=== PATIENT | female | born 1995 | race Hispanic/Latino ===

== ENCOUNTER 2017-10-06 07:35 | Inpatient (IN) | payer BC ==
[2017-10-06 07:37] VITALS: BMI 28.3
[2017-10-06] MEDS ORDERED: Oxycodone/Acetaminophen 5/325 mg Tab PO STA (07:54)
--- NOTE | 2017-10-06 08:24 | ED PDOC ---
Lower Extremity Pain/Injury Time Seen by Provider: 10/06/17 07:53 Chief Complaint (Nursing): Lower Extremity Problem/Injury History Per: Patient History/Exam Limitations: no limitations Onset/Duration Of Symptoms: Days (1), Gradual Current Symptoms Are (Timing): Still Present Severity: Moderate Legs Front+Back: 1 - pain rads down to ankle Additional History Per: Patient Additional Complaint(s): Pt. complains of "right ankle pain radiating to nieto that started yesterday after pivoting on a wrong way during [employer] training". no n/t/w. brought in by continuous improvement coach, recent plain flight to [place]. - Ankle/Foot Description Of Injury: Twisted Currently Unable To: Bend Or Move - Risk Factors DVT Risk Factors: Pos: None Past Medical History Reviewed: Historical Data, Nursing Documentation, Vital Signs Vital Signs: Last Vital Signs Temp 99.2 F 10/06/17 07:37 Pulse 82 10/06/17 07:37 Resp 18 10/06/17 07:37 BP 146/85 10/06/17 07:37 Pulse Ox 99 10/06/17 07:37 - Family History Family History: States: Unknown Family Hx - Living Arrangements Living Arrangements: With Family - Social History Current smoker - smoking cessation education provided: No - Allergies Allergies/Adverse Reactions: Allergies Allergy/AdvReac Type Severity Reaction Status Date / Time No Known Allergies Allergy Verified 10/06/17 07:44 Review of Systems ROS Statement: Except As Marked, All Systems Reviewed And Found Negative Constitutional: Negative for: Fever, Chills Cardiovascular: Negative for: Chest Pain, Palpitations Respiratory: Negative for: Cough, Shortness of Breath Gastrointestinal: Negative for: Nausea, Vomiting, Abdominal Pain Musculoskeletal: Positive for: Leg Pain (right) Neurological: Negative for: Weakness, Numbness Physical Exam - Reviewed Nursing Documentation Reviewed: Yes Vital Signs Reviewed: Yes - Physical Exam Appears: Positive for: Uncomfortable (tearfull in pain) Head Exam: Positive for: ATRAUMATIC, NORMAL INSPECTION, NORMOCEPHALIC Eye Exam: Positive for: Normal appearance Neck: Positive for: Normal, Painless ROM, Supple Cardiovascular/Chest: Positive for: Regular Rate, Rhythm, Chest Non Tender. Negative for: Edema, Gallop, Murmur, Bradycardia, Tachycardia Respiratory: Positive for: Normal Breath Sounds. Negative for: Decreased Breath Sounds, Accessory Muscle Use, Crackles, Rales, Rhonchi, Stridor, Wheezing , Respiratory Distress Pulses-Dorsalis Pedis (L): 2+ Pulses-Dorsalis Pedis (R): 2+ Pulses-Post. Tibialis (L): 2+ Pulses-Post. Tibialis (R): 2+ Extremity: Positive for: Normal ROM, Calf Tenderness (mild right), Other (no signs of compartment syncrome, foot nvi, pain with rom, tenderness at right lateral nieto). Negative for: Tenderness, Pedal Edema, Capillary Refill, Deformity, Swelling Neurologic/Psych: Positive for: Alert, emergency medical dispatcher II-XII, Oriented. Negative for: Motor/Sensory Deficits - Laboratory Results Result Diagrams: 10/06/17 10:27 10/06/17 10:27 - ECG O2 Sat by Pulse Oximetry: 99 Pulse Ox Interpretation: Normal - Progress ED Course And Treament: us neg for dvt, pt still has pain mild paresthesias to right leg mild tenderness to left lateral compartment. contacted dr tirado for possible compartment syncrom though rare. tib fib xray 2 views no fx or dislocation right ankle xray 3 views no fx or dislocation mild sts. Re-evaluation Time: 09:30 Condition: Improving,but remains with symptoms Medical Decision Making Medical Decision Making: ed with eugene and asked podiatry to eval, per podiatry no signs of compartment syndrome. pt is comfortable now foot nvi. will admit to fp for rhabdo. Disposition - Clinical Impression Clinical Impression: Rhabdomyolysis - Patient ED Disposition Is Patient to be Admitted: No Counseled Patient/Family Regarding: Studies Performed, Diagnosis, Need For Followup - Disposition Disposition Time: 12:00 Condition: STABLE Forms: Smartpay (Pashto) - Pt Status Changed To: Hospital Disposition Of: Inpatient - Admit Certification Admit to Inpatient:: After my assessment, the patient will require hospitalization for at least two midnights. This is because of the severity of symptoms shown, intensity of services needed, and/or the medical risk in this patient being treated as an outpatient. - POA Present On Arrival: None
--- NOTE | 2017-10-06 09:06 | US ---
PROCEDURE: Right lower extremity venous duplex Doppler. HISTORY: doppler COMPARISON: None available. TECHNIQUE: Common femoral, superficial femoral, popliteal and posterior tibial veins were evaluated. Flow was assessed with color Doppler, compressibility, assessment of phasic flow and augmentation response. FINDINGS: COMMON FEMORAL VEIN: Unremarkable. SUPERFICIAL FEMORAL VEIN: Unremarkable. POPLITEAL VEIN: Unremarkable. POSTERIOR TIBIAL VEIN: Unremarkable. OTHER FINDINGS: None. IMPRESSION: No evidence of deep venous thrombosis in the right lower extremity.
[2017-10-06 10:37] LABS: BASO % 0.3 % (0.0-2.0); EOS % 0.4 % (0.0-4.0); HEMOGLOBIN 12.4 g/dL (12.0-16.0); LYMPH % 16.8 % (20.0-40.0); MEAN CELL VOLUME 89.3 fl (81.0-99.0); MEAN CORPUSCULAR HEMOGLOBIN 30.6 pg (27.0-31.0); MEAN CORPUSCULAR HGB CONC 34.3 g/dL (33.0-37.0); MEAN PLATELET VOLUME 8.7 fl (7.2-11.7); MONO # 0.7 K/uL (0.0-0.8); MONO % 6.1 % (0.0-10.0); NEUT # 9.2 K/uL (1.8-7.0); NEUT % 76.4 % (50.0-75.0); NRBC % 0.1 % (0.0-0.0); RBC 4.04 Mil/uL (3.80-5.20); RED CELL DISTRIBUTION WIDTH 13.4 % (11.5-14.5); WHITE BLOOD COUNT 12.1 K/uL (4.8-10.8)
--- NOTE | 2017-10-06 10:38 | RAD ---
PROCEDURE: Right Ankle Radiographs. HISTORY: Posttraumatic pain COMPARISON: None FINDINGS: BONES: Normal. No fracture. JOINTS: Normal. No osteoarthritis. Ankle mortise maintained. Talar dome intact SOFT TISSUES: Normal. OTHER FINDINGS: None. IMPRESSION: No acute findings related to/accounting for the clinical presentation. Concordant results with the preliminary interpretation rendered by the emergency department physician procedure.
[2017-10-06 11:05] LABS: BLOOD UREA NITROGEN 13 mg/dl (7-17); CALCIUM 9.8 mg/dL (8.4-10.2); GFR AFRICAN-AMERICAN > 60; GFR NON-AFRICAN AMERICAN > 60
[2017-10-06] MEDS ORDERED: Sodium Chloride 0.9% 1,000 ML IV ONE ×2 (11:15→14:36)
--- NOTE | 2017-10-06 12:27 | RAD ---
PROCEDURE: Radiographs of the right tibia and fibula. HISTORY: Trauma COMPARISON: None available. TECHNIQUE: Frontal and lateral views obtained. FINDINGS: BONES: No acute fracture or destructive lesion. JOINT SPACES: Unremarkable. OTHER FINDINGS: None. IMPRESSION: No acute fracture or dislocation.
--- NOTE | 2017-10-06 13:44 | CP.PCM.CON ---
History of Present Illness - History of Present Illness History of Present Illness: Podiatry Consult Note-Dr. Simpson 22 y.o female with no PMH is seen and evaluated in the ED for right lower extremity injury. Patient reports that yesterday she injured her right leg during lacrosse practice. She reports that she pivoted and rolled her ankle in. She states she kept playing and pivoted her ankle again once more. Today, she reports 8/10 pain to the lower right leg. Patient reports that her pain has decreased since medication given in the ED as well as resting the LE. She reports the pain being a combination of pain: sharp with some numbness and tingling at the lower right leg. Patient denies significant pain to the ankle. Her main pain is at the anterior lateral LE. Pain denies pain with calf squeeze. She denies n/v/sob/cp/chills/or d. PMH: none PSH: wisdom tooth removal, ear surgery SH: denies drinking, smoking or illicit drug use MEDS: control ALL: NKDA FH: noncontributory Past Patient History - Past Social History Smoking Status: Never Smoked - PSYCHIATRIC Hx Substance Use: No - SURGICAL HISTORY Hx Surgeries: Yes - ANESTHESIA Hx Anesthesia: Yes Hx Anesthesia Reactions: No Hx Malignant Hyperthermia: No Meds Allergies/Adverse Reactions: Allergies Allergy/AdvReac Type Severity Reaction Status Date / Time No Known Allergies Allergy Verified 10/06/17 07:44 Physical Exam - Constitutional Appears: Well, Non-toxic, No Acute Distress - Extremities Exam Extremities exam: Negative for: calf tenderness Additional comments: Vasc: DP and PT 2/4 bilaterally, CFT < 3 seconds, no edema noted to the LE, temperature gradient WNL, warm to cool Ortho: moderate pain with palpation to the lateral aspect of the lower 1/3 leg, no pain out of palpation to LE during examination to the R LE. Moderate pain with palpation to the peroneals and anterior tibial, mild pain with ATFL and lateral malleolus. Patient unable to dorsiflexion. Patient about to perform eversion MM testing 4/5 with guarding noted to the R. Patient able to wiggle toes. Neuro: gross and protective sensation intact Derm: no open lesions noted, skin color normal, no pallor noted, no ecchymosis noted - Neurological Exam Neurological exam: Alert, Oriented x3 - Psychiatric Exam Psychiatric exam: Normal Affect, Normal Mood Results - Vital Signs Recent Vital Signs: Last Vital Signs Temp 99.2 F 10/06/17 07:37 Pulse 82 10/06/17 07:37 Resp 18 10/06/17 07:37 BP 146/85 10/06/17 07:37 Pulse Ox 99 10/06/17 12:56 - Labs Result Diagrams: 10/06/17 10:27 10/06/17 10:27 Labs: Laboratory Results - last 24 hr 10/06/17 10/06/17 10:27 10:27 WBC 12.1 H RBC 4.04 Hgb 12.4 Hct 36.0 MCV 89.3 MCH 30.6 MCHC 34.3 RDW 13.4 Plt Count 247 MPV 8.7 Neut % (Auto) 76.4 H Lymph % (Auto) 16.8 L [place] % (Auto) 6.1 Eos % (Auto) 0.4 Baso % (Auto) 0.3 Neut # 9.2 H Lymph # 2.0 [place] # 0.7 Eos # 0.0 Baso # 0.0 Sodium 142 Potassium 3.8 Chloride 105 Carbon Dioxide 26 Anion Gap 15 BUN 13 Creatinine 0.9 Est GFR ( Amer) > 60 Est GFR (Non-Af Amer) > 60 Random Glucose 89 Calcium 9.8 Total Creatine Kinase 1203 H Assessment & Plan - Assessment and Plan (Free Text) Assessment: 22 y.o female with no PMH is seen and evaluated in the ED for right lower extremity injury. Plan: Patient examined and evaluated Discussed plan in detail with attending Dr. Simpson Vitals, labs, chart reviewed No suspicion for compartment syndrome at this time Patient right ankle injury consistent with ankle sprain Patient may WBAT in surgical shoe and f/u with Dr. Simpson within 1 week in office upon discharge Patient will need to call for an appointment Thank you for the consult
--- NOTE | 2017-10-06 14:25 | CP.PCM.HP ---
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 Friend present at bedside. Patient reports that she injured her right ankle after "pivoting the wrong way" during lacrosse practice yesterday evening; she continued with practice until she "stepped the wrong way" again and started to experience pain on the outside of the right ankle. Patient was treated by the team dolphin trainer via ice and electrical stimulation. This morning, patient states her right leg began to feel numb, thus was taken to [facility] ED. Currently, patient reports 8/10 pain on the outside of her right nieto and ankle , along with numbness and occasional sensations of pins and needles. No other complaints. Denies nausea, vomiting, fever, chills, dizziness, headache, chest pain, palpitations, abd pain, dysuria. PMHx: unremarkable PSH: none FH: none SH: occasional ETOH, denies tobacco/illicit drug use, student at [employer] Meds: none All: NKDA ED Course VS: 98.0F, IN 82, BP 124/78, RR 16, O2 Sat 100% RA Labs: 12.1>12.4/36.0<247, 142/3.8, 105/26, 13/0.9, glucose 89, CK 1203 RLE venous duplex: Negative for DVT R tib-fib XR: unremarkable R ankle XR: unremarkable Percocet 1 tab PO Toradol 30mg IM NS 1L bolus Present on Admission - Present on Admission Any Indicators Present on Admission: No Review of Systems - Review of Systems All systems: reviewed and no additional remarkable complaints except (as per HPI ) Past Patient History - Past Social History Smoking Status: Never Smoked - PSYCHIATRIC Hx Substance Use: No - SURGICAL HISTORY Hx Surgeries: Yes - ANESTHESIA Hx Anesthesia: Yes Hx Anesthesia Reactions: No Hx Malignant Hyperthermia: No Meds Allergies/Adverse Reactions: Allergies Allergy/AdvReac Type Severity Reaction Status Date / Time No Known Allergies Allergy Verified 10/06/17 07:44 Physical Exam - Constitutional Appears: Well, Non-toxic, No Acute Distress - Head Exam Head Exam: ATRAUMATIC, NORMAL INSPECTION, NORMOCEPHALIC - Eye Exam Eye Exam: EOMI, Normal appearance Pupil Exam: NORMAL ACCOMODATION, PERRL - ENT Exam ENT Exam: Mucous Membranes Moist, Normal Exam - Neck Exam Neck exam: Positive for: Full Rom, Normal Inspection. Negative for: Tenderness - Respiratory Exam Respiratory Exam: Clear to Auscultation Bilateral, NORMAL BREATHING PATTERN. absent: Rales, Rhonchi, Wheezes - Cardiovascular Exam Cardiovascular Exam: REGULAR RHYTHM, RRR, +S1, +S2. absent: Gallop, JVD, Rubs - GI/Abdominal Exam GI & Abdominal Exam: Normal Bowel Sounds, Soft. absent: Tenderness - Extremities Exam Extremities exam: Positive for: joint swelling, normal capillary refill (CFT to right foot digits 1-5 <3 seconds), pedal edema, tenderness, pedal pulses present (Right DP and PT pulses palpable 2/4). Negative for: calf tenderness, full ROM Additional comments: Right DP and PT pulses palpable Pain on palpation right anterior tibia, lateral malleolus, ATFL Muscle strength deferred due to guarding Unable to dorsiflex right ankle joint Paresthesias to right leg lateral compartment and dorsum of right foot - Neurological Exam Neurological exam: Alert, Oriented x3 Additional comments: Light touch sensation diminished to anterior aspect of right leg and dorsum of right foot - Psychiatric Exam Psychiatric exam: Normal Affect, Normal Mood - Skin Skin Exam: Dry, Intact, Normal Color, Warm Results - Vital Signs Recent Vital Signs: Last Vital Signs Temp 99.2 F 10/06/17 07:37 Pulse 82 10/06/17 07:37 Resp 18 10/06/17 07:37 BP 146/85 10/06/17 07:37 Pulse Ox 99 10/06/17 12:56 - Labs Result Diagrams: 10/06/17 10:27 10/06/17 10:27 Labs: Laboratory Results - last 24 hr 10/06/17 10/06/17 10:27 10:27 WBC 12.1 H RBC 4.04 Hgb 12.4 Hct 36.0 MCV 89.3 MCH 30.6 MCHC 34.3 RDW 13.4 Plt Count 247 MPV 8.7 Neut % (Auto) 76.4 H Lymph % (Auto) 16.8 L [place] % (Auto) 6.1 Eos % (Auto) 0.4 Baso % (Auto) 0.3 Neut # 9.2 H Lymph # 2.0 [place] # 0.7 Eos # 0.0 Baso # 0.0 Sodium 142 Potassium 3.8 Chloride 105 Carbon Dioxide 26 Anion Gap 15 BUN 13 Creatinine 0.9 Est GFR ( Amer) > 60 Est GFR (Non-Af Amer) > 60 Random Glucose 89 Calcium 9.8 Total Creatine Kinase 1203 H Assessment & Plan (1) Right leg pain Status: Acute (2) DVT prophylaxis Status: Acute - Assessment and Plan (Free Text) Assessment: 22 year old female unremarkable PMHx presented to ED with right lower extremity pain (1) Right leg pain r/o rhabdomyolysis -Not suspicious of compartment syndrome at this time -RLE venous duplex (10/06/17): Negative for DVT -R tib-fib XR (10/06/17): unremarkable -R ankle XR (10/06/17): unremarkable -CK 1203 @ 10:27 AM - f/u CK @ 16:00 -f/u UA -f/u next day CBC, BMP -NS 1L bolus given in ED, will administer 2nd bolus -IVF NS 200 mls/hr -Pain control: Tylenol 650mg PO, Percocet 1-2 tabs PO -Admit to Med/Surg for observation (2) DVT prophylaxis Lovenox 40mg SC HS
[2017-10-06] MEDS ORDERED: Oxycodone/Acetaminophen 5/325 mg Tab PO PRN (15:19)
[2017-10-06] MEDS: Oxycodone/Acetaminophen 5/325 mg Tab PO PRN ×2 (15:43→20:43)
[2017-10-06] MEDS: Sodium Chloride 0.9% 1,000 ML IV SCH ×2 (17:40→22:55)
[2017-10-06 19:55] LABS: SQUAMOUS EPITHIAL 1 /hpf (0-5); URINE BACTERIA RARE (<OCC); URINE BILIRUBIN NEGATIVE (NEGATIVE); URINE BLOOD NEGATIVE (NEGATIVE); URINE CLARITY CLEAR (Clear); URINE COLOR STRAW (YELLOW); URINE GLUCOSE (UA) NEG (Normal); URINE LEUKOCYTE ESTERASE SMALL Leu/uL (Negative); URINE NITRATE NEGATIVE (NEGATIVE); URINE PROTEIN NEGATIVE (NEGATIVE); URINE UROBILINOGEN 0.2-1.0 mg/dL (0.2-1.0)
[2017-10-06] MEDS ORDERED: Enoxaparin 40 mg Syringe SC SCH (22:00)
[2017-10-07] MEDS: Sodium Chloride 0.9% 1,000 ML IV SCH ×2 (03:39→09:26)
[2017-10-07] MEDS: Oxycodone/Acetaminophen 5/325 mg Tab PO PRN (04:22)
[2017-10-07 07:43] LABS: HEMOGLOBIN 11.6 g/dL (12.0-16.0); MEAN CELL VOLUME 90.3 fl (81.0-99.0); MEAN CORPUSCULAR HEMOGLOBIN 31.2 pg (27.0-31.0); MEAN CORPUSCULAR HGB CONC 34.6 g/dL (33.0-37.0); RBC 3.72 Mil/uL (3.80-5.20); RED CELL DISTRIBUTION WIDTH 13.4 % (11.5-14.5); WHITE BLOOD COUNT 10.5 K/uL (4.8-10.8)
[2017-10-07 08:17] LABS: BLOOD UREA NITROGEN 10 mg/dl (7-17); CALCIUM 8.9 mg/dL (8.4-10.2); GFR AFRICAN-AMERICAN > 60; GFR NON-AFRICAN AMERICAN > 60
[2017-10-07] MEDS ORDERED: Epinephrine /Lidocaine HCL 1:100,000/2% 30 ml INJ ONE (08:45)
[2017-10-07] MEDS ORDERED: Enoxaparin 40 mg Syringe SC SCH (09:00)
[2017-10-07] MEDS ORDERED: Lidocaine 1% Inj (20ml) ONE (09:10)
[2017-10-07] MEDS ORDERED: Lidocaine 1% Inj (20ml) IJ ONE ×2 (09:30→11:30)
[2017-10-07] MEDS ORDERED: Sodium Chloride 0.9% 1,000 ML IV SCH (10:15)
--- NOTE | 2017-10-07 10:50 | CP.PCM.PN ---
Subjective - Date & Time of Evaluation Date of Evaluation: 10/07/17 Time of Evaluation: 07:49 - Subjective Subjective: Family Medicine 22 year old female patient unremarkable PMHx seen and evaluated this AM. Patient endorses continued pain and numbness to her the front and outside of her right lower leg. Pain decreased from yesterday, well-controlled Patient admits to short episode of cramping in her right calf overnight however none currently. Denies nausea, vomiting, fever, chills, headache, dizziness, chest pain, palpitations, abd pain. Objective - Vital Signs/Intake and Output Vital Signs (last 24 hours): Temp Pulse Resp BP Pulse Ox 98.4 F 59 L 20 132/74 100 10/07/17 08:15 10/07/17 08:15 10/07/17 08:15 10/07/17 08:15 10/07/17 08:15 Intake and Output: 10/07/17 10/07/17 06:59 18:59 Intake Total 2760 Balance 2760 - Medications Medications: Current Medications Acetaminophen (Tylenol 325mg Tab) 650 mg PO Q6 PRN PRN Reason: Pain, Mild (1-3) Enoxaparin Sodium (Lovenox) 40 mg SC HS WISAM PRN Reason: Protocol Last Admin: 10/06/17 21:58 Dose: 40 mg Sodium Chloride (Sodium Chloride 0.9%) 1,000 mls @ 200 mls/hr IV .Q5H [facility] Stop: 10/07/17 14:38 Last Admin: 10/07/17 09:26 Dose: 200 mls/hr Sodium Chloride (Sodium Chloride 0.9%) 1,000 mls @ 999 mls/hr IV .Q1H1M [facility] Stop: 10/07/17 12:15 Oxycodone/Acetaminophen (Percocet 5/325 Mg Tab) 1 tab PO Q4 PRN PRN Reason: Pain, moderate (4-7) Stop: 10/09/17 14:27 Last Admin: 10/07/17 04:22 Dose: 1 tab Oxycodone/Acetaminophen (Percocet 5/325 Mg Tab) 2 tab PO Q4 PRN PRN Reason: Pain, severe (8-10) Stop: 10/09/17 15:20 - Labs Labs: 10/07/17 07:20 01/31/18 07:20 - Constitutional Appears: Well, Non-toxic, No Acute Distress - Head Exam Head Exam: ATRAUMATIC, NORMAL INSPECTION, NORMOCEPHALIC - Eye Exam Eye Exam: EOMI, Normal appearance Pupil Exam: NORMAL ACCOMODATION, PERRL - ENT Exam ENT Exam: Mucous Membranes Moist, Normal Exam - Neck Exam Neck Exam: Full ROM, Normal Inspection. absent: Tenderness - Respiratory Exam Respiratory Exam: Clear to Ausculation Bilateral, NORMAL BREATHING PATTERN. absent: Rales, Rhonchi, Wheezes - Cardiovascular Exam Cardiovascular Exam: REGULAR RHYTHM, +S1, +S2 - GI/Abdominal Exam GI & Abdominal Exam: Soft, Normal Bowel Sounds. absent: Tenderness - Extremities Exam Extremities Exam: Pedal Edema, Tenderness. absent: Calf Tenderness, Full ROM Additional comments: Right DP and PT pulses palpable 2/4. CFT <3 seconds to all digits 1-5. Temperature gradient warm to warm from proximal to distal. Paresthesia to right leg lateral compartment and dorsum of right foot. No open lesions noted. No erythema noted. Skin appears well-hydrated. Pain on palpation right anterior tibia, lateral aspect of right lower leg, right ATFL. Unable to dorsiflex right ankle joint. Decrease in eversion/inversion/ plantarflexion. Active digital ROM right foot. - Neurological Exam Neurological Exam: Alert, Awake, Oriented x3 - Psychiatric Exam Psychiatric exam: Anxious - Skin Skin Exam: Dry, Intact, Normal Color, Warm. absent: Erythema, Pallor Assessment and Plan (1) Right leg pain Status: Acute (2) DVT prophylaxis Status: Acute - Assessment and Plan (Free Text) Assessment: 22 year old female unremarkable PMHx admitted for right lower extremity pain with suspected compartment syndrome (1) Compartment Syndrome, right lateral compartment -RLE venous duplex (10/06/17): Negative for DVT -R tib-fib XR (10/06/17): unremarkable -R ankle XR (10/06/17): unremarkable -CK (10/06/17): 1203 @ 10:27 AM, 1304 @ 15:50 - CK (10/07/17) 2985 @ 07:20 -UA (10/06/17) mildly increased WBC -NS 1L bolus given today x2 -IVF NS 200 mls/hr -Pain control: Tylenol 650mg PO, Percocet 1-2 tabs PO -Continued paresthesias to RLE, likely right foot drop -[place] earnestine catheter utilized to confirm suspicion of compartment syndrome ( see procedure note) -Lateral compartment readings: 121mmHg, 131mmHg -Anterior compartment readings: 39mmHg, 40mmHg -STAT MRI ordered, f/u report -Podiatry on-call attending notified -Discussed with Dr. Hightower -Podiatry attending, Dr. Raymundo notified -Patient scheduled for OR today with Dr. Raymundo for fasciotomy right leg; NPO placed -Patient medically optimized for proposed surgical procedure (2) DVT prophylaxis Lovenox 40mg SC HS - last given 10/06 @ 21:58; held today for emergent surgical procedure, podiatry aware
--- NOTE | 2017-10-07 11:24 | CP.PCM.PN ---
Objective - Vital Signs/Intake and Output Vital Signs (last 24 hours): Temp Pulse Resp BP Pulse Ox 98.4 F 59 L 20 132/74 100 10/07/17 08:15 10/07/17 08:15 10/07/17 08:15 10/07/17 08:15 10/07/17 08:15 Intake and Output: 10/07/17 10/07/17 06:59 18:59 Intake Total 2760 Balance 2760 - Medications Medications: Current Medications Acetaminophen (Tylenol 325mg Tab) 650 mg PO Q6 PRN PRN Reason: Pain, Mild (1-3) Enoxaparin Sodium (Lovenox) 40 mg SC HS WISAM PRN Reason: Protocol Last Admin: 10/06/17 21:58 Dose: 40 mg Sodium Chloride (Sodium Chloride 0.9%) 1,000 mls @ 200 mls/hr IV .Q5H [facility] Stop: 10/07/17 14:38 Last Admin: 10/07/17 09:26 Dose: 200 mls/hr Sodium Chloride (Sodium Chloride 0.9%) 1,000 mls @ 999 mls/hr IV .Q1H1M [facility] Stop: 10/07/17 12:15 Oxycodone/Acetaminophen (Percocet 5/325 Mg Tab) 1 tab PO Q4 PRN PRN Reason: Pain, moderate (4-7) Stop: 10/09/17 14:27 Last Admin: 10/07/17 04:22 Dose: 1 tab Oxycodone/Acetaminophen (Percocet 5/325 Mg Tab) 2 tab PO Q4 PRN PRN Reason: Pain, severe (8-10) Stop: 10/09/17 15:20 - Labs Labs: 10/07/17 07:20 10/07/17 07:20 Assessment and Plan (1) Right leg pain Status: Acute (2) DVT prophylaxis Status: Acute
[2017-10-07] MEDS ORDERED: Bupivacaine 0.5% Inj(30mL) ONE (11:40)
--- NOTE | 2017-10-07 13:12 | MRI ---
MRI right lower extremity tibia and fibula History: Leg pain. Evaluate for compartment syndrome. Comparison: None available. Technique: Multi-echo multiplanar sequences were performed through the right lower extremity without the use of intravenous contrast. Findings: Prominent diffuse increased signal on the STIR weighted sequences with some associated patchy increased T1 signal seen throughout the peroneus longus and brevis muscles within the lateral compartment of the lower extremity with associated increased STIR signal fluid surrounding the deep and superficial fascia. These findings would be concerning for a possible acute compartment syndrome of the lateral compartment. Clinical correlation. In addition there are suspected reactive changes with edema noted in the mid leg with the adjacent flexor hallucis longus and to a lesser extent soleus musculature around the peroneus longus muscle. In addition, there are suspected reactive changes with edema noted more superiorly within the adjacent extensor digitorum longus and tibialis anterior muscles. Visualized osseous structures are grossly preserved. Prominent reticulation and edema seen within the lateral soft tissues. Impression: 1. Prominent diffuse increased signal on the STIR weighted sequences with some associated patchy increased T1 signal seen throughout the peroneus longus and brevis muscles within the lateral compartment of the lower extremity with associated increased STIR signal fluid surrounding the deep and superficial fascia. These findings would be concerning for a possible acute compartment syndrome of the lateral compartment. Clinical correlation. 2. In addition there are suspected reactive changes with edema noted in the mid leg with the adjacent flexor hallucis longus and to a lesser extent soleus musculature around the peroneus longus muscle. In addition, there are suspected reactive changes with edema noted more superiorly within the adjacent extensor digitorum longus and tibialis anterior muscles. 3. Prominent reticulation and edema seen within the lateral soft tissues.
[2017-10-07] MEDS ORDERED: Propofol 10 mg/ml Inj (20 ML) ONE (13:20)
[2017-10-07] MEDS ORDERED: Midazolam 2 MG/2 ML VIAL ONE (13:20)
[2017-10-07] MEDS ORDERED: Rocuronium 10 mg/ml (5 ml) ONE (13:20)
[2017-10-07] MEDS ORDERED: Succinylcholine 200 mg/10 ml Inj IV ONE (13:21)
[2017-10-07] MEDS ORDERED: Sodium Chloride 0.9% 1,000 ML IV ONE (13:25)
[2017-10-07] MEDS ORDERED: ceFAZolin 1 GM in Sodium Chloride 0.9% 100 ML IVPB ONE ×2 (13:45→19:33)
[2017-10-07] MEDS ORDERED: Lactated Ringer's 1,000 ML IV ONE ×2 (13:48→14:18)
[2017-10-07] MEDS ORDERED: Thrombin Topical 5,000 Int Units Spray Kit TOP ONE (14:11)
[2017-10-07] MEDS ORDERED: Thrombin Topical 5,000 Int Units Spray Kit ONE (14:11)
[2017-10-07] MEDS ORDERED: Silver Sulfadiazine 1% CREAM (50 gm) ONE (14:15)
[2017-10-07] MEDS ORDERED: Silver Sulfadiazine 1% Cream (20 gm) TOP ONE (14:16)
[2017-10-07] MEDS ORDERED: Cellulose Hemostat 2X3 Sheet TP ONE (14:17)
[2017-10-07] MEDS ORDERED: Lactated Ringer's 1,000 ML IV SCH ×6 (14:30→19:33)
[2017-10-07] MEDS ORDERED: HYDROmorphone 0.5 mg/0.5 ml ISec IVP PRN (14:30)
--- NOTE | 2017-10-07 14:37 | PCM.SURG1 ---
Surgeon's Initial Post Op Note - Surgeon's Notes Surgeon: Dr. Raymundo Drug Abuse Program Coordinator: Dakota Izquierdo PGY3, Jeffery Du PGY3, Carey Ramsey PGY1 Type of Anesthesia: General Endo Anesthesia Administered By: Dr. Cruz Pre-Operative Diagnosis: Right leg compartment syndrome Operative Findings: See operative report. Materials: 3-0 vicryl, thrombin, surgicel Post-Operative Diagnosis: Right leg compartment syndrome Operation Performed: Right leg fasciotomy Specimen/Specimens Removed: Right leg non-viable tissue peroneus longus Estimated Blood Loss: EBL {In ML}: 50 Blood Products Given: N/A Drains Used: No Drains Post-Op Condition: Good Date of Surgery/Procedure: 10/07/17 Time of Surgery/Procedure: 14:38
--- NOTE | 2017-10-07 14:55 | CP.PCM.PCO ---
Physician Communication Note - Physician Communication Note Physician Communication Note: Aracelis Hernandez Addendum Addendum: 10/07/17 14:07 Late Entry from bedside exam at approximately 0800. S: Pt seen and examined at bedside. Complaint of mild pain that was "much better " but unable to dorsiflex foot on examination. O: AVSS GEN- AA&O x3, NAD PULM- CTAB CVS- S1S2, no murmurs noted ABD- soft/NTND MSK- RLE: Pt able to invert, limited eversion, no dorsiflexion, plantar flexion intact, cap refill intact, palpable PT/DP pulses, numbness across superficial peroneal distribution, passive dorsiflexion pt unable to maintain A/P: 22F w/ traumatic RLE injury during [place] with development overnight of complete foot drop and superficial peroneal distribution numbness, suspect compartment syndrome. - Podiatry notified - Pt informed of concerns and asked not to finish breakfast tray. - d/w attending Dr Hightower - Consent for [place] compartment pressures signed at 0910
--- NOTE | 2017-10-07 16:51 | CP.PCM.PCO ---
Assessment/Plan - Assessment and Plan (Free Text) Assessment: Called by educational institution president at 8:35 am today. I agree with checking pressures and ordering an MRI Hx confirmed from patient. " I couldn't sleep all night due to pain " pt had limped to the development trainer's office and the development trainer had called 911 Spoke with patient's parents and development trainer with patient's permission Pressures checked. I was in the room during the signing of the consent and when podiatry checked pressures. Pt made aware of results and possible upcoming surgery I spoke with Dr. De La Cruz at 10:17am after he had spoken to the podiatry resident. He asked for a second opinion from orthopedic surgery Dr. Raymundo was notified and he agreed to evaluate the patient Urine obtained to check for urine which was later negative per nurse Pt sent for MRI and then to the OR.
[2017-10-07 16:59] LABS: HEMOGLOBIN 10.9 g/dL (12.0-16.0); MEAN CELL VOLUME 91.2 fl (81.0-99.0); MEAN CORPUSCULAR HEMOGLOBIN 30.3 pg (27.0-31.0); MEAN CORPUSCULAR HGB CONC 33.2 g/dL (33.0-37.0); RBC 3.6 Mil/uL (3.80-5.20); RED CELL DISTRIBUTION WIDTH 13.3 % (11.5-14.5); WHITE BLOOD COUNT 11.8 K/uL (4.8-10.8)
[2017-10-07 17:23] LABS: BLOOD UREA NITROGEN 9 mg/dl (7-17); CALCIUM 8.9 mg/dL (8.4-10.2); GFR AFRICAN-AMERICAN > 60; GFR NON-AFRICAN AMERICAN > 60
[2017-10-07] MEDS ORDERED: Sodium Bicarbonate 8.4% 50 MEQ in Dextrose 5%/0.45% NS 1,000 ML IV SCH (18:15)
--- NOTE | 2017-10-07 18:25 | CP.PCM.PN ---
Subjective - Date & Time of Evaluation Date of Evaluation: 10/07/17 Time of Evaluation: 08:00 - Subjective Subjective: Podiatry Progress Note -Evaluation at 8am on 10/07/17- Dr. Le 22 y.o female seen at bedside for right lower extremity injury. Patient is laying up in bed comfortably and AA0x3. Patient reports she has the same pain to the right lower leg as yesterday and numbness to the top of her foot. Patient reports that she is still unable to move her ankle up. She denies n/v/ sob/cp/chills/d or f. Reports no problem with voiding. Objective - Vital Signs/Intake and Output Vital Signs (last 24 hours): Temp Pulse Resp BP Pulse Ox 98.9 F 79 18 130/72 100 10/07/17 15:45 10/07/17 15:45 10/07/17 15:45 10/07/17 15:45 10/07/17 15:45 Intake and Output: 10/07/17 10/07/17 06:59 18:59 Intake Total 2760 2300 Balance 2760 2300 - Medications Medications: Current Medications Acetaminophen (Tylenol 325mg Tab) 650 mg PO Q6 PRN PRN Reason: Pain, Mild (1-3) Sodium Bicarbonate 50 meq/ (Dextrose/Sodium Chloride) 1,050 mls @ 250 mls/hr IV .Q4H12M [facility] Stop: 10/10/17 18:16 Lactated Ringer's (Lactated Ringer's) 1,000 mls @ 999 mls/hr IV .Q1H1M [facility] Stop: 10/07/17 20:30 Lactated Ringer's (Lactated Ringer's) 1,000 mls @ 250 mls/hr IV .Q4H [facility] Oxycodone/Acetaminophen (Percocet 5/325 Mg Tab) 1 tab PO Q4 PRN PRN Reason: Pain, moderate (4-7) Stop: 10/09/17 14:27 Last Admin: 10/07/17 04:22 Dose: 1 tab Oxycodone/Acetaminophen (Percocet 5/325 Mg Tab) 2 tab PO Q4 PRN PRN Reason: Pain, severe (8-10) Stop: 10/09/17 15:20 - Labs Labs: 10/07/17 16:41 10/07/17 16:41 - Constitutional Appears: Well, Non-toxic - Extremities Exam Extremities Exam: absent: Calf Tenderness Additional comments: Vasc: DP and PT 2/4 bilaterally, capillary refill time < 3 seconds to the digits , temperature gradient WNL, edema noted to the dorsum of the foot, warm to cool from proximal knees to distal toes Ortho: moderate pain with palpation to the lateral aspect of the lower 1/3 leg, moderate pain with palpation to the peroneals and anterior tibialis, peroneals > anterior tibialis, mild pain with ATFL and lateral malleolus. Patient unable to dorsiflexion ankle. Able to perform ankle plantarflexion ROM. Patient able to wiggle toes. Neuro: gross and protective sensation intact Derm: no open lesions noted, skin color normal, no pallor noted, no ecchymosis noted - Neurological Exam Neurological Exam: Alert, Awake, Oriented x3 - Psychiatric Exam Psychiatric exam: Normal Affect, Normal Mood Assessment and Plan - Assessment and Plan (Free Text) Assessment: 22 y.o female seen at bedside for right lower extremity injury; r/o compartment syndrome. Plan: 10/07/17 (approximately 08:10 AM) Patient examined and evaluated Spoke to family medicine and is suspicious of compartment syndrome Discussed the plan with attending Dr. Le -To perform Wick Catheter to r/o compartment syndrome -To order MRI 10/07/17 (approximately 9:10 AM) -Wick Catheter performed at bedside. -R leg Lateral compartment: Distal readinmmHg Proximal readinmmHg -R leg Anterior compartment readings: 39mmHg, 40mmHg -Blood pressure taken: 139/85 -Positive compartment syndrome for lateral compartment of right leg 10/07/17 (approximately 10:00 AM) -Spoke to Dr. Le. Second opinion requested for further evaluation; consulted attending Dr. Raymundo -Dr. Le agreeable to transfer of care to Dr. Raymundo
[2017-10-07] MEDS ORDERED: Oxycodone/Acetaminophen 5/325 mg Tab PO PRN ×3 (18:29→19:33)
--- NOTE | 2017-10-07 18:33 | CP.CCUPN ---
CCU Subjective - Physician Review Subjective (Free Text): Events reviewed: Discussed with Family Medicine Attending: Patient being transferred to ICU for aggressive IVF hydration; monitoring I/Os and frequent Neurovascular checks of RLE. Bicarbonate added to IVFs and crystalloid fluid components changed from LR to Dextrose/Saline for now; all to promote and maintain urine flow. If needed, and if CK increases further, would not hesitate to increase fluids to 500ml/hr, given she has no cardiopulm issues. BUN/Cr levels presently normal but CK levels have been increasing. Serial CPKs already ordered. Aware post-op Ancef dosing has already been ordered. Other antibiotic coverage as per surgeons and medical team. Consider Orthopedic eval as well.
[2017-10-07] MEDS: Sodium Bicarbonate 8.4% 50 MEQ in Dextrose 5%/0.45% NS 1,000 ML IV SCH (20:00)
[2017-10-07] MEDS ORDERED: ceFAZolin 1 GM in Sodium Chloride 0.9% 100 ML IVPB SCH (21:00)
[2017-10-07] MEDS: ceFAZolin 1 GM in Sodium Chloride 0.9% 100 ML IVPB SCH (21:10)
--- NOTE | 2017-10-08 00:14 | CP.PCM.PN ---
Subjective - Date & Time of Evaluation Date of Evaluation: 10/07/17 Time of Evaluation: 11:30 - Subjective Subjective: Podiatry Progress Note- Dr. Raymundo 22 y.o female seen at bedside sitting comfortably in bed, in NAD, and AA0x3. Patient reports she has the same pain to the right lower leg as yesterday and numbness to the top of her foot. Patient reports that she is unable to move her ankle up. She denies nausea, fever, vomiting, shortness of breath, diarrhea , chills, or chest pains. Objective - Vital Signs/Intake and Output Vital Signs (last 24 hours): Temp Pulse Resp BP Pulse Ox 99.2 F 90 17 133/79 100 10/07/17 19:15 10/07/17 19:15 10/07/17 19:15 10/07/17 19:15 10/07/17 19:15 Intake and Output: 10/07/17 10/08/17 18:59 06:59 Intake Total 2300 100 Balance 2300 100 - Medications Medications: Current Medications Acetaminophen (Tylenol 325mg Tab) 650 mg PO Q6 PRN PRN Reason: Pain, Mild (1-3) Hydromorphone HCl (Dilaudid) 1 mg IVP Q4 PRN PRN Reason: Pain, severe (8-10) Last Admin: 10/07/17 21:08 Dose: 1 mg Sodium Bicarbonate 50 meq/ (Dextrose/Sodium Chloride) 1,050 mls @ 250 mls/hr IV .Q4H12M [facility] Stop: 10/10/17 18:16 Lactated Ringer's (Lactated Ringer's) 1,000 mls @ 250 mls/hr IV .Q4H [facility] Cefazolin Sodium 1 gm/ Sodium (Chloride) 100 mls @ 100 mls/hr IVPB Q12 [facility] PRN Reason: Protocol Last Admin: 10/07/17 21:10 Dose: 100 mls/hr Oxycodone/Acetaminophen (Percocet 5/325 Mg Tab) 2 tab PO Q4 PRN PRN Reason: Pain, severe (8-10) Stop: 10/09/17 15:20 Oxycodone/Acetaminophen (Percocet 5/325 Mg Tab) 2 tab PO Q4 PRN PRN Reason: Pain, moderate (4-7) Stop: 10/09/17 14:27 - Labs Labs: 10/07/17 16:41 10/07/17 16:41 - Constitutional Appears: Well, Non-toxic, No Acute Distress - Extremities Exam Additional comments: Vasc: DP and PT 2/4 bilaterally, capillary refill time < 3 seconds to the digits , temperature gradient WNL, edema noted to the dorsum of the foot, warm to cool from proximal knees to distal toes Ortho: moderate pain with palpation to the lateral aspect of the lower 1/3 leg, moderate pain with palpation to the peroneals and anterior tibialis, peroneals > anterior tibialis, mild pain with ATFL and lateral malleolus. Patient unable to dorsiflexion ankle. Able to perform ankle plantarflexion ROM. Patient able to wiggle toes. Neuro: gross and protective sensation intact Derm: no open lesions noted, skin color normal, no pallor noted, no ecchymosis noted - Neurological Exam Neurological Exam: Alert, Awake, Oriented x3 - Psychiatric Exam Psychiatric exam: Normal Affect, Normal Mood Assessment and Plan - Assessment and Plan (Free Text) Assessment: 22 y.o female with no PMH seen at bedside for right lower extremity injury; r/o right lower extremity compartment syndrome. Plan: -Patient examined by Dr. Raymundo at bedside -Performed Wick Catheter for compartment syndrome -Positive for lateral compartment syndrome -Consented for emergent surgical intervention-right leg fasciotomy -OR notified for an add on for compartment syndrome fasciotomy right leg. -Patient was sent to OR for right leg fasciotomy secondary to right leg compartment syndrome
[2017-10-08] MEDS: Sodium Bicarbonate 8.4% 50 MEQ in Dextrose 5%/0.45% NS 1,000 ML IV SCH ×6 (01:49→23:17)
[2017-10-08 05:13] LABS: HEMOGLOBIN 10.6 g/dL (12.0-16.0); MEAN CELL VOLUME 90.6 fl (81.0-99.0); MEAN CORPUSCULAR HEMOGLOBIN 30.2 pg (27.0-31.0); MEAN CORPUSCULAR HGB CONC 33.3 g/dL (33.0-37.0); RBC 3.49 Mil/uL (3.80-5.20); RED CELL DISTRIBUTION WIDTH 13.2 % (11.5-14.5); WHITE BLOOD COUNT 9.3 K/uL (4.8-10.8)
[2017-10-08 05:25] LABS: BLOOD UREA NITROGEN 6 mg/dl (7-17); CALCIUM 8.3 mg/dL (8.4-10.2); GFR AFRICAN-AMERICAN > 60; GFR NON-AFRICAN AMERICAN > 60
--- NOTE | 2017-10-08 09:38 | CP.PCM.PN ---
Subjective - Date & Time of Evaluation Date of Evaluation: 10/08/17 Time of Evaluation: 06:45 - Subjective Subjective: Tamar Oakley is a pleasant 22 yo F with compartment syndrome of R lower extremity, s/p compartment fasciotomy was seen and examined at beside this AM. She was resting comfortably and reports improvement in pain management as well as with R foot movement and sensation. She denies significant overnight events. Objective - Vital Signs/Intake and Output Vital Signs (last 24 hours): Temp Pulse Resp BP Pulse Ox 98.5 F 66 15 123/63 98 10/08/17 08:00 10/08/17 08:00 10/08/17 08:00 10/08/17 08:00 10/08/17 08:00 Intake and Output: 10/08/17 10/08/17 06:59 18:59 Intake Total 3150 740 Output Total 3000 Balance 150 740 - Medications Medications: Current Medications Acetaminophen (Tylenol 325mg Tab) 650 mg PO Q6 PRN PRN Reason: Pain, Mild (1-3) Hydromorphone HCl (Dilaudid) 1 mg IVP Q4 PRN PRN Reason: Pain, severe (8-10) Last Admin: 10/08/17 05:38 Dose: 1 mg Sodium Bicarbonate 50 meq/ (Dextrose/Sodium Chloride) 1,050 mls @ 250 mls/hr IV .Q4H12M [facility] Stop: 10/10/17 18:16 Last Admin: 10/08/17 05:39 Dose: 250 mls/hr Lactated Ringer's (Lactated Ringer's) 1,000 mls @ 250 mls/hr IV .Q4H [facility] Cefazolin Sodium 1 gm/ Sodium (Chloride) 100 mls @ 100 mls/hr IVPB Q12 [facility] PRN Reason: Protocol Last Admin: 10/07/17 21:10 Dose: 100 mls/hr Oxycodone/Acetaminophen (Percocet 5/325 Mg Tab) 2 tab PO Q4 PRN PRN Reason: Pain, severe (8-10) Stop: 10/09/17 15:20 Oxycodone/Acetaminophen (Percocet 5/325 Mg Tab) 2 tab PO Q4 PRN PRN Reason: Pain, moderate (4-7) Stop: 10/09/17 14:27 - Labs Labs: 10/08/17 04:30 02/01/18 04:30 - Eye Exam Eye Exam: EOMI, Normal appearance - Neck Exam Neck Exam: Full ROM - Respiratory Exam Respiratory Exam: Clear to Ausculation Bilateral, NORMAL BREATHING PATTERN - Cardiovascular Exam Cardiovascular Exam: REGULAR RHYTHM, +S1, +S2 - GI/Abdominal Exam GI & Abdominal Exam: Soft, Normal Bowel Sounds - Extremities Exam Extremities Exam: Normal Capillary Refill, Tenderness. absent: Full ROM Additional comments: R lower extremity currently wrapped in bandage 2/2 compartment fasciotomy. Improved foot inversion and flexion of metatarsals, slight improvement in: eversion, dorsiflexion. Strength approximately 3/5. Capillary refill < 2 seconds. Dorsalis pedis pulses palpable 2+. Sensation intact throughout: plantar , dorsum, lateral, medial, each metatarsal. - Neurological Exam Neurological Exam: Alert, Awake, CN II-XII Intact, Oriented x3. absent: Normal Gait Additional comments: Non amulatory 2/2 compartment fasciotomy. - Psychiatric Exam Psychiatric exam: Normal Affect, Normal Mood - Skin Skin Exam: Dry, Normal Color, Warm Assessment and Plan - Assessment and Plan (Free Text) Plan: 22 yo F hx of compartment syndrome of R lower extremity, s/p compartment fasciotomy 1) Compartment syndrome, R lateral compartment: - Compartment fasciotomy on 10/07/2017; Dr. Raymundo Podiatry; pending further evaluation. - MRI on 10/07/2017: Please refer to extensive report - XR: unremarkable - CK 10/08/2017: @04:00 5012; 10/07/2017: @19:59 5660; @07:59 2985 - UA: 10/08/2017: no wbc - IVF: Sodium Bicarbonate - Pain management: Dilaudid 1 mg IVP q4; Acetaminophen 325 mg q6 - ICU management with Dr. Haas: neurovascular checks q2 - Neurology consulted - ID consulted - PMR consultation recommended 2) DVT prophylaxis - Currently held
[2017-10-08] MEDS: ceFAZolin 1 GM in Sodium Chloride 0.9% 100 ML IVPB SCH ×2 (09:57→20:14)
[2017-10-08 10:05] LABS: SQUAMOUS EPITHIAL < 1 /hpf (0-5); URINE BILIRUBIN NEGATIVE (NEGATIVE); URINE BLOOD NEGATIVE (NEGATIVE); URINE CLARITY CLEAR (Clear); URINE COLOR YELLOW (YELLOW); URINE GLUCOSE (UA) NEG (Normal); URINE LEUKOCYTE ESTERASE NEG Leu/uL (Negative); URINE NITRATE NEGATIVE (NEGATIVE); URINE PROTEIN NEGATIVE (NEGATIVE)
--- NOTE | 2017-10-08 10:44 | CP.CCUPN ---
<Shama Jimenez - Last Filed: 10/08/17 16:06> CCU Subjective - Physician Review Events Since Last Encounter (Free Text): 10/08/17 10:44 No events reported Subjective (Free Text): 10/08/17 10:41 Patient seen and examined with Dinner Cook. Patient awake, alert, and oriented X 3. Patient reports that pain is well controlled and now is 4/10. She states that she has had numbness sensation in her right foot since yesterday after surgery,but feels the same, is not getting worse. Denies chest poain, SOB, N/V, abdominal pain or other complains at this evaluation. Critical Care Time Spent (in minutes): 30 CCU Objective - Vital Signs / Intake & Output Vital Signs (Last 4 hours): Vital Signs Temp Pulse Resp BP Pulse Ox 10/08/17 08:00 98.5 F 66 15 123/63 98 Intake and Output (Last 8hrs): Intake & Output 10/07/17 10/08/17 10/08/17 22:59 06:59 14:59 Intake Total 750 2500 740 Output Total 800 2200 Balance -50 300 740 Weight 170 lb Intake: IV 650 2500 500 Intake, Piggyback 100 Oral 240 Output: Urine 800 2200 Urethral (Duran) 200 2200 Urine, Voided 600 - Physical Exam Extroacular Muscles: Positive for: EOMI Conjunctiva: Positive for: Normal Respiratory/Chest: Positive for: Clear to Auscultation, Good Air Exchange. Negative for: Respiratory Distress, Accessory Muscle Use, Wheezes, Decreased Breath Sounds, Rales, Rhonchi Cardiovascular: Positive for: Regular Rate and Rhythm, Normal S1, S2, Peripheal Pulses Present, Other (slightly decreased right DP pulse) Abdomen: Positive for: Normal Bowel Sounds. Negative for: Tenderness, Distention, Guarding Lower Extremity: Positive for: Other (right leg wrapped by elastic bandage). Negative for: CALF TENDERNESS (in left leg) Skin: Positive for: Warm, Normal Color Psychiatric: Positive for: Alert, Oriented x 3 - Medications Active Medications: Active Medications Generic Name Dose Route Start Last Admin Trade Name Freq PRN Reason Stop Dose Admin Acetaminophen 650 mg 10/07/17 19:33 Tylenol 325mg Tab PO Q6 PRN Pain, Mild (1-3) Hydromorphone HCl 1 mg 10/07/17 19:33 10/08/17 05:38 Dilaudid IVP 1 mg Q4 PRN Administration Pain, severe (8-10) Sodium Bicarbonate 50 meq/ 1,050 mls @ 250 mls/hr 10/07/17 19:33 10/08/17 05: 39 Dextrose/Sodium Chloride IV 10/10/17 18:16 250 mls/hr .Q4H12M [facility] Administration Cefazolin Sodium 1 gm/ Sodium 100 mls @ 100 mls/hr 10/07/17 21:00 10/08/17 09 :57 Chloride IVPB 100 mls/hr Q12 [facility] Administration Protocol Oxycodone/Acetaminophen 2 tab 10/07/17 19:33 Percocet 5/325 Mg Tab PO 10/09/17 15:20 Q4 PRN Pain, severe (8-10) Oxycodone/Acetaminophen 2 tab 10/07/17 19:33 Percocet 5/325 Mg Tab PO 10/09/17 14:27 Q4 PRN Pain, moderate (4-7) - Patient Studies Lab Studies: Lab Studies 10/08/17 10/08/17 10/08/17 Range/Units 09:49 04:30 04:30 WBC 9.3 (4.8-10.8) K/uL RBC 3.49 L (3.80-5.20) Mil/uL Hgb 10.6 L (12.0-16.0) g/dL Hct 31.7 L (34.0-47.0) % MCV 90.6 (81.0-99.0) fl MCH 30.2 (27.0-31.0) pg MCHC 33.3 (33.0-37.0) g/dL RDW 13.2 (11.5-14.5) % Plt Count 203 (130-400) K/uL Sodium 139 (132-148) mmol/l Potassium 3.5 L (3.6-5.0) MMOL/L Chloride 100 (98-107) mmol/L Carbon Dioxide 31 H (22-30) mmol/L Anion Gap 12 (10-20) BUN 6 L (7-17) mg/dl Creatinine 1.0 (0.7-1.2) mg/dl Est GFR ( Amer) > 60 Est GFR (Non-Af Amer) > 60 Random Glucose 148 H (65-105) mg/dL Calcium 8.3 L (8.4-10.2) mg/dL Total Creatine Kinase 5012 H (30-135) U/L Urine Color Yellow (YELLOW) Urine Clarity Clear (Clear) Urine pH 9.0 (5.0-8.0) Ur Specific Priddy 1.010 (1.003-1.030) Urine Protein Negative (NEGATIVE) mg/dL Urine Glucose (UA) Neg (Normal) mg/dL Urine Ketones Negative (NEGATIVE) mg/dL Urine Blood Negative (NEGATIVE) Urine Nitrate Negative (NEGATIVE) Urine Bilirubin Negative (NEGATIVE) Urine Urobilinogen 2.0 H (0.2-1.0) mg/dL Ur Leukocyte Esterase Neg (Negative) Ken/uL Urine RBC (Auto) < 1 (0-3) /hpf Urine Microscopic WBC 1 (0-5) /hpf Ur Squamous Epith Cells < 1 (0-5) /hpf Blood Type Blood Type Confirm Antibody Screen BBK History Checked 10/07/17 10/07/17 10/07/17 Range/Units 16:41 16:41 13:25 WBC 11.8 H (4.8-10.8) K/uL RBC 3.60 L (3.80-5.20) Mil/uL Hgb 10.9 L (12.0-16.0) g/dL Hct 32.8 L (34.0-47.0) % MCV 91.2 (81.0-99.0) fl MCH 30.3 (27.0-31.0) pg MCHC 33.2 (33.0-37.0) g/dL RDW 13.3 (11.5-14.5) % Plt Count 195 (130-400) K/uL Sodium 140 (132-148) mmol/l Potassium 3.9 (3.6-5.0) MMOL/L Chloride 104 (98-107) mmol/L Carbon Dioxide 26 (22-30) mmol/L Anion Gap 14 (10-20) BUN 9 (7-17) mg/dl Creatinine 0.9 (0.7-1.2) mg/dl Est GFR ( Amer) > 60 Est GFR (Non-Af Amer) > 60 Random Glucose 88 (65-105) mg/dL Calcium 8.9 (8.4-10.2) mg/dL Total Creatine Kinase 5660 H (30-135) U/L Urine Color (YELLOW) Urine Clarity (Clear) Urine pH (5.0-8.0) Ur Specific Priddy (1.003-1.030) Urine Protein (NEGATIVE) mg/dL Urine Glucose (UA) (Normal) mg/dL Urine Ketones (NEGATIVE) mg/dL Urine Blood (NEGATIVE) Urine Nitrate (NEGATIVE) Urine Bilirubin (NEGATIVE) Urine Urobilinogen (0.2-1.0) mg/dL Ur Leukocyte Esterase (Negative) Ken/uL Urine RBC (Auto) (0-3) /hpf Urine Microscopic WBC (0-5) /hpf Ur Squamous Epith Cells (0-5) /hpf Blood Type Blood Type Confirm O POSITIVE Antibody Screen BBK History Checked 10/07/17 Range/Units 12:45 WBC (4.8-10.8) K/uL RBC (3.80-5.20) Mil/uL Hgb (12.0-16.0) g/dL Hct (34.0-47.0) % MCV (81.0-99.0) fl MCH (27.0-31.0) pg MCHC (33.0-37.0) g/dL RDW (11.5-14.5) % Plt Count (130-400) K/uL Sodium (132-148) mmol/l Potassium (3.6-5.0) MMOL/L Chloride (98-107) mmol/L Carbon Dioxide (22-30) mmol/L Anion Gap (10-20) BUN (7-17) mg/dl Creatinine (0.7-1.2) mg/dl Est GFR ( Amer) Est GFR (Non-Af Amer) Random Glucose (65-105) mg/dL Calcium (8.4-10.2) mg/dL Total Creatine Kinase (30-135) U/L Urine Color (YELLOW) Urine Clarity (Clear) Urine pH (5.0-8.0) Ur Specific Priddy (1.003-1.030) Urine Protein (NEGATIVE) mg/dL Urine Glucose (UA) (Normal) mg/dL Urine Ketones (NEGATIVE) mg/dL Urine Blood (NEGATIVE) Urine Nitrate (NEGATIVE) Urine Bilirubin (NEGATIVE) Urine Urobilinogen (0.2-1.0) mg/dL Ur Leukocyte Esterase (Negative) Ken/uL Urine RBC (Auto) (0-3) /hpf Urine Microscopic WBC (0-5) /hpf Ur Squamous Epith Cells (0-5) /hpf Blood Type O POSITIVE Blood Type Confirm Antibody Screen Negative BBK History Checked No verified bt Laboratory Results - last 24 hr 10/07/17 10/07/17 10/07/17 12:45 13:25 16:41 WBC 11.8 H RBC 3.60 L Hgb 10.9 L Hct 32.8 L MCV 91.2 MCH 30.3 MCHC 33.2 RDW 13.3 Plt Count 195 Sodium Potassium Chloride Carbon Dioxide Anion Gap BUN Creatinine Est GFR ( Amer) Est GFR (Non-Af Amer) Random Glucose Calcium Total Creatine Kinase Urine Color Urine Clarity Urine pH Ur Specific Priddy Urine Protein Urine Glucose (UA) Urine Ketones Urine Blood Urine Nitrate Urine Bilirubin Urine Urobilinogen Ur Leukocyte Esterase Urine RBC (Auto) Urine Microscopic WBC Ur Squamous Epith Cells Blood Type O POSITIVE Blood Type Confirm O POSITIVE Antibody Screen Negative BBK History Checked No verified bt 10/07/17 10/08/17 10/08/17 16:41 04:30 04:30 WBC 9.3 RBC 3.49 L Hgb 10.6 L Hct 31.7 L MCV 90.6 MCH 30.2 MCHC 33.3 RDW 13.2 Plt Count 203 Sodium 140 139 Potassium 3.9 3.5 L Chloride 104 100 Carbon Dioxide 26 31 H Anion Gap 14 12 BUN 9 6 L Creatinine 0.9 1.0 Est GFR ( Amer) > 60 > 60 Est GFR (Non-Af Amer) > 60 > 60 Random Glucose 88 148 H Calcium 8.9 8.3 L Total Creatine Kinase 5660 H 5012 H Urine Color Urine Clarity Urine pH Ur Specific Priddy Urine Protein Urine Glucose (UA) Urine Ketones Urine Blood Urine Nitrate Urine Bilirubin Urine Urobilinogen Ur Leukocyte Esterase Urine RBC (Auto) Urine Microscopic WBC Ur Squamous Epith Cells Blood Type Blood Type Confirm Antibody Screen BBK History Checked 10/08/17 09:49 WBC RBC Hgb Hct MCV MCH MCHC RDW Plt Count Sodium Potassium Chloride Carbon Dioxide Anion Gap BUN Creatinine Est GFR ( Amer) Est GFR (Non-Af Amer) Random Glucose Calcium Total Creatine Kinase Urine Color Yellow Urine Clarity Clear Urine pH 9.0 Ur Specific Priddy 1.010 Urine Protein Negative Urine Glucose (UA) Neg Urine Ketones Negative Urine Blood Negative Urine Nitrate Negative Urine Bilirubin Negative Urine Urobilinogen 2.0 H Ur Leukocyte Esterase Neg Urine RBC (Auto) < 1 Urine Microscopic WBC 1 Ur Squamous Epith Cells < 1 Blood Type Blood Type Confirm Antibody Screen BBK History Checked Fingerstick Blood Sugar Results: 85 Review of Systems - Review of Systems All systems: reviewed and no additional remarkable complaints except (subjective ) Critical Care Progress Note - Nutrition Nutrition: Nutrition Category Date Time Status Liquid Diet [DIET] Diets 10/07/17 Dinner Active Assessment/Plan - Assessment and Plan (Free Text) Assessment: 22 y/o F with no significant PMHx, with Right lateral compartment syndrome, s/p fasciotomy and Rhabdomyolysis. Plan: Right lateral compartment syndrome, S/p fasciotomy on POD #1 -pain controlled with Dilaudid and Percocet based on pain scale -Podiatry consulted, appreciated recommendations -Neuro and ID consulted by primary team. Appreciated recommendations -c/w Ancef 1 gm Q12 as per primary team -c/w Neuro monitor Q4 -c/w wound care by podiatry Rhabdomyolysis 2/2 Right lateral compartment syndrome -slow improvement -CPK trending down, today 5012 from 5660 -c/w aggressive IV fluids. D5 1/2 NS with 50 meq sod bicar -Urine alkalinization, urine PH today 9 -preserved renal function, BUN/Cr: 6/1.0 -Noted that Cr is trending up -f/u renal function -f/u CPK -f/u electrolytes DVT prophylaxis -Lovenox 40 mg SC - Date & Time Date: 10/08/17 Time: 07:15 <Mendoza Haas - Last Filed: 10/08/17 22:25> CCU Subjective - Physician Review Subjective (Free Text): Attestation: Patient seen and examined at the bedside with Resident Dr. Juju Jimenez; and I agree with her outline of plans and management documented above as discussed on AM rounds reflecting my review of all applicable clinical data, and participation in the care of the patient throughout the day in ICU; October.
[2017-10-08] MEDS ORDERED: Silver Sulfadiazine 1% CREAM (50 gm) TOP STA (12:27)
--- NOTE | 2017-10-08 12:47 | CP.PCM.CON ---
History of Present Illness - History of Present Illness History of Present Illness: Ms. Oakley is a 22-year-old woman with no significant past medical history, who was playing lacrosse 3 days ago, and had twisted her right leg, felt a sharp pain that was sudden 9/10 and in the lateral aspect of the leg. She then attempted to "walk it off", and it felt slightly better, so she continued to play, but then felt the pain again. She went to the customer trainer, who evaluated the leg and iced it. She was able to walk on it at that time and did not have significant weakness. The next morning, the pain was still severe and she developed some numbness in the foot and it became discolored. She went back to the customer trainer, who told her to immediately go to the ED. In the ED, she was evaluated with ultrasound and X-ray and kept overnight since her CK levels were elevated. The leg continued to swell, so pressures were checked and they were extremely elevated. An MRI confirmed compartment syndrome. Review of Systems - Review of Systems All systems: reviewed and no additional remarkable complaints except Past Patient History - Past Medical History & Family History Past Medical History?: No - Past Social History Smoking Status: Never Smoked - CARDIAC Hx Cardiac Disorders: No - PULMONARY Hx Respiratory Disorders: No - NEUROLOGICAL Hx Neurological Disorder: No - HEENT Hx HEENT Problems: No - RENAL Hx Chronic Kidney Disease: No - ENDOCRINE/METABOLIC Hx Endocrine Disorders: No - HEMATOLOGICAL/ONCOLOGICAL Hx Blood Disorders: No Hx AIDS: No Hx Human Immunodeficiency Virus (HIV): No - INTEGUMENTARY Hx Dermatological Problems: No - MUSCULOSKELETAL/RHEUMATOLOGICAL Hx Falls: No - GENITOURINARY/GYNECOLOGICAL Hx Genitourinary Disorders: No - PSYCHIATRIC Hx Substance Use: No - SURGICAL HISTORY Hx Surgeries: Yes - ANESTHESIA Hx Anesthesia: Yes Hx Anesthesia Reactions: No Hx Malignant Hyperthermia: No Meds Allergies/Adverse Reactions: Allergies Allergy/AdvReac Type Severity Reaction Status Date / Time No Known Allergies Allergy Verified 10/06/17 07:44 - Medications Medications: Current Medications Acetaminophen (Tylenol 325mg Tab) 650 mg PO Q6 PRN PRN Reason: Pain, Mild (1-3) Enoxaparin Sodium (Lovenox) 40 mg SC DAILY WISAM PRN Reason: Protocol Hydromorphone HCl (Dilaudid) 1 mg IVP Q4 PRN PRN Reason: Pain, severe (8-10) Last Admin: 10/08/17 11:18 Dose: 1 mg Sodium Bicarbonate 50 meq/ (Dextrose/Sodium Chloride) 1,050 mls @ 250 mls/hr IV .Q4H12M WISAM Stop: 10/10/17 18:16 Last Admin: 10/08/17 11:47 Dose: 250 mls/hr Cefazolin Sodium 1 gm/ Sodium (Chloride) 100 mls @ 100 mls/hr IVPB Q12 WISAM PRN Reason: Protocol Last Admin: 10/08/17 09:57 Dose: 100 mls/hr Oxycodone/Acetaminophen (Percocet 5/325 Mg Tab) 2 tab PO Q4 PRN PRN Reason: Pain, severe (8-10) Stop: 10/09/17 15:20 Oxycodone/Acetaminophen (Percocet 5/325 Mg Tab) 2 tab PO Q4 PRN PRN Reason: Pain, moderate (4-7) Stop: 10/09/17 14:27 Silver Sulfadiazine (Silvadene 1% 50 Gm) 1 applic TOP DAILY STA Stop: 10/08/17 12:28 Physical Exam - Constitutional Appears: Well - Head Exam Head Exam: ATRAUMATIC, NORMAL INSPECTION, NORMOCEPHALIC - Eye Exam Eye Exam: EOMI, Normal appearance, PERRL - ENT Exam ENT Exam: Mucous Membranes Moist, Normal Exam - Neck Exam Neck exam: Positive for: Normal Inspection - Cardiovascular Exam Cardiovascular Exam: REGULAR RHYTHM, +S1, +S2 - GI/Abdominal Exam GI & Abdominal Exam: Normal Bowel Sounds, Soft. absent: Tenderness - Rectal Exam Rectal Exam: Deferred - Neurological Exam Neurological exam: Abnormal Gait, Alert, CN II-XII Intact, Oriented x3 Additional comments: Sensation is diminished in the medial aspect of the foot (saphenous nerve distribution), she has weakness on dorsiflexion and eversion of the right foot ( deep peroneal nerve) Results - Vital Signs Recent Vital Signs: Last Vital Signs Temp 98.5 F 10/08/17 08:00 Pulse 71 10/08/17 10:00 Resp 16 10/08/17 10:00 BP 126/69 10/08/17 10:00 Pulse Ox 98 10/08/17 10:00 - Labs Result Diagrams: 10/08/17 04:30 10/08/17 04:30 Labs: Laboratory Results - last 24 hr 10/07/17 10/07/17 10/07/17 12:45 13:25 16:41 WBC 11.8 H RBC 3.60 L Hgb 10.9 L Hct 32.8 L MCV 91.2 MCH 30.3 MCHC 33.2 RDW 13.3 Plt Count 195 Sodium Potassium Chloride Carbon Dioxide Anion Gap BUN Creatinine Est GFR ( Amer) Est GFR (Non-Af Amer) Random Glucose Calcium Total Creatine Kinase Urine Color Urine Clarity Urine pH Ur Specific [place] Urine Protein Urine Glucose (UA) Urine Ketones Urine Blood Urine Nitrate Urine Bilirubin Urine Urobilinogen Ur Leukocyte Esterase Urine RBC (Auto) Urine Microscopic WBC Ur Squamous Epith Cells Blood Type O POSITIVE Blood Type Confirm O POSITIVE Antibody Screen Negative BBK History Checked No verified bt 10/07/17 10/08/17 10/08/17 16:41 04:30 04:30 WBC 9.3 RBC 3.49 L Hgb 10.6 L Hct 31.7 L MCV 90.6 MCH 30.2 MCHC 33.3 RDW 13.2 Plt Count 203 Sodium 140 139 Potassium 3.9 3.5 L Chloride 104 100 Carbon Dioxide 26 31 H Anion Gap 14 12 BUN 9 6 L Creatinine 0.9 1.0 Est GFR ( Amer) > 60 > 60 Est GFR (Non-Af Amer) > 60 > 60 Random Glucose 88 148 H Calcium 8.9 8.3 L Total Creatine Kinase 5660 H 5012 H Urine Color Urine Clarity Urine pH Ur Specific [place] Urine Protein Urine Glucose (UA) Urine Ketones Urine Blood Urine Nitrate Urine Bilirubin Urine Urobilinogen Ur Leukocyte Esterase Urine RBC (Auto) Urine Microscopic WBC Ur Squamous Epith Cells Blood Type Blood Type Confirm Antibody Screen BBK History Checked 10/08/17 09:49 WBC RBC Hgb Hct MCV MCH MCHC RDW Plt Count Sodium Potassium Chloride Carbon Dioxide Anion Gap BUN Creatinine Est GFR ( Amer) Est GFR (Non-Af Amer) Random Glucose Calcium Total Creatine Kinase Urine Color Yellow Urine Clarity Clear Urine pH 9.0 Ur Specific [place] 1.010 Urine Protein Negative Urine Glucose (UA) Neg Urine Ketones Negative Urine Blood Negative Urine Nitrate Negative Urine Bilirubin Negative Urine Urobilinogen 2.0 H Ur Leukocyte Esterase Neg Urine RBC (Auto) < 1 Urine Microscopic WBC 1 Ur Squamous Epith Cells < 1 Blood Type Blood Type Confirm Antibody Screen BBK History Checked - Imaging and Cardiology MRI of RLE Status: Image reviewed by me, Report reviewed by me Assessment & Plan (1) Compartment syndrome of right lower extremity Assessment and Plan: The patient has difficulty with eversion of the foot and dorsiflexion of the foot on exam. There is numbness to the medial aspect as well. This is most likely due to involvement of the anterior and lateral compartment muscles, but there may be deep peroneal and saphenous nerve damage as well. If the motor and sensory function does not return within the next month, EMG/NCS may be performed for further evaluation. No treatment from a neurological standpoint is recommended at this time. Status: Acute Priority: High
--- NOTE | 2017-10-08 14:59 | CP.PCM.PN ---
Subjective - Date & Time of Evaluation Date of Evaluation: 10/08/17 Time of Evaluation: 14:56 - Subjective Subjective: 22 year old female with no PMHx seen at bedside with attending, Dr. Raymundo one day s/p right leg lateral compartment fasciotomy with near total removal of the peroneus longus muscle. Patient's parents are present with her at bedside. Patient states that her pain today is controlled and rates it at a 4/10. She is AAO x 3 and NAD at time of visit, resting comfortably in bed. Denies any acute overnight events. States that she has remained NWB since surgery. Patient denies any further pedal complaints at this time. Denies any recent N/V/F/C/CP/ SOB/D/posterior calf pain. Objective - Vital Signs/Intake and Output Vital Signs (last 24 hours): Temp Pulse Resp BP Pulse Ox 98.5 F 97 H 16 137/66 97 10/08/17 08:00 10/08/17 12:00 10/08/17 12:00 10/08/17 12:00 10/08/17 12:00 Intake and Output: 10/08/17 10/08/17 06:59 18:59 Intake Total 3150 2200 Output Total 3000 Balance 150 2200 - Medications Medications: Current Medications Acetaminophen (Tylenol 325mg Tab) 650 mg PO Q6 PRN PRN Reason: Pain, Mild (1-3) Enoxaparin Sodium (Lovenox) 40 mg SC DAILY WISAM PRN Reason: Protocol Hydromorphone HCl (Dilaudid) 1 mg IVP Q4 PRN PRN Reason: Pain, severe (8-10) Last Admin: 10/08/17 11:18 Dose: 1 mg Sodium Bicarbonate 50 meq/ (Dextrose/Sodium Chloride) 1,050 mls @ 250 mls/hr IV .Q4H12M WISAM Stop: 10/10/17 18:16 Last Admin: 10/08/17 11:47 Dose: 250 mls/hr Cefazolin Sodium 1 gm/ Sodium (Chloride) 100 mls @ 100 mls/hr IVPB Q12 WISAM PRN Reason: Protocol Last Admin: 10/08/17 09:57 Dose: 100 mls/hr Oxycodone/Acetaminophen (Percocet 5/325 Mg Tab) 2 tab PO Q4 PRN PRN Reason: Pain, severe (8-10) Stop: 10/09/17 15:20 Oxycodone/Acetaminophen (Percocet 5/325 Mg Tab) 2 tab PO Q4 PRN PRN Reason: Pain, moderate (4-7) Stop: 10/09/17 14:27 - Labs Labs: 10/08/17 04:30 10/08/17 04:30 - Constitutional Appears: Well, Non-toxic, No Acute Distress - Extremities Exam Additional comments: RLE focused exam: Dressing to RLE are noted to be clean, dry and intact with no strikethrough noted Vasc: DP/PT pulses 2/4 b/l. Skin temperature warm to warm from proximal to distal. CFT < 3 seconds to all digits. Diffuse edematous changes noted to right leg Neuro: Epicritic and protective sensation intact but diminished Derm: Open surgical incision noted from just proximal to lateral malleolus extending proximally to level just distal to fibular head. Exposed peroneus brevis muscle belly is noted to be dark red/black in appearance with clear necrotic changes noted. Tibialis anterior muscle also exposed. Muscle is noted to be viable, beefy red and healthy in appearance. The surgical site shows no overt signs of clinical infection at this time including no purulent drainage, no malodor, no erythema surrounding surgical site. MSK: Minimal POP noted to surgical site. Patient is able to weakly plantarflex and dorsiflex toes 1-5 of her right foot. Patient is unable to plantarflex or dorsiflex her ankle joint. It is unclear at this time whether this is due to neuropraxic changes or more permanent neurologic damage secondary to the compartment syndrome. Manual muscle strength testing deferred at this time due to postoperative state - Neurological Exam Neurological Exam: Alert, Awake, Oriented x3 - Psychiatric Exam Psychiatric exam: Normal Affect, Normal Mood Assessment and Plan - Assessment and Plan (Free Text) Assessment: 22 year old female with no pertinent past medical history seen at bedside one day s/p lateral leg compartment fasciotomy secondary to compartment syndrome with removal of peroneus longus muscle. Plan: Patient seen and evaluated at bedside with attending Dr. Raymundo Afebrile, absent leukocytosis Continue IV abx per ID (Cefazolin 1 g q12h) Continue pain management (Dilaudid, Percocet) Total Creatine Kinase 5012 from [address] Raymundo. Peroneus brevis muscle belly is noted to be necrotic and nonviable in nature. Tibialis anterior muscle is noted to be viable , beefy, red and healthy looking. Due to necrotic nature of peroneus brevis muscle belly patient will be brought back to OR tomorrow at 12 pm for removal and debridement of all nonviable tissue Lovenox to be held overnight Patient to be NPO past midnight Wound was dressed today with Silvadene, Telfa, gauze, ABD, Kirlix and light RAÚL wrapping. Patient and her family were informed in detail that the future functionality of her foot and leg is still unknown at this time. Possible plastic surgery consult may be required in the future ID consult appreciated Neuro consult appreciated Patient for OR tomorrow at noon for debridement of all nonviable tissue with Dr. Raymundo Podiatry will continue to follow while patient in house
--- NOTE | 2017-10-08 17:18 | CP.PCM.PCO ---
Assessment and Plan - Assessment and Plan (Free Text) Assessment: I saw and evaluated the patient. I discussed the case with the resident and agree with the findings and plan as documented in the resident's note. Met with patient twice I was in the room during Neuro H/P Parents at bedside Family described patient as stoic once broke her clavicle as a child and had very little pain. Pt remembers twisting her ankle then going to see her diabetes trainer / team physician and having ICE and Tens applied. P then limped 0.25 mile home. Pt couldnt sleep all night due to the pain. In the am noted numbness and swelling and returned to the trainers office. Patients toes were blue and diabetes trainer elevated her legs and called 911 and pt was transported to ED Today pt still has pain but controlled with dilaudid Duran placed by nursing due to excessive urination. Small area of erythema noted on heel. Nurse made aware. Heel elevated. Podiatry will order boots I was also in the room when Dr. Raymundo spoke to patient and did dressing changes/ Patient tolerated without difficulty. To OR tomorrow for further resection
--- NOTE | 2017-10-08 20:11 | CP.PCM.CON ---
History of Present Illness - History of Present Illness History of Present Illness: 22-year-old woman with no significant past medical history, who was playing lacrosse 3 days ago, and had twisted her right leg, developed compartment syndrome with necrosis of muscle in lateral aspect of leg Has Rhabdo of a moderate degree Went to OR for relief of swelling and going back in am for further debridement of nonviable tissue Started on empiric IV antibiotics Denies fever chills No previous medical problems or injuries Vaccines reportedly up to date Review of Systems - Review of Systems All systems: reviewed and no additional remarkable complaints except - Constitutional Constitutional: As Per HPI - EENT Eyes: absent: As Per HPI, Blind Spots, Blurred Vision, Change in Vision, Decreased Night Vision, Diplopia, Discharge, Dry Eye, Exophthalmos, Floaters, Irritation, Itchy Eyes, Loss of Peripheral Vision, Pain, Photophobia, Requires Corrective Lenses, Sees Flashes, Spots in Vision, Tunnel Vision, Other Visual Disturbances, Loss of Vision, Other Ears: absent: As Per HPI, Decreased Hearing, Ear Discharge, Ear Pain, Tinnitus, Abnormal Hearing, Disequilibrium, Dizziness, Other Nose/Mouth/Throat: absent: As Per HPI, Epistaxis, Nasal Congestion, Nasal Discharge, Nasal Obstruction, Nasal Trauma, Nose Pain, Post Nasal Drip, Sinus Pain, Sinus Pressure, Bleeding Gums, Change in Voice, Dental Pain, Dry Mouth, Dysphagia, Halitosis, Hoarsness, Lip Swelling, Mouth Lesions, Mouth Pain, Odynophagia, Sore Throat, Throat Swelling, Tongue Swelling, Facial Pain, Neck Pain, Neck Mass, Other - Breasts Breasts: absent: As Per HPI, Change in Shape, Mass, Pain, Nipple Discharge, Nipple Inversion, Skin Changes, Swelling, Other - Cardiovascular Cardiovascular: absent: As Per HPI, Acrocyanosis, Chest Pain, Chest Pain at Rest , Chest Pain with Activity, Claudication, Diaphoresis, Dyspnea, Dyspnea on Exertion, Edema, Irregular Heart Rhythm, Pain Radiating to Arm/Neck/Jaw, Leg Edema, Leg Ulcers, Lightheadedness, Orthopnea, Palpitations, Paroxysmal Nocturnal Dyspnea, Pedal Edema, Radiating Pain, Rapid Heart Rate, Slow Heart Rate, Syncope, Other - Respiratory Respiratory: absent: As Per HPI, Cough, Dyspnea, Hemoptysis, Dyspnea on Exertion , Wheezing, Snoring, Stridor, Pain on Inspiration, Chest Congestion, Excessive Mucous Production, Change in Mucous Color, Pain with Coughing, Other - Gastrointestinal Gastrointestinal: absent: As Per HPI, Abdominal Pain, Belching, Bloating, Change in Bowel Habits, Change in Stool Character, Coffee Ground Emesis, Constipation, Cramping, Diarrhea, Dyspepsia, Dysphagia, Early Satiety, Excessive Flatus, Fecal Incontinence, Heartburn, Hematemesis, Hematochezia, Loose Stools, Melena, Nausea, Odynophagia, Temesmus, Vomiting, Other - Genitourinary Genitourinary: absent: As Per HPI, Change in Urinary Stream, Difficulty Urinating, Dysuria, Flank Pain, Hematuria, Pyuria, Nocturia, Urinary Incontinence, Urinary Frequency, Urinary Hesitance, Urinary Urgency, Voiding Freq/Small Amts, Freq UTI, Hx Renal/Bladder Calculi, Hx /Renal Surgery, Bladder Distension, Other - Reproductive: Female Reproductive:Female: absent: As Per HPI, Amenorrhea, Amenorrhea/ Control, Currently Menstual, Cycle <21 Days, Cycle >35 Days, Cycle Variable, Menses 1-7 Days, Menses >/= 8 Days, Menses Variable, Cycle > 4 Weeks Between, No Menses for 6 Months, Heavy Menses, Light Menses, Normal Menses, Spotting Between Cycles , S/P Hysterectomy, Menopausal, Post Menopausal, Premenarche, Abnormal Vaginal Bleeding, Dysmenorrhea, Dyspareunia, Genital Lesions, Genital Pruritis, Pelvic Pain, Prolapse Symptoms, Sexual Dysfunction, Vaginal Discharge, Vaginal Dryness , Vaginal Odor, Vaginal Pruritis, Other - Menstruation Menstruation: absent: As Per HPI, Amenorrhea, Amenorrhea/ Control, Currently Menstual, Cycle <21 Days, Cycle >35 Days, Cycle Variable, Menses 1-7 Days, Menses >/= 8 Days, Menses Variable, Cycle > 4 Weeks Between, No Menses for 6 Months, Heavy Menses, Light Menses, Normal Menses, Spotting Between Cycles , S/P Hysterectomy, Menopausal, Post Menopausal, Premenarche, Abnormal Vaginal Bleeding, Dysmenorrhea, Other - Musculoskeletal Musculoskeletal: As Per HPI - Integumentary Integumentary: As Per HPI - Neurological Neurological: As Per HPI - Psychiatric Psychiatric: absent: As Per HPI, Abnormal Sleep Pattern, Anhedonia, Anxiety, Auditory Hallucinations, Behavioral Changes, Change in Appetite, Change in Libido, Confusion, Depression, Difficulty Concentrating, Hallucinations, Homicidal Ideation, Hopelessness, Irritability, Memory Loss, Mood Swings, Panic Attacks, Paranoia, Suicidal Ideation, Visual Hallucinations, Tactile Hallucinations, Other - Endocrine Endocrine: absent: As Per HPI, Change in Body Appearance, Change in Libido, Cold Intolorance, Deepening of Voice, Excessive Sweating, Fatigue, Flushing, Heat Intolorance, Increase in Ring/Shoe/Hat Size, Palpitations, Polydipsia, Polyphagia, Polyuria, Other - Hematologic/Lymphatic Hematologic: absent: As Per HPI, Easy Bleeding, Easy Bruising, Lymphadenopathy, Other Past Patient History - Past Medical History & Family History Past Medical History?: No - Past Social History Smoking Status: Never Smoked - CARDIAC Hx Cardiac Disorders: No - PULMONARY Hx Respiratory Disorders: No - NEUROLOGICAL Hx Neurological Disorder: No - HEENT Hx HEENT Problems: No - RENAL Hx Chronic Kidney Disease: No - ENDOCRINE/METABOLIC Hx Endocrine Disorders: No - HEMATOLOGICAL/ONCOLOGICAL Hx Blood Disorders: No Hx AIDS: No Hx Human Immunodeficiency Virus (HIV): No - INTEGUMENTARY Hx Dermatological Problems: No - MUSCULOSKELETAL/RHEUMATOLOGICAL Hx Falls: No - GENITOURINARY/GYNECOLOGICAL Hx Genitourinary Disorders: No - PSYCHIATRIC Hx Substance Use: No - SURGICAL HISTORY Hx Surgeries: Yes - ANESTHESIA Hx Anesthesia: Yes Hx Anesthesia Reactions: No Hx Malignant Hyperthermia: No Meds Allergies/Adverse Reactions: Allergies Allergy/AdvReac Type Severity Reaction Status Date / Time No Known Allergies Allergy Verified 10/06/17 07:44 - Medications Medications: Current Medications Acetaminophen (Tylenol 325mg Tab) 650 mg PO Q6 PRN PRN Reason: Pain, Mild (1-3) Enoxaparin Sodium (Lovenox) 40 mg SC DAILY WISAM PRN Reason: Protocol Hydromorphone HCl (Dilaudid) 1 mg IVP Q4 PRN PRN Reason: Pain, severe (8-10) Last Admin: 10/08/17 17:25 Dose: 1 mg Sodium Bicarbonate 50 meq/ (Dextrose/Sodium Chloride) 1,050 mls @ 250 mls/hr IV .Q4H12M WISAM Stop: 10/10/17 18:16 Last Admin: 10/08/17 17:08 Dose: 250 mls/hr Cefazolin Sodium 1 gm/ Sodium (Chloride) 100 mls @ 100 mls/hr IVPB Q12 WISAM PRN Reason: Protocol Last Admin: 10/08/17 09:57 Dose: 100 mls/hr Oxycodone/Acetaminophen (Percocet 5/325 Mg Tab) 2 tab PO Q4 PRN PRN Reason: Pain, severe (8-10) Stop: 10/09/17 15:20 Oxycodone/Acetaminophen (Percocet 5/325 Mg Tab) 2 tab PO Q4 PRN PRN Reason: Pain, moderate (4-7) Stop: 10/09/17 14:27 Physical Exam - Constitutional Appears: Non-toxic, No Acute Distress - Head Exam Head Exam: NORMOCEPHALIC - Eye Exam Eye Exam: PERRL. absent: Scleral icterus - ENT Exam ENT Exam: Mucous Membranes Dry, Normal External Ear Exam - Neck Exam Neck exam: Negative for: Lymphadenopathy - Respiratory Exam Respiratory Exam: Decreased Breath Sounds, Clear to Auscultation Bilateral - Cardiovascular Exam Cardiovascular Exam: REGULAR RHYTHM, +S1, +S2 - GI/Abdominal Exam GI & Abdominal Exam: Diminished Bowel Sounds, Soft. absent: Tenderness - Rectal Exam Rectal Exam: Deferred - Exam Exam: NORMAL INSPECTION - Extremities Exam Extremities exam: Positive for: calf tenderness, normal capillary refill, pedal edema, tenderness, pedal pulses present. Negative for: normal inspection - Back Exam Back exam: absent: CVA tenderness (L), CVA tenderness (R) - Neurological Exam Neurological exam: Alert, CN II-XII Intact, Oriented x3, Reflexes Normal - Psychiatric Exam Psychiatric exam: Normal Mood - Skin Skin Exam: Dry Results - Vital Signs Recent Vital Signs: Last Vital Signs Temp 98.1 F 10/08/17 16:00 Pulse 106 H 10/08/17 18:00 Resp 16 10/08/17 18:00 BP 123/71 10/08/17 18:00 Pulse Ox 97 10/08/17 18:00 - Labs Result Diagrams: 10/08/17 04:30 10/08/17 04:30 Labs: Laboratory Results - last 24 hr 10/08/17 10/08/17 10/08/17 04:30 04:30 09:49 WBC 9.3 RBC 3.49 L Hgb 10.6 L Hct 31.7 L MCV 90.6 MCH 30.2 MCHC 33.3 RDW 13.2 Plt Count 203 Sodium 139 Potassium 3.5 L Chloride 100 Carbon Dioxide 31 H Anion Gap 12 BUN 6 L Creatinine 1.0 Est GFR ( Amer) > 60 Est GFR (Non-Af Amer) > 60 Random Glucose 148 H Calcium 8.3 L Total Creatine Kinase 5012 H Urine Color Yellow Urine Clarity Clear Urine pH 9.0 Ur Specific [place] 1.010 Urine Protein Negative Urine Glucose (UA) Neg Urine Ketones Negative Urine Blood Negative Urine Nitrate Negative Urine Bilirubin Negative Urine Urobilinogen 2.0 H Ur Leukocyte Esterase Neg Urine RBC (Auto) < 1 Urine Microscopic WBC 1 Ur Squamous Epith Cells < 1 Assessment & Plan (1) Compartment syndrome of right lower extremity Status: Acute Priority: High (2) Rhabdomyolysis Status: Acute - Assessment and Plan (Free Text) Assessment: cont empiric IV rx and wound care
--- NOTE | 2017-10-08 23:45 | OP ---
PROCEDURE DATE: 10/07/2017 PREOPERATIVE DIAGNOSIS: Right leg compartment syndrome. POSTOPERATIVE DIAGNOSIS: Right leg compartment syndrome. PROCEDURE PERFORMED: Right leg emergent fasciotomy of anterior and lateral compartments and excisional debridement of non-viable soft tissue/muscle. SURGEON: Joseph Raymundo DPM BENEFIT AUTHORIZER: Dakota Izquierdo DPM, PGY3, Jeffery Du DPM, PGY3, and Carey Ramsey DPM, PGY1. ANESTHESIOLOGIST: Migel Cruz MD TYPE OF ANESTHESIA: General. INDICATIONS: This patient is a 22-year-old female with the aforementioned diagnosis. The patient suffered a right leg injury 2 days prior to surgical intervention and she presented to the [facility] Emergency Room yesterday morning. After measuring bedside compartment pressures, it was noted that the lateral and anterior compartments of her right leg were elevated. It was then determined with the patient that emergent right leg fasciotomies were warranted and indicated. In addition, an MRI of the right lower extremity confirmed the diagnosis. All alternatives, benefits, complications, and risks of surgical procedure were explained to the patient at length including, but not limited to permanent right lower extremity deformity, muscle and nerve dysfunction, and possible limb loss. The patient verbalized understanding and wished to proceed. All questions were addressed and answered. No guarantees were given nor implied. The consent was signed and the n.p.o. status was confirmed prior to bringing the patient to the operating room. OPERATIVE PROCEDURE: The patient was brought into the operating room and placed on the operating room table in supine position. A pneumatic thigh tourniquet was placed around the patient's right thigh, but not inflated. After general anesthesia was achieved, the right lower extremity was prepped and draped in the normal sterile manner and the procedure began. DESCRIPTION OF PROCEDURE: Right leg emergent fasciotomy of anterior and lateral compartments and excisional debridement of non-viable soft tissue/muscle. Attention was directed to the anterolateral aspect to the patient's right leg where a linear incision was made with a 15 blade measuring approximately 30cm in length and made approximately 10 cm medial to the fibula. The incision was deepened through the superficial and subcutaneous tissues utilizing sharp and blunt dissection. Care was taken to retract all vital superficial nerves throughout the duration of the procedure. All superficial bleeding vessels were cauterized utilizing electrocautery. The dissection was then carried down to the level of the deep fascia overlying the anterior and lateral compartments. It was noted that at this time that there was immense amount of pressure and tension within the lateral compartment of the leg. At this time, a blunt dissecting scissor was utilized to perform a fasciotomy of the deep fascia underlying the lateral compartment of the leg. As soon as the fasciotomy was performed, it was noted that there was extravasation of the underlying muscle belly as well as hematoma. The incision was carried distally and the hematoma was evacuated. Upon further inspection of the muscle belly, it was noted that the peroneus longus muscle belly was dusky in coloration and did not contract upon electrical stimulation. The underlying peroneal muscle belly was also dusky in color, but appeared more viable than the peroneus longus muscle belly in color, however, it also did not contract upon electrical stimulation. Upon further evacuation of all visible hematoma, it was noted that the peroneus longus muscle belly was very friable and contained no viable portion. The surgical area was then flushed with copious amounts of sterile normal saline. At this time, all nonviable portions of the peroneus longus muscle belly were excisionally debrided with a blunt dissecting scissor and pickup, and passed from the surgical field to the back table to be sent to pathology. During excision, care was taken to avoid all major neurovascular structures. The distal tendinous portion of the peroneus longus muscle was then tacked to the underlying peroneus brevis utilizing 2-0 Vicryl suture so that an attempt to save some function of the peroneus longus muscle could be performed at a later stage. The surgical area was then again flushed with copious amounts of sterile normal saline. Attention was then directed to the anterior compartment of the leg where again a blunt dissecting scissor was utilized to perform a fasciotomy of the deep fascia overlying the anterior compartment. It was noted upon performing the fasciotomy of the anterior compartment that the muscles did not protrude through the fascia as the lateral compartment did and the tension on the anterior compartment was significantly less compared to the lateral compartment. Also, after visualizing the underlying muscle bellies, it was noted that the anterior compartment muscle bellies were healthy in appearance with a firm consistency and did contract upon electrical stimulation. The muscle bellies were then flushed with copious amounts of sterile normal saline. The incisions were then left open for a staged closure and repeat assessment of muscle viability. Topical thrombin was applied to surgical area to promote hemostasis of the superficial bleeding vessels. The surgical area was then packed with Surgicel and dressed with Silvadene, Tefla, saline-soaked gauze, DSD, ABD pads, Kerlix, and Jonhny bandages. POSTOPERATIVE CONDITION: The patient tolerated the procedure and anesthesia well. The patient was transported from the OR to the Recovery Room with vascular status intact to the right foot. The patient will remain hospitalized and closely monitored with the intention of returning to the OR for further debridement and possible primary closure. Dakota Izquierdo DPM Joseph Raymundo DPM PAULA
[2017-10-09] MEDS: Sodium Bicarbonate 8.4% 50 MEQ in Dextrose 5%/0.45% NS 1,000 ML IV SCH ×2 (03:47→05:30)
[2017-10-09 06:04] LABS: HEMOGLOBIN 10.3 g/dL (12.0-16.0); MEAN CELL VOLUME 89.8 fl (81.0-99.0); MEAN CORPUSCULAR HEMOGLOBIN 31.1 pg (27.0-31.0); MEAN CORPUSCULAR HGB CONC 34.7 g/dL (33.0-37.0); RBC 3.3 Mil/uL (3.80-5.20); RED CELL DISTRIBUTION WIDTH 12.9 % (11.5-14.5); WHITE BLOOD COUNT 9.7 K/uL (4.8-10.8)
[2017-10-09 06:06] LABS: INR 1.3 (0.9-1.2); PARTIAL THROMBOPLASTIN TIME 27.6 Seconds (25.6-37.1)
[2017-10-09 06:16] LABS: BLOOD UREA NITROGEN 4 mg/dl (7-17); CALCIUM 8.2 mg/dL (8.4-10.2); GFR AFRICAN-AMERICAN > 60; GFR NON-AFRICAN AMERICAN > 60
[2017-10-09] MEDS ORDERED: Potassium Chloride 20 mEq/15 ml LIQ UD PO ONE (06:27)
[2017-10-09] MEDS ORDERED: Potassium CL 10 MEQ/50 ML 50 ML IVPB SCH (07:00)
--- NOTE | 2017-10-09 07:47 | CP.CCUPN ---
<Shama Jimenez - Last Filed: 10/09/17 15:43> CCU Subjective - Physician Review Subjective (Free Text): Patient seen and examined with Street Sweeper. Patient was awake, alert, and oriented X 3 at the time of evaluation. Patient reports that pain is well controlled with current pain medications, and now is less than 4/10. She states that she has had numbness sensation in her right foot ,but feels the same, is not getting worse. Still can not dorsiflexion and plantar flexion her right foot. Has been NPO after midnight for OR today at 12 pm by Podiatry team for debridement of all non viable tissue. Denies chest pain, SOB, N/V, abdominal pain or other complains at this evaluation. No events overnight. CCU Objective - Vital Signs / Intake & Output Vital Signs (Last 4 hours): Vital Signs Temp Pulse Resp BP Pulse Ox 10/09/17 06:00 79 14 119/73 97 10/09/17 04:00 99.1 F 97 H 15 114/44 L 96 Intake and Output (Last 8hrs): Intake & Output 10/08/17 10/09/17 10/09/17 22:59 06:59 14:59 Intake Total 2090 2000 Output Total 2700 600 Balance -610 1400 Intake: IV 1750 2000 Intake, Piggyback 100 Oral 240 Output: Urine 2700 600 Urethral (Duran) 600 Urine, Voided 2100 600 - Physical Exam Extroacular Muscles: Positive for: EOMI Conjunctiva: Positive for: Normal Respiratory/Chest: Positive for: Clear to Auscultation, Good Air Exchange. Negative for: Respiratory Distress, Accessory Muscle Use, Wheezes, Decreased Breath Sounds, Rales, Rhonchi Cardiovascular: Positive for: Regular Rate and Rhythm, Normal S1, S2, Peripheal Pulses Present, Other (slightly decreased right DP pulse) Abdomen: Positive for: Normal Bowel Sounds. Negative for: Tenderness, Distention, Guarding Lower Extremity: Positive for: Other (right leg wrapped by elastic bandage). Negative for: CALF TENDERNESS (in left leg) Skin: Positive for: Warm, Normal Color Psychiatric: Positive for: Alert, Oriented x 3 - Medications Active Medications: Active Medications Generic Name Dose Route Start Last Admin Trade Name Freq PRN Reason Stop Dose Admin Acetaminophen 650 mg 10/07/17 19:33 Tylenol 325mg Tab PO Q6 PRN Pain, Mild (1-3) Hydromorphone HCl 1 mg 10/07/17 19:33 10/09/17 02:46 Dilaudid IVP 1 mg Q4 PRN Administration Pain, severe (8-10) Sodium Bicarbonate 50 meq/ 1,050 mls @ 250 mls/hr 10/07/17 19:33 10/09/17 05: 30 Dextrose/Sodium Chloride IV 10/10/17 18:16 Not Given .Q4H12M WISAM Cefazolin Sodium 1 gm/ Sodium 100 mls @ 100 mls/hr 10/07/17 21:00 10/08/17 20 :14 Chloride IVPB 100 mls/hr Q12 WISAM Administration Protocol Potassium Chloride 50 mls @ 50 mls/hr 10/09/17 07:00 10/09/17 07:09 Potassium Cl 10meq/50ml Sterile Water IVPB 10/09/17 09:59 50 mls/hr Q1 WISAM Administration Oxycodone/Acetaminophen 2 tab 10/07/17 19:33 Percocet 5/325 Mg Tab PO 10/09/17 15:20 Q4 PRN Pain, severe (8-10) Oxycodone/Acetaminophen 2 tab 10/07/17 19:33 Percocet 5/325 Mg Tab PO 10/09/17 14:27 Q4 PRN Pain, moderate (4-7) - Patient Studies Lab Studies: Lab Studies 10/09/17 10/09/17 10/09/17 Range/Units 04:44 04:44 04:44 WBC 9.7 (4.8-10.8) K/uL RBC 3.30 L (3.80-5.20) Mil/uL Hgb 10.3 L (12.0-16.0) g/dL Hct 29.7 L (34.0-47.0) % MCV 89.8 (81.0-99.0) fl MCH 31.1 H (27.0-31.0) pg MCHC 34.7 (33.0-37.0) g/dL RDW 12.9 (11.5-14.5) % Plt Count 201 (130-400) K/uL PT 14.0 H (9.8-13.1) Seconds INR 1.3 H (0.9-1.2) APTT 27.6 (25.6-37.1) Seconds Sodium 137 (132-148) mmol/l Potassium 3.3 L (3.6-5.0) MMOL/L Chloride 101 (98-107) mmol/L Carbon Dioxide 30 (22-30) mmol/L Anion Gap 9 L (10-20) BUN 4 L (7-17) mg/dl Creatinine 0.8 (0.7-1.2) mg/dl Est GFR ( Amer) > 60 Est GFR (Non-Af Amer) > 60 Random Glucose 133 H (65-105) mg/dL Calcium 8.2 L (8.4-10.2) mg/dL Phosphorus Cancelled Magnesium Cancelled Total Creatine Kinase 1407 H (30-135) U/L Urine Color (YELLOW) Urine Clarity (Clear) Urine pH (5.0-8.0) Ur Specific [place] (1.003-1.030) Urine Protein (NEGATIVE) mg/dL Urine Glucose (UA) (Normal) mg/dL Urine Ketones (NEGATIVE) mg/dL Urine Blood (NEGATIVE) Urine Nitrate (NEGATIVE) Urine Bilirubin (NEGATIVE) Urine Urobilinogen (0.2-1.0) mg/dL Ur Leukocyte Esterase (Negative) Ken/uL Urine RBC (Auto) (0-3) /hpf Urine Microscopic WBC (0-5) /hpf Ur Squamous Epith Cells (0-5) /hpf 10/08/17 Range/Units 09:49 WBC (4.8-10.8) K/uL RBC (3.80-5.20) Mil/uL Hgb (12.0-16.0) g/dL Hct (34.0-47.0) % MCV (81.0-99.0) fl MCH (27.0-31.0) pg MCHC (33.0-37.0) g/dL RDW (11.5-14.5) % Plt Count (130-400) K/uL PT (9.8-13.1) Seconds INR (0.9-1.2) APTT (25.6-37.1) Seconds Sodium (132-148) mmol/l Potassium (3.6-5.0) MMOL/L Chloride (98-107) mmol/L Carbon Dioxide (22-30) mmol/L Anion Gap (10-20) BUN (7-17) mg/dl Creatinine (0.7-1.2) mg/dl Est GFR ( Amer) Est GFR (Non-Af Amer) Random Glucose (65-105) mg/dL Calcium (8.4-10.2) mg/dL Phosphorus Magnesium Total Creatine Kinase (30-135) U/L Urine Color Yellow (YELLOW) Urine Clarity Clear (Clear) Urine pH 9.0 (5.0-8.0) Ur Specific [place] 1.010 (1.003-1.030) Urine Protein Negative (NEGATIVE) mg/dL Urine Glucose (UA) Neg (Normal) mg/dL Urine Ketones Negative (NEGATIVE) mg/dL Urine Blood Negative (NEGATIVE) Urine Nitrate Negative (NEGATIVE) Urine Bilirubin Negative (NEGATIVE) Urine Urobilinogen 2.0 H (0.2-1.0) mg/dL Ur Leukocyte Esterase Neg (Negative) Ken/uL Urine RBC (Auto) < 1 (0-3) /hpf Urine Microscopic WBC 1 (0-5) /hpf Ur Squamous Epith Cells < 1 (0-5) /hpf Laboratory Results - last 24 hr 10/08/17 10/09/17 10/09/17 09:49 04:44 04:44 WBC 9.7 RBC 3.30 L Hgb 10.3 L Hct 29.7 L MCV 89.8 MCH 31.1 H MCHC 34.7 RDW 12.9 Plt Count 201 PT INR APTT Sodium 137 Potassium 3.3 L Chloride 101 Carbon Dioxide 30 Anion Gap 9 L BUN 4 L Creatinine 0.8 Est GFR ( Amer) > 60 Est GFR (Non-Af Amer) > 60 Random Glucose 133 H Calcium 8.2 L Phosphorus Cancelled Magnesium Cancelled Total Creatine Kinase 1407 H Urine Color Yellow Urine Clarity Clear Urine pH 9.0 Ur Specific [place] 1.010 Urine Protein Negative Urine Glucose (UA) Neg Urine Ketones Negative Urine Blood Negative Urine Nitrate Negative Urine Bilirubin Negative Urine Urobilinogen 2.0 H Ur Leukocyte Esterase Neg Urine RBC (Auto) < 1 Urine Microscopic WBC 1 Ur Squamous Epith Cells < 1 10/09/17 04:44 WBC RBC Hgb Hct MCV MCH MCHC RDW Plt Count PT 14.0 H INR 1.3 H APTT 27.6 Sodium Potassium Chloride Carbon Dioxide Anion Gap BUN Creatinine Est GFR ( Amer) Est GFR (Non-Af Amer) Random Glucose Calcium Phosphorus Magnesium Total Creatine Kinase Urine Color Urine Clarity Urine pH Ur Specific [place] Urine Protein Urine Glucose (UA) Urine Ketones Urine Blood Urine Nitrate Urine Bilirubin Urine Urobilinogen Ur Leukocyte Esterase Urine RBC (Auto) Urine Microscopic WBC Ur Squamous Epith Cells Fingerstick Blood Sugar Results: 85 Review of Systems - Review of Systems All systems: reviewed and no additional remarkable complaints except Critical Care Progress Note - Nutrition Nutrition: Nutrition Category Date Time Status NPO Diet [DIET] Diets 10/09/17 Breakfast Active Assessment/Plan - Assessment and Plan (Free Text) Assessment: 22 y/o F with no significant PMHx, with Right lateral compartment syndrome, s/p fasciotomy and Rhabdomyolysis. Plan: Right lateral compartment syndrome, S/p fasciotomy on POD #2 -NPO after midnight for OR today at 12 pm by podiatry team for debridement of nonviable tissue -pain controlled with Dilaudid and Percocet based on pain scale -Podiatry consulted, appreciated recommendations -Neuro and ID consulted by primary team. Appreciated recommendations -c/w Ancef 1 gm Q12 as per ID -c/w Neuro monitor Q4 -c/w wound care by podiatry Rhabdomyolysis 2/2 Right lateral compartment syndrome -significantly improved -CPK trending down, today 1407 ( yesterday 5660) -c/wIV fluids. -Urine alkalinization, urine PH today 8 -preserved renal function WNL, BUN/Cr: 4/0.8 today -f/u renal function -f/u CPK -f/u electrolytes Hypokalemia -mild, K+ 3.3 today -replace potassium -f/u potassium in BMP Cardiac murmur -will consider echo DVT prophylaxis -Held Lovenox 40 mg SC because OR today at 12 pm - Date & Time Date: 10/09/17 Time: 07:10 <Mendoza Haas - Last Filed: 10/09/17 16:46> CCU Subjective - Physician Review Subjective (Free Text): Attestation: Patient seen and examined at the bedside with Resident Dr. Juju Jimenez; and I agree with her outline of plans and management documented above as discussed on AM rounds reflecting my review of all applicable clinical data, and participation in the care of the patient throughout the day in ICU; October.
[2017-10-09 07:48] LABS: MAGNESIUM 1.7 MG/DL (1.6-2.3)
[2017-10-09 07:52] LABS: SQUAMOUS EPITHIAL 5 /hpf (0-5); URINE BACTERIA RARE (<OCC); URINE BILIRUBIN NEGATIVE (NEGATIVE); URINE BLOOD NEGATIVE (NEGATIVE); URINE CLARITY SLIGHTY-CLOUDY (Clear); URINE COLOR STRAW (YELLOW); URINE GLUCOSE (UA) NEG (Normal); URINE LEUKOCYTE ESTERASE LARGE Leu/uL (Negative); URINE NITRATE NEGATIVE (NEGATIVE); URINE PROTEIN NEGATIVE (NEGATIVE); URINE UROBILINOGEN 0.2-1.0 mg/dL (0.2-1.0)
--- NOTE | 2017-10-09 08:28 | CP.PCM.PN ---
Subjective - Date & Time of Evaluation Date of Evaluation: 10/09/17 Time of Evaluation: 08:00 - Subjective Subjective: Tamar Oakley is a pleasant 22 yo F with compartment syndrome of R lower extremity POD 2, s/p compartment fasciotomy was seen and examined at beside this AM. She was resting comfortably, awaiting follow up surgery to resect and debridement of necrotic tissue. Reports adequate pain management. Objective - Vital Signs/Intake and Output Vital Signs (last 24 hours): Temp Pulse Resp BP Pulse Ox 98.0 F 84 16 119/60 97 10/09/17 07:46 10/09/17 07:46 10/09/17 07:46 10/09/17 07:46 10/09/17 07:46 Intake and Output: 10/09/17 10/09/17 06:59 18:59 Intake Total 2850 500 Output Total 900 500 Balance 1950 0 - Medications Medications: Current Medications Acetaminophen (Tylenol 325mg Tab) 650 mg PO Q6 PRN PRN Reason: Pain, Mild (1-3) Hydromorphone HCl (Dilaudid) 1 mg IVP Q4 PRN PRN Reason: Pain, severe (8-10) Last Admin: 10/09/17 08:01 Dose: 1 mg Cefazolin Sodium 1 gm/ Sodium (Chloride) 100 mls @ 100 mls/hr IVPB Q12 WISAM PRN Reason: Protocol Last Admin: 10/08/17 20:14 Dose: 100 mls/hr Potassium Chloride/Dextrose/Sod Cl (Potassium Chl 40 Meq In D5-1/2ns) 1,000 mls @ 200 mls/hr IV .Q5H WISAM Stop: 10/10/17 08:17 Oxycodone/Acetaminophen (Percocet 5/325 Mg Tab) 2 tab PO Q4 PRN PRN Reason: Pain, severe (8-10) Stop: 10/09/17 15:20 Oxycodone/Acetaminophen (Percocet 5/325 Mg Tab) 2 tab PO Q4 PRN PRN Reason: Pain, moderate (4-7) Stop: 10/09/17 14:27 - Labs Labs: 10/09/17 04:44 10/09/17 04:44 PT 14.0 Seconds (9.8-13.1) H 10/09/17 04:44 INR 1.3 (0.9-1.2) H 10/09/17 04:44 APTT 27.6 Seconds (25.6-37.1) 10/09/17 04:44 - Constitutional Appears: Well, No Acute Distress - Head Exam Head Exam: NORMAL INSPECTION - Eye Exam Eye Exam: EOMI, Normal appearance - Neck Exam Neck Exam: Full ROM - Respiratory Exam Respiratory Exam: Clear to Ausculation Bilateral, NORMAL BREATHING PATTERN - Cardiovascular Exam Cardiovascular Exam: REGULAR RHYTHM, +S1, +S2 - GI/Abdominal Exam GI & Abdominal Exam: Soft, Normal Bowel Sounds - Extremities Exam Additional comments: R lower extremity currently wrapped in bandage 2/2 compartment fasciotomy. Improved foot inversion and flexion of metatarsals, slight improvement in: eversion, dorsiflexion. Strength approximately 3/5. Capillary refill < 2 seconds. Dorsalis pedis pulses palpable 2+. Sensation intact throughout: plantar , dorsum, lateral, medial, each metatarsal. - Neurological Exam Neurological Exam: Alert, Awake, CN II-XII Intact, Oriented x3 - Psychiatric Exam Psychiatric exam: Normal Affect, Normal Mood Assessment and Plan - Assessment and Plan (Free Text) Plan: 22 yo F hx of compartment syndrome of R lower extremity, s/p lateral compartment fasciotomy 1) Compartment syndrome, R lateral compartment: POD2 - R lateral Compartment fasciotomy on 10/07/2017; Dr. Raymundo Podiatry; plan for surgery at 12:00 for removal and debridement of necrotic peroneus brevis muscle belly. - MRI on 10/07/2017: Please refer to extensive report - XR: unremarkable - CK 10/09/2017: 1407; 10/08/2017: @04:00 5012; 10/07/2017: @19:59 5660; @07:59 2985; - UA: 10/08/2017: no wbc - IVF: Potassium Chl 40 mEq in D5-1/2 - Pain management: Dilaudid 1 mg IVP q4; Acetaminophen 325 mg q6 - ICU management with Dr. Haas: neurovascular checks q2 - Neurology consulted: Dr. Quintero: if motor/sensory doesnt return in 1 month may require EMG/NCS - Neurosurgery consulted by Dr. Raymundo - ID consulted: Continue with Cefazolin 1g q 12 - PMR/PT consultation recommended 2) Hypokalemia - 10/09/2017: 3.3 - IVF changed to Potassium Chl 40 mEq in D5-09/08 - Pending consult with Anesthesia prior to surgery. - f/u K level 3) Cardiac Murmur -Consider echo 4) DVT prophylaxis - Currently held; surgery planned for 12:00 - NPO
[2017-10-09] MEDS: Potassium Chl 40 mEq in D5-1/2 1,000 ML IV SCH ×3 (08:51→21:30)
[2017-10-09] MEDS: ceFAZolin 1 GM in Sodium Chloride 0.9% 100 ML IVPB SCH (08:52)
[2017-10-09] MEDS ORDERED: Enoxaparin 40 mg Syringe SC SCH (09:00)
--- NOTE | 2017-10-09 10:10 | CP.PCM.PN ---
Subjective - Date & Time of Evaluation Date of Evaluation: 10/09/17 Time of Evaluation: 10:06 - Subjective Subjective: 22 year old female with no PMHx seen at bedside two days s/p right leg lateral compartment fasciotomy with near total removal of the peroneus longus muscle. Patient states that her pain today is controlled and rates it at a 4/10. She is AAO x 3 and NAD at time of visit, resting comfortably in bed. Denies any acute overnight events. States that she has remained NWB since surgery. Patient denies any further pedal complaints at this time. Patient is aware that she will be taken back to OR today at noon for further debridement of peroneus brevis muscle. Patient states that she has been NPO since last night. Denies any recent N/V/F/C/CP/SOB/D/posterior calf pain. Objective - Vital Signs/Intake and Output Vital Signs (last 24 hours): Temp Pulse Resp BP Pulse Ox 98.0 F 65 16 107/49 L 98 10/09/17 07:46 10/09/17 09:59 10/09/17 09:59 10/09/17 09:59 10/09/17 09:59 Intake and Output: 10/09/17 10/09/17 06:59 18:59 Intake Total 2850 1000 Output Total 900 500 Balance 1950 500 - Medications Medications: Current Medications Acetaminophen (Tylenol 325mg Tab) 650 mg PO Q6 PRN PRN Reason: Pain, Mild (1-3) Hydromorphone HCl (Dilaudid) 1 mg IVP Q4 PRN PRN Reason: Pain, severe (8-10) Last Admin: 10/09/17 08:01 Dose: 1 mg Cefazolin Sodium 1 gm/ Sodium (Chloride) 100 mls @ 100 mls/hr IVPB Q12 IWSAM PRN Reason: Protocol Last Admin: 10/09/17 08:52 Dose: 100 mls/hr Potassium Chloride/Dextrose/Sod Cl (Potassium Chl 40 Meq In D5-1/2ns) 1,000 mls @ 200 mls/hr IV .Q5H WISAM Stop: 10/10/17 08:17 Last Admin: 10/09/17 08:51 Dose: 200 mls/hr Oxycodone/Acetaminophen (Percocet 5/325 Mg Tab) 2 tab PO Q4 PRN PRN Reason: Pain, severe (8-10) Stop: 10/09/17 15:20 Oxycodone/Acetaminophen (Percocet 5/325 Mg Tab) 2 tab PO Q4 PRN PRN Reason: Pain, moderate (4-7) Stop: 10/09/17 14:27 - Labs Labs: 10/09/17 04:44 10/09/17 04:44 PT 14.0 Seconds (9.8-13.1) H 10/09/17 04:44 INR 1.3 (0.9-1.2) H 10/09/17 04:44 APTT 27.6 Seconds (25.6-37.1) 10/09/17 04:44 - Constitutional Appears: Well, Non-toxic, No Acute Distress - Extremities Exam Additional comments: Dressings intact to RLE Strikethrough bleeding noted proximally Dressing not taken down at this time Vasc: CFT to all digits less than three seconds. Toes and foot warm to touch Neuro: Dorsal foot epicritic and protective sensation absent except for toes. Epicritic and protective sensation to lateral, medial and plantar foot intact Derm: Dressings left intact MSK: Patient able to wiggle all toes without pain but unable to dorsiflex or plantarflex foot at ankle joint - Neurological Exam Neurological Exam: Alert, Awake, Oriented x3 - Psychiatric Exam Psychiatric exam: Normal Affect, Normal Mood Assessment and Plan - Assessment and Plan (Free Text) Assessment: 22 year old female with no pertinent past medical history seen at bedside two days s/p lateral right leg compartment fasciotomy secondary to compartment syndrome with removal of peroneus longus muscle. Patient to OR today for further debridement of peroneus brevis muscle Plan: Patient seen and evaluated at bedside Plan discussed with attending Dr. Raymundo Afebrile, absent leukocytosis Continue IV abx per ID Continue pain management Patient for OR today with Dr. Raymundo for debridement of necrotic peroneus brevis muscle Patient has been NPO since last night No anticoagulation given at this time Podiatry will continue to follow postoperatively
--- NOTE | 2017-10-09 11:16 | CP.PCM.CON ---
History of Present Illness - History of Present Illness History of Present Illness: This patient who is 22 years of age female I was consulted to see for rhabdomyolysis. Patient apparently was playing lacrosse when she twisted the right leg and shortly after that she developed pain and subsequently ended up with compartment syndrome require to go for surgery i. it was noted that CPK has gone up in the range of 5000+ And the patient has no significant past medical history No nausea no vomiting no diarrhea PMHx: unremarkable PSH: none FH: none SH: occasional ETOH, denies tobacco/illicit drug use, student at [employer]: none All: NKDA Review of Systems - Constitutional Constitutional: absent: As Per HPI, Anorexia, Chills, Daytime Sleepiness, Excessive Sweating, Fatigue, Fever, Frequent Falls, Headache, Increased Appetite , Lethargy, Malaise, Night Sweats, Snoring, Sleep Apnea, Weight Gain, Weight Loss, Weakness, Other - EENT Eyes: absent: Blurred Vision, Irritation, Itchy Eyes Nose/Mouth/Throat: absent: Epistaxis - Breasts Breasts: As Per HPI - Cardiovascular Cardiovascular: absent: As Per HPI, Acrocyanosis, Chest Pain, Chest Pain at Rest , Chest Pain with Activity, Claudication, Diaphoresis, Dyspnea, Dyspnea on Exertion, Edema, Irregular Heart Rhythm, Pain Radiating to Arm/Neck/Jaw, Leg Edema, Leg Ulcers, Lightheadedness, Orthopnea, Palpitations, Paroxysmal Nocturnal Dyspnea, Pedal Edema, Radiating Pain, Rapid Heart Rate, Slow Heart Rate, Syncope, Other - Respiratory Respiratory: absent: As Per HPI, Cough, Dyspnea, Hemoptysis, Dyspnea on Exertion , Wheezing, Snoring, Stridor, Pain on Inspiration, Chest Congestion, Excessive Mucous Production, Change in Mucous Color, Pain with Coughing, Other - Gastrointestinal Gastrointestinal: absent: As Per HPI, Abdominal Pain, Belching, Bloating, Change in Bowel Habits, Change in Stool Character, Coffee Ground Emesis, Constipation, Cramping, Diarrhea, Dyspepsia, Dysphagia, Early Satiety, Excessive Flatus, Fecal Incontinence, Heartburn, Hematemesis, Hematochezia, Loose Stools, Melena, Nausea, Odynophagia, Temesmus, Vomiting, Other - Genitourinary Genitourinary: absent: Dysuria, Pyuria, Nocturia, Urinary Incontinence, Urinary Frequency - Reproductive: Female Reproductive:Female: As Per HPI - Menstruation Menstruation: As Per HPI - Musculoskeletal Musculoskeletal: As Per HPI - Integumentary Integumentary: absent: Acne, Alopecia - Neurological Neurological: As Per HPI - Psychiatric Psychiatric: absent: Anhedonia, Anxiety, Irritability - Hematologic/Lymphatic Hematologic: absent: Easy Bleeding Past Patient History - Past Medical History & Family History Past Medical History?: No - Past Social History Smoking Status: Never Smoked - CARDIAC Hx Cardiac Disorders: No - PULMONARY Hx Respiratory Disorders: No - NEUROLOGICAL Hx Neurological Disorder: No - HEENT Hx HEENT Problems: No - RENAL Hx Chronic Kidney Disease: No - ENDOCRINE/METABOLIC Hx Endocrine Disorders: No - HEMATOLOGICAL/ONCOLOGICAL Hx Blood Disorders: No Hx AIDS: No Hx Human Immunodeficiency Virus (HIV): No - INTEGUMENTARY Hx Dermatological Problems: No - MUSCULOSKELETAL/RHEUMATOLOGICAL Hx Falls: No - GENITOURINARY/GYNECOLOGICAL Hx Genitourinary Disorders: No - PSYCHIATRIC Hx Substance Use: No - SURGICAL HISTORY Hx Surgeries: Yes - ANESTHESIA Hx Anesthesia: Yes Hx Anesthesia Reactions: No Hx Malignant Hyperthermia: No Meds Allergies/Adverse Reactions: Allergies Allergy/AdvReac Type Severity Reaction Status Date / Time No Known Allergies Allergy Verified 10/06/17 07:44 - Medications Medications: Current Medications Acetaminophen (Tylenol 325mg Tab) 650 mg PO Q6 PRN PRN Reason: Pain, Mild (1-3) Hydromorphone HCl (Dilaudid) 1 mg IVP Q4 PRN PRN Reason: Pain, severe (8-10) Last Admin: 10/09/17 08:01 Dose: 1 mg Cefazolin Sodium 1 gm/ Sodium (Chloride) 100 mls @ 100 mls/hr IVPB Q12 [facility] PRN Reason: Protocol Last Admin: 10/09/17 08:52 Dose: 100 mls/hr Potassium Chloride/Dextrose/Sod Cl (Potassium Chl 40 Meq In D5-1/2ns) 1,000 mls @ 200 mls/hr IV .Q5H [facility] Stop: 10/10/17 08:17 Last Admin: 10/09/17 08:51 Dose: 200 mls/hr Oxycodone/Acetaminophen (Percocet 5/325 Mg Tab) 2 tab PO Q4 PRN PRN Reason: Pain, severe (8-10) Stop: 10/09/17 15:20 Oxycodone/Acetaminophen (Percocet 5/325 Mg Tab) 2 tab PO Q4 PRN PRN Reason: Pain, moderate (4-7) Stop: 10/09/17 14:27 Physical Exam - Constitutional Appears: No Acute Distress - ENT Exam ENT Exam: Mucous Membranes Moist - Neck Exam Neck exam: Negative for: Lymphadenopathy - Respiratory Exam Respiratory Exam: NORMAL BREATHING PATTERN. absent: Chest Wall Tenderness, Rales, Rhonchi, Wheezes - Cardiovascular Exam Cardiovascular Exam: REGULAR RHYTHM. absent: Gallop, JVD, Rubs - GI/Abdominal Exam GI & Abdominal Exam: Normal Bowel Sounds. absent: Distended, Guarding - Back Exam Back exam: absent: CVA tenderness (L), CVA tenderness (R) - Neurological Exam Neurological exam: Alert - Psychiatric Exam Psychiatric exam: Normal Affect Results - Vital Signs Recent Vital Signs: Last Vital Signs Temp 98.0 F 10/09/17 07:46 Pulse 65 10/09/17 09:59 Resp 16 10/09/17 09:59 BP 107/49 L 10/09/17 09:59 Pulse Ox 98 10/09/17 09:59 - Labs Result Diagrams: 10/09/17 04:44 10/09/17 04:44 Labs: Laboratory Results - last 24 hr 10/09/17 10/09/17 10/09/17 04:44 04:44 04:44 WBC 9.7 RBC 3.30 L Hgb 10.3 L Hct 29.7 L MCV 89.8 MCH 31.1 H MCHC 34.7 RDW 12.9 Plt Count 201 PT 14.0 H INR 1.3 H APTT 27.6 Sodium 137 Potassium 3.3 L Chloride 101 Carbon Dioxide 30 Anion Gap 9 L BUN 4 L Creatinine 0.8 Est GFR ( Amer) > 60 Est GFR (Non-Af Amer) > 60 Random Glucose 133 H Calcium 8.2 L Phosphorus Cancelled Magnesium Cancelled Total Creatine Kinase 1407 H Urine Color Urine Clarity Urine pH Ur Specific [place] Urine Protein Urine Glucose (UA) Urine Ketones Urine Blood Urine Nitrate Urine Bilirubin Urine Urobilinogen Ur Leukocyte Esterase Urine RBC (Auto) Urine Microscopic WBC Ur Squamous Epith Cells Urine Bacteria 10/09/17 10/09/17 07:20 07:20 WBC RBC Hgb Hct MCV MCH MCHC RDW Plt Count PT INR APTT Sodium Potassium Chloride Carbon Dioxide Anion Gap BUN Creatinine Est GFR ( Amer) Est GFR (Non-Af Amer) Random Glucose Calcium Phosphorus 3.6 Magnesium 1.7 Total Creatine Kinase Urine Color Straw Urine Clarity Slighty-cloudy Urine pH 8.0 Ur Specific [place] 1.006 Urine Protein Negative Urine Glucose (UA) Neg Urine Ketones Negative Urine Blood Negative Urine Nitrate Negative Urine Bilirubin Negative Urine Urobilinogen 0.2-1.0 Ur Leukocyte Esterase Large Urine RBC (Auto) 10 H Urine Microscopic WBC 20 H Ur Squamous Epith Cells 5 Urine Bacteria Rare Assessment & Plan (1) Compartment syndrome of right lower extremity Status: Acute Priority: High (2) Rhabdomyolysis Assessment and Plan: Patient admitted with right lower leg compartment syndrome require to go through surgery Rhabdomyolysis as a result of the above. Continue IV fluid patient improving CPK came down from 5000+ to about 1400+ Spot urine for myoglobin Patient noted to be slightly hypokalemic patient given potassium chloride. Patient has normal kidney function. Status: Acute (3) Right leg pain Status: Acute
[2017-10-09] MEDS ORDERED: Sodium Chloride 0.9% 1,000 ML IV SCH (12:00)
[2017-10-09] MEDS ORDERED: Propofol 10 mg/ml Inj (20 ML) ONE (12:21)
[2017-10-09] MEDS ORDERED: Midazolam 2 MG/2 ML VIAL ONE (12:22)
[2017-10-09] MEDS ORDERED: Lactated Ringer's 1,000 ML IV ONE ×2 (12:26→13:30)
[2017-10-09] MEDS ORDERED: Silver Sulfadiazine 1% CREAM (50 gm) ONE (12:36)
[2017-10-09] MEDS ORDERED: Lidocaine 2% MPF (5 ml) Inj ONE (12:38)
[2017-10-09] MEDS ORDERED: Silver Sulfadiazine 1% Cream (20 gm) TOP ONE (13:59)
--- NOTE | 2017-10-09 14:04 | CP.PCM.PN ---
Subjective - Date & Time of Evaluation Date of Evaluation: 10/09/17 Time of Evaluation: 07:00 - Subjective Subjective: going to OR renal on board await OR cultures Objective - Vital Signs/Intake and Output Vital Signs (last 24 hours): Temp Pulse Resp BP Pulse Ox 98.0 F 65 16 107/49 L 98 10/09/17 07:46 10/09/17 09:59 10/09/17 09:59 10/09/17 09:59 10/09/17 09:59 Intake and Output: 10/09/17 10/09/17 06:59 18:59 Intake Total 2850 2900 Output Total 900 1000 Balance 1950 1900 - Medications Medications: Current Medications Acetaminophen (Tylenol 325mg Tab) 650 mg PO Q6 PRN PRN Reason: Pain, Mild (1-3) Hydromorphone HCl (Dilaudid) 1 mg IVP Q4 PRN PRN Reason: Pain, severe (8-10) Last Admin: 10/09/17 08:01 Dose: 1 mg Cefazolin Sodium 1 gm/ Sodium (Chloride) 100 mls @ 100 mls/hr IVPB Q12 [facility]AM PRN Reason: Protocol Last Admin: 10/09/17 08:52 Dose: 100 mls/hr Potassium Chloride/Dextrose/Sod Cl (Potassium Chl 40 Meq In D5-1/2ns) 1,000 mls @ 200 mls/hr IV .Q5H [facility] Stop: 10/10/17 08:17 Last Admin: 10/09/17 08:51 Dose: 200 mls/hr Sodium Chloride (Sodium Chloride 0.9%) 1,000 mls @ 0 mls/hr IV .Q0M [facility] PRN Reason: Per Protocol Stop: 10/10/17 11:59 Oxycodone/Acetaminophen (Percocet 5/325 Mg Tab) 2 tab PO Q4 PRN PRN Reason: Pain, severe (8-10) Stop: 10/09/17 15:20 Oxycodone/Acetaminophen (Percocet 5/325 Mg Tab) 2 tab PO Q4 PRN PRN Reason: Pain, moderate (4-7) Stop: 10/09/17 14:27 - Labs Labs: 10/09/17 04:44 10/09/17 04:44 PT 14.0 Seconds (9.8-13.1) H 10/09/17 04:44 INR 1.3 (0.9-1.2) H 10/09/17 04:44 APTT 27.6 Seconds (25.6-37.1) 10/09/17 04:44 - Constitutional Appears: Non-toxic, Chronically Ill - Head Exam Head Exam: NORMOCEPHALIC - Eye Exam Eye Exam: PERRL - ENT Exam ENT Exam: Mucous Membranes Dry - Neck Exam Neck Exam: absent: Lymphadenopathy - Respiratory Exam Respiratory Exam: Decreased Breath Sounds - Cardiovascular Exam Cardiovascular Exam: REGULAR RHYTHM - GI/Abdominal Exam GI & Abdominal Exam: Distended, Soft Assessment and Plan (1) Compartment syndrome of right lower extremity Status: Acute (2) Rhabdomyolysis Status: Acute - Assessment and Plan (Free Text) Assessment: cont rx IV rx renewed
--- NOTE | 2017-10-09 14:31 | PCM.SURG1 ---
Surgeon's Initial Post Op Note - Surgeon's Notes Surgeon: Dr. Raymundo Stress Engineer: Dr. Izquierdo, PGY-3; Dr. Perez, PGY-2; Dr. Ramsey, PGY-1 Type of Anesthesia: General Endo Pre-Operative Diagnosis: Right leg necrotic soft tissue/muscle secondary to compartment syndrome Operative Findings: see dictation. M: 0 prolene suture Post-Operative Diagnosis: Right leg necrotic soft tissue/muscle secondary to compartment syndrome Operation Performed: Right leg excisional debridement of necrotic soft tissue/ muscle and irrigation Specimen/Specimens Removed: Right leg necrotic peroneus brevis muscle Estimated Blood Loss: EBL {In ML}: 15 Blood Products Given: N/A Drains Used: No Drains Post-Op Condition: Good Date of Surgery/Procedure: 10/09/17 Time of Surgery/Procedure: 13:00
[2017-10-09] MEDS: Piperacillin/Tazobact 3.375 GM in Sodium Chloride 0.9% 100 ML IVPB SCH (16:00)
--- NOTE | 2017-10-09 19:19 | CP.PCM.PCO ---
Addendum Addendum: 10/09/17 19:14 Patient seen and examined bedside after coming for OR. Patient reports feeling well now. Denies pain now but reports that pain has been every 3 hours during the day and controlled with medications. Patient just finished her dinner. denies fever, chest pain, sob. Patient able to move the tips of the right foot. Right leg with soft cast below the knee. sensation intact. reports occs numbness. A: Right leg compartment syndrome. s/p lateral compartment fasciotomy s/p OR second time for resect and debridement of necrotic tissue P: c/w Hydration, pain medication -f/u CBC,BMP,CK in the morning
[2017-10-10] MEDS: Piperacillin/Tazobact 3.375 GM in Sodium Chloride 0.9% 100 ML IVPB SCH ×3 (00:06→16:49)
[2017-10-10] MEDS: Potassium Chl 40 mEq in D5-1/2 1,000 ML IV SCH (02:54)
[2017-10-10 06:05] LABS: BASO % 0.4 % (0.0-2.0); EOS # 0.2 K/uL (0.0-0.7); EOS % 2.3 % (0.0-4.0); HEMOGLOBIN 9.1 g/dL (12.0-16.0); LYMPH # 1.3 K/uL (1.0-4.3); LYMPH % 13.4 % (20.0-40.0); MEAN CELL VOLUME 91.5 fl (81.0-99.0); MEAN CORPUSCULAR HEMOGLOBIN 30.7 pg (27.0-31.0); MEAN CORPUSCULAR HGB CONC 33.6 g/dL (33.0-37.0); MEAN PLATELET VOLUME 9.5 fl (7.2-11.7); MONO # 0.9 K/uL (0.0-0.8); MONO % 9.8 % (0.0-10.0); NEUT % 74.1 % (50.0-75.0); RBC 2.97 Mil/uL (3.80-5.20); RED CELL DISTRIBUTION WIDTH 13.2 % (11.5-14.5); WHITE BLOOD COUNT 9.4 K/uL (4.8-10.8)
[2017-10-10 06:22] LABS: BLOOD UREA NITROGEN 5 mg/dl (7-17); CALCIUM 8.2 mg/dL (8.4-10.2); GFR AFRICAN-AMERICAN > 60; GFR NON-AFRICAN AMERICAN > 60
[2017-10-10] MEDS: Sodium Chloride 0.9% 1,000 ML IV SCH ×2 (09:04→16:48)
[2017-10-10] MEDS: Silver Sulfadiazine 1% CREAM (50 gm) TOP SCH (10:20)
--- NOTE | 2017-10-10 10:54 | CP.PCM.PN ---
Subjective - Date & Time of Evaluation Date of Evaluation: 10/10/17 Time of Evaluation: 10:10 - Subjective Subjective: Podiatry Progress Note for Dr. Raymundo 22 y.o female with no PMHx seen at bedside 1 day s/p debridement of necrotic tissue including peroneal brevis and 3 days s/p right leg lateral compartment fasciotomy 2/2 compartment syndrome with near total removal of the peroneus longus muscle. Patient is seen resting comfortably in bed, in NAD, and AA0x3. Mother and father seen at bedside during visitation with attending Dr. Raymundo. Patient reports pain to the right lower extremity and is well controlled with pain medication. Patient denies any further pedal complaints at this time. Denies any recent N/V/F/C/CP/SOB/D/posterior calf pain. Objective - Vital Signs/Intake and Output Vital Signs (last 24 hours): Temp Pulse Resp BP Pulse Ox 99.4 F 101 H 17 119/55 L 99 10/10/17 08:00 10/10/17 08:00 10/10/17 08:00 10/10/17 08:00 10/10/17 08:00 Intake and Output: 10/10/17 10/10/17 06:59 18:59 Intake Total 2040 400 Output Total 200 700 Balance 1840 -300 - Medications Medications: Current Medications Acetaminophen (Tylenol 325mg Tab) 650 mg PO Q6 PRN PRN Reason: Pain, Mild (1-3) Hydromorphone HCl (Dilaudid) 1 mg IVP Q3H PRN PRN Reason: Pain, severe (8-10) Last Admin: 10/10/17 08:58 Dose: 1 mg Sodium Chloride (Sodium Chloride 0.9%) 1,000 mls @ 0 mls/hr IV .Q0M [facility] PRN Reason: Per Protocol Stop: 10/10/17 11:59 Piperacillin Sod/Tazobactam (Sod 3.375 gm/ Sodium Chloride) 100 mls @ 100 mls/ hr IVPB Q8 [facility] PRN Reason: Protocol Last Admin: 10/10/17 09:03 Dose: 100 mls/hr Sodium Chloride (Sodium Chloride 0.9%) 1,000 mls @ 125 mls/hr IV .Q8H [facility] Stop: 10/11/17 08:46 Last Admin: 10/10/17 09:04 Dose: 125 mls/hr Meperidine HCl (Demerol) 12.5 mg IVP Q5M PRN PRN Reason: Shivering/Rigor Last Admin: 10/09/17 14:30 Dose: 12.5 mg Silver Sulfadiazine (Silvadene 1% 50 Gm) 1 applic TOP DAILY [facility]AM - Labs Labs: 10/10/17 05:14 10/10/17 05:14 PT 14.0 Seconds (9.8-13.1) H 10/09/17 04:44 INR 1.3 (0.9-1.2) H 10/09/17 04:44 APTT 27.6 Seconds (25.6-37.1) 10/09/17 04:44 - Constitutional Appears: Well, Non-toxic, No Acute Distress - Extremities Exam Extremities Exam: Normal Capillary Refill. absent: Calf Tenderness Additional comments: Posterior splint is c/d/i Dressing is c/d/i without strikethrough noted Vasc: DP/PT pulses 2/4 b/l. Skin temperature warm to warm from proximal to distal. CFT < 3 seconds to all digits. Diffuse edematous changes noted to right leg Neuro: Epicritic and protective sensation intact but diminished Derm: surgical site with opening and retention sutures noted to the surgical incision extending along the lateral aspect of the entire leg, proximal to lateral malleolus extending proximally to level just distal to fibular head. Sutures is intact. Tibialis anterior muscle is noted to be viable, beefy red and healthy in appearance. The surgical site shows no overt signs of clinical infection at this time including no purulent drainage, no malodor, no erythema surrounding surgical site. MSK: Minimal POP noted to surgical site. Patient is able to weakly plantarflex and dorsiflex toes 1-5 of her right foot. Patient is unable to plantarflex or dorsiflex her ankle joint. It is unclear at this time whether this is due to neuropraxic changes or more permanent neurologic damage secondary to the compartment syndrome. Manual muscle strength testing deferred at this time due to postoperative state. Patient is able to wiggle toes. - Neurological Exam Neurological Exam: Alert, Awake, Oriented x3 - Psychiatric Exam Psychiatric exam: Normal Affect, Normal Mood Assessment and Plan - Assessment and Plan (Free Text) Assessment: 22 y.o female 1 day s/p debridement of necrotic tissue including peroneal brevis and 3 days s/p right leg lateral compartment fasciotomy 2/2 compartment syndrome with near total removal of the peroneus longus muscle. Plan: Patient examined and evaluated with attending, Dr. Raymundo Discussed the plan in detail with atteding Charts, labs, vitals reviewed (afebrile, absent leukocytosis) Dressing removed and surgical site cleansed with saline and dressed with silvadene, adaptic, saline wet to dry gauze, dsd, abd, kerlix and posterior splint. Continue IV abx per ID Dr. Coelho Continue pain management per primary team Neurology consulted: Dr. Quintero: if motor/sensory doesnt return in 1 month may require EMG/NCS Physiatry Consulted: awaiting recommendations Podiatry will continue to follow
--- NOTE | 2017-10-10 13:28 | CP.PCM.PN ---
Subjective - Date & Time of Evaluation Date of Evaluation: 10/10/17 Time of Evaluation: 09:45 - Subjective Subjective: Pt seen and examined at bedside. Pt states increased pain overnight that needed additional pain management, but is now improved. She denies fevers/chills, n/v/d , chest pain, SOB, dyspnea, cough, abdominal pain, hematuria, dysuria, or urinary incontinence. Objective - Vital Signs/Intake and Output Vital Signs (last 24 hours): Temp Pulse Resp BP Pulse Ox 98.9 F 109 H 13 124/57 L 97 10/10/17 12:00 10/10/17 12:00 10/10/17 12:00 10/10/17 12:00 10/10/17 12:00 Intake and Output: 10/10/17 10/10/17 06:59 18:59 Intake Total 2040 890 Output Total 200 1300 Balance 1840 -410 - Medications Medications: Current Medications Acetaminophen (Tylenol 325mg Tab) 650 mg PO Q6 PRN PRN Reason: Pain, Mild (1-3) Hydromorphone HCl (Dilaudid) 1 mg IVP Q3H PRN PRN Reason: Pain, severe (8-10) Last Admin: 10/10/17 12:57 Dose: 1 mg Piperacillin Sod/Tazobactam (Sod 3.375 gm/ Sodium Chloride) 100 mls @ 100 mls/ hr IVPB Q8 [facility] PRN Reason: Protocol Last Admin: 10/10/17 09:03 Dose: 100 mls/hr Sodium Chloride (Sodium Chloride 0.9%) 1,000 mls @ 125 mls/hr IV .Q8H [facility] Stop: 10/11/17 08:46 Last Admin: 10/10/17 09:04 Dose: 125 mls/hr Meperidine HCl (Demerol) 12.5 mg IVP Q5M PRN PRN Reason: Shivering/Rigor Last Admin: 10/09/17 14:30 Dose: 12.5 mg Silver Sulfadiazine (Silvadene 1% 50 Gm) 1 applic TOP DAILY [facility]AM - Labs Labs: 10/10/17 05:14 10/10/17 05:14 PT 14.0 Seconds (9.8-13.1) H 10/09/17 04:44 INR 1.3 (0.9-1.2) H 10/09/17 04:44 APTT 27.6 Seconds (25.6-37.1) 10/09/17 04:44 - Additional Findings Additional findings: - Constitutional Appears: Well, No Acute Distress - Eye Exam Eye Exam: EOMI, Normal appearance - Respiratory Exam Respiratory Exam: Clear to Ausculation Bilateral, NORMAL BREATHING PATTERN - Cardiovascular Exam Cardiovascular Exam: REGULAR RHYTHM, +S1, +S2 - GI/Abdominal Exam GI & Abdominal Exam: Soft, Normal Bowel Sounds - Extremities Exam Additional comments: Witnessed redress by podiatry. Stable foot inversion and flexion of metatarsals , Capillary refill < 2 seconds. Dorsalis pedis pulses palpable 2+. Sensation stable. - Neurological Exam Neurological Exam: Alert, Awake, CN II-XII Intact, Oriented x3 - Psychiatric Exam Psychiatric exam: Normal Affect, Normal Mood Assessment and Plan - Assessment and Plan (Free Text) Plan: 22 yo F w/o previous medical history is admitted for compartment syndrome of R lower extremity, s/p lateral compartment fasciotomy. 1) Compartment syndrome, R lateral compartment - R lateral Compartment fasciotomy on 10/07/2017; removal and debridement of necrotic peroneus brevis muscle belly - 10/09/2017; removal and debridement of necrotic peroneus longus muscle belly - MRI on 10/07/2017: Please refer to extensive report - XR: unremarkable - CK Oct 07: 5660; Improving currently at 674 - IVF: NS IVF 125mL/hr - Pain management: Dilaudid 1 mg IVP q3H; Acetaminophen 325 mg q6; Demerol 12.5mg IVP Q5M PRN - ICU management with Dr. Haas: neurovascular checks q2 - Neurology consulted: Dr. Quintero: if motor/sensory doesnt return in 1 month may require EMG/NCS - Consider Neurosurgery consult - ID consulted: [email or web address] 3.375g IVPB Q8H - PMR/PT Dr Vinson 2) Hypokalemia - Resolved 3) Cardiac Murmur -Consider echo 4) DVT prophylaxis - Currently held; surgery planned for 12:00 - NPO
--- NOTE | 2017-10-10 14:19 | CP.CCUPN ---
CCU Subjective - Physician Review Events Since Last Encounter (Free Text): 10/10/17 14:17 pain under control. CCU Objective - Vital Signs / Intake & Output Vital Signs (Last 4 hours): Vital Signs Temp Pulse Resp BP Pulse Ox 10/10/17 12:00 98.9 F 109 H 13 124/57 L 97 Intake and Output (Last 8hrs): Intake & Output 10/09/17 10/10/17 10/10/17 22:59 06:59 14:59 Intake Total 980 1800 890 Output Total 50 200 1300 Balance 930 1600 -410 Intake: IV 640 1700 650 Intake, Piggyback 100 100 Oral 240 0 240 Output: Urine 50 200 1300 Urethral (Duran) 200 Urine, Voided 1300 Other: # Voids Urethral (Duran) 1 Urine, Voided 400 300 - Physical Exam Extroacular Muscles: Positive for: EOMI Conjunctiva: Positive for: Normal Respiratory/Chest: Positive for: Clear to Auscultation, Good Air Exchange. Negative for: Respiratory Distress, Accessory Muscle Use, Wheezes, Decreased Breath Sounds, Rales, Rhonchi Cardiovascular: Positive for: Regular Rate and Rhythm, Normal S1, S2, Peripheal Pulses Present, Other (slightly decreased right DP pulse) Abdomen: Positive for: Normal Bowel Sounds. Negative for: Tenderness, Distention, Guarding Lower Extremity: Positive for: Other (right leg wrapped by elastic bandage). Negative for: CALF TENDERNESS (in right leg) Skin: Positive for: Warm, Normal Color Psychiatric: Positive for: Alert, Oriented x 3 - Medications Active Medications: Active Medications Generic Name Dose Route Start Last Admin Trade Name Valentinq PRN Reason Stop Dose Admin Acetaminophen 650 mg 10/07/17 19:33 Tylenol 325mg Tab PO Q6 PRN Pain, Mild (1-3) Enoxaparin Sodium 40 mg 10/10/17 13:45 Lovenox SC DAILY WISAM Protocol Hydromorphone HCl 1 mg 10/09/17 23:02 10/10/17 12:57 Dilaudid IVP 1 mg Q3H PRN Administration Pain, severe (8-10) Piperacillin Sod/Tazobactam 100 mls @ 100 mls/hr 10/09/17 17:00 10/10/17 09: 03 Sod 3.375 gm/ Sodium Chloride IVPB 100 mls/hr Q8 WISAM Administration Protocol Sodium Chloride 1,000 mls @ 125 mls/hr 10/10/17 09:00 10/10/17 09:04 Sodium Chloride 0.9% IV 10/11/17 08:46 125 mls/hr .Q8H WISAM Administration Meperidine HCl 12.5 mg 10/09/17 14:28 10/09/17 14:30 Demerol IVP 12.5 mg Q5M PRN Administration Shivering/Rigor Silver Sulfadiazine 1 applic 10/10/17 10:15 Silvadene 1% 50 Gm TOP DAILY WISAM - Patient Studies Lab Studies: Microbiology Studies 10/07/17 20:45 MRSA Culture (Admit) - Final Naris MRSA NOT DETECTED Lab Studies 10/10/17 10/10/17 Range/Units 05:14 05:14 WBC 9.4 (4.8-10.8) K/uL RBC 2.97 L (3.80-5.20) Mil/uL Hgb 9.1 L (12.0-16.0) g/dL Hct 27.1 L (34.0-47.0) % MCV 91.5 (81.0-99.0) fl MCH 30.7 (27.0-31.0) pg MCHC 33.6 (33.0-37.0) g/dL RDW 13.2 (11.5-14.5) % Plt Count 193 (130-400) K/uL MPV 9.5 (7.2-11.7) fl Neut % (Auto) 74.1 (50.0-75.0) % Lymph % (Auto) 13.4 L (20.0-40.0) % [place] % (Auto) 9.8 (0.0-10.0) % Eos % (Auto) 2.3 (0.0-4.0) % Baso % (Auto) 0.4 (0.0-2.0) % Neut # (Auto) 7.0 (1.8-7.0) K/uL Lymph # (Auto) 1.3 (1.0-4.3) K/uL [place] # (Auto) 0.9 H (0.0-0.8) K/uL Eos # (Auto) 0.2 (0.0-0.7) K/uL Baso # (Auto) 0.0 (0.0-0.2) K/uL Sodium 135 (132-148) mmol/l Potassium 4.6 (3.6-5.0) MMOL/L Chloride 101 (98-107) mmol/L Carbon Dioxide 29 (22-30) mmol/L Anion Gap 10 (10-20) BUN 5 L (7-17) mg/dl Creatinine 1.1 (0.7-1.2) mg/dl Est GFR ( Amer) > 60 Est GFR (Non-Af Amer) > 60 Random Glucose 129 H (65-105) mg/dL Calcium 8.2 L (8.4-10.2) mg/dL Total Creatine Kinase 674 H (30-135) U/L Laboratory Results - last 24 hr 10/10/17 10/10/17 05:14 05:14 WBC 9.4 RBC 2.97 L Hgb 9.1 L Hct 27.1 L MCV 91.5 MCH 30.7 MCHC 33.6 RDW 13.2 Plt Count 193 MPV 9.5 Neut % (Auto) 74.1 Lymph % (Auto) 13.4 L [place] % (Auto) 9.8 Eos % (Auto) 2.3 Baso % (Auto) 0.4 Neut # (Auto) 7.0 Lymph # (Auto) 1.3 [place] # (Auto) 0.9 H Eos # (Auto) 0.2 Baso # (Auto) 0.0 Sodium 135 Potassium 4.6 Chloride 101 Carbon Dioxide 29 Anion Gap 10 BUN 5 L Creatinine 1.1 Est GFR ( Amer) > 60 Est GFR (Non-Af Amer) > 60 Random Glucose 129 H Calcium 8.2 L Total Creatine Kinase 674 H Fingerstick Blood Sugar Results: 85 Review of Systems - Review of Systems All systems: reviewed and no additional remarkable complaints except - Musculoskeletal Musculoskeletal: Myalgias Critical Care Progress Note - Nutrition Nutrition: Nutrition Category Date Time Status Regular Diet [DIET] Diets 10/09/17 Dinner Active Assessment/Plan (1) Compartment syndrome of right lower extremity Assessment and plan: 22 y/o F with no significant PMHx, with Right lateral compartment syndrome, s/p fasciotomy and Rhabdomyolysis. Neuro: alert and oriented x 3. Pulm: no acute issues, breathing spontaneously on room air. CV: hemodynamically stable. Hem: no acute issues Renal: rhabdomyolysis resolving, decreased fluids NS@125 Endo: no acute issues GI: regular diet ID: compartment syndrome from deep tissue infection, braod spectrum coverage with Zosyn. DVT proph - lovenox GI proph - not currently indicated Code status - full code Critical Care Time spent Multi-disciplinary rounds were performed with house staff, nursing, speech therapy, respiratory therapy, pharmacy and nutrition with integrated input from the primary team/attending and other consulting services. The documented time is cumulative and includes review of patient data/exams/labs/chart review and examination of the patient on rounds and throughout the day; time is exclusive of any procedures or teaching time. Current Visit: Yes Status: Acute Priority: High
[2017-10-10] MEDS: Enoxaparin 40 mg Syringe SC SCH (16:29)
[2017-10-11] MEDS: Piperacillin/Tazobact 3.375 GM in Sodium Chloride 0.9% 100 ML IVPB SCH ×3 (00:17→17:20)
[2017-10-11] MEDS: Sodium Chloride 0.9% 1,000 ML IV SCH (04:23)
[2017-10-11] MEDS ORDERED: Magnesium Hydroxide Susp 30 ml UD PO STA (05:18)
[2017-10-11 06:34] LABS: HEMOGLOBIN 9.7 g/dL (12.0-16.0); MEAN CELL VOLUME 90.6 fl (81.0-99.0); MEAN CORPUSCULAR HEMOGLOBIN 30.9 pg (27.0-31.0); MEAN CORPUSCULAR HGB CONC 34.1 g/dL (33.0-37.0); RBC 3.13 Mil/uL (3.80-5.20); RED CELL DISTRIBUTION WIDTH 12.9 % (11.5-14.5)
[2017-10-11 06:42] LABS: BLOOD UREA NITROGEN 7 mg/dl (7-17); CALCIUM 8.5 mg/dL (8.4-10.2); GFR AFRICAN-AMERICAN > 60; GFR NON-AFRICAN AMERICAN > 60
[2017-10-11 07:09] LABS: FERRITIN 49.5 ng/Ml (6.24-137.0)
--- NOTE | 2017-10-11 08:20 | CP.PCM.PN ---
Subjective - Date & Time of Evaluation Date of Evaluation: 10/11/17 Time of Evaluation: 08:00 - Subjective Subjective: Tamar was seen and examined at bedside this morning. POD 1 after two surgeries for resection and debridement of necrotic peroneous longus muscle as well as wound closure. She was resting well and denied overnight events. She is increasingly stressed 2/2 to realization of events and not being able to be as independent as previously. Objective - Vital Signs/Intake and Output Vital Signs (last 24 hours): Temp Pulse Resp BP Pulse Ox 99.5 F 83 10 L 118/61 97 10/11/17 04:00 10/11/17 06:00 10/11/17 06:00 10/11/17 06:00 10/11/17 06:00 Intake and Output: 10/11/17 10/11/17 06:59 18:59 Intake Total 1475 Output Total 1700 Balance -225 - Medications Medications: Current Medications Acetaminophen (Tylenol 325mg Tab) 650 mg PO Q6 PRN PRN Reason: Pain, Mild (1-3) Enoxaparin Sodium (Lovenox) 40 mg SC DAILY WISAM PRN Reason: Protocol Last Admin: 10/10/17 16:29 Dose: 40 mg Hydromorphone HCl (Dilaudid) 1 mg IVP Q3H PRN PRN Reason: Pain, severe (8-10) Last Admin: 10/11/17 04:55 Dose: 1 mg Piperacillin Sod/Tazobactam (Sod 3.375 gm/ Sodium Chloride) 100 mls @ 100 mls/ hr IVPB Q8 WISAM PRN Reason: Protocol Last Admin: 10/11/17 00:17 Dose: 100 mls/hr Sodium Chloride (Sodium Chloride 0.9%) 1,000 mls @ 125 mls/hr IV .Q8H WISAM Stop: 10/11/17 08:46 Last Admin: 10/11/17 04:23 Dose: 125 mls/hr Meperidine HCl (Demerol) 12.5 mg IVP Q5M PRN PRN Reason: Shivering/Rigor Last Admin: 10/09/17 14:30 Dose: 12.5 mg Sennosides (Senokot Tab) 17.2 mg PO HS PRN PRN Reason: Constipation Silver Sulfadiazine (Silvadene 1% 50 Gm) 1 applic TOP DAILY WISAM Last Admin: 10/10/17 10:20 Dose: 1 applic - Labs Labs: 10/11/17 05:21 10/11/17 05:21 PT 14.0 Seconds (9.8-13.1) H 10/09/17 04:44 INR 1.3 (0.9-1.2) H 10/09/17 04:44 APTT 27.6 Seconds (25.6-37.1) 10/09/17 04:44 - Constitutional Appears: Well, No Acute Distress - Head Exam Head Exam: ATRAUMATIC, NORMAL INSPECTION - Eye Exam Eye Exam: EOMI, Normal appearance - Respiratory Exam Respiratory Exam: Clear to Ausculation Bilateral, NORMAL BREATHING PATTERN - Cardiovascular Exam Cardiovascular Exam: REGULAR RHYTHM, +S1, +S2 - GI/Abdominal Exam GI & Abdominal Exam: Soft, Normal Bowel Sounds. absent: Tenderness - Extremities Exam Additional comments: R lower extremity s/p resection and debridement of necrotic Peroneous longus muscle along with wound closure. Extremity was wrapped in bandage. Pt able to sense touch. Able to move metatarsals. Limited inversion - Neurological Exam Neurological Exam: Abnormal Gait (currently bed rest 2/2 surgery to lower extremity), Alert, Awake, CN II-XII Intact, Oriented x3 - Psychiatric Exam Psychiatric exam: Normal Affect, Normal Mood Additional comments: Moment of crying 2/2 to realization of events, limitations including self care Assessment and Plan - Assessment and Plan (Free Text) Plan: 22 yo F w/o previous medical history is admitted for compartment syndrome of R lower extremity, s/p lateral compartment fasciotomy. 1) Compartment syndrome, R lateral compartment - R lateral Compartment fasciotomy on 10/07/2017 - 10/09/2017; removal and debridement of necrotic peroneus longus muscle belly - MRI on 10/07/2017: Please refer to extensive report - XR: unremarkable - CK Oct 07: [id number]; Improving at 674 10/10/2017 - IVF: d/c - Pain management: Dilaudid 1 mg IVP q3H; Acetaminophen 325 mg q6; Demerol 12.5mg IVP Q5M PRN - ICU management with Dr. Haas: neurovascular checks q4 - Neurology consulted: Dr. Quintero: if motor/sensory doesnt return in 1 month may require EMG/NCS - Consider Neurosurgery consult pending - ID consulted: Zosyn 3.375g IVPB Q8H d/c today - PMR/PT Dr Vinson pending consult for futher eval 2) Anemia -Hbg 9.7 up from 9.1 10/10/2017 -Retic: 3.0; ferritin: 49.5 -LMP: started yesterday; requiring 1 pad per day lasting 5 days -PO FeSO4 after bowel movement. -f/u H/H 3) Constipation - last bowel movement 7 days. -Milk of magnesia, and sennokot -Pt currently experiencing gas movement 4) Cardiac Murmur -Consider echo 5) Hypokalemia -resolved 6) DVT prophylaxis -Lovenox 40 mg
[2017-10-11] MEDS: Enoxaparin 40 mg Syringe SC SCH (09:17)
[2017-10-11 09:20] LABS: SQUAMOUS EPITHIAL 1 /hpf (0-5); URINE BACTERIA OCC (<OCC); URINE BILIRUBIN NEGATIVE (NEGATIVE); URINE BLOOD LARGE (NEGATIVE); URINE CLARITY SLIGHTY-CLOUDY (Clear); URINE COLOR YELLOW (YELLOW); URINE GLUCOSE (UA) NEG (Normal); URINE LEUKOCYTE ESTERASE NEG Leu/uL (Negative); URINE NITRATE NEGATIVE (NEGATIVE); URINE PROTEIN NEGATIVE (NEGATIVE)
[2017-10-11] MEDS: Silver Sulfadiazine 1% CREAM (50 gm) TOP SCH (13:00)
--- NOTE | 2017-10-11 13:27 | CP.CCUPN ---
CCU Subjective - Physician Review Events Since Last Encounter (Free Text): 10/11/17 13:25 having more pain today, but no changes in appearance of lower extremity. Also hasn't had any bowel movements since admission. 10/11/17 13:27 CCU Objective - Vital Signs / Intake & Output Vital Signs (Last 4 hours): Vital Signs Temp Pulse Resp BP Pulse Ox 10/11/17 12:00 98.9 F 114 H 25 H 131/71 98 Intake and Output (Last 8hrs): Intake & Output 10/10/17 10/11/17 10/11/17 22:59 06:59 14:59 Intake Total 750 975 895 Output Total 1300 1150 950 Balance -550 -175 -55 Intake: IV 750 875 495 Intake, Piggyback 100 Oral 400 Output: Urine 1300 1150 950 Urine, Voided 1300 1150 950 Other: # Voids Urine, Voided 1 2 - Physical Exam Extroacular Muscles: Positive for: EOMI Conjunctiva: Positive for: Normal Respiratory/Chest: Positive for: Clear to Auscultation, Good Air Exchange. Negative for: Respiratory Distress, Accessory Muscle Use, Wheezes, Decreased Breath Sounds, Rales, Rhonchi Cardiovascular: Positive for: Regular Rate and Rhythm, Normal S1, S2, Peripheal Pulses Present, Other (slightly decreased right DP pulse) Abdomen: Positive for: Normal Bowel Sounds. Negative for: Tenderness, Distention, Guarding Lower Extremity: Positive for: Other (right leg wrapped by elastic bandage). Negative for: CALF TENDERNESS (in right leg) Skin: Positive for: Warm, Normal Color Psychiatric: Positive for: Alert, Oriented x 3 - Medications Active Medications: Active Medications Generic Name Dose Route Start Last Admin Trade Name Freq PRN Reason Stop Dose Admin Acetaminophen 650 mg 10/07/17 19:33 Tylenol 325mg Tab PO Q6 PRN Pain, Mild (1-3) Enoxaparin Sodium 40 mg 10/10/17 13:45 10/11/17 09:17 Lovenox SC 40 mg DAILY WISAM Administration Protocol Hydromorphone HCl 1 mg 10/09/17 23:02 10/11/17 12:15 Dilaudid IVP 1 mg Q3H PRN Administration Pain, severe (8-10) Piperacillin Sod/Tazobactam 100 mls @ 100 mls/hr 10/09/17 17:00 10/11/17 09: 18 Sod 3.375 gm/ Sodium Chloride IVPB 100 mls/hr Q8 WISAM Administration Protocol Ketorolac Tromethamine 30 mg 10/11/17 12:29 Toradol IVP Q6 PRN Pain, moderate (4-7) Meperidine HCl 12.5 mg 10/09/17 14:28 10/09/17 14:30 Demerol IVP 12.5 mg Q5M PRN Administration Shivering/Rigor Senna/Docusate Sodium 2 tab 10/11/17 17:00 Senokot S 50 Mg-8.6 Mg PO BID WISAM Silver Sulfadiazine 1 applic 10/10/17 10:15 10/10/17 10:20 Silvadene 1% 50 Gm TOP 1 applic DAILY WISAM Administration - Patient Studies Lab Studies: Lab Studies 10/11/17 10/11/17 10/11/17 Range/Units 09:20 05:21 05:21 WBC 10.0 (4.8-10.8) K/uL RBC 3.13 L (3.80-5.20) Mil/uL Hgb 9.7 L (12.0-16.0) g/dL Hct 28.4 L (34.0-47.0) % MCV 90.6 (81.0-99.0) fl MCH 30.9 (27.0-31.0) pg MCHC 34.1 (33.0-37.0) g/dL RDW 12.9 (11.5-14.5) % Plt Count 207 (130-400) K/uL Retic Count 3.0 H (0.5-1.5) % Sodium 135 (132-148) mmol/l Potassium 4.1 (3.6-5.0) MMOL/L Chloride 102 (98-107) mmol/L Carbon Dioxide 27 (22-30) mmol/L Anion Gap 10 (10-20) BUN 7 (7-17) mg/dl Creatinine 1.0 (0.7-1.2) mg/dl Est GFR ( Amer) > 60 Est GFR (Non-Af Amer) > 60 Random Glucose 100 (65-105) mg/dL Calcium 8.5 (8.4-10.2) mg/dL Ferritin 49.5 (6.24-137.0) ng/Ml Urine Color Yellow (YELLOW) Urine Clarity Slighty-cloudy (Clear) Urine pH 6.0 (5.0-8.0) Ur Specific [place] 1.012 (1.003-1.030) Urine Protein Negative (NEGATIVE) mg/dL Urine Glucose (UA) Neg (Normal) mg/dL Urine Ketones Negative (NEGATIVE) mg/dL Urine Blood Large (NEGATIVE) Urine Nitrate Negative (NEGATIVE) Urine Bilirubin Negative (NEGATIVE) Urine Urobilinogen 2.0 H (0.2-1.0) mg/dL Ur Leukocyte Esterase Neg (Negative) [place]/uL Urine RBC (Auto) 388 H (0-3) /hpf Urine Microscopic WBC 15 H (0-5) /hpf Ur Squamous Epith Cells 1 (0-5) /hpf Urine Bacteria Occ H (<OCC) Laboratory Results - last 24 hr 10/11/17 10/11/17 10/11/17 05:21 05:21 09:20 WBC 10.0 RBC 3.13 L Hgb 9.7 L Hct 28.4 L MCV 90.6 MCH 30.9 MCHC 34.1 RDW 12.9 Plt Count 207 Retic Count 3.0 H Sodium 135 Potassium 4.1 Chloride 102 Carbon Dioxide 27 Anion Gap 10 BUN 7 Creatinine 1.0 Est GFR ( Amer) > 60 Est GFR (Non-Af Amer) > 60 Random Glucose 100 Calcium 8.5 Ferritin 49.5 Urine Color Yellow Urine Clarity Slighty-cloudy Urine pH 6.0 Ur Specific [place] 1.012 Urine Protein Negative Urine Glucose (UA) Neg Urine Ketones Negative Urine Blood Large Urine Nitrate Negative Urine Bilirubin Negative Urine Urobilinogen 2.0 H Ur Leukocyte Esterase Neg Urine RBC (Auto) 388 H Urine Microscopic WBC 15 H Ur Squamous Epith Cells 1 Urine Bacteria Occ H Fingerstick Blood Sugar Results: 85 Review of Systems - Review of Systems All systems: reviewed and no additional remarkable complaints except - Gastrointestinal Gastrointestinal: Constipation - Musculoskeletal Musculoskeletal: Other (right lower extremity pain) Critical Care Progress Note - Nutrition Nutrition: Nutrition Category Date Time Status Regular Diet [DIET] Diets 10/09/17 Dinner Active Assessment/Plan (1) Compartment syndrome of right lower extremity Assessment and plan: 22 y/o F with no significant PMHx, with Right lateral compartment syndrome, s/p fasciotomy and Rhabdomyolysis. Neuro: alert and oriented x 3. Dilaudid prn for pain. Adding Toradol prn for pain. Pulm: no acute issues, breathing spontaneously on room air. CV: hemodynamically stable. Hem: no acute issues Renal: rhabdomyolysis resolved, stopping fluids, encourage po intake. Endo: no acute issues GI: regular diet, added senna-colace bid for opioid induced constipation. ID: compartment syndrome from deep tissue infection, braod spectrum coverage with Zosyn. ID - Dr. Coelho DVT proph - lovenox GI proph - not currently indicated Code status - full code Critical Care Time spent 35 minutes Multi-disciplinary rounds were performed with house staff, nursing, speech therapy, respiratory therapy, pharmacy and nutrition with integrated input from the primary team/attending and other consulting services. The documented time is cumulative and includes review of patient data/exams/labs/chart review and examination of the patient on rounds and throughout the day; time is exclusive of any procedures or teaching time. Current Visit: Yes Status: Acute Priority: High
--- NOTE | 2017-10-11 13:36 | CP.PCM.PN ---
Subjective - Date & Time of Evaluation Date of Evaluation: 10/11/17 Time of Evaluation: 12:30 - Subjective Subjective: Podiatry Progress Note for Dr. Raymundo 22 y.o female with no PMHx seen at bedside 2 days s/p debridement of necrotic tissue including peroneal brevis and 4 days s/p right leg lateral compartment fasciotomy 2/2 compartment syndrome with near total removal of the peroneus longus muscle. Patient is seen resting comfortably in bed, in NAD, and AA0x3. Father seen at bedside during visitation with attending Dr. Raymundo. Patient reports that she has been getting out of bed into the chair back and forth to get moving. She reports pain to the right LE but is managed by pain medication. Patient denies any further pedal complaints at this time. Denies any recent N/V/ F/C/CP/SOB/D/posterior calf pain. Objective - Vital Signs/Intake and Output Vital Signs (last 24 hours): Temp Pulse Resp BP Pulse Ox 98.9 F 114 H 25 H 131/71 98 10/11/17 12:00 10/11/17 12:00 10/11/17 12:00 10/11/17 12:00 10/11/17 12:00 Intake and Output: 10/11/17 10/11/17 06:59 18:59 Intake Total 1475 895 Output Total 1700 950 Balance -225 -55 - Medications Medications: Current Medications Acetaminophen (Tylenol 325mg Tab) 650 mg PO Q6 PRN PRN Reason: Pain, Mild (1-3) Enoxaparin Sodium (Lovenox) 40 mg SC DAILY WISAM PRN Reason: Protocol Last Admin: 10/11/17 09:17 Dose: 40 mg Hydromorphone HCl (Dilaudid) 1 mg IVP Q3H PRN PRN Reason: Pain, severe (8-10) Last Admin: 10/11/17 12:15 Dose: 1 mg Piperacillin Sod/Tazobactam (Sod 3.375 gm/ Sodium Chloride) 100 mls @ 100 mls/ hr IVPB Q8 WISAM PRN Reason: Protocol Last Admin: 10/11/17 09:18 Dose: 100 mls/hr Ketorolac Tromethamine (Toradol) 30 mg IVP Q6 PRN PRN Reason: Pain, moderate (4-7) Meperidine HCl (Demerol) 12.5 mg IVP Q5M PRN PRN Reason: Shivering/Rigor Last Admin: 10/09/17 14:30 Dose: 12.5 mg Senna/Docusate Sodium (Senokot S 50 Mg-8.6 Mg) 2 tab PO BID [facility] Silver Sulfadiazine (Silvadene 1% 50 Gm) 1 applic TOP DAILY WISAM Last Admin: 10/10/17 10:20 Dose: 1 applic - Labs Labs: 10/11/17 05:21 10/11/17 05:21 PT 14.0 Seconds (9.8-13.1) H 10/09/17 04:44 INR 1.3 (0.9-1.2) H 10/09/17 04:44 APTT 27.6 Seconds (25.6-37.1) 10/09/17 04:44 - Constitutional Appears: Well, Non-toxic, No Acute Distress - Extremities Exam Extremities Exam: absent: Calf Tenderness Additional comments: Posterior splint is c/d/i Dressing is c/d/i without strikethrough noted Vasc: DP/PT pulses 2/4 b/l. Skin temperature warm to warm from proximal to distal. CFT < 3 seconds to all digits. Diffuse edematous changes noted to right leg Neuro: Epicritic and protective sensation intact but diminished Derm: surgical site remains opened with retention sutures noted and intact to the surgical site; surgical incision extending along the lateral aspect of the entire leg, proximal to lateral malleolus extending proximally to level just distal to fibular head. Tibialis anterior muscle is noted to be viable, beefy red and healthy in appearance. The surgical site shows no overt signs of clinical infection at this time including no purulent drainage, no malodor, no erythema surrounding surgical site. MSK: Minimal POP noted to surgical site. Patient is able to weakly plantarflex and dorsiflex toes 1-5 of her right foot. Patient is unable dorsiflex her ankle joint. Patient can weakly plantarflex ankle joint. It is unclear at this time whether this is due to neuropraxic changes or more permanent neurologic damage secondary to the compartment syndrome. Manual muscle strength testing deferred at this time due to postoperative state. Patient is able to wiggle toes. - Neurological Exam Neurological Exam: Alert, Awake, Oriented x3 - Psychiatric Exam Psychiatric exam: Normal Affect, Normal Mood Assessment and Plan - Assessment and Plan (Free Text) Assessment: 22 y.o female 2 days s/p debridement of necrotic tissue including peroneal brevis and 4 days s/p right leg lateral compartment fasciotomy 2/2 compartment syndrome with near total removal of the peroneus longus muscle. Plan: Patient examined and evaluated with attending, Dr. Raymundo Discussed the plan in detail with atteding Charts, labs, vitals reviewed (afebrile, absent leukocytosis) Dressing removed and surgical site cleansed with saline and dressed with silvadene, adaptic, saline wet to dry gauze, dsd, abd, kerlix Performed 15 minutes of passive dorsiflexion and plantarflexion at ankle with knees straight and bent with patient. Posterior splint applied Continue IV abx per ID Dr. Coelho Continue pain management per primary team Neurology consulted: Dr. Quintero: if motor/sensory doesnt return in 1 month may require EMG/NCS Physiatry Consulted: awaiting recommendations Podiatry will continue to follow
--- NOTE | 2017-10-11 13:50 | CP.PCM.PN ---
Subjective - Date & Time of Evaluation Date of Evaluation: 10/11/17 Time of Evaluation: 07:00 - Subjective Subjective: doing well afeb alert nad Objective - Vital Signs/Intake and Output Vital Signs (last 24 hours): Temp Pulse Resp BP Pulse Ox 98.9 F 114 H 25 H 131/71 98 10/11/17 12:00 10/11/17 12:00 10/11/17 12:00 10/11/17 12:00 10/11/17 12:00 Intake and Output: 10/11/17 10/11/17 06:59 18:59 Intake Total 1475 895 Output Total 1700 950 Balance -225 -55 - Medications Medications: Current Medications Acetaminophen (Tylenol 325mg Tab) 650 mg PO Q6 PRN PRN Reason: Pain, Mild (1-3) Enoxaparin Sodium (Lovenox) 40 mg SC DAILY WISAM PRN Reason: Protocol Last Admin: 10/11/17 09:17 Dose: 40 mg Hydromorphone HCl (Dilaudid) 1 mg IVP Q3H PRN PRN Reason: Pain, severe (8-10) Last Admin: 10/11/17 12:15 Dose: 1 mg Piperacillin Sod/Tazobactam (Sod 3.375 gm/ Sodium Chloride) 100 mls @ 100 mls/ hr IVPB Q8 WISAM PRN Reason: Protocol Last Admin: 10/11/17 09:18 Dose: 100 mls/hr Ketorolac Tromethamine (Toradol) 30 mg IVP Q6 PRN PRN Reason: Pain, moderate (4-7) Meperidine HCl (Demerol) 12.5 mg IVP Q5M PRN PRN Reason: Shivering/Rigor Last Admin: 10/09/17 14:30 Dose: 12.5 mg Senna/Docusate Sodium (Senokot S 50 Mg-8.6 Mg) 2 tab PO BID [facility] Silver Sulfadiazine (Silvadene 1% 50 Gm) 1 applic TOP DAILY [facility] Last Admin: 10/10/17 10:20 Dose: 1 applic - Labs Labs: 10/11/17 05:21 10/11/17 05:21 PT 14.0 Seconds (9.8-13.1) H 10/09/17 04:44 INR 1.3 (0.9-1.2) H 10/09/17 04:44 APTT 27.6 Seconds (25.6-37.1) 10/09/17 04:44 - Constitutional Appears: Non-toxic, Chronically Ill - Head Exam Head Exam: NORMOCEPHALIC - Eye Exam Eye Exam: PERRL - ENT Exam ENT Exam: Mucous Membranes Dry - Neck Exam Neck Exam: absent: Lymphadenopathy - Respiratory Exam Respiratory Exam: Decreased Breath Sounds - Cardiovascular Exam Cardiovascular Exam: REGULAR RHYTHM - GI/Abdominal Exam GI & Abdominal Exam: Distended - Rectal Exam Rectal Exam: Deferred - Exam Exam: NORMAL INSPECTION - Back Exam Back Exam: absent: CVA tenderness (L), CVA tenderness (R) - Neurological Exam Neurological Exam: Alert, Awake, Oriented x3 - Psychiatric Exam Psychiatric exam: Normal Mood - Skin Skin Exam: Dry Assessment and Plan (1) Compartment syndrome of right lower extremity Status: Acute (2) Rhabdomyolysis Status: Acute
--- NOTE | 2017-10-11 16:47 | CP.PCM.PN ---
Subjective - Date & Time of Evaluation Date of Evaluation: 10/11/17 Time of Evaluation: 16:47 - Subjective Subjective: renal follow up note no new events overnght exam:VSS nad ao tiems 3 heent normal s1s2 present no resp distress abd sfot right leg in dresssing normal affect A&P: rhabdomyolysis/compartment syndrome s/p surgery ck is coming down renal functioni s normal continue fluids Objective - Vital Signs/Intake and Output Vital Signs (last 24 hours): Temp Pulse Resp BP Pulse Ox 98.3 F 80 16 118/65 100 10/11/17 16:00 10/11/17 16:00 10/11/17 16:00 10/11/17 16:00 10/11/17 16:00 Intake and Output: 10/11/17 10/11/17 06:59 18:59 Intake Total 1475 1265 Output Total 1700 1500 Balance -225 -235 - Medications Medications: Current Medications Acetaminophen (Tylenol 325mg Tab) 650 mg PO Q6 PRN PRN Reason: Pain, Mild (1-3) Enoxaparin Sodium (Lovenox) 40 mg SC DAILY WISAM PRN Reason: Protocol Last Admin: 10/11/17 09:17 Dose: 40 mg Hydromorphone HCl (Dilaudid) 1 mg IVP Q3H PRN PRN Reason: Pain, severe (8-10) Last Admin: 10/11/17 15:38 Dose: 1 mg Piperacillin Sod/Tazobactam (Sod 3.375 gm/ Sodium Chloride) 100 mls @ 100 mls/ hr IVPB Q8 [facility]ISAM PRN Reason: Protocol Last Admin: 10/11/17 09:18 Dose: 100 mls/hr Ketorolac Tromethamine (Toradol) 30 mg IVP Q6 PRN PRN Reason: Pain, moderate (4-7) Last Admin: 10/11/17 12:50 Dose: 30 mg Meperidine HCl (Demerol) 12.5 mg IVP Q5M PRN PRN Reason: Shivering/Rigor Last Admin: 10/09/17 14:30 Dose: 12.5 mg Senna/Docusate Sodium (Senokot S 50 Mg-8.6 Mg) 2 tab PO BID [facility] Silver Sulfadiazine (Silvadene 1% 50 Gm) 1 applic TOP DAILY [facility] Last Admin: 10/11/17 13:00 Dose: 1 applic - Labs Labs: 10/11/17 05:21 10/11/17 05:21 PT 14.0 Seconds (9.8-13.1) H 10/09/17 04:44 INR 1.3 (0.9-1.2) H 10/09/17 04:44 APTT 27.6 Seconds (25.6-37.1) 10/09/17 04:44
[2017-10-11] MEDS: Docusate-Senna 50 mg-8.6 mg Tab PO SCH (17:19)
[2017-10-12] MEDS: Piperacillin/Tazobact 3.375 GM in Sodium Chloride 0.9% 100 ML IVPB SCH ×3 (01:52→16:53)
[2017-10-12 05:17] LABS: BLOOD UREA NITROGEN 11 mg/dl (7-17); CALCIUM 8.8 mg/dL (8.4-10.2); GFR AFRICAN-AMERICAN > 60; GFR NON-AFRICAN AMERICAN > 60
[2017-10-12 06:53] LABS: BASO % 0.2 % (0.0-2.0); EOS # 0.3 K/uL (0.0-0.7); EOS % 2.8 % (0.0-4.0); HEMOGLOBIN 9.8 g/dL (12.0-16.0); LYMPH # 1.1 K/uL (1.0-4.3); LYMPH % 10.9 % (20.0-40.0); MEAN CELL VOLUME 89.9 fl (81.0-99.0); MEAN CORPUSCULAR HEMOGLOBIN 30.6 pg (27.0-31.0); MEAN CORPUSCULAR HGB CONC 34.1 g/dL (33.0-37.0); MEAN PLATELET VOLUME 9.7 fl (7.2-11.7); MONO # 0.9 K/uL (0.0-0.8); MONO % 8.9 % (0.0-10.0); NEUT # 7.7 K/uL (1.8-7.0); NEUT % 77.2 % (50.0-75.0); RBC 3.21 Mil/uL (3.80-5.20); RED CELL DISTRIBUTION WIDTH 13.1 % (11.5-14.5)
--- NOTE | 2017-10-12 07:20 | CP.CCUPN ---
CCU Subjective - Physician Review Events Since Last Encounter (Free Text): 10/12/17 12:20 The patient was Seen/interviewed and examined by me at the bedside during ICU round, Medical records reviewed and Management issues were discussed and formulated with the house staff. Events reviewed S/P R lower extremity fasciotomy 2/2 R lateral compartment syndrome, partial removal of peroneus longus muscle and dibridement of nectrotic tissue on 10/09. Clinically and hemodynamically improved No Vasopressors Awake, comfortable, NAD Leg Pain well controlled Denies any chest pain, SOB or Palpitations Afebrile, oN iv ZOSYN NSR on the monitor Last 24H I&O 1655/2380 This morning labs revealed CPK level trending down, H/H Stable at 9.8/28.9, stable renal function BUN/Cr 11/1.1 CCU Objective - Vital Signs / Intake & Output Vital Signs (Last 4 hours): Vital Signs Temp Pulse Resp BP Pulse Ox 10/12/17 06:00 70 13 114/50 L 95 10/12/17 04:00 98 F 88 16 149/62 97 Intake and Output (Last 8hrs): Intake & Output 10/11/17 10/12/17 10/12/17 22:59 06:59 14:59 Intake Total 520 100 Output Total 630 550 Balance -110 -450 Intake: IV 120 0 Intake, Piggyback 100 Oral 400 Output: Urine 630 550 Urine, Voided 630 550 Other: # Voids Urine, Voided 1 - Physical Exam Extroacular Muscles: Positive for: EOMI Conjunctiva: Positive for: Normal Respiratory/Chest: Positive for: Clear to Auscultation, Good Air Exchange. Negative for: Respiratory Distress, Accessory Muscle Use, Wheezes, Decreased Breath Sounds, Rales, Rhonchi Cardiovascular: Positive for: Regular Rate and Rhythm, Normal S1, S2, Peripheal Pulses Present, Other (slightly decreased right DP pulse) Abdomen: Positive for: Normal Bowel Sounds. Negative for: Tenderness, Distention, Guarding Lower Extremity: Positive for: Other (right leg wrapped by elastic bandage). Negative for: CALF TENDERNESS (in right leg) Skin: Positive for: Warm, Normal Color Psychiatric: Positive for: Alert, Oriented x 3 - Medications Active Medications: Active Medications Generic Name Dose Route Start Last Admin Trade Name Freq PRN Reason Stop Dose Admin Acetaminophen 650 mg 10/07/17 19:33 Tylenol 325mg Tab PO Q6 PRN Pain, Mild (1-3) Enoxaparin Sodium 40 mg 10/10/17 13:45 10/11/17 09:17 Lovenox SC 40 mg DAILY WISAM Administration Protocol Hydromorphone HCl 1 mg 10/09/17 23:02 10/12/17 05:39 Dilaudid IVP 1 mg Q3H PRN Administration Pain, severe (8-10) Piperacillin Sod/Tazobactam 100 mls @ 100 mls/hr 10/09/17 17:00 10/12/17 01: 52 Sod 3.375 gm/ Sodium Chloride IVPB 100 mls/hr Q8 WISAM Administration Protocol Ketorolac Tromethamine 30 mg 10/11/17 12:29 10/11/17 12:50 Toradol IVP 30 mg Q6 PRN Administration Pain, moderate (4-7) Ondansetron HCl 4 mg 10/11/17 22:39 10/11/17 22:48 Zofran Inj IVP 4 mg Q4 PRN Administration Nausea/Vomiting Senna/Docusate Sodium 2 tab 10/11/17 17:00 10/11/17 17:19 Senokot S 50 Mg-8.6 Mg PO 2 tab BID WISAM Administration Silver Sulfadiazine 1 applic 10/10/17 10:15 10/11/17 13:00 Silvadene 1% 50 Gm TOP 1 applic DAILY WISAM Administration - Patient Studies Lab Studies: Lab Studies 10/12/17 10/12/17 10/11/17 Range/Units 05:00 04:20 09:20 WBC 10.0 (4.8-10.8) K/uL RBC 3.21 L (3.80-5.20) Mil/uL Hgb 9.8 L (12.0-16.0) g/dL Hct 28.9 L (34.0-47.0) % MCV 89.9 (81.0-99.0) fl MCH 30.6 (27.0-31.0) pg MCHC 34.1 (33.0-37.0) g/dL RDW 13.1 (11.5-14.5) % Plt Count 242 (130-400) K/uL MPV 9.7 (7.2-11.7) fl Neut % (Auto) 77.2 H (50.0-75.0) % Lymph % (Auto) 10.9 L (20.0-40.0) % [place] % (Auto) 8.9 (0.0-10.0) % Eos % (Auto) 2.8 (0.0-4.0) % Baso % (Auto) 0.2 (0.0-2.0) % Neut # (Auto) 7.7 H (1.8-7.0) K/uL Lymph # (Auto) 1.1 (1.0-4.3) K/uL [place] # (Auto) 0.9 H (0.0-0.8) K/uL Eos # (Auto) 0.3 (0.0-0.7) K/uL Baso # (Auto) 0.0 (0.0-0.2) K/uL Sodium 135 (132-148) mmol/l Potassium 4.1 (3.6-5.0) MMOL/L Chloride 101 (98-107) mmol/L Carbon Dioxide 30 (22-30) mmol/L Anion Gap 8 L (10-20) BUN 11 (7-17) mg/dl Creatinine 1.1 (0.7-1.2) mg/dl Est GFR ( Amer) > 60 Est GFR (Non-Af Amer) > 60 Random Glucose 105 (65-105) mg/dL Calcium 8.8 (8.4-10.2) mg/dL Total Creatine Kinase 215 H (30-135) U/L Urine Color Yellow (YELLOW) Urine Clarity Slighty-cloudy (Clear) Urine pH 6.0 (5.0-8.0) Ur Specific [place] 1.012 (1.003-1.030) Urine Protein Negative (NEGATIVE) mg/dL Urine Glucose (UA) Neg (Normal) mg/dL Urine Ketones Negative (NEGATIVE) mg/dL Urine Blood Large (NEGATIVE) Urine Nitrate Negative (NEGATIVE) Urine Bilirubin Negative (NEGATIVE) Urine Urobilinogen 2.0 H (0.2-1.0) mg/dL Ur Leukocyte Esterase Neg (Negative) [place]/uL Urine RBC (Auto) 388 H (0-3) /hpf Urine Microscopic WBC 15 H (0-5) /hpf Ur Squamous Epith Cells 1 (0-5) /hpf Urine Bacteria Occ H (<OCC) Laboratory Results - last 24 hr 10/11/17 10/12/17 10/12/17 09:20 04:20 05:00 WBC 10.0 RBC 3.21 L Hgb 9.8 L Hct 28.9 L MCV 89.9 MCH 30.6 MCHC 34.1 RDW 13.1 Plt Count 242 MPV 9.7 Neut % (Auto) 77.2 H Lymph % (Auto) 10.9 L [place] % (Auto) 8.9 Eos % (Auto) 2.8 Baso % (Auto) 0.2 Neut # (Auto) 7.7 H Lymph # (Auto) 1.1 [place] # (Auto) 0.9 H Eos # (Auto) 0.3 Baso # (Auto) 0.0 Sodium 135 Potassium 4.1 Chloride 101 Carbon Dioxide 30 Anion Gap 8 L BUN 11 Creatinine 1.1 Est GFR ( Amer) > 60 Est GFR (Non-Af Amer) > 60 Random Glucose 105 Calcium 8.8 Total Creatine Kinase 215 H Urine Color Yellow Urine Clarity Slighty-cloudy Urine pH 6.0 Ur Specific [place] 1.012 Urine Protein Negative Urine Glucose (UA) Neg Urine Ketones Negative Urine Blood Large Urine Nitrate Negative Urine Bilirubin Negative Urine Urobilinogen 2.0 H Ur Leukocyte Esterase Neg Urine RBC (Auto) 388 H Urine Microscopic WBC 15 H Ur Squamous Epith Cells 1 Urine Bacteria Occ H Fingerstick Blood Sugar Results: 85 Critical Care Progress Note - Extremities/Vascular Does the Patient have a Central Venous Catheter?: No Does the Patient need a Central Venous Catheter?: No Does the Patient have a Duran Catheter?: No Does the Patient need a Duran Catheter?: No - Nutrition Nutrition: Nutrition Category Date Time Status Regular Diet [DIET] Diets 10/09/17 Dinner Active Assessment/Plan (1) Compartment syndrome of right lower extremity Current Visit: Yes Status: Acute Priority: High (2) Rhabdomyolysis Current Visit: Yes Status: Acute - Assessment and Plan (Free Text) Assessment: 22 Years old Female with no significant PMHx, admitted to ICU for Rhabdomyolysis and S/P R lower extremity fasciotomy 2/2 R lateral compartment syndrome, partial removal of peroneus longus muscle and dibridement of nectrotic tissue on 10/09. Neuro: alert and oriented x 3, Pain controlled with PRN IV Dilaudid, Acetaminophen and Toradol, may need EMG/NCS if motor/sensory doesnt return back. Pulm: no acute issues, breathing spontaneously on room air. CV: hemodynamically stable. Hem: no acute issues Renal: rhabdomyolysis resolved, CPK 215, IV fluids discontinued, encourage PO intake. Endo: no acute issues GI: regular diet, continue senna-colace bid Plus PRN Milk of magnesia for opioid induced constipation. ID: compartment syndrome from deep tissue infection, braod spectrum coverage with Zosyn. Wound care # Stress Ulcer prophylaxis: Not currently indicated. # DVT prophylaxis with lovenox # Code Status: Full code
--- NOTE | 2017-10-12 08:27 | CP.PCM.PN ---
Subjective - Date & Time of Evaluation Date of Evaluation: 10/12/17 Time of Evaluation: 07:40 - Subjective Subjective: Tamar was seen and examined at bedside this AM, resting comfortably. S/P R lower extremity fasciotomy 2/2 compartment syndrome partial removal of peroneus longus muscle and dibridement of nectrotic tissue. She denied significant overnight events. She stated being able to get out of bed, sit in her chair and walk to the ICU exit door with assistance from the walker. She states being able to keep her R foot dorsiflexed in order to take steps. Awaiting bowel movement after milk of magnesia and sennokot. Objective - Vital Signs/Intake and Output Vital Signs (last 24 hours): Temp Pulse Resp BP Pulse Ox 98.4 F 71 15 115/52 L 97 10/12/17 08:00 10/12/17 08:00 10/12/17 08:00 10/12/17 08:00 10/12/17 08:00 Intake and Output: 10/12/17 10/12/17 06:59 18:59 Intake Total 100 Output Total 880 Balance -780 - Medications Medications: Current Medications Acetaminophen (Tylenol 325mg Tab) 650 mg PO Q6 PRN PRN Reason: Pain, Mild (1-3) Enoxaparin Sodium (Lovenox) 40 mg SC DAILY WISAM PRN Reason: Protocol Last Admin: 10/11/17 09:17 Dose: 40 mg Hydromorphone HCl (Dilaudid) 1 mg IVP Q3H PRN PRN Reason: Pain, severe (8-10) Last Admin: 10/12/17 05:39 Dose: 1 mg Piperacillin Sod/Tazobactam (Sod 3.375 gm/ Sodium Chloride) 100 mls @ 100 mls/ hr IVPB Q8 WISAM PRN Reason: Protocol Last Admin: 10/12/17 01:52 Dose: 100 mls/hr Ketorolac Tromethamine (Toradol) 30 mg IVP Q6 PRN PRN Reason: Pain, moderate (4-7) Last Admin: 10/11/17 12:50 Dose: 30 mg Ondansetron HCl (Zofran Inj) 4 mg IVP Q4 PRN PRN Reason: Nausea/Vomiting Last Admin: 10/11/17 22:48 Dose: 4 mg Senna/Docusate Sodium (Senokot S 50 Mg-8.6 Mg) 2 tab PO BID [facility] Last Admin: 10/11/17 17:19 Dose: 2 tab Silver Sulfadiazine (Silvadene 1% 50 Gm) 1 applic TOP DAILY [facility] Last Admin: 10/11/17 13:00 Dose: 1 applic - Labs Labs: 10/12/17 05:00 10/12/17 04:20 PT 14.0 Seconds (9.8-13.1) H 10/09/17 04:44 INR 1.3 (0.9-1.2) H 10/09/17 04:44 APTT 27.6 Seconds (25.6-37.1) 10/09/17 04:44 - Constitutional Appears: Well, No Acute Distress - Head Exam Head Exam: ATRAUMATIC, NORMAL INSPECTION - Eye Exam Eye Exam: EOMI, Normal appearance - ENT Exam ENT Exam: Mucous Membranes Moist, Normal Exam - Neck Exam Neck Exam: Full ROM - Respiratory Exam Respiratory Exam: Clear to Ausculation Bilateral, NORMAL BREATHING PATTERN - Cardiovascular Exam Cardiovascular Exam: REGULAR RHYTHM, +S1, +S2 - GI/Abdominal Exam GI & Abdominal Exam: Soft, Normal Bowel Sounds - Extremities Exam Additional comments: R lower extremity in alexis bandaging. Pt able to ambulate and reports being able to dorsiflex foot. Pt able to have movement of metatarsals, sensation, invert and better eversion. - Neurological Exam Neurological Exam: Alert, Awake, CN II-XII Intact, Oriented x3 - Psychiatric Exam Psychiatric exam: Normal Affect, Normal Mood Assessment and Plan - Assessment and Plan (Free Text) Plan: 22 yo F w/o previous medical history is admitted for compartment syndrome of R lower extremity, s/p lateral compartment fasciotomy. 1) Compartment syndrome, R lateral compartment - R lateral Compartment fasciotomy on 10/07/2017 - 10/09/2017; removal and debridement of necrotic peroneus longus muscle belly - MRI on 10/07/2017: Please refer to extensive report - XR: unremarkable - CK Oct 07: 5660; Improving at 674 10/10/2017; 215 @ 10/12/2017 - IVF: d/c - Pain management: Dilaudid 1 mg IVP q3H; Acetaminophen 325 mg q6; Demerol 12.5mg IVP Q5M PRN - ICU management with Dr. Haas: neurovascular checks q4 - Neurology consulted: Dr. Quintero: if motor/sensory doesnt return in 1 month may require EMG/NCS - Consider Neurosurgery consult pending - ID consulted: Zosyn 3.375g IVPB Q8H d/c today - PMR/PT Dr Vinson pending consult for futher eval today 10/12/2017 2) Anemia -Hbg 9.8 on 10/12/2017; 9.7 on 10/11/2017; 9.1 10/10/2017 -Retic: 3.0; ferritin: 49.5 -LMP: started 10/10/2017; requiring 1 pad per day lasting 5 days -PO FeSO4 after bowel movement. 3) Constipation - last bowel movement 7 days. -Milk of magnesia given once, and currently on sennokot -Pt currently experiencing gas movement and per patient close to having a bowel movement. 4) PMR - Pt ambulating with walker -PMR pending further eval and assistance with ambulating/rehab lower extremity function 4) Cardiac Murmur -Consider echo 5) Hypokalemia -resolved 6) DVT prophylaxis -Lovenox 40 mg
[2017-10-12] MEDS: Docusate-Senna 50 mg-8.6 mg Tab PO SCH ×2 (09:26→18:01)
[2017-10-12] MEDS: Enoxaparin 40 mg Syringe SC SCH (09:26)
--- NOTE | 2017-10-12 09:58 | CP.PCM.PN ---
Subjective - Date & Time of Evaluation Date of Evaluation: 10/12/17 Time of Evaluation: 09:56 - Subjective Subjective: Patient is doing well No nausea or vomiting Appetite is okay Objective - Vital Signs/Intake and Output Vital Signs (last 24 hours): Temp Pulse Resp BP Pulse Ox 98.4 F 71 15 115/52 L 97 10/12/17 08:00 10/12/17 08:00 10/12/17 08:00 10/12/17 08:00 10/12/17 08:00 Intake and Output: 10/12/17 10/12/17 06:59 18:59 Intake Total 100 0 Output Total 880 0 Balance -780 0 - Medications Medications: Current Medications Acetaminophen (Tylenol 325mg Tab) 650 mg PO Q6 PRN PRN Reason: Pain, Mild (1-3) Enoxaparin Sodium (Lovenox) 40 mg SC DAILY WISAM PRN Reason: Protocol Last Admin: 10/12/17 09:26 Dose: 40 mg Hydromorphone HCl (Dilaudid) 1 mg IVP Q3H PRN PRN Reason: Pain, severe (8-10) Last Admin: 10/12/17 05:39 Dose: 1 mg Piperacillin Sod/Tazobactam (Sod 3.375 gm/ Sodium Chloride) 100 mls @ 100 mls/ hr IVPB Q8 WISAM PRN Reason: Protocol Last Admin: 10/12/17 09:26 Dose: 100 mls/hr Ketorolac Tromethamine (Toradol) 30 mg IVP Q6 PRN PRN Reason: Pain, moderate (4-7) Last Admin: 10/11/17 12:50 Dose: 30 mg Ondansetron HCl (Zofran Inj) 4 mg IVP Q4 PRN PRN Reason: Nausea/Vomiting Last Admin: 10/11/17 22:48 Dose: 4 mg Senna/Docusate Sodium (Senokot S 50 Mg-8.6 Mg) 2 tab PO BID [facility] Last Admin: 10/12/17 09:26 Dose: 2 tab Silver Sulfadiazine (Silvadene 1% 50 Gm) 1 applic TOP DAILY [facility] Last Admin: 10/11/17 13:00 Dose: 1 applic - Labs Labs: 10/12/17 05:00 10/12/17 04:20 PT 14.0 Seconds (9.8-13.1) H 02/02/18 04:44 INR 1.3 (0.9-1.2) H 10/09/17 04:44 APTT 27.6 Seconds (25.6-37.1) 10/09/17 04:44 - Constitutional Appears: No Acute Distress - ENT Exam ENT Exam: Mucous Membranes Moist - Respiratory Exam Respiratory Exam: NORMAL BREATHING PATTERN. absent: Chest Wall Tenderness, Rales - Cardiovascular Exam Cardiovascular Exam: REGULAR RHYTHM. absent: Gallop, JVD, Rubs - GI/Abdominal Exam GI & Abdominal Exam: Soft. absent: Guarding - Extremities Exam Extremities Exam: absent: Calf Tenderness - Back Exam Back Exam: absent: CVA tenderness (L), CVA tenderness (R) - Neurological Exam Neurological Exam: Alert Assessment and Plan (1) Compartment syndrome of right lower extremity Status: Acute (2) Rhabdomyolysis Status: Acute (3) Right leg pain Status: Acute
--- NOTE | 2017-10-12 10:22 | CP.PCM.PN ---
Subjective - Date & Time of Evaluation Date of Evaluation: 10/12/17 Time of Evaluation: 08:00 - Subjective Subjective: doing well afebrile cultures pending Objective - Vital Signs/Intake and Output Vital Signs (last 24 hours): Temp Pulse Resp BP Pulse Ox 98.4 F 71 15 115/52 L 97 10/12/17 08:00 10/12/17 08:00 10/12/17 08:00 10/12/17 08:00 10/12/17 08:00 Intake and Output: 10/12/17 10/12/17 06:59 18:59 Intake Total 100 0 Output Total 880 0 Balance -780 0 - Medications Medications: Current Medications Acetaminophen (Tylenol 325mg Tab) 650 mg PO Q6 PRN PRN Reason: Pain, Mild (1-3) Enoxaparin Sodium (Lovenox) 40 mg SC DAILY WISAM PRN Reason: Protocol Last Admin: 10/12/17 09:26 Dose: 40 mg Hydromorphone HCl (Dilaudid) 1 mg IVP Q3H PRN PRN Reason: Pain, severe (8-10) Last Admin: 10/12/17 05:39 Dose: 1 mg Piperacillin Sod/Tazobactam (Sod 3.375 gm/ Sodium Chloride) 100 mls @ 100 mls/ hr IVPB Q8 WISAM PRN Reason: Protocol Last Admin: 10/12/17 09:26 Dose: 100 mls/hr Ketorolac Tromethamine (Toradol) 30 mg IVP Q6 PRN PRN Reason: Pain, moderate (4-7) Last Admin: 10/11/17 12:50 Dose: 30 mg Ondansetron HCl (Zofran Inj) 4 mg IVP Q4 PRN PRN Reason: Nausea/Vomiting Last Admin: 10/11/17 22:48 Dose: 4 mg Senna/Docusate Sodium (Senokot S 50 Mg-8.6 Mg) 2 tab PO BID [facility] Last Admin: 10/12/17 09:26 Dose: 2 tab Silver Sulfadiazine (Silvadene 1% 50 Gm) 1 applic TOP DAILY [facility] Last Admin: 10/11/17 13:00 Dose: 1 applic - Labs Labs: 10/12/17 05:00 10/12/17 04:20 PT 14.0 Seconds (9.8-13.1) H 10/09/17 04:44 INR 1.3 (0.9-1.2) H 10/09/17 04:44 APTT 27.6 Seconds (25.6-37.1) 10/09/17 04:44 - Constitutional Appears: Non-toxic, Chronically Ill - Head Exam Head Exam: NORMOCEPHALIC - Eye Exam Eye Exam: Normal appearance, PERRL - ENT Exam ENT Exam: Mucous Membranes Dry - Neck Exam Neck Exam: absent: Lymphadenopathy - Respiratory Exam Respiratory Exam: Decreased Breath Sounds - Cardiovascular Exam Cardiovascular Exam: REGULAR RHYTHM - GI/Abdominal Exam GI & Abdominal Exam: Distended, Soft - Rectal Exam Rectal Exam: Deferred - Exam Exam: NORMAL INSPECTION Assessment and Plan (1) Compartment syndrome of right lower extremity Status: Acute (2) Rhabdomyolysis Status: Acute
--- NOTE | 2017-10-12 13:44 | OP ---
PROCEDURE DATE: 10/09/2017 PREOPERATIVE DIAGNOSIS: Right leg open surgical wound secondary to compartment syndrome. POSTOPERATIVE DIAGNOSIS: Right leg open surgical wound secondary to compartment syndrome. PROCEDURES PERFORMED: Deep excisional debridement of right leg operative wound secondary to compartment syndrome, fasciotomy. SURGEON: Joseph Raymundo DPM SALES AND MARKETING MANAGER: Dakota Izquierdo DPM, PGY-3; Estelle Perez DPM, PGY-2; Carey Ramsey DPM, PGY-1. TYPE OF ANESTHESIA: General sedation. INDICATIONS: This patient is a 22-year-old female with the aforementioned diagnosis. The patient is being treated as an inpatient at [facility] and is being treated for a right leg open surgical wound secondary to an emergent fasciotomy due to right leg compartment syndrome performed 2 days prior. The patient again seeks surgical intervention at this time. All alternatives, benefits, complications, and risks of surgical procedure were explained to the patient at length. The patient verbalized understanding and wished to proceed. All questions were addressed and answered. No guarantees were given or implied. The consent was signed and the n.p.o. status was confirmed prior to bringing the patient to the operating room. OPERATIVE PROCEDURE: The patient was brought into the operating room and placed on the operating room table in a supine position. No tourniquet was used in this case. After general sedation, the right lower extremity was prepped and draped in the normal sterile manner and the procedure began. DESCRIPTION OF PROCEDURE: Deep excisional debridement of right leg surgical wound secondary to an emergent fasciotomy due to compartment syndrome. Attention was directed to the anterior lateral right leg where the open surgical wound was noted. The attention was directed to the lateral compartment of the right leg where the peroneus brevis muscle belly was inspected for viability. It was noted at this time that the peroneus brevis muscle belly was dusky in color, friable in consistency, and did not contract upon electrical stimulation. At this time, the peroneus muscle belly and necrotic nonviable tissue was excisionally debrided from the surgical area with a blunt dissecting scissor and pickups and passed from the surgical field to the back table to be sent to Pathology. The surgical area was then flushed with copious amounts of sterile normal saline as well as utilizing a pulse lavage with normal saline sterile. Again, the anterior compartment muscles were checked for viability and it was noted that they were red and healthy in color with a firm consistency and contracted upon electrical stimulation. Attention was then directed back to the lateral compartment where the superficial peroneal nerve was identified and retracted and protected throughout the duration of the procedure. The peroneal tendons were then isolated and tacked down to fascia of the lateral compartment so that they may be addressed if an additional reconstruction procedure was needed in the future at the surgical area. At this time, it was noted that all necrotic nonviable tissue was removed from the lateral compartment of the right leg. The surgical area was then flushed with copious amounts of sterile normal saline. The fascia and subcutaneous tissues were then re-approximated utilizing 0-Prolene suture; however, due to the tension on the wound, the surgical wound was left open. The surgical wound was then dressed with Silvadene, Tefla, saline-soaked TFD, gauze, Kerlix, a posterior splint, and an Johnny bandage. POSTOPERATIVE CONDITION: The patient tolerated the procedure and anesthesia well with no apparent complications or complaints. The patient will return to the hospital floor and remain receiving care as an inpatient. The patient will follow up with Dr. Raymundo in his office on an outpatient basis upon discharge. Dakota Izquierdo DPM Helena Patel M.D. (Joseph Raymundo DPM)
[2017-10-12] MEDS: Silver Sulfadiazine 1% CREAM (50 gm) TOP SCH (14:00)
--- NOTE | 2017-10-12 15:59 | CP.PCM.PN ---
Subjective - Date & Time of Evaluation Date of Evaluation: 10/12/17 Time of Evaluation: 15:54 - Subjective Subjective: Podiatry Progress Note for Dr. Raymundo 22 y.o female with no PMHx seen at bedside 3 days s/p debridement of necrotic tissue including peroneal brevis and 5 days s/p right leg lateral compartment fasciotomy 2/2 compartment syndrome with near total removal of the peroneus longus muscle. Patient is seen resting comfortably in bed, in NAD, and AA0x3. Father and mother seen at bedside during visitation with attending Dr. Raymundo and Dr. Samaniego. Patient reports that she has been getting out of bed into the chair back and forth to get moving. She reports pain to the right LE but is managed by pain medication, improving. Reports that she feels as though sensation to the dorsal foot is improving. Patient denies any further pedal complaints at this time. Denies any recent N/V/F/C/CP/SOB/D/posterior calf pain. Objective - Vital Signs/Intake and Output Vital Signs (last 24 hours): Temp Pulse Resp BP Pulse Ox 98.6 F 78 18 123/71 98 10/12/17 12:00 10/12/17 12:00 10/12/17 12:00 10/12/17 12:00 10/12/17 12:00 Intake and Output: 10/12/17 10/12/17 06:59 18:59 Intake Total 100 415 Output Total 880 600 Balance -780 -185 - Medications Medications: Current Medications Acetaminophen (Tylenol 325mg Tab) 650 mg PO Q6 PRN PRN Reason: Pain, Mild (1-3) Enoxaparin Sodium (Lovenox) 40 mg SC DAILY [facility] PRN Reason: Protocol Last Admin: 10/12/17 09:26 Dose: 40 mg Hydromorphone HCl (Dilaudid) 1 mg IVP Q3H PRN PRN Reason: Pain, severe (8-10) Last Admin: 10/12/17 12:12 Dose: 1 mg Piperacillin Sod/Tazobactam (Sod 3.375 gm/ Sodium Chloride) 100 mls @ 100 mls/ hr IVPB Q8 [facility] PRN Reason: Protocol Last Admin: 10/12/17 09:26 Dose: 100 mls/hr Ketorolac Tromethamine (Toradol) 30 mg IVP Q6 PRN PRN Reason: Pain, moderate (4-7) Last Admin: 10/11/17 12:50 Dose: 30 mg Magnesium Hydroxide (Milk Of Magnesia) 30 ml PO DAILY ONE Stop: 10/13/17 14:01 Ondansetron HCl (Zofran Inj) 4 mg IVP Q4 PRN PRN Reason: Nausea/Vomiting Last Admin: 10/11/17 22:48 Dose: 4 mg Senna/Docusate Sodium (Senokot S 50 Mg-8.6 Mg) 2 tab PO BID [facility] Last Admin: 10/12/17 09:26 Dose: 2 tab Silver Sulfadiazine (Silvadene 1% 50 Gm) 1 applic TOP DAILY [facility] Last Admin: 10/11/17 13:00 Dose: 1 applic - Labs Labs: 10/12/17 05:00 10/12/17 04:20 PT 14.0 Seconds (9.8-13.1) H 10/09/17 04:44 INR 1.3 (0.9-1.2) H 10/09/17 04:44 APTT 27.6 Seconds (25.6-37.1) 10/09/17 04:44 - Constitutional Appears: Well, Non-toxic, No Acute Distress - Extremities Exam Additional comments: Posterior splint is c/d/i Dressing is c/d/i without strikethrough noted Vasc: DP/PT pulses 2/4 b/l. Skin temperature warm to warm from proximal to distal. CFT < 3 seconds to all digits. Diffuse edematous changes noted to right leg, improving Neuro: Epicritic and protective sensation intact but diminished to dorsal foot from level of ankle joint to base of toes Derm: surgical site remains opened with retention sutures noted and intact to the surgical site; surgical incision extending along the lateral aspect of the entire leg, proximal to lateral malleolus extending proximally to level just distal to fibular head. Tibialis anterior muscle is noted to be viable, beefy red and healthy in appearance. The surgical site shows no overt signs of clinical infection at this time including no purulent drainage, no malodor, no erythema surrounding surgical site. Granulation tissue continues to fill in the surgical site at this time MSK: Minimal POP noted to surgical site. Patient is able to weakly plantarflex and dorsiflex toes 1-5 of her right foot. Patient is unable dorsiflex her ankle joint. Patient can weakly plantarflex ankle joint. It is unclear at this time whether this is due to neuropraxic changes or more permanent neurologic damage secondary to the compartment syndrome. Manual muscle strength testing deferred at this time due to postoperative state. Patient is able to wiggle toes. - Neurological Exam Neurological Exam: Alert, Awake, Oriented x3 - Psychiatric Exam Psychiatric exam: Normal Affect, Normal Mood Assessment and Plan - Assessment and Plan (Free Text) Assessment: 22 y.o female 3 days s/p debridement of necrotic tissue including peroneal brevis and 5 days s/p right leg lateral compartment fasciotomy 2/2 compartment syndrome with near total removal of the peroneus longus muscle. Plan: Patient seen and evaluated with attending Dr. Raymundo [employer] Consultant Dr. Samaniego also present at bedside Patient afebrile, absent leukocytosis ESR 97 Continue IV abx per ID Total creatinine kinase [address] Raymundo and Dr. Samaniego: Patient will be placed in posterior splint with greater degree of ankle dorsiflexion during tomorrows dressing change. On wound vac will be applied to patient's wound and patient will be given toe strap in order to begin therapeutic dorsiflexion of ankle on her own time No plan for surgical intervention at this time Patient's leg dressed with silvadene, adaptic, gauze, ABD, kirlix, webril, posterior splint Podiatry will continue to follow while patient in house
--- NOTE | 2017-10-12 19:11 | CP.PCM.CON ---
History of Present Illness - History of Present Illness History of Present Illness: Dr Vinson PMR consultation on Michelle Oakley, born 1995 who has been admitted to [facility] with right LE injury with resultant compartment syndrome. Necrotic peroneal tendon was removed. Peroneal nerve appeared intact. I had discussed the case at length with Dr Raymundo 10/09/17 with the plan of seeing Michelle together today in the ICU. She was seen together by us today. Right LE weakness and numbness. Lateral fasciotomy wound is present. It is clean, with mild slough base, but also significant granulation tissue present as well. Good margins present with no erythema. There is intact plantar flexion but no dorsiflexion of ankle or toes. There are still sutures in place. I discussed with Dr Raymundo and Michelle and her parents at length regarding both the wound care, neurological testing and expected recovery and rehabilitation. 1) wound: we will given two more days of local topical care and then hopefully remove sutures and begin wound vac application. I will come by 10/14/17 to help with this aspect Goal would be to avoid need for grafting 2) emg/ncs: the needle evaluation can be performed in the next 2-3 weeks 3) Rehab: good candidate for TCU. Should have trapeze in bed and also to get a strap to help with active stretching during the day and posterior splint at night to avoid plantar flexion contracture/achilles shortening Thank you Review of Systems - Constitutional Constitutional: absent: Chills, Daytime Sleepiness (now that gettting off pain medications) - EENT Eyes: absent: Blurred Vision Nose/Mouth/Throat: absent: Nasal Congestion - Cardiovascular Cardiovascular: absent: Chest Pain - Respiratory Respiratory: absent: Dyspnea - Gastrointestinal Gastrointestinal: absent: Abdominal Pain - Musculoskeletal Musculoskeletal: Muscle Weakness - Integumentary Integumentary: Wounds (as per HPI) - Neurological Neurological: Numbness, Paresthesias, Tingling, Weakness. 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[employer]) - CARDIAC Hx Cardiac Disorders: No - PULMONARY Hx Respiratory Disorders: No - NEUROLOGICAL Hx Neurological Disorder: No - HEENT Hx HEENT Problems: No - RENAL Hx Chronic Kidney Disease: No - ENDOCRINE/METABOLIC Hx Endocrine Disorders: No - HEMATOLOGICAL/ONCOLOGICAL Hx Blood Disorders: No Hx AIDS: No Hx Human Immunodeficiency Virus (HIV): No - INTEGUMENTARY Hx Dermatological Problems: No - MUSCULOSKELETAL/RHEUMATOLOGICAL Hx Falls: No - GENITOURINARY/GYNECOLOGICAL Hx Genitourinary Disorders: No - PSYCHIATRIC Hx Substance Use: No - SURGICAL HISTORY Hx Surgeries: Yes - ANESTHESIA Hx Anesthesia: Yes Hx Anesthesia Reactions: No Hx Malignant Hyperthermia: No Meds Allergies/Adverse Reactions: Allergies Allergy/AdvReac Type Severity Reaction Status Date / Time No Known Allergies Allergy Verified 10/06/17 07:44 - Medications Medications: Current Medications Acetaminophen (Tylenol 325mg Tab) 650 mg PO Q6 PRN PRN Reason: Pain, Mild (1-3) Enoxaparin Sodium (Lovenox) 40 mg SC DAILY [facility] PRN Reason: Protocol Last Admin: 10/12/17 09:26 Dose: 40 mg Hydromorphone HCl (Dilaudid) 1 mg IVP Q3H PRN PRN Reason: Pain, severe (8-10) Last Admin: 10/12/17 18:05 Dose: 1 mg Piperacillin Sod/Tazobactam (Sod 3.375 gm/ Sodium Chloride) 100 mls @ 100 mls/ hr IVPB Q8 [facility] PRN Reason: Protocol Last Admin: 10/12/17 16:53 Dose: 100 mls/hr Ketorolac Tromethamine (Toradol) 30 mg IVP Q6 PRN PRN Reason: Pain, moderate (4-7) Last Admin: 10/11/17 12:50 Dose: 30 mg Magnesium Hydroxide (Milk Of Magnesia) 30 ml PO DAILY ONE Stop: 10/13/17 14:01 Ondansetron HCl (Zofran Inj) 4 mg IVP Q4 PRN PRN Reason: Nausea/Vomiting Last Admin: 10/11/17 22:48 Dose: 4 mg Senna/Docusate Sodium (Senokot S 50 Mg-8.6 Mg) 2 tab PO BID [facility] Last Admin: 10/12/17 18:01 Dose: 2 tab Silver Sulfadiazine (Silvadene 1% 50 Gm) 1 applic TOP DAILY [facility] Last Admin: 10/12/17 14:00 Dose: 1 applic Physical Exam - Constitutional Appears: Non-toxic, No Acute Distress - Head Exam Head Exam: ATRAUMATIC, NORMAL INSPECTION, NORMOCEPHALIC - Eye Exam Eye Exam: EOMI - ENT Exam ENT Exam: Mucous Membranes Moist - Respiratory Exam Respiratory Exam: NORMAL BREATHING PATTERN Results - Vital Signs Recent Vital Signs: Last Vital Signs Temp 98.3 F 10/12/17 16:00 Pulse 95 H 10/12/17 18:00 Resp 17 10/12/17 18:00 BP 124/59 L 10/12/17 18:00 Pulse Ox 100 10/12/17 18:00 - Labs Result Diagrams: 10/12/17 05:00 10/12/17 04:20 Labs: Laboratory Results - last 24 hr 10/12/17 10/12/17 04:20 05:00 WBC 10.0 RBC 3.21 L Hgb 9.8 L Hct 28.9 L MCV 89.9 MCH 30.6 MCHC 34.1 RDW 13.1 Plt Count 242 MPV 9.7 Neut % (Auto) 77.2 H Lymph % (Auto) 10.9 L [place] % (Auto) 8.9 Eos % (Auto) 2.8 Baso % (Auto) 0.2 Neut # (Auto) 7.7 H Lymph # (Auto) 1.1 [place] # (Auto) 0.9 H Eos # (Auto) 0.3 Baso # (Auto) 0.0 ESR 97 H Sodium 135 Potassium 4.1 Chloride 101 Carbon Dioxide 30 Anion Gap 8 L BUN 11 Creatinine 1.1 Est GFR ( Amer) > 60 Est GFR (Non-Af Amer) > 60 Random Glucose 105 Calcium 8.8 Total Creatine Kinase 215 H
[2017-10-13] MEDS: Piperacillin/Tazobact 3.375 GM in Sodium Chloride 0.9% 100 ML IVPB SCH ×3 (01:32→16:37)
--- NOTE | 2017-10-13 08:53 | CP.CCUPN ---
<Shama Jimenez - Last Filed: 10/13/17 08:55> CCU Subjective - Physician Review Subjective (Free Text): 10/13/17 08:55 Patient seen and examined with filler sifter machine at bedside. Patient was alert, awake, and oriented x 3 at the time of evaluation. Patient states that pain is well controlled in current pain medications. Patient was walking yesterday with crutches during physical therapy session. Patient has not moved her bowels for 8 days, but is passing gasses, and denies abdominal pain, N/V. Tolerating regular diet well. Denies chest pain, SOB, palpitations. Critical Care Time Spent (in minutes): 30 CCU Objective - Vital Signs / Intake & Output Vital Signs (Last 4 hours): Vital Signs Temp Pulse Resp BP Pulse Ox 10/13/17 08:00 98.0 F 64 18 135/79 98 10/13/17 06:00 69 18 117/53 L 98 Intake and Output (Last 8hrs): Intake & Output 10/12/17 10/13/17 10/13/17 22:59 06:59 14:59 Intake Total 882 220 120 Output Total 700 50 Balance 182 170 120 Intake: IV 132 120 Oral 750 100 120 Output: Urine 700 50 Urine, Voided 700 50 Other: # Voids Urine, Voided 1 - Physical Exam Extroacular Muscles: Positive for: EOMI Conjunctiva: Positive for: Normal Respiratory/Chest: Positive for: Clear to Auscultation, Good Air Exchange. Negative for: Respiratory Distress, Accessory Muscle Use, Wheezes, Decreased Breath Sounds, Rales, Rhonchi Cardiovascular: Positive for: Regular Rate and Rhythm, Normal S1, S2, Peripheal Pulses Present, Other (slightly decreased right DP pulse) Abdomen: Positive for: Normal Bowel Sounds. Negative for: Tenderness, Distention, Guarding Lower Extremity: Positive for: Other (right leg wrapped by elastic bandage). Negative for: CALF TENDERNESS (in right leg) Skin: Positive for: Warm, Normal Color Psychiatric: Positive for: Alert, Oriented x 3 - Medications Active Medications: Active Medications Generic Name Dose Route Start Last Admin Trade Name Freq PRN Reason Stop Dose Admin Acetaminophen 650 mg 10/07/17 19:33 Tylenol 325mg Tab PO Q6 PRN Pain, Mild (1-3) Enoxaparin Sodium 40 mg 10/10/17 13:45 10/12/17 09:26 Lovenox SC 40 mg DAILY [facility] Administration Protocol Hydromorphone HCl 1 mg 10/09/17 23:02 10/13/17 03:30 Dilaudid IVP 1 mg Q3H PRN Administration Pain, severe (8-10) Piperacillin Sod/Tazobactam 100 mls @ 100 mls/hr 10/09/17 17:00 10/13/17 01: 32 Sod 3.375 gm/ Sodium Chloride IVPB 100 mls/hr Q8 [facility] Administration Protocol Ketorolac Tromethamine 30 mg 10/11/17 12:29 10/12/17 22:29 Toradol IVP 30 mg Q6 PRN Administration Pain, moderate (4-7) Magnesium Hydroxide 30 ml 10/13/17 14:00 Milk Of Magnesia PO 10/13/17 14:01 DAILY ONE Ondansetron HCl 4 mg 10/11/17 22:39 10/11/17 22:48 Zofran Inj IVP 4 mg Q4 PRN Administration Nausea/Vomiting Senna/Docusate Sodium 2 tab 10/11/17 17:00 10/12/17 18:01 Senokot S 50 Mg-8.6 Mg PO 2 tab BID [facility] Administration Silver Sulfadiazine 1 applic 10/10/17 10:15 10/12/17 14:00 Silvadene 1% 50 Gm TOP 1 applic DAILY [facility] Administration - Patient Studies Fingerstick Blood Sugar Results: 85 Critical Care Progress Note - Nutrition Nutrition: Nutrition Category Date Time Status Regular Diet [DIET] Diets 10/09/17 Dinner Active Assessment/Plan - Date & Time Date: 10/13/17 Time: 08:55 <Randolph Jones - Last Filed: 10/13/17 12:58> CCU Objective - Vital Signs / Intake & Output Vital Signs (Last 4 hours): Vital Signs Pulse Resp BP Pulse Ox 10/13/17 12:06 130 H 10/13/17 12:00 83 12 123/75 100 10/13/17 10:00 81 12 119/79 98 Intake and Output (Last 8hrs): Intake & Output 10/12/17 10/13/17 10/13/17 22:59 06:59 14:59 Intake Total 882 220 460 Output Total 700 50 Balance 182 170 460 Intake: IV 132 120 Intake, Piggyback 100 Oral 750 100 360 Output: Urine 700 50 Urine, Voided 700 50 Other: # Voids Urine, Voided 1 # Bowel Movements 2 - Medications Active Medications: Active Medications Generic Name Dose Route Start Last Admin Trade Name Freq PRN Reason Stop Dose Admin Acetaminophen 650 mg 10/07/17 19:33 Tylenol 325mg Tab PO Q6 PRN Pain, Mild (1-3) Enoxaparin Sodium 40 mg 10/10/17 13:45 10/13/17 09:47 Lovenox SC 40 mg DAILY [facility] Administration Protocol Hydromorphone HCl 1 mg 10/09/17 23:02 10/13/17 03:30 Dilaudid IVP 1 mg Q3H PRN Administration Pain, severe (8-10) Piperacillin Sod/Tazobactam 100 mls @ 100 mls/hr 10/09/17 17:00 10/13/17 09: 47 Sod 3.375 gm/ Sodium Chloride IVPB 100 mls/hr Q8 [facility] Administration Protocol Ketorolac Tromethamine 30 mg 10/11/17 12:29 10/12/17 22:29 Toradol IVP 30 mg Q6 PRN Administration Pain, moderate (4-7) Magnesium Hydroxide 30 ml 10/13/17 14:00 Milk Of Magnesia PO 10/13/17 14:01 DAILY ONE Ondansetron HCl 4 mg 10/11/17 22:39 10/11/17 22:48 Zofran Inj IVP 4 mg Q4 PRN Administration Nausea/Vomiting Senna/Docusate Sodium 2 tab 10/11/17 17:00 10/13/17 09:47 Senokot S 50 Mg-8.6 Mg PO 2 tab BID [facility] Administration Silver Sulfadiazine 1 applic 10/10/17 10:15 10/12/17 14:00 Silvadene 1% 50 Gm TOP 1 applic DAILY [facility] Administration Critical Care Progress Note - Nutrition Nutrition: Nutrition Category Date Time Status Regular Diet [DIET] Diets 10/09/17 Dinner Active Assessment/Plan (1) Compartment syndrome of right lower extremity Current Visit: Yes Status: Acute Priority: High (2) Rhabdomyolysis Current Visit: Yes Status: Acute - Assessment and Plan (Free Text) Assessment: 22 Years old Female with no significant PMHx, admitted to ICU for Rhabdomyolysis and S/P R lower extremity fasciotomy 2/2 R lateral compartment syndrome, partial removal of peroneus longus muscle and dibridement of nectrotic tissue on 10/09. Neuro: alert and oriented x 3, Pain controlled with PRN IV Dilaudid, Acetaminophen and Toradol, may need EMG/NCS if motor/sensory doesnt return back. OOB and Ambulating with walker Pulm: no acute issues, breathing spontaneously on room air. CV: hemodynamically stable. Hem: no acute issues Renal: Resolved rhabdomyolysis resolved, CPK 215, IV fluids discontinued, encourage PO intake. Stable renal function Endo: no acute issues GI: regular diet, continue senna-colace bid Plus PRN Milk of magnesia for opioid induced constipation. ID: compartment syndrome from deep tissue infection, braod spectrum coverage with Zosyn. Wound care # Stress Ulcer prophylaxis: Not currently indicated. # DVT prophylaxis with lovenox # Code Status: Full code Attending/Attestation - Attestation I have personally seen and examined this patient.: Yes I have fully participated in the care of the patient.: Yes I have reviewed all pertinent clinical information: Yes Notes (Text): 10/13/17 12:55 The patient was Seen/interviewed and examined by me at the bedside during ICU round, Medical records reviewed and Management issues were discussed and formulated with the house staff. Events reviewed I have reviewed all the relevant clinical, laboratory, hemodynamic, radiographic data and medications Pain issues, skin care, head of the bed elevation, glycemic control were addressed. I concur with resident's assessment and plan of care as transcribed in Dr. Jimenez note. This morning he feels well and is hemodynamically stable, denies any chest pain or SOB and the plan is to transfer out of the ICU to telemetry because of episodes of Tachcardia with ambulation, also ECHO ordered.
--- NOTE | 2017-10-13 09:36 | CP.PCM.PN ---
Subjective - Date & Time of Evaluation Date of Evaluation: 10/13/17 Time of Evaluation: 08:00 - Subjective Subjective: Pt seen and examined at bedside. Denies significant overnight events. Reports walking with help of crutches with physical therapy. No bowel movement, yet; will try prune juice. s/p dressing change/wound debridement with Dr. Raymundo and Dr. Vinson. Denies CP/SOB/n/v. Objective - Vital Signs/Intake and Output Vital Signs (last 24 hours): Temp Pulse Resp BP Pulse Ox 98.0 F 64 18 135/79 98 10/13/17 08:00 10/13/17 08:00 10/13/17 08:00 10/13/17 08:00 10/13/17 08:00 Intake and Output: 10/13/17 10/13/17 06:59 18:59 Intake Total 592 120 Output Total 450 Balance 142 120 - Medications Medications: Current Medications Acetaminophen (Tylenol 325mg Tab) 650 mg PO Q6 PRN PRN Reason: Pain, Mild (1-3) Enoxaparin Sodium (Lovenox) 40 mg SC DAILY [facility] PRN Reason: Protocol Last Admin: 10/12/17 09:26 Dose: 40 mg Hydromorphone HCl (Dilaudid) 1 mg IVP Q3H PRN PRN Reason: Pain, severe (8-10) Last Admin: 10/13/17 03:30 Dose: 1 mg Piperacillin Sod/Tazobactam (Sod 3.375 gm/ Sodium Chloride) 100 mls @ 100 mls/ hr IVPB Q8 [facility] PRN Reason: Protocol Last Admin: 10/13/17 01:32 Dose: 100 mls/hr Ketorolac Tromethamine (Toradol) 30 mg IVP Q6 PRN PRN Reason: Pain, moderate (4-7) Last Admin: 10/12/17 22:29 Dose: 30 mg Magnesium Hydroxide (Milk Of Magnesia) 30 ml PO DAILY ONE Stop: 10/13/17 14:01 Ondansetron HCl (Zofran Inj) 4 mg IVP Q4 PRN PRN Reason: Nausea/Vomiting Last Admin: 10/11/17 22:48 Dose: 4 mg Senna/Docusate Sodium (Senokot S 50 Mg-8.6 Mg) 2 tab PO BID [facility] Last Admin: 10/12/17 18:01 Dose: 2 tab Silver Sulfadiazine (Silvadene 1% 50 Gm) 1 applic TOP DAILY [facility] Last Admin: 10/12/17 14:00 Dose: 1 applic - Labs Labs: 10/12/17 05:00 10/12/17 04:20 PT 14.0 Seconds (9.8-13.1) H 10/09/17 04:44 INR 1.3 (0.9-1.2) H 10/09/17 04:44 APTT 27.6 Seconds (25.6-37.1) 10/09/17 04:44 - Constitutional Appears: Well, Non-toxic, No Acute Distress - Eye Exam Eye Exam: EOMI, Normal appearance - ENT Exam ENT Exam: Mucous Membranes Moist, Normal Exam - Neck Exam Neck Exam: Full ROM - Respiratory Exam Respiratory Exam: Clear to Ausculation Bilateral, NORMAL BREATHING PATTERN. absent: Wheezes - Cardiovascular Exam Cardiovascular Exam: REGULAR RHYTHM, +S1, +S2 - GI/Abdominal Exam GI & Abdominal Exam: Soft, Normal Bowel Sounds. absent: Distended, Guarding - Extremities Exam Extremities Exam: Normal Capillary Refill, Tenderness (R lower extremity ) Additional comments: R lower extremity: surgical wound healing with wound change in debridement. Pt has numbness to dorsal aspect of foot. Able to dorsiflex more than baseline presentation. inversion, eversion, metatarsal movement improving. Pt able to appreciate sensation of metatarsal phalanges, lateral, medial, plantar and distal dorsum. Ambulates with posterior stent and help with physical therapy. Assessment and Plan - Assessment and Plan (Free Text) Plan: 22 yo F w/o previous medical history is admitted for compartment syndrome of R lower extremity, s/p lateral compartment fasciotomy. 1) Compartment syndrome, R lateral compartment - R lateral Compartment fasciotomy on 10/07/2017 - 10/09/2017; removal and debridement of necrotic peroneus longus muscle belly - MRI on 10/07/2017: Please refer to extensive report - XR: unremarkable - CK Oct 07: [id number]; Improving at 674 10/10/2017; 215 @ 10/12/2017 - IVF: d/c - Pain management: Dilaudid 1 mg IVP q3H; Acetaminophen 325 mg q6; Demerol 12.5mg IVP Q5M PRN - ICU management with Dr. Haas: neurovascular checks q4 - Neurology consulted: Dr. Quintero: if motor/sensory doesnt return in 1 month may require EMG/NCS - Consider Neurosurgery consult pending - ID consulted: Zosyn 3.375g IVPB Q8H d/c today - PMR/PT Dr Vinson: continue with local/topical bandaging, wound vac in 2 days, physical therapy to help ambulation and functioning of lower extremity, transition to TCU and possible EMB/NCS in 2-3 wks. - Podiatry: posterior splint with increased dorsiflexion 2) Anemia -Hbg 9.8 on 10/12/2017; 9.7 on 10/11/2017; 9.1 10/10/2017 -Retic: 3.0; ferritin: 49.5 -LMP: started 10/10/2017; requiring 1 pad per day lasting 5 days -PO FeSO4 after bowel movement. 3) Constipation - last bowel movement 8 days. - Milk of magnesia ordered, and currently on sennokot - Pt currently experiencing gas movement and per patient close to having a bowel movement. 4) PMR - Pt ambulating with crutches with help of physical therapy - PMR further eval and assistance with ambulating/rehab lower extremity function 4) Cardiac Murmur - Echo: pending 5) Hypokalemia - resolved 6) DVT prophylaxis - Lovenox 40 mg
[2017-10-13] MEDS: Enoxaparin 40 mg Syringe SC SCH (09:47)
[2017-10-13] MEDS: Docusate-Senna 50 mg-8.6 mg Tab PO SCH ×2 (09:47→16:36)
[2017-10-13] MEDS ORDERED: Magnesium Hydroxide Susp 30 ml UD PO ONE (14:00)
[2017-10-13] MEDS: Silver Sulfadiazine 1% CREAM (50 gm) TOP SCH (14:49)
--- NOTE | 2017-10-13 14:59 | CP.PCM.PN ---
Subjective - Date & Time of Evaluation Date of Evaluation: 10/13/17 Time of Evaluation: 14:57 - Subjective Subjective: Podiatry Progress Note for Dr. Raymundo 22 y.o female with no PMHx seen at bedside 4 days s/p debridement of necrotic tissue including peroneal brevis and 6 days s/p right leg lateral compartment fasciotomy 2/2 compartment syndrome with near total removal of the peroneus longus muscle. Patient is seen resting comfortably in bed, in NAD, and AA0x3. Father and mother seen at bedside during visitation with attending Dr. Raymundo. Patient reports continued improvement in physical therapy. She reports pain to the right LE but is managed by pain medication, improving. Reports that she feels as though sensation to the dorsal foot is improving. Patient denies any further pedal complaints at this time. Denies any recent N/V/ F/C/CP/SOB/D/posterior calf pain. Objective - Vital Signs/Intake and Output Vital Signs (last 24 hours): Temp Pulse Resp BP Pulse Ox 98.2 F 113 H 12 123/69 100 10/13/17 12:00 10/13/17 13:39 10/13/17 13:39 10/13/17 13:39 10/13/17 13:39 Intake and Output: 10/13/17 10/13/17 06:59 18:59 Intake Total 592 580 Output Total 450 1000 Balance 142 -420 - Medications Medications: Current Medications Acetaminophen (Tylenol 325mg Tab) 650 mg PO Q6 PRN PRN Reason: Pain, Mild (1-3) Enoxaparin Sodium (Lovenox) 40 mg SC DAILY [facility] PRN Reason: Protocol Last Admin: 10/13/17 09:47 Dose: 40 mg Hydromorphone HCl (Dilaudid) 1 mg IVP Q3H PRN PRN Reason: Pain, severe (8-10) Last Admin: 10/13/17 03:30 Dose: 1 mg Piperacillin Sod/Tazobactam (Sod 3.375 gm/ Sodium Chloride) 100 mls @ 100 mls/ hr IVPB Q8 [facility] PRN Reason: Protocol Last Admin: 10/13/17 09:47 Dose: 100 mls/hr Ketorolac Tromethamine (Toradol) 30 mg IVP Q6 PRN PRN Reason: Pain, moderate (4-7) Last Admin: 10/13/17 14:49 Dose: 30 mg Ondansetron HCl (Zofran Inj) 4 mg IVP Q4 PRN PRN Reason: Nausea/Vomiting Last Admin: 10/11/17 22:48 Dose: 4 mg Senna/Docusate Sodium (Senokot S 50 Mg-8.6 Mg) 2 tab PO BID [facility] Last Admin: 10/13/17 09:47 Dose: 2 tab Silver Sulfadiazine (Silvadene 1% 50 Gm) 1 applic TOP DAILY [facility] Last Admin: 10/13/17 14:49 Dose: 1 applic - Labs Labs: 10/12/17 05:00 10/12/17 04:20 PT 14.0 Seconds (9.8-13.1) H 10/09/17 04:44 INR 1.3 (0.9-1.2) H 10/09/17 04:44 APTT 27.6 Seconds (25.6-37.1) 10/09/17 04:44 - Constitutional Appears: Well, Non-toxic, No Acute Distress - Extremities Exam Additional comments: Posterior splint is c/d/i Dressing is c/d/i without strikethrough noted Vasc: DP/PT pulses 2/4 b/l. Skin temperature warm to warm from proximal to distal. CFT < 3 seconds to all digits. Diffuse edematous changes noted to right leg continue to improve Neuro: Epicritic and protective sensation intact but diminished to dorsal foot from level of ankle joint to base of toes Derm: surgical site remains opened with retention sutures noted and intact to the surgical site; surgical incision extending along the lateral aspect of the entire leg, proximal to lateral malleolus extending proximally to level just distal to fibular head. Tibialis anterior muscle is noted to be viable, beefy red and healthy in appearance. The surgical site shows no overt signs of clinical infection at this time including no purulent drainage, no malodor, no erythema surrounding surgical site. Granulation tissue continues to fill in the surgical site at this time MSK: Minimal POP noted to surgical site. Patient is able to weakly plantarflex and dorsiflex toes 1-5 of her right foot. Patient is unable dorsiflex her ankle joint. Patient can weakly plantarflex ankle joint. It is unclear at this time whether this is due to neuropraxic changes or more permanent neurologic damage secondary to the compartment syndrome. Manual muscle strength testing deferred at this time due to postoperative state. - Neurological Exam Neurological Exam: Alert, Awake, Oriented x3 - Psychiatric Exam Psychiatric exam: Normal Affect, Normal Mood Assessment and Plan - Assessment and Plan (Free Text) Assessment: 22 y.o female 4 days s/p debridement of necrotic tissue including peroneal brevis and 6 days s/p right leg lateral compartment fasciotomy 2/2 compartment syndrome with near total removal of the peroneus longus muscle. Plan: Patient seen and evaluated at bedside with attending Dr. Raymundo Afebrile, absent leukocytosis Continue IV abx per ID Continue pain management per Medicine Will discuss with PT trevor fowler for patient Patient to have wound vac applied to surgical site tomorrow via Dr. Vinson Every other retention suture removed today with no noticeable gapping of surgical site Patient's ankle joint put through many repetitions of passive dorsiflexion in order to maintain flexibility and avoid contracture Wound cleansed with saline and dressed with copious amounts of silvadene, adaptic, 4x4 gauze, ABD pads, kirlix, RAÚL New posterior splint applied bringing patients ankle joint as close to 90 degrees as possible No plan for surgical intervention at this time Podiatry will continue to follow while patient in house
--- NOTE | 2017-10-13 17:49 | CARD ---
APPROVED REPORT EXAM: Two-dimensional and M-mode echocardiogram with Doppler and color Doppler. Other Information Quality : GoodRhythm : Tachycardia INDICATION Murmur 2D DIMENSIONS IVSd1.06 (0.7-1.1cm)LVDd4.31 (3.9-5.9cm) LVOT Diameter1.80 (1.8-2.4cm)PWd1.15 (0.7-1.1cm) IVSs1.30 (0.8-1.2cm)LVDs3.04 (2.5-4.0cm) FS (%) 29.4 %PWs1.30 (0.8-1.2cm) M-Mode DIMENSIONS Left Atrium (MM)3.20 (2.5-4.0cm)IVSd0.98 (0.7-1.1cm) Aortic Root2.32 (2.2-3.7cm)LVDd4.83 (4.0-5.6cm) Aortic Cusp Exc.1.89 (1.5-2.0cm)PWd0.86 (0.7-1.1cm) IVSs1.36 cmFS (%) 33 % LVDs3.23 (2.0-3.8cm)PWs1.29 cm Mitral Valve MV E Mmmhjghw91.7cm/sMV DECEL [id number] A Bbhzsica55.3cm/s MV AGE33cwD/A ratio2.2MVA (PHT)3.93cm2 TDI E/Lateral E'0.0E/Medial E'0.0 Pulmonary Valve PV Peak Yedhtydy531.3cm/s LEFT VENTRICLE The left ventricle is normal size. There is normal left ventricular wall thickness. The left ventricular function is normal. The left ventricular ejection fraction is within the normal range. The Ejection Fraction is 60-65%. There is normal LV segmental wall motion. The left ventricular diastolic function is normal. RIGHT VENTRICLE The right ventricle is normal size. There is normal right ventricular wall thickness. The right ventricular systolic function is normal. ATRIA The left atrium size is normal. The right atrium size is normal. AORTIC VALVE The aortic valve is normal in structure. No aortic regurgitation is present. There is no aortic valvular stenosis. MITRAL VALVE The mitral valve is normal in structure. There is no mitral valve stenosis. There is no mitral valve regurgitation noted. TRICUSPID VALVE The tricuspid valve is normal in structure. There is no tricuspid valve regurgitation noted. There is no tricuspid valve stenosis. PULMONIC VALVE The pulmonary valve is normal in structure. There is no pulmonic valvular regurgitation. GREAT VESSELS The aortic root is normal in size. The IVC is normal in size and collapses >50% with inspiration. PERICARDIAL EFFUSION The pericardium appears normal. <Conclusion> The left ventricle is normal size. The left ventricular function is normal. The left ventricular ejection fraction is within the normal range. The Ejection Fraction is 60-65%.
[2017-10-14] MEDS: Piperacillin/Tazobact 3.375 GM in Sodium Chloride 0.9% 100 ML IVPB SCH ×3 (00:57→16:42)
[2017-10-14 06:21] LABS: HEMOGLOBIN 10.1 g/dL (12.0-16.0); MEAN CORPUSCULAR HEMOGLOBIN 30.9 pg (27.0-31.0); MEAN CORPUSCULAR HGB CONC 34.7 g/dL (33.0-37.0); RBC 3.26 Mil/uL (3.80-5.20); RED CELL DISTRIBUTION WIDTH 12.7 % (11.5-14.5); WHITE BLOOD COUNT 6.6 K/uL (4.8-10.8)
--- NOTE | 2017-10-14 07:52 | CP.PCM.PN ---
Subjective - Date & Time of Evaluation Date of Evaluation: 10/14/17 Time of Evaluation: 07:30 - Subjective Subjective: pt seen and examined at bedside. Moved to med/surg. Pt denies overnight events, resting well. Reports ambulating on crutches with assistance from PT. denies CP/ SOB/N/V. Had two bowel movementss yesterday. Eating and drinking well. Slight improvements in dorsiflexion of R lower extremity. Objective - Vital Signs/Intake and Output Vital Signs (last 24 hours): Temp Pulse Resp BP Pulse Ox 98.8 F 91 H 20 118/74 98 10/14/17 01:12 10/14/17 01:12 10/14/17 01:12 10/14/17 01:12 10/14/17 01:12 - Medications Medications: Current Medications Acetaminophen (Tylenol 325mg Tab) 650 mg PO Q6 PRN PRN Reason: Pain, Mild (1-3) Enoxaparin Sodium (Lovenox) 40 mg SC DAILY [facility] PRN Reason: Protocol Last Admin: 10/13/17 09:47 Dose: 40 mg Gabapentin (Neurontin) 100 mg PO HS [facility] Last Admin: 10/13/17 21:32 Dose: 100 mg Hydromorphone HCl (Dilaudid) 1 mg IVP Q3H PRN PRN Reason: Pain, severe (8-10) Last Admin: 10/14/17 00:04 Dose: 1 mg Piperacillin Sod/Tazobactam (Sod 3.375 gm/ Sodium Chloride) 100 mls @ 100 mls/ hr IVPB Q8 [facility] PRN Reason: Protocol Last Admin: 10/14/17 00:57 Dose: 100 mls/hr Ketorolac Tromethamine (Toradol) 30 mg IVP Q6 PRN PRN Reason: Pain, moderate (4-7) Last Admin: 10/13/17 14:49 Dose: 30 mg Ondansetron HCl (Zofran Inj) 4 mg IVP Q4 PRN PRN Reason: Nausea/Vomiting Last Admin: 10/11/17 22:48 Dose: 4 mg Senna/Docusate Sodium (Senokot S 50 Mg-8.6 Mg) 2 tab PO BID [facility] Last Admin: 10/13/17 16:36 Dose: 2 tab Silver Sulfadiazine (Silvadene 1% 50 Gm) 1 applic TOP DAILY [facility] Last Admin: 10/13/17 14:49 Dose: 1 applic - Labs Labs: 10/14/17 05:20 10/12/17 04:20 PT 14.0 Seconds (9.8-13.1) H 10/09/17 04:44 INR 1.3 (0.9-1.2) H 10/09/17 04:44 APTT 27.6 Seconds (25.6-37.1) 10/09/17 04:44 - Constitutional Appears: Well, No Acute Distress - Head Exam Head Exam: ATRAUMATIC, NORMAL INSPECTION - Eye Exam Eye Exam: EOMI, Normal appearance - Neck Exam Neck Exam: Full ROM - Respiratory Exam Respiratory Exam: Clear to Ausculation Bilateral, NORMAL BREATHING PATTERN - Cardiovascular Exam Cardiovascular Exam: REGULAR RHYTHM, +S1, +S2 - GI/Abdominal Exam GI & Abdominal Exam: Soft, Normal Bowel Sounds. absent: Tenderness - Extremities Exam Extremities Exam: Normal Capillary Refill. absent: Calf Tenderness Additional comments: R lower extremity currently in dorsiflexed splinting, and wrapped in bandaging. Pt able to continue movement of metatarsal phalanges with adequate sensation. Pt is able to improve in dorsiflexion. - Back Exam Back Exam: absent: CVA tenderness (L), CVA tenderness (R) - Neurological Exam Neurological Exam: Alert, Awake, CN II-XII Intact, Oriented x3 - Psychiatric Exam Psychiatric exam: Normal Affect, Normal Mood Assessment and Plan - Assessment and Plan (Free Text) Plan: 22 yo F w/o previous medical history is admitted for compartment syndrome of R lower extremity, s/p lateral compartment fasciotomy. 1) s/p Compartment syndrome, R lateral compartment - 10/07/2017 - Pain management: Dilaudid 1 mg IVP q3H; Acetaminophen 325 mg q6; Gabapentin 100 mg qhs; Toradol 30mg IVP q6 - Neurology consulted: Dr. Quintero: if motor/sensory doesnt return in 1 month may require EMG/NCS - Consider Neurosurgery - ID consulted: Zosyn 3.375g IVPB Q8H - PMR/PT Dr Vinson: continue with local/topical bandaging, wound vac today, physical therapy to help ambulation and functioning of lower extremity, transition to TCU and possible EMB/NCS in 2-3 wks. Ambulating with crutches and assistance - Podiatry: posterior splint with increased dorsiflexion - Bedside spirometry 2) Anemia; -Post op, blood loss anemia -Hbg 10.1 on 10/14/2017; 9.8 on 10/12/2017; 9.7 on 10/11/2017; 9.1 10/10/2017 -Retic: 3.0; ferritin: 49.5 -Currently menstruating 3) Constipation - Resolved; bm x 2 10/13/2017 4) PMR - Pt ambulating with crutches with help of physical therapy - PMR further eval and assistance with ambulating/rehab lower extremity function 4) Cardiac Murmur - Echo: wnl 10/12/2017 5) Hypokalemia - resolved 6) DVT prophylaxis - Lovenox 40 mg 7) Lines -Heplocked line on dorsum of L hand
[2017-10-14] MEDS: Enoxaparin 40 mg Syringe SC SCH (08:36)
[2017-10-14] MEDS: Docusate-Senna 50 mg-8.6 mg Tab PO SCH (08:37)
--- NOTE | 2017-10-14 09:34 | PQF GENQUE ---
This form is a permanent part of the medical record 10/14/17 Dr. Thomas Baeza, Please clarify the type of anemia. Blood loss anemia, acute Blood loss anemia, chronic Chronic anemia Deficiency anemia (please specify type) Iron deficiency anemia Normocytic anemia Postoperative blood loss anemia Other anemia (please specify) Clinically unable to determine Unknown Admitted with Rhabdomyolysis and Compartment Syndrome. CK on admission 1203--> 5660--> 215. Treated with IVF. H&H 12.4/ 36--> to a low of 9.1/27.1. MCV and MCH normal Clarification of your documentation is requested to better reflect the severity of illness and intensity of treatment of your patient. Indicators present [] Specify: [] [] Specify: [] [] Specify: [] [] Specify: [] Location in the medical record that reflects the above clinical findings: [] Treatment Provided: [] PHYSICIAN'S RESPONSE acute blood loss anemia due to menses Based on your medical judgment of the clinical indicators outlined above please clarify the following: [] Practitioner response [] If unable to determine, please check the box, sign and date. Present On Admission (POA) Indicator: [] Present at the time of admission [] Not present at the time of admission [] Clinically Undetermined In responding to this query, please exercise your independent professional judgment. The fact that a question is asked does not imply that any particular answer is desired or expected. Thank you for your clarification on this documentation. If you have any questions please call:ext [phone] * Thank you, Katty Tripp RN [facility]
--- NOTE | 2017-10-14 13:35 | CP.PCM.PN ---
Subjective - Date & Time of Evaluation Date of Evaluation: 10/14/17 Time of Evaluation: 13:32 - Subjective Subjective: Patient seen in the room with Dr Raymundo and parents as well Dr Raymundo removed the remaining sutures I applied with wound vac with excellent seal and no leaking set it at 100mmHg to start and then will check the wound bed in two days and determine if ok to go to 125mmHg very well tolerated now but given her numbness this is also a reason to visually check the wound as she may not feel if there is an issue Objective - Vital Signs/Intake and Output Vital Signs (last 24 hours): Temp Pulse Resp BP Pulse Ox 98.5 F 87 63 H 117/82 96 10/14/17 08:00 10/14/17 08:00 10/14/17 11:57 10/14/17 11:57 10/14/17 08:00 - Medications Medications: Current Medications Acetaminophen (Tylenol 325mg Tab) 650 mg PO Q6 PRN PRN Reason: Pain, Mild (1-3) Enoxaparin Sodium (Lovenox) 40 mg SC DAILY [facility] PRN Reason: Protocol Last Admin: 10/14/17 08:36 Dose: 40 mg Gabapentin (Neurontin) 100 mg PO HS [facility] Last Admin: 10/13/17 21:32 Dose: 100 mg Hydromorphone HCl (Dilaudid) 1 mg IVP Q3H PRN PRN Reason: Pain, severe (8-10) Last Admin: 10/14/17 11:57 Dose: 1 mg Piperacillin Sod/Tazobactam (Sod 3.375 gm/ Sodium Chloride) 100 mls @ 100 mls/ hr IVPB Q8 [facility] PRN Reason: Protocol Last Admin: 10/14/17 08:37 Dose: 100 mls/hr Ketorolac Tromethamine (Toradol) 30 mg IVP Q6 PRN PRN Reason: Pain, moderate (4-7) Last Admin: 10/14/17 10:56 Dose: 30 mg Ondansetron HCl (Zofran Inj) 4 mg IVP Q4 PRN PRN Reason: Nausea/Vomiting Last Admin: 10/11/17 22:48 Dose: 4 mg Senna/Docusate Sodium (Senokot S 50 Mg-8.6 Mg) 2 tab PO BID [facility] Last Admin: 10/14/17 08:37 Dose: 2 tab Silver Sulfadiazine (Silvadene 1% 50 Gm) 1 applic TOP DAILY [facility] Last Admin: 10/13/17 14:49 Dose: 1 applic - Labs Labs: 10/14/17 05:20 10/12/17 04:20 PT 14.0 Seconds (9.8-13.1) H 10/09/17 04:44 INR 1.3 (0.9-1.2) H 10/09/17 04:44 APTT 27.6 Seconds (25.6-37.1) 10/09/17 04:44
--- NOTE | 2017-10-14 13:48 | RAD ---
PROCEDURE: Radiographs of the right tibia and fibula. HISTORY: r/o proximal tib/fib fx COMPARISON: MR right lower leg 10/07/2017. TECHNIQUE: Frontal and lateral views obtained. FINDINGS: BONES: No osseous abnormality JOINT SPACES: Unremarkable. OTHER FINDINGS: Loss of normal soft tissue architecture with mottled heterogeneous density replacing the normal architecture here - lateral right mid to lower leg -findings consistent with surgical intervention for prior acute lateral compartment syndrome IMPRESSION: Postop changes as above. No bony or joint pathology noted
--- NOTE | 2017-10-14 14:12 | CP.PCM.PN ---
Subjective - Date & Time of Evaluation Date of Evaluation: 10/14/17 Time of Evaluation: 07:00 - Subjective Subjective: improving no fever right leg vac in place Objective - Vital Signs/Intake and Output Vital Signs (last 24 hours): Temp Pulse Resp BP Pulse Ox 98.5 F 87 63 H 117/82 96 10/14/17 08:00 10/14/17 08:00 10/14/17 11:57 10/14/17 11:57 10/14/17 08:00 - Medications Medications: Current Medications Acetaminophen (Tylenol 325mg Tab) 650 mg PO Q6 PRN PRN Reason: Pain, Mild (1-3) Enoxaparin Sodium (Lovenox) 40 mg SC DAILY [facility] PRN Reason: Protocol Last Admin: 10/14/17 08:36 Dose: 40 mg Gabapentin (Neurontin) 100 mg PO HS [facility] Last Admin: 10/13/17 21:32 Dose: 100 mg Hydromorphone HCl (Dilaudid) 1 mg IVP Q3H PRN PRN Reason: Pain, severe (8-10) Last Admin: 10/14/17 11:57 Dose: 1 mg Piperacillin Sod/Tazobactam (Sod 3.375 gm/ Sodium Chloride) 100 mls @ 100 mls/ hr IVPB Q8 [facility] PRN Reason: Protocol Last Admin: 10/14/17 08:37 Dose: 100 mls/hr Ketorolac Tromethamine (Toradol) 30 mg IVP Q6 PRN PRN Reason: Pain, moderate (4-7) Last Admin: 10/14/17 10:56 Dose: 30 mg Ondansetron HCl (Zofran Inj) 4 mg IVP Q4 PRN PRN Reason: Nausea/Vomiting Last Admin: 10/11/17 22:48 Dose: 4 mg Senna/Docusate Sodium (Senokot S 50 Mg-8.6 Mg) 2 tab PO BID [facility] Last Admin: 10/14/17 08:37 Dose: 2 tab Silver Sulfadiazine (Silvadene 1% 50 Gm) 1 applic TOP DAILY [facility] Last Admin: 10/13/17 14:49 Dose: 1 applic - Labs Labs: 10/14/17 05:20 10/12/17 04:20 PT 14.0 Seconds (9.8-13.1) H 10/09/17 04:44 INR 1.3 (0.9-1.2) H 10/09/17 04:44 APTT 27.6 Seconds (25.6-37.1) 10/09/17 04:44 - Constitutional Appears: Well - Head Exam Head Exam: ATRAUMATIC, NORMAL INSPECTION, NORMOCEPHALIC - Eye Exam Eye Exam: EOMI, Normal appearance, PERRL Pupil Exam: NORMAL ACCOMODATION, PERRL - ENT Exam ENT Exam: Mucous Membranes Moist, Normal Exam - Neck Exam Neck Exam: Full ROM, Normal Inspection. absent: Lymphadenopathy - Respiratory Exam Respiratory Exam: Clear to Ausculation Bilateral, NORMAL BREATHING PATTERN - Cardiovascular Exam Cardiovascular Exam: REGULAR RHYTHM, +S1, +S2. absent: Murmur - GI/Abdominal Exam GI & Abdominal Exam: Soft, Normal Bowel Sounds. absent: Tenderness - Rectal Exam Rectal Exam: NORMAL INSPECTION - Exam Exam: Circumcision, NORMAL INSPECTION External exam: NORMAL EXTERNAL EXAM Speculum exam: NORMAL SPECULUM EXAM Bimanual exam: NORMAL BIMANUAL EXAM - Extremities Exam Extremities Exam: Full ROM, Normal Capillary Refill, Tenderness. absent: Joint Swelling, Pedal Edema - Back Exam Back Exam: NORMAL INSPECTION - Neurological Exam Neurological Exam: Alert, Awake, CN II-XII Intact, Normal Gait, Oriented x3 - Psychiatric Exam Psychiatric exam: Normal Affect, Normal Mood - Skin Skin Exam: Dry, Intact, Normal Color, Warm Assessment and Plan (1) Compartment syndrome of right lower extremity Status: Acute (2) Rhabdomyolysis Status: Acute - Assessment and Plan (Free Text) Assessment: cont rx as planned
--- NOTE | 2017-10-14 19:08 | CP.PCM.PN ---
Subjective - Date & Time of Evaluation Date of Evaluation: 10/14/17 Time of Evaluation: 13:00 - Subjective Subjective: Podiatry Progress Note for Dr. Raymundo 22 y.o female with no PMHx seen at bedside 5 days s/p debridement of necrotic tissue including peroneal brevis and 7 days s/p right leg lateral compartment fasciotomy 2/2 compartment syndrome with near total removal of the peroneus longus muscle. Patient is seen resting comfortably in bed, in NAD, and AA0x3. Father and mother seen at bedside during visitation with attendings Dr. Raymundo and Dr. Vinson. Patient reports continued improvement in physical therapy. She reports pain to the right LE but is managed by pain medication, improving. Patient denies any further pedal complaints at this time. Denies any recent N/V/F/C/CP/SOB/D/posterior calf pain. Patient had bowel movement this morning and states that stomach pain is no longer present Objective - Vital Signs/Intake and Output Vital Signs (last 24 hours): Temp Pulse Resp BP Pulse Ox 97.7 F 95 H 17 113/70 99 10/14/17 16:32 10/14/17 16:32 10/14/17 16:32 10/14/17 16:32 10/14/17 16:32 - Medications Medications: Current Medications Acetaminophen (Tylenol 325mg Tab) 650 mg PO Q6 PRN PRN Reason: Pain, Mild (1-3) Enoxaparin Sodium (Lovenox) 40 mg SC DAILY [facility] PRN Reason: Protocol Last Admin: 10/14/17 08:36 Dose: 40 mg Gabapentin (Neurontin) 100 mg PO TID [facility] Last Admin: 10/14/17 16:42 Dose: 100 mg Hydromorphone HCl (Dilaudid) 1 mg IVP Q3H PRN PRN Reason: Pain, severe (8-10) Last Admin: 10/14/17 11:57 Dose: 1 mg Piperacillin Sod/Tazobactam (Sod 3.375 gm/ Sodium Chloride) 100 mls @ 100 mls/ hr IVPB Q8 [facility] PRN Reason: Protocol Last Admin: 10/14/17 16:42 Dose: 100 mls/hr Ketorolac Tromethamine (Toradol) 30 mg IVP Q6 PRN PRN Reason: Pain, moderate (4-7) Last Admin: 10/14/17 10:56 Dose: 30 mg Ondansetron HCl (Zofran Inj) 4 mg IVP Q4 PRN PRN Reason: Nausea/Vomiting Last Admin: 10/11/17 22:48 Dose: 4 mg Senna/Docusate Sodium (Senokot S 50 Mg-8.6 Mg) 2 tab PO BID [facility] Last Admin: 10/14/17 08:37 Dose: 2 tab Silver Sulfadiazine (Silvadene 1% 50 Gm) 1 applic TOP DAILY [facility] Last Admin: 10/13/17 14:49 Dose: 1 applic - Labs Labs: 10/14/17 05:20 10/12/17 04:20 PT 14.0 Seconds (9.8-13.1) H 10/09/17 04:44 INR 1.3 (0.9-1.2) H 10/09/17 04:44 APTT 27.6 Seconds (25.6-37.1) 10/09/17 04:44 - Constitutional Appears: Well, Non-toxic, No Acute Distress - Extremities Exam Additional comments: Posterior splint is c/d/i Dressing is c/d/i without strikethrough noted Vasc: DP/PT pulses 2/4 b/l. Skin temperature warm to warm from proximal to distal. CFT < 3 seconds to all digits. Diffuse edematous changes noted to right leg continue to improve Neuro: Epicritic and protective sensation intact but diminished to dorsal foot from level of ankle joint to base of toes Derm: surgical site remains opened with retention sutures noted and intact to the surgical site; surgical incision extending along the lateral aspect of the entire leg, proximal to lateral malleolus extending proximally to level just distal to fibular head. Tibialis anterior muscle is noted to be viable, beefy red and healthy in appearance. The surgical site shows no overt signs of clinical infection at this time including no purulent drainage, no malodor, no erythema surrounding surgical site. Granulation tissue continues to fill in the surgical site at this time MSK: Minimal POP noted to surgical site. Patient is able to weakly plantarflex and dorsiflex toes 1-5 of her right foot. Patient is unable dorsiflex her ankle joint. Patient can weakly plantarflex ankle joint. It is unclear at this time whether this is due to neuropraxic changes or more permanent neurologic damage secondary to the compartment syndrome. Manual muscle strength testing deferred at this time due to postoperative state. - Neurological Exam Neurological Exam: Alert, Awake, Oriented x3 - Psychiatric Exam Psychiatric exam: Normal Affect, Normal Mood Assessment and Plan - Assessment and Plan (Free Text) Assessment: 22 y.o female 5 days s/p debridement of necrotic tissue including peroneal brevis and 7 days s/p right leg lateral compartment fasciotomy 2/2 compartment syndrome with near total removal of the peroneus longus muscle. Plan: Patient seen and evaluated at bedside with Dr. Raymundo and Dr. Vinson Afebrile, absent leukocytosis Tib/fib xray reviewed and no proximal fibular fracture noted Remaining retention sutures removed from surgical site without incident Surgical site cleansed with saline Negative pressure wound vac applied to patients wound site with excellent seal achieved Pressure set to 100 mmHg for time being Posterior splint reapplied to patient's leg Wound vac will be changed every two days by podiatry Patient to continue nonweight bearing status Continue medical management per Medicine Continue abx coverage per ID No surgical intervention planned at this time Discusses with patient and parents that future surgical procedures may be needed including but not limited to tendon transfers, skin grafts, plastics procedures, neurological procedures Podiatry will continue to follow while patient in house
[2017-10-15] MEDS: Piperacillin/Tazobact 3.375 GM in Sodium Chloride 0.9% 100 ML IVPB SCH ×3 (00:50→17:17)
[2017-10-15] MEDS: Enoxaparin 40 mg Syringe SC SCH (08:25)
--- NOTE | 2017-10-15 08:26 | CP.PCM.PN ---
Subjective - Date & Time of Evaluation Date of Evaluation: 10/15/17 Time of Evaluation: 08:24 - Subjective Subjective: Podiatry Progress Note for Dr. Raymundo 22 y.o female with no PMHx seen at bedside 1 day s/p wound vac application to lateral right leg, 6 days s/p debridement of necrotic tissue including peroneus brevis and 8 days s/p right leg lateral compartment fasciotomy 2/2 compartment syndrome with near total removal of the peroneus longus muscle. Patient is seen resting comfortably in bed, in NAD, and AA0x3. Patient reports continued improvement in physical therapy. Patient states that last night she did experience mild pain at the wound site but is not in pain currently. Patient denies any further pedal complaints at this time. Denies any recent N/V/F/C/CP/ SOB/D/posterior calf pain. Wound vac is seen to be functioning properly with good seal noted. Minimal drainage appreciated in canister Objective - Vital Signs/Intake and Output Vital Signs (last 24 hours): Temp Pulse Resp BP Pulse Ox 97.8 F 76 18 105/69 98 10/15/17 07:55 10/15/17 07:55 10/15/17 07:55 10/15/17 07:55 10/15/17 07:55 - Medications Medications: Current Medications Acetaminophen (Tylenol 325mg Tab) 650 mg PO Q6 PRN PRN Reason: Pain, Mild (1-3) Enoxaparin Sodium (Lovenox) 40 mg SC DAILY [facility] PRN Reason: Protocol Last Admin: 10/14/17 08:36 Dose: 40 mg Gabapentin (Neurontin) 100 mg PO TID [facility] Last Admin: 10/14/17 16:42 Dose: 100 mg Hydromorphone HCl (Dilaudid) 1 mg IVP Q3H PRN PRN Reason: Pain, severe (8-10) Last Admin: 10/15/17 00:50 Dose: 1 mg Piperacillin Sod/Tazobactam (Sod 3.375 gm/ Sodium Chloride) 100 mls @ 100 mls/ hr IVPB Q8 [facility] PRN Reason: Protocol Last Admin: 10/15/17 00:50 Dose: 100 mls/hr Ketorolac Tromethamine (Toradol) 30 mg IVP Q6 PRN PRN Reason: Pain, moderate (4-7) Last Admin: 10/14/17 10:56 Dose: 30 mg Ondansetron HCl (Zofran Inj) 4 mg IVP Q4 PRN PRN Reason: Nausea/Vomiting Last Admin: 10/11/17 22:48 Dose: 4 mg Senna/Docusate Sodium (Senokot S 50 Mg-8.6 Mg) 2 tab PO BID [facility] Last Admin: 10/14/17 08:37 Dose: 2 tab Silver Sulfadiazine (Silvadene 1% 50 Gm) 1 applic TOP DAILY [facility] Last Admin: 10/13/17 14:49 Dose: 1 applic - Labs Labs: 10/14/17 05:20 10/12/17 04:20 PT 14.0 Seconds (9.8-13.1) H 10/09/17 04:44 INR 1.3 (0.9-1.2) H 10/09/17 04:44 APTT 27.6 Seconds (25.6-37.1) 10/09/17 04:44 - Constitutional Appears: Well, Non-toxic, No Acute Distress - Extremities Exam Additional comments: Dressings C/D/I and left in place during visitation Toes warm to touch, CFT less than three seconds Patient able to plantarflex and dorsiflex digits with more power than previously seen Still no sensation to dorsal foot - Neurological Exam Neurological Exam: Alert, Awake, Oriented x3 - Psychiatric Exam Psychiatric exam: Normal Affect, Normal Mood Assessment and Plan - Assessment and Plan (Free Text) Assessment: 22 y.o female 1 day s/p wound vac 6 days s/p debridement of necrotic tissue including peroneus brevis and 8 days s/p right leg lateral compartment fasciotomy 2/2 compartment syndrome with near total removal of the peroneus longus muscle. Plan: Patient seen and evaluated at bedside Afebrile, absent leukocytosis Dressings left intact Wound vac seen to be working properly with good seal - minimal drainage Continue abx per ID Continue medical management per Medicine Continue PT Podiatry will change wound vac tomorrow
[2017-10-15] MEDS: Docusate-Senna 50 mg-8.6 mg Tab PO SCH ×3 (09:00→17:26)
--- NOTE | 2017-10-15 09:51 | CP.PCM.PN ---
Subjective - Date & Time of Evaluation Date of Evaluation: 10/15/17 Time of Evaluation: 07:00 - Subjective Subjective: pt seen and examined at bedside resting. Denies significant overnight events. Reports relief of pain at wound site after starting on gabapentin tid. Denies cp /sob/n/v. has normal bowel movements. Ambulating with help of PT to nursing station and back. Has learned R lower extremity stretches. Objective - Vital Signs/Intake and Output Vital Signs (last 24 hours): Temp Pulse Resp BP Pulse Ox 97.8 F 76 18 105/69 98 10/15/17 09:46 10/15/17 07:55 10/15/17 07:55 10/15/17 07:55 10/15/17 07:55 - Medications Medications: Current Medications Acetaminophen (Tylenol 325mg Tab) 650 mg PO Q6 PRN PRN Reason: Pain, Mild (1-3) Enoxaparin Sodium (Lovenox) 40 mg SC DAILY [facility] PRN Reason: Protocol Last Admin: 10/15/17 08:25 Dose: 40 mg Gabapentin (Neurontin) 100 mg PO TID [facility] Last Admin: 10/15/17 08:25 Dose: 100 mg Hydromorphone HCl (Dilaudid) 1 mg IVP Q3H PRN PRN Reason: Pain, severe (8-10) Last Admin: 10/15/17 00:50 Dose: 1 mg Piperacillin Sod/Tazobactam (Sod 3.375 gm/ Sodium Chloride) 100 mls @ 100 mls/ hr IVPB Q8 [facility] PRN Reason: Protocol Last Admin: 10/15/17 08:24 Dose: 100 mls/hr Ketorolac Tromethamine (Toradol) 30 mg IVP Q6 PRN PRN Reason: Pain, moderate (4-7) Last Admin: 10/14/17 10:56 Dose: 30 mg Ondansetron HCl (Zofran Inj) 4 mg IVP Q4 PRN PRN Reason: Nausea/Vomiting Last Admin: 10/11/17 22:48 Dose: 4 mg Senna/Docusate Sodium (Senokot S 50 Mg-8.6 Mg) 2 tab PO BID [facility] Last Admin: 10/14/17 08:37 Dose: 2 tab Silver Sulfadiazine (Silvadene 1% 50 Gm) 1 applic TOP DAILY [facility] Last Admin: 10/13/17 14:49 Dose: 1 applic - Labs Labs: 10/14/17 05:20 10/12/17 04:20 PT 14.0 Seconds (9.8-13.1) H 10/09/17 04:44 INR 1.3 (0.9-1.2) H 10/09/17 04:44 APTT 27.6 Seconds (25.6-37.1) 10/09/17 04:44 - Eye Exam Eye Exam: EOMI, Normal appearance - Neck Exam Neck Exam: Full ROM - Respiratory Exam Respiratory Exam: Clear to Ausculation Bilateral, NORMAL BREATHING PATTERN. absent: Wheezes - Cardiovascular Exam Cardiovascular Exam: REGULAR RHYTHM, +S1, +S2 - GI/Abdominal Exam GI & Abdominal Exam: Soft, Normal Bowel Sounds. absent: Tenderness - Extremities Exam Additional comments: R lower extremity wrapped in bandaging and with wound vac in place. Pt able to sense touch to all areas except for dorsum of foot. Dorsiflexion slightly improved. - Neurological Exam Neurological Exam: Alert, Awake, CN II-XII Intact, Oriented x3 - Psychiatric Exam Psychiatric exam: Normal Affect, Normal Mood Assessment and Plan - Assessment and Plan (Free Text) Plan: 22 yo F w/o previous medical history is admitted for compartment syndrome of R lower extremity, s/p lateral compartment fasciotomy. 1) s/p Compartment syndrome, R lateral compartment - 10/07/2017 - Pain management: Dilaudid 1 mg IVP q3H; Acetaminophen 325 mg q6; Gabapentin 100 mg TID; Toradol 30mg IVP q6 - Neurology consulted: Dr. Quintero: if motor/sensory doesnt return in 1 month may require EMG/NCS - Consider Neurosurgery - ID consulted: Zosyn 3.375g IVPB Q8H - PMR/PT Dr Vinson: continue with local/topical bandaging, wound vac today, physical therapy to help ambulation and functioning of lower extremity, transition to acute rehab/TCU and possible EMB/NCS in 2-3 wks. Ambulating with crutches and assistance - Podiatry: posterior splint with increased dorsiflexion; wound vac today - Bedside spirometry 2) Anemia; -blood loss 2/2 menstruation and IVF -Hbg 10.1 on 10/14/2017; 9.8 on 10/12/2017; 9.7 on 10/11/2017; 9.1 10/10/2017 -Retic: 3.0; ferritin: 49.5 -Currently menstruating 3) PMR - Pt ambulating with crutches with help of physical therapy - PMR further eval and assistance with ambulating/rehab lower extremity function 4) Pain management - Dilaudid 1 mg IVP q3H; Acetaminophen 325 mg q6; Gabapentin 100 mg TID; Toradol 30mg IVP q6 -pt reports relief of sharp pain at wound site s/p starting gabapentin -Will consider tapering of dilaudid and toradol 5) Cardiac Murmur - Echo: wnl 10/12/2017 6) Hypokalemia - resolved 7) Constipation - Resolved 7) DVT prophylaxis - Lovenox 40 mg 8) Lines -Heplocked line on dorsum of L hand
[2017-10-16] MEDS: Piperacillin/Tazobact 3.375 GM in Sodium Chloride 0.9% 100 ML IVPB SCH ×3 (00:35→17:23)
[2017-10-16 06:35] LABS: MEAN CELL VOLUME 89.9 fl (81.0-99.0); MEAN CORPUSCULAR HEMOGLOBIN 30.2 pg (27.0-31.0); MEAN CORPUSCULAR HGB CONC 33.6 g/dL (33.0-37.0); RBC 3.31 Mil/uL (3.80-5.20); RED CELL DISTRIBUTION WIDTH 12.8 % (11.5-14.5)
[2017-10-16 06:44] LABS: BLOOD UREA NITROGEN 13 mg/dl (7-17); CALCIUM 9.3 mg/dL (8.4-10.2); GFR AFRICAN-AMERICAN > 60; GFR NON-AFRICAN AMERICAN 56
--- NOTE | 2017-10-16 07:49 | CP.PCM.PN ---
<Tristen Levy - Last Filed: 10/16/17 12:11> Subjective - Date & Time of Evaluation Date of Evaluation: 10/16/17 Time of Evaluation: 07:40 - Subjective Subjective: pt seen and examined at bedside; denies overnight events. Pt reports being able to walk 2 flights of stairs with PT. Denies CP/SOB/N/V. Experiencing daily bowel movements. Objective - Vital Signs/Intake and Output Vital Signs (last 24 hours): Temp Pulse Resp BP Pulse Ox 98.3 F 63 18 104/69 99 10/16/17 00:13 10/16/17 00:13 10/16/17 00:13 10/16/17 00:13 10/16/17 00:13 - Medications Medications: Current Medications Acetaminophen (Tylenol 325mg Tab) 650 mg PO Q6 PRN PRN Reason: Pain, Mild (1-3) Enoxaparin Sodium (Lovenox) 40 mg SC DAILY [facility] PRN Reason: Protocol Last Admin: 10/15/17 08:25 Dose: 40 mg Gabapentin (Neurontin) 100 mg PO TID [facility] Last Admin: 10/15/17 17:20 Dose: 100 mg Hydromorphone HCl (Dilaudid) 0.5 mg IVP Q3H PRN PRN Reason: Pain, severe (8-10) Last Admin: 10/16/17 01:51 Dose: 0.5 mg Piperacillin Sod/Tazobactam (Sod 3.375 gm/ Sodium Chloride) 100 mls @ 100 mls/ hr IVPB Q8 [facility] PRN Reason: Protocol Last Admin: 10/16/17 00:35 Dose: 100 mls/hr Ketorolac Tromethamine (Toradol) 30 mg IVP BID [facility] Last Admin: 10/15/17 17:20 Dose: 30 mg Ondansetron HCl (Zofran Inj) 4 mg IVP Q4 PRN PRN Reason: Nausea/Vomiting Last Admin: 10/11/17 22:48 Dose: 4 mg Senna/Docusate Sodium (Senokot S 50 Mg-8.6 Mg) 2 tab PO BID [facility] Last Admin: 10/15/17 17:26 Dose: 2 tab Silver Sulfadiazine (Silvadene 1% 50 Gm) 1 applic TOP DAILY [facility] Last Admin: 10/13/17 14:49 Dose: 1 applic - Labs Labs: 10/16/17 05:30 10/16/17 05:30 PT 14.0 Seconds (9.8-13.1) H 10/09/17 04:44 INR 1.3 (0.9-1.2) H 10/09/17 04:44 APTT 27.6 Seconds (25.6-37.1) 10/09/17 04:44 - Eye Exam Eye Exam: EOMI, Normal appearance - ENT Exam ENT Exam: Mucous Membranes Moist - Neck Exam Neck Exam: Full ROM - Respiratory Exam Respiratory Exam: Clear to Ausculation Bilateral, NORMAL BREATHING PATTERN. absent: Wheezes - Cardiovascular Exam Cardiovascular Exam: REGULAR RHYTHM, +S1, +S2 - GI/Abdominal Exam GI & Abdominal Exam: Soft, Normal Bowel Sounds. absent: Tenderness - Extremities Exam Extremities Exam: absent: Calf Tenderness Additional comments: R lower extremity wrapped in bandaging. Sensation absent at dorsum of foot. Inversion/eversion improving. - Back Exam Back Exam: absent: CVA tenderness (L), CVA tenderness (R) - Neurological Exam Neurological Exam: Alert, Awake, CN II-XII Intact, Oriented x3 - Psychiatric Exam Psychiatric exam: Normal Affect, Normal Mood Assessment and Plan - Assessment and Plan (Free Text) Plan: 22 yo F w/o previous medical history is admitted for compartment syndrome of R lower extremity, s/p lateral compartment fasciotomy. 1) s/p Compartment syndrome, R lateral compartment - 10/07/2017 - Pain management: Dilaudid 0.5 mg IVP q3H; Acetaminophen 650 mg q6; Gabapentin 100 mg TID; Toradol 30mg IVP BID - Neurology consulted: Dr. Quintero: if motor/sensory doesnt return in 1 month may require EMG/NCS - Consider Neurosurgery - ID consulted: Zosyn 3.375g IVPB Q8H - PMR/PT Dr Vinson: continue with local/topical bandaging, wound vac today, physical therapy to help ambulation and functioning of lower extremity, consideration for transition to acute rehab/TCU; possible EMB/NCS in 2-3 wks. Ambulating with crutches and assistance from PT - Podiatry: posterior splint with increased dorsiflexion; wound vac change today - Bedside spirometry 2) Anemia; - blood loss 2/2 menstruation and IVF - Hbg 10.1 on 10/14/2017; 9.8 on 10/12/2017; 9.7 on 10/11/2017; 9.1 10/10/2017 - Retic: 3.0; ferritin: 49.5 3) PMR - Pt ambulating with crutches with help of physical therapy - PMR further eval and assistance with ambulating/rehab lower extremity function 4) Pain management - Dilaudid 1 mg IVP q3H; Acetaminophen 325 mg q6; Gabapentin 100 mg TID; Toradol 30mg IVP q6 - pt reports relief of sharp pain at wound site s/p starting gabapentin - Will start tapering of dilaudid and toradol 5) Cardiac Murmur - Echo: wnl 10/12/2017 6) Hypokalemia - resolved 7) Constipation - Resolved 7) DVT prophylaxis - Lovenox 40 mg 8) Lines - Heplocked line on dorsum of L hand <Priscilla Giraldo - Last Filed: 10/17/17 09:25> Objective - Vital Signs/Intake and Output Vital Signs (last 24 hours): Temp Pulse Resp BP Pulse Ox 98.3 F 72 20 108/66 100 10/17/17 08:23 10/17/17 08:23 10/17/17 08:23 10/17/17 08:23 10/17/17 08:23 - Medications Medications: Current Medications Acetaminophen (Tylenol 325mg Tab) 650 mg PO Q6 PRN PRN Reason: Pain, Mild (1-3) Enoxaparin Sodium (Lovenox) 40 mg SC DAILY [facility] PRN Reason: Protocol Last Admin: 10/16/17 10:13 Dose: 40 mg Gabapentin (Neurontin) 100 mg PO TID [facility] Last Admin: 10/16/17 18:41 Dose: 100 mg Hydromorphone HCl (Dilaudid) 0.5 mg IVP Q3H PRN PRN Reason: Pain, severe (8-10) Last Admin: 10/17/17 01:38 Dose: 0.5 mg Piperacillin Sod/Tazobactam (Sod 3.375 gm/ Sodium Chloride) 100 mls @ 100 mls/ hr IVPB Q8 [facility] PRN Reason: Protocol Last Admin: 10/17/17 02:07 Dose: 100 mls/hr Ketorolac Tromethamine (Toradol) 30 mg IVP BID [facility] Last Admin: 10/16/17 17:19 Dose: 30 mg Ondansetron HCl (Zofran Inj) 4 mg IVP Q4 PRN PRN Reason: Nausea/Vomiting Last Admin: 10/11/17 22:48 Dose: 4 mg Senna/Docusate Sodium (Senokot S 50 Mg-8.6 Mg) 2 tab PO BID [facility] Last Admin: 10/16/17 17:19 Dose: Not Given - Labs Labs: 10/16/17 05:30 10/16/17 05:30 PT 14.0 Seconds (9.8-13.1) H 10/09/17 04:44 INR 1.3 (0.9-1.2) H 10/09/17 04:44 APTT 27.6 Seconds (25.6-37.1) 10/09/17 04:44 Attending/Attestation - Attestation I have personally seen and examined this patient.: Yes I have fully participated in the care of the patient.: Yes I have reviewed all pertinent clinical information, including history, physical exam and plan: Yes Notes (Text): 10/17/17 09:25 ATTESTATION ATTENDING NOTE PATIENT SEEN AND EXAMINED. CASE DISCUSSED WITH RESIDENT. AGREE WITH FINDINGS AND PLAN.
[2017-10-16] MEDS: Silver Sulfadiazine 1% CREAM (50 gm) TOP SCH (09:00)
[2017-10-16] MEDS: Enoxaparin 40 mg Syringe SC SCH (10:13)
[2017-10-16] MEDS: Docusate-Senna 50 mg-8.6 mg Tab PO SCH ×2 (10:14→17:19)
--- NOTE | 2017-10-16 11:50 | CP.PCM.PN ---
Subjective - Date & Time of Evaluation Date of Evaluation: 10/16/17 Time of Evaluation: 11:47 - Subjective Subjective: Patient seen in the room again with podiatry she is doing well and tolerated the wound vac removed the vac nice beefy, granulation tissue present. some bleeding. area washed and pat dry new granufoam was cut and sized excellent suction achieved with no leak discussed exercises and gave a theraband will use multi-podus boot instead of splint now so she can mobilized on her own and then put boot back on. continue current care seems like plantar flexion is stronger Objective - Vital Signs/Intake and Output Vital Signs (last 24 hours): Temp Pulse Resp BP Pulse Ox 98.4 F 74 18 109/70 99 10/16/17 07:53 10/16/17 07:53 10/16/17 07:53 10/16/17 07:53 10/16/17 07:53 - Medications Medications: Current Medications Acetaminophen (Tylenol 325mg Tab) 650 mg PO Q6 PRN PRN Reason: Pain, Mild (1-3) Enoxaparin Sodium (Lovenox) 40 mg SC DAILY [facility] PRN Reason: Protocol Last Admin: 10/16/17 10:13 Dose: 40 mg Gabapentin (Neurontin) 100 mg PO TID [facility] Last Admin: 10/16/17 10:13 Dose: 100 mg Hydromorphone HCl (Dilaudid) 0.5 mg IVP Q3H PRN PRN Reason: Pain, severe (8-10) Last Admin: 10/16/17 01:51 Dose: 0.5 mg Piperacillin Sod/Tazobactam (Sod 3.375 gm/ Sodium Chloride) 100 mls @ 100 mls/ hr IVPB Q8 [facility] PRN Reason: Protocol Last Admin: 10/16/17 10:19 Dose: 100 mls/hr Ketorolac Tromethamine (Toradol) 30 mg IVP BID [facility] Last Admin: 10/16/17 10:14 Dose: 30 mg Ondansetron HCl (Zofran Inj) 4 mg IVP Q4 PRN PRN Reason: Nausea/Vomiting Last Admin: 10/11/17 22:48 Dose: 4 mg Senna/Docusate Sodium (Senokot S 50 Mg-8.6 Mg) 2 tab PO BID [facility] Last Admin: 10/16/17 10:14 Dose: 2 tab Silver Sulfadiazine (Silvadene 1% 50 Gm) 1 applic TOP DAILY [facility] Last Admin: 10/13/17 14:49 Dose: 1 applic - Labs Labs: 10/16/17 05:30 10/16/17 05:30 PT 14.0 Seconds (9.8-13.1) H 10/09/17 04:44 INR 1.3 (0.9-1.2) H 10/09/17 04:44 APTT 27.6 Seconds (25.6-37.1) 10/09/17 04:44
--- NOTE | 2017-10-16 13:20 | CP.PCM.PN ---
Subjective - Date & Time of Evaluation Date of Evaluation: 10/16/17 Time of Evaluation: 08:00 - Subjective Subjective: doing well afebrile vac in place Objective - Vital Signs/Intake and Output Vital Signs (last 24 hours): Temp Pulse Resp BP Pulse Ox 98.4 F 74 18 109/70 99 10/16/17 07:53 10/16/17 07:53 10/16/17 07:53 10/16/17 07:53 10/16/17 07:53 - Medications Medications: Current Medications Acetaminophen (Tylenol 325mg Tab) 650 mg PO Q6 PRN PRN Reason: Pain, Mild (1-3) Enoxaparin Sodium (Lovenox) 40 mg SC DAILY [facility] PRN Reason: Protocol Last Admin: 10/16/17 10:13 Dose: 40 mg Gabapentin (Neurontin) 100 mg PO TID [facility] Last Admin: 10/16/17 10:13 Dose: 100 mg Hydromorphone HCl (Dilaudid) 0.5 mg IVP Q3H PRN PRN Reason: Pain, severe (8-10) Last Admin: 10/16/17 01:51 Dose: 0.5 mg Piperacillin Sod/Tazobactam (Sod 3.375 gm/ Sodium Chloride) 100 mls @ 100 mls/ hr IVPB Q8 [facility] PRN Reason: Protocol Last Admin: 10/16/17 10:19 Dose: 100 mls/hr Ketorolac Tromethamine (Toradol) 30 mg IVP BID [facility] Last Admin: 10/16/17 10:14 Dose: 30 mg Ondansetron HCl (Zofran Inj) 4 mg IVP Q4 PRN PRN Reason: Nausea/Vomiting Last Admin: 10/11/17 22:48 Dose: 4 mg Senna/Docusate Sodium (Senokot S 50 Mg-8.6 Mg) 2 tab PO BID [facility] Last Admin: 10/16/17 10:14 Dose: 2 tab Silver Sulfadiazine (Silvadene 1% 50 Gm) 1 applic TOP DAILY [facility] Last Admin: 10/13/17 14:49 Dose: 1 applic - Labs Labs: 10/16/17 05:30 10/16/17 05:30 PT 14.0 Seconds (9.8-13.1) H 10/09/17 04:44 INR 1.3 (0.9-1.2) H 10/09/17 04:44 APTT 27.6 Seconds (25.6-37.1) 10/09/17 04:44 - Constitutional Appears: Well - Head Exam Head Exam: ATRAUMATIC, NORMAL INSPECTION, NORMOCEPHALIC - Eye Exam Eye Exam: EOMI, Normal appearance, PERRL Pupil Exam: NORMAL ACCOMODATION, PERRL - ENT Exam ENT Exam: Mucous Membranes Moist, Normal Exam - Neck Exam Neck Exam: Full ROM, Normal Inspection. absent: Lymphadenopathy - Respiratory Exam Respiratory Exam: Clear to Ausculation Bilateral, NORMAL BREATHING PATTERN - Cardiovascular Exam Cardiovascular Exam: REGULAR RHYTHM, +S1, +S2. absent: Murmur - GI/Abdominal Exam GI & Abdominal Exam: Soft, Normal Bowel Sounds. absent: Tenderness - Rectal Exam Rectal Exam: NORMAL INSPECTION - Extremities Exam Extremities Exam: Full ROM, Normal Capillary Refill, Normal Inspection. absent : Joint Swelling, Pedal Edema Additional comments: vac in place RLE - Back Exam Back Exam: NORMAL INSPECTION - Neurological Exam Neurological Exam: Alert, Awake, CN II-XII Intact, Normal Gait, Oriented x3 - Psychiatric Exam Psychiatric exam: Normal Affect, Normal Mood - Skin Skin Exam: Dry, Intact, Normal Color, Warm Assessment and Plan (1) Compartment syndrome of right lower extremity Status: Acute (2) Rhabdomyolysis Status: Acute - Assessment and Plan (Free Text) Assessment: ok to d/c iv antibiotics
--- NOTE | 2017-10-16 14:29 | CP.PCM.PN ---
Subjective - Date & Time of Evaluation Date of Evaluation: 10/16/17 Time of Evaluation: 14:26 - Subjective Subjective: Podiatry Progress Note for Dr. Raymundo 22 y.o female with no PMHx seen at bedside 7 days s/p debridement of necrotic tissue including peroneal brevis and 9 days s/p right leg lateral compartment fasciotomy 2/2 compartment syndrome with near total removal of the peroneus longus muscle. Patient is seen resting comfortably in bed, in NAD, and AA0x3. Father and mother seen at bedside during visitation with attendings Dr. Raymundo and Dr. Vinson. Patient reports continued improvement in physical therapy. She reports pain to the right LE but is managed by pain medication, improving. Patient denies any further pedal complaints at this time. Denies any recent N/V/F/C/CP/SOB/D/posterior calf pain. Objective - Vital Signs/Intake and Output Vital Signs (last 24 hours): Temp Pulse Resp BP Pulse Ox 98.4 F 74 18 109/70 99 10/16/17 07:53 10/16/17 07:53 10/16/17 07:53 10/16/17 07:53 10/16/17 07:53 - Medications Medications: Current Medications Acetaminophen (Tylenol 325mg Tab) 650 mg PO Q6 PRN PRN Reason: Pain, Mild (1-3) Enoxaparin Sodium (Lovenox) 40 mg SC DAILY [facility] PRN Reason: Protocol Last Admin: 10/16/17 10:13 Dose: 40 mg Gabapentin (Neurontin) 100 mg PO TID [facility] Last Admin: 10/16/17 10:13 Dose: 100 mg Hydromorphone HCl (Dilaudid) 0.5 mg IVP Q3H PRN PRN Reason: Pain, severe (8-10) Last Admin: 10/16/17 01:51 Dose: 0.5 mg Piperacillin Sod/Tazobactam (Sod 3.375 gm/ Sodium Chloride) 100 mls @ 100 mls/ hr IVPB Q8 [facility] PRN Reason: Protocol Last Admin: 10/16/17 10:19 Dose: 100 mls/hr Ketorolac Tromethamine (Toradol) 30 mg IVP BID [facility] Last Admin: 10/16/17 10:14 Dose: 30 mg Ondansetron HCl (Zofran Inj) 4 mg IVP Q4 PRN PRN Reason: Nausea/Vomiting Last Admin: 10/11/17 22:48 Dose: 4 mg Senna/Docusate Sodium (Senokot S 50 Mg-8.6 Mg) 2 tab PO BID [facility] Last Admin: 10/16/17 10:14 Dose: 2 tab Silver Sulfadiazine (Silvadene 1% 50 Gm) 1 applic TOP DAILY [facility] Last Admin: 10/13/17 14:49 Dose: 1 applic - Labs Labs: 10/16/17 05:30 10/16/17 05:30 PT 14.0 Seconds (9.8-13.1) H 10/09/17 04:44 INR 1.3 (0.9-1.2) H 10/09/17 04:44 APTT 27.6 Seconds (25.6-37.1) 10/09/17 04:44 - Constitutional Appears: Well, Non-toxic, No Acute Distress - Extremities Exam Additional comments: Posterior splint is c/d/i Dressing is c/d/i without strikethrough noted Wound vac noted to be working with good seal at 100 mmHg Wound vac removed Vasc: DP/PT pulses 2/4 b/l. Skin temperature warm to warm from proximal to distal. CFT < 3 seconds to all digits. Diffuse edematous changes noted to right leg continue to improve Neuro: Epicritic and protective sensation intact but diminished to dorsal foot from level of ankle joint to base of toes Derm: surgical site remains opened; surgical incision extending along the lateral aspect of the entire leg, proximal to lateral malleolus extending proximally to level just distal to fibular head. Tibialis anterior muscle is noted to be viable, beefy red and healthy in appearance. The surgical site shows no overt signs of clinical infection at this time including no purulent drainage, no malodor, no erythema surrounding surgical site. Granulation tissue continues to fill in the surgical site at this time MSK: Increased POP noted to surgical site. Patient is able to weakly plantarflex and dorsiflex toes 1-5 of her right foot. Patient is unable dorsiflex her ankle joint. Patient can weakly plantarflex ankle joint. It is unclear at this time whether this is due to neuropraxic changes or more permanent neurologic damage secondary to the compartment syndrome. Manual muscle strength testing deferred at this time due to postoperative state. - Neurological Exam Neurological Exam: Alert, Awake, Oriented x3 - Psychiatric Exam Psychiatric exam: Normal Affect, Normal Mood Assessment and Plan - Assessment and Plan (Free Text) Assessment: 22 y.o female with no PMHx seen at bedside for wound vac change 7 days s/p debridement of necrotic tissue including peroneal brevis and 9 days s/p right leg lateral compartment fasciotomy 2/2 compartment syndrome with near total removal of the peroneus longus muscle Plan: Patient seen and evaluated at bedside with attending Dr. Raymundo and Dr. Vinson Afebrile, absent leukocytosis Continue IV abx per ID Continue medical management per Medicine Wound vac removed and replaced without incident Pressure set to 100 mmHg and good seal achieved with no leaks present Per Dr. Prince patient may be moved to rehab in next day or two Patient to continue physical therapy Patient put through multiple repetitions of passive ankle dorsiflexion with gastroc-soleus complex stretching and multiple active repetitions of ankle plantarflexion Leg dressed with kirlix, RAÚL and heel offloading shoe No plan for surgical intervention at this time Podiatry will continue to follow while patient in house
[2017-10-17] MEDS: Piperacillin/Tazobact 3.375 GM in Sodium Chloride 0.9% 100 ML IVPB SCH ×3 (02:07→17:16)
--- NOTE | 2017-10-17 07:58 | CP.PCM.PN ---
<Delta Brown T - Last Filed: 10/17/17 12:58> Subjective - Date & Time of Evaluation Date of Evaluation: 10/17/17 Time of Evaluation: 08:30 - Subjective Subjective: Pt seen and examined at bedside. Denies any problems or complaints overnight, but review of nursing note reveals an 8/10 pain complaint requiring a one-time dilaudid administration. Objective - Vital Signs/Intake and Output Vital Signs (last 24 hours): Temp Pulse Resp BP Pulse Ox 98.5 F 81 19 112/72 98 10/17/17 00:00 10/17/17 00:00 10/17/17 00:00 10/17/17 00:00 10/17/17 00:00 - Medications Medications: Current Medications Acetaminophen (Tylenol 325mg Tab) 650 mg PO Q6 PRN PRN Reason: Pain, Mild (1-3) Enoxaparin Sodium (Lovenox) 40 mg SC DAILY [facility] PRN Reason: Protocol Last Admin: 10/16/17 10:13 Dose: 40 mg Gabapentin (Neurontin) 100 mg PO TID [facility] Last Admin: 10/16/17 18:41 Dose: 100 mg Hydromorphone HCl (Dilaudid) 0.5 mg IVP Q3H PRN PRN Reason: Pain, severe (8-10) Last Admin: 10/17/17 01:38 Dose: 0.5 mg Piperacillin Sod/Tazobactam (Sod 3.375 gm/ Sodium Chloride) 100 mls @ 100 mls/ hr IVPB Q8 [facility] PRN Reason: Protocol Last Admin: 10/17/17 02:07 Dose: 100 mls/hr Ketorolac Tromethamine (Toradol) 30 mg IVP BID [facility] Last Admin: 10/16/17 17:19 Dose: 30 mg Ondansetron HCl (Zofran Inj) 4 mg IVP Q4 PRN PRN Reason: Nausea/Vomiting Last Admin: 10/11/17 22:48 Dose: 4 mg Senna/Docusate Sodium (Senokot S 50 Mg-8.6 Mg) 2 tab PO BID [facility] Last Admin: 10/16/17 17:19 Dose: Not Given - Labs Labs: 10/16/17 05:30 10/16/17 05:30 PT 14.0 Seconds (9.8-13.1) H 10/09/17 04:44 INR 1.3 (0.9-1.2) H 10/09/17 04:44 APTT 27.6 Seconds (25.6-37.1) 10/09/17 04:44 - Additional Findings Additional findings: - Eye Exam Eye Exam: EOMI, Normal appearance - ENT Exam ENT Exam: Mucous Membranes Moist - Respiratory Exam Respiratory Exam: Clear to Ausculation Bilateral, NORMAL BREATHING PATTERN. absent: Wheezes - Cardiovascular Exam Cardiovascular Exam: REGULAR RHYTHM, +S1, +S2 - GI/Abdominal Exam GI & Abdominal Exam: Soft, Normal Bowel Sounds. absent: Tenderness - Extremities Exam Extremities Exam: absent: Calf Tenderness Additional comments: R lower extremity wrapped in bandaging; Wound vac placed; Sensation absent at dorsum of foot. Inversion/eversion stable. - Back Exam Back Exam: absent: CVA tenderness (L), CVA tenderness (R) - Neurological Exam Neurological Exam: Alert, Awake, CN II-XII Intact, Oriented x3 - Psychiatric Exam Psychiatric exam: Normal Affect, Normal Mood Assessment and Plan - Assessment and Plan (Free Text) Plan: 22 yo F w/o previous medical history is admitted for compartment syndrome of R lower extremity, s/p lateral compartment fasciotomy. 1) s/p Compartment syndrome, R lateral compartment - 10/07/2017 - Pain management: Dilaudid 0.5 mg IVP q3H; Acetaminophen 650 mg q6; Gabapentin 100 mg TID; Toradol 30mg IVP BID - Neurology consulted: Dr. Quintero: if motor/sensory doesnt return in 1 month may require EMG/NCS - Consider Neurosurgery - ID consulted: Zosyn 3.375g IVPB Q8H - PMR/PT Dr Vinson: continue with local/topical bandaging, wound vac today, physical therapy to help ambulation and functioning of lower extremity, consideration for transition to acute rehab/TCU; possible EMB/NCS in 2-3 wks. Ambulating with crutches and assistance from PT - Podiatry: posterior splint with increased dorsiflexion; wound vac change today - Pt ambulating with crutches with help of physical therapy - Bedside spirometry 2) Anemia - blood loss 2/2 menstruation and IVF - stable; currently 10.0 3) Pain management - Dilaudid 1 mg IVP q3H; Acetaminophen 325 mg q6; Gabapentin 100 mg TID; Toradol 30mg IVP q6 - pt reports relief of sharp pain at wound site s/p starting gabapentin - Will start tapering of dilaudid and toradol 4) Cardiac Murmur - Echo: wnl 10/12/2017 5) DVT prophylaxis - Lovenox 40 mg 6) Lines - Heplocked line on dorsum of L hand <Priscilla Giraldo - Last Filed: 10/18/17 08:44> Objective - Vital Signs/Intake and Output Vital Signs (last 24 hours): Temp Pulse Resp BP Pulse Ox 99.6 F 99 H 20 104/75 98 10/18/17 07:55 10/18/17 07:55 10/18/17 07:55 10/18/17 07:55 10/18/17 07:55 - Medications Medications: Current Medications Acetaminophen (Tylenol 325mg Tab) 650 mg PO Q6 PRN PRN Reason: Pain, Mild (1-3) Enoxaparin Sodium (Lovenox) 40 mg SC DAILY [facility] PRN Reason: Protocol Last Admin: 10/17/17 09:23 Dose: 40 mg Gabapentin (Neurontin) 100 mg PO TID [facility] Last Admin: 10/17/17 17:09 Dose: 100 mg Hydromorphone HCl (Dilaudid) 0.5 mg IVP Q3H PRN PRN Reason: Pain, severe (8-10) Last Admin: 10/18/17 01:45 Dose: 0.5 mg Piperacillin Sod/Tazobactam (Sod 3.375 gm/ Sodium Chloride) 100 mls @ 100 mls/ hr IVPB Q8 [facility] PRN Reason: Protocol Last Admin: 10/18/17 00:12 Dose: 100 mls/hr Ketorolac Tromethamine (Toradol) 30 mg IVP BID [facility] Last Admin: 10/17/17 17:13 Dose: 30 mg Ondansetron HCl (Zofran Inj) 4 mg IVP Q4 PRN PRN Reason: Nausea/Vomiting Last Admin: 10/11/17 22:48 Dose: 4 mg Senna/Docusate Sodium (Senokot S 50 Mg-8.6 Mg) 2 tab PO BID [facility] Last Admin: 10/17/17 17:12 Dose: Not Given - Labs Labs: 10/16/17 05:30 10/16/17 05:30 PT 14.0 Seconds (9.8-13.1) H 10/09/17 04:44 INR 1.3 (0.9-1.2) H 10/09/17 04:44 APTT 27.6 Seconds (25.6-37.1) 10/09/17 04:44 Attending/Attestation - Attestation I have personally seen and examined this patient.: Yes I have fully participated in the care of the patient.: Yes I have reviewed all pertinent clinical information, including history, physical exam and plan: Yes Notes (Text): 10/18/17 08:44 ATTENDING NOTE ATTESTATION PATIENT SEEN AND EXAMINED. CASE DISCUSSED WITH RESIDENT. AGREE WITH FINDINGS AND PLAN.
[2017-10-17] MEDS: Enoxaparin 40 mg Syringe SC SCH (09:23)
[2017-10-17] MEDS: Docusate-Senna 50 mg-8.6 mg Tab PO SCH ×2 (09:24→17:12)
--- NOTE | 2017-10-17 11:20 | CP.PCM.PN ---
Subjective - Date & Time of Evaluation Date of Evaluation: 10/17/17 Time of Evaluation: 11:20 - Subjective Subjective: Podiatry Progress Note - Dr. Raymundo 22 y/o female seen at bedside this morning 8 days s/p debridement of necrotic muscle tissue including peroneus brevis and 10 days s/p right leg lateral compartment fasciotomy secondary to compartment syndrome, with near total excision of peroneus longus muscle. Pt in mild distress at time of visit, stating she is anxious and ready to leave. States she tried working with physical therapy today and since then has felt very sore. Pt's family at bedside at time of visit. Pt states the vac has remained in place. Denies having any pain at present, saying the pain meds are working fine to control it. Denies any new pedal complaints. Denies F/C/N/V/CP/SOB. Denies posterior calf pain. Objective - Vital Signs/Intake and Output Vital Signs (last 24 hours): Temp Pulse Resp BP Pulse Ox 98.3 F 72 20 108/66 100 10/17/17 08:23 10/17/17 08:23 10/17/17 08:23 10/17/17 08:23 10/17/17 08:23 - Medications Medications: Current Medications Acetaminophen (Tylenol 325mg Tab) 650 mg PO Q6 PRN PRN Reason: Pain, Mild (1-3) Enoxaparin Sodium (Lovenox) 40 mg SC DAILY [facility] PRN Reason: Protocol Last Admin: 10/17/17 09:23 Dose: 40 mg Gabapentin (Neurontin) 100 mg PO TID [facility] Last Admin: 10/17/17 09:23 Dose: 100 mg Hydromorphone HCl (Dilaudid) 0.5 mg IVP Q3H PRN PRN Reason: Pain, severe (8-10) Last Admin: 10/17/17 01:38 Dose: 0.5 mg Piperacillin Sod/Tazobactam (Sod 3.375 gm/ Sodium Chloride) 100 mls @ 100 mls/ hr IVPB Q8 [facility] PRN Reason: Protocol Last Admin: 10/17/17 09:26 Dose: 100 mls/hr Ketorolac Tromethamine (Toradol) 30 mg IVP BID [facility] Last Admin: 10/17/17 09:25 Dose: 30 mg Ondansetron HCl (Zofran Inj) 4 mg IVP Q4 PRN PRN Reason: Nausea/Vomiting Last Admin: 10/11/17 22:48 Dose: 4 mg Senna/Docusate Sodium (Senokot S 50 Mg-8.6 Mg) 2 tab PO BID [facility] Last Admin: 10/17/17 09:24 Dose: 2 tab - Labs Labs: 10/16/17 05:30 10/16/17 05:30 PT 14.0 Seconds (9.8-13.1) H 10/09/17 04:44 INR 1.3 (0.9-1.2) H 10/09/17 04:44 APTT 27.6 Seconds (25.6-37.1) 10/09/17 04:44 - Constitutional Appears: Well, Non-toxic - Extremities Exam Additional comments: Posterior splint is C/D/I Dressing is C/D/I without strikethrough noted Wound vac noted to be working with good seal at 100 mmHg - Neurological Exam Neurological Exam: Alert, Awake, Oriented x3 - Psychiatric Exam Psychiatric exam: Anxious Assessment and Plan - Assessment and Plan (Free Text) Assessment: 22 y.o female with no PMHx seen at bedside for wellness check on right leg wound vac with posterior splint, 8 days s/p debridement of necrotic tissue including peroneal brevis and 10 days s/p right leg lateral compartment fasciotomy 2/2 compartment syndrome with near total removal of the peroneus longus muscle Plan: Patient seen and evaluated at bedside Discussed plan with attending Dr. Raymundo Afebrile, absent leukocytosis Continue IV abx per ID Continue medical management per family medicine Wound vac check performed, good seal in place, running well at 100 mmHg Pt awaiting insurance approval for transfer to rehab - possible tfr to acute rehab vs TCU Patient to continue physical therapy Patient put through multiple repetitions of passive ankle dorsiflexion with gastroc-soleus complex stretching and multiple active repetitions of ankle plantarflexion No plan for further surgical intervention at this time Podiatry will continue to follow while patient in house
[2017-10-18] MEDS: Piperacillin/Tazobact 3.375 GM in Sodium Chloride 0.9% 100 ML IVPB SCH ×2 (00:12→08:59)
[2017-10-18] MEDS: Enoxaparin 40 mg Syringe SC SCH (08:55)
[2017-10-18] MEDS: Docusate-Senna 50 mg-8.6 mg Tab PO SCH ×2 (08:58→16:53)
--- NOTE | 2017-10-18 11:40 | CP.PCM.PN ---
Subjective - Date & Time of Evaluation Date of Evaluation: 10/18/17 Time of Evaluation: 11:40 - Subjective Subjective: Podiatry Progress Note - Dr. Raymundo 22 y/o female seen at bedside this morning 9 days s/p debridement of necrotic muscle tissue including peroneus brevis and 10 days s/p right leg lateral compartment fasciotomy secondary to compartment syndrome, with near total excision of peroneus longus muscle. Pt in better spirits today. Pt's family at bedside at time of visit. Pt states the vac has remained in place. Pt states she walked with the crutches earlier today and also did some stretches with a resistance band. Pt denies having any pain at present, saying the pain meds are working well to control it. Denies any new pedal complaints. Denies F/C/N/V/CP/ SOB. Denies posterior calf pain. Objective - Vital Signs/Intake and Output Vital Signs (last 24 hours): Temp Pulse Resp BP Pulse Ox 99.6 F 99 H 20 104/75 98 10/18/17 07:55 10/18/17 07:55 10/18/17 07:55 10/18/17 07:55 10/18/17 07:55 - Medications Medications: Current Medications Acetaminophen (Tylenol 325mg Tab) 650 mg PO Q6 PRN PRN Reason: Pain, Mild (1-3) Enoxaparin Sodium (Lovenox) 40 mg SC DAILY [facility] PRN Reason: Protocol Last Admin: 10/18/17 08:55 Dose: 40 mg Gabapentin (Neurontin) 100 mg PO TID [facility] Last Admin: 10/18/17 08:55 Dose: 100 mg Hydromorphone HCl (Dilaudid) 0.5 mg IVP Q3H PRN PRN Reason: Pain, severe (8-10) Last Admin: 10/18/17 01:45 Dose: 0.5 mg Ketorolac Tromethamine (Toradol) 30 mg IVP BID [facility] Last Admin: 10/18/17 08:55 Dose: 30 mg Ondansetron HCl (Zofran Inj) 4 mg IVP Q4 PRN PRN Reason: Nausea/Vomiting Last Admin: 10/11/17 22:48 Dose: 4 mg Senna/Docusate Sodium (Senokot S 50 Mg-8.6 Mg) 2 tab PO BID [facility] Last Admin: 10/18/17 08:58 Dose: Not Given - Labs Labs: 10/16/17 05:30 10/16/17 05:30 PT 14.0 Seconds (9.8-13.1) H 10/09/17 04:44 INR 1.3 (0.9-1.2) H 10/09/17 04:44 APTT 27.6 Seconds (25.6-37.1) 10/09/17 04:44 - Constitutional Appears: Well, Non-toxic, No Acute Distress - Extremities Exam Additional comments: Posterior splint is C/D/I Dressing is C/D/I without strikethrough noted Wound vac noted to be working with good seal at 100 mmHg - Neurological Exam Neurological Exam: Alert, Awake, Oriented x3 - Psychiatric Exam Psychiatric exam: Normal Affect, Normal Mood Assessment and Plan - Assessment and Plan (Free Text) Assessment: 22 y/o female with no PMHx with right leg wound vac with posterior splint, 9 days s/p debridement of necrotic tissue including peroneal brevis and 11 days s/ p right leg lateral compartment fasciotomy 2/2 compartment syndrome with near total removal of the peroneus longus muscle Plan: Patient seen and evaluated at bedside Discussed plan with attending Dr. Raymundo Afebrile, absent leukocytosis Per ID, ok to d/c IV abx Continue medical management per family medicine Wound vac check performed, good seal in place, running well at 100 mmHg Pt awaiting insurance approval for transfer to rehab - possible tfr to acute rehab vs TCU Patient to continue physical therapy and stretches No plan for further surgical intervention at this time Podiatry will continue to follow while patient in house
--- NOTE | 2017-10-18 12:20 | CP.PCM.PN ---
<Tristen Levy - Last Filed: 10/18/17 12:15> Subjective - Date & Time of Evaluation Date of Evaluation: 10/18/17 Time of Evaluation: 08:10 - Subjective Subjective: Pt seen and examined at bedside with family. Pt denied overnight events. Daily bowel movement. PT to help ambulate and climb stairs. Objective - Vital Signs/Intake and Output Vital Signs (last 24 hours): Temp Pulse Resp BP Pulse Ox 99.6 F 99 H 20 104/75 98 10/18/17 07:55 10/18/17 07:55 10/18/17 07:55 10/18/17 07:55 10/18/17 07:55 - Medications Medications: Current Medications Acetaminophen (Tylenol 325mg Tab) 650 mg PO Q6 PRN PRN Reason: Pain, Mild (1-3) Enoxaparin Sodium (Lovenox) 40 mg SC DAILY [facility] PRN Reason: Protocol Last Admin: 10/18/17 08:55 Dose: 40 mg Gabapentin (Neurontin) 100 mg PO TID [facility] Last Admin: 10/18/17 08:55 Dose: 100 mg Hydromorphone HCl (Dilaudid) 0.5 mg IVP Q3H PRN PRN Reason: Pain, severe (8-10) Last Admin: 10/18/17 01:45 Dose: 0.5 mg Ketorolac Tromethamine (Toradol) 30 mg IVP BID [facility] Last Admin: 10/18/17 08:55 Dose: 30 mg Ondansetron HCl (Zofran Inj) 4 mg IVP Q4 PRN PRN Reason: Nausea/Vomiting Last Admin: 10/11/17 22:48 Dose: 4 mg Senna/Docusate Sodium (Senokot S 50 Mg-8.6 Mg) 2 tab PO BID [facility] Last Admin: 10/18/17 08:58 Dose: Not Given - Labs Labs: 10/16/17 05:30 10/16/17 05:30 PT 14.0 Seconds (9.8-13.1) H 10/09/17 04:44 INR 1.3 (0.9-1.2) H 10/09/17 04:44 APTT 27.6 Seconds (25.6-37.1) 10/09/17 04:44 - Constitutional Appears: Well, No Acute Distress - Eye Exam Eye Exam: EOMI - Neck Exam Neck Exam: Full ROM - Respiratory Exam Respiratory Exam: Clear to Ausculation Bilateral, NORMAL BREATHING PATTERN. absent: Wheezes - Cardiovascular Exam Cardiovascular Exam: REGULAR RHYTHM, +S1, +S2 - Extremities Exam Additional comments: L lower extremity wrapped with wound vac. Pt able to experience increase sensation to dorsal aspect of foot. - Back Exam Back Exam: absent: CVA tenderness (L), CVA tenderness (R) - Neurological Exam Neurological Exam: Alert, Awake, CN II-XII Intact, Oriented x3 - Psychiatric Exam Psychiatric exam: Normal Affect, Normal Mood Assessment and Plan - Assessment and Plan (Free Text) Plan: 22 yo F w/o previous medical history is admitted for compartment syndrome of R lower extremity, s/p lateral compartment fasciotomy. 1) s/p Compartment syndrome, R lateral compartment - 10/07/2017 - Pain management: Dilaudid 0.5 mg IVP q3H; Acetaminophen 650 mg q6; Gabapentin 100 mg TID; Toradol 30mg IVP BID - Neurology consulted: Dr. Quintero: if motor/sensory doesnt return in 1 month may require EMG/NCS - Consider Neurosurgery - ID consulted: discontinue Zosyn 3.375g IVPB Q8H - PMR/PT Dr Vinson: continue with local/topical bandaging, wound vac today, physical therapy to help ambulation and functioning of lower extremity, consideration for transition to acute rehab/TCU; possible EMB/NCS in 2-3 wks. Ambulating with crutches and assistance from PT - Podiatry: posterior splint with increased dorsiflexion; wound vac change today - Pt ambulating with crutches with help of physical therapy - Bedside spirometry 2) Pain management - Dilaudid 1 mg IVP q3H; Acetaminophen 325 mg q6; Gabapentin 100 mg TID; Toradol 30mg IVP q6 - pt reports relief of sharp pain at wound site s/p starting gabapentin - Will start tapering of dilaudid and toradol 3) Anemia - blood loss 2/2 menstruation and IVF - stable; currently 10.0 4) Cardiac Murmur - Echo: wnl 10/12/2017 5) DVT prophylaxis - Lovenox 40 mg 6) Lines - Heplocked line on dorsum of L hand <Priscilla Giraldo - Last Filed: 10/19/17 10:18> Objective - Vital Signs/Intake and Output Vital Signs (last 24 hours): Temp Pulse Resp BP Pulse Ox 97.7 F 76 18 107/68 97 10/19/17 08:31 10/19/17 08:31 10/19/17 08:31 10/19/17 08:31 10/19/17 08:31 - Medications Medications: Current Medications Acetaminophen (Tylenol 325mg Tab) 650 mg PO Q6 PRN PRN Reason: Pain, Mild (1-3) Enoxaparin Sodium (Lovenox) 40 mg SC DAILY [facility] PRN Reason: Protocol Last Admin: 10/19/17 09:42 Dose: 40 mg Famotidine (Pepcid) 20 mg PO DAILY [facility] Last Admin: 10/19/17 09:42 Dose: 20 mg Gabapentin (Neurontin) 100 mg PO TID [facility] Last Admin: 10/19/17 09:42 Dose: 100 mg Hydromorphone HCl (Dilaudid) 0.5 mg IVP Q3H PRN PRN Reason: Pain, severe (8-10) Last Admin: 10/19/17 06:08 Dose: 0.5 mg Ketorolac Tromethamine (Toradol) 30 mg IVP BID [facility] Last Admin: 10/19/17 09:43 Dose: 30 mg Ondansetron HCl (Zofran Inj) 4 mg IVP Q4 PRN PRN Reason: Nausea/Vomiting Last Admin: 10/11/17 22:48 Dose: 4 mg Senna/Docusate Sodium (Senokot S 50 Mg-8.6 Mg) 2 tab PO BID [facility] Last Admin: 10/19/17 09:42 Dose: 2 tab - Labs Labs: 10/19/17 05:35 10/19/17 05:35 PT 14.0 Seconds (9.8-13.1) H 10/09/17 04:44 INR 1.3 (0.9-1.2) H 10/09/17 04:44 APTT 27.6 Seconds (25.6-37.1) 10/09/17 04:44 Attending/Attestation - Attestation I have personally seen and examined this patient.: Yes I have fully participated in the care of the patient.: Yes I have reviewed all pertinent clinical information, including history, physical exam and plan: Yes Notes (Text): 10/19/17 10:17 ATTENDING NOTE ATTESTATION PATIENT SEEN AND EXAMINED. CASE DISCUSSED WITH RESIDENT. AGREE WITH PLAN.
--- NOTE | 2017-10-18 13:43 | CP.PCM.PN ---
Subjective - Date & Time of Evaluation Date of Evaluation: 10/18/17 Time of Evaluation: 09:00 - Subjective Subjective: afebruile aff antibiotics wound c/s neg will sign off cont wound vac Objective - Vital Signs/Intake and Output Vital Signs (last 24 hours): Temp Pulse Resp BP Pulse Ox 99.6 F 99 H 20 104/75 98 10/18/17 07:55 10/18/17 07:55 10/18/17 07:55 10/18/17 07:55 10/18/17 07:55 - Medications Medications: Current Medications Acetaminophen (Tylenol 325mg Tab) 650 mg PO Q6 PRN PRN Reason: Pain, Mild (1-3) Enoxaparin Sodium (Lovenox) 40 mg SC DAILY [facility] PRN Reason: Protocol Last Admin: 10/18/17 08:55 Dose: 40 mg Famotidine (Pepcid) 20 mg PO DAILY [facility] Gabapentin (Neurontin) 100 mg PO TID [facility] Last Admin: 10/18/17 08:55 Dose: 100 mg Hydromorphone HCl (Dilaudid) 0.5 mg IVP Q3H PRN PRN Reason: Pain, severe (8-10) Last Admin: 10/18/17 01:45 Dose: 0.5 mg Ketorolac Tromethamine (Toradol) 30 mg IVP BID [facility] Last Admin: 10/18/17 08:55 Dose: 30 mg Ondansetron HCl (Zofran Inj) 4 mg IVP Q4 PRN PRN Reason: Nausea/Vomiting Last Admin: 10/11/17 22:48 Dose: 4 mg Senna/Docusate Sodium (Senokot S 50 Mg-8.6 Mg) 2 tab PO BID [facility] Last Admin: 10/18/17 08:58 Dose: Not Given - Labs Labs: 10/16/17 05:30 10/16/17 05:30 PT 14.0 Seconds (9.8-13.1) H 10/09/17 04:44 INR 1.3 (0.9-1.2) H 10/09/17 04:44 APTT 27.6 Seconds (25.6-37.1) 10/09/17 04:44 - Constitutional Appears: Non-toxic - Head Exam Head Exam: NORMOCEPHALIC - Eye Exam Eye Exam: absent: Scleral icterus - ENT Exam ENT Exam: Mucous Membranes Dry - Neck Exam Neck Exam: absent: Lymphadenopathy - Respiratory Exam Respiratory Exam: Decreased Breath Sounds, Clear to Ausculation Bilateral - Cardiovascular Exam Cardiovascular Exam: REGULAR RHYTHM, +S1, +S2 - GI/Abdominal Exam GI & Abdominal Exam: Distended, Soft - Rectal Exam Rectal Exam: Deferred - Exam Exam: NORMAL INSPECTION Assessment and Plan (1) Compartment syndrome of right lower extremity Status: Acute (2) Rhabdomyolysis Status: Acute
[2017-10-19 06:38] LABS: HEMOGLOBIN 10.8 g/dL (12.0-16.0); MEAN CELL VOLUME 88.6 fl (81.0-99.0); MEAN CORPUSCULAR HEMOGLOBIN 30.5 pg (27.0-31.0); MEAN CORPUSCULAR HGB CONC 34.5 g/dL (33.0-37.0); RBC 3.54 Mil/uL (3.80-5.20); WHITE BLOOD COUNT 4.5 K/uL (4.8-10.8)
[2017-10-19 06:55] LABS: BLOOD UREA NITROGEN 15 mg/dl (7-17); CALCIUM 9.2 mg/dL (8.4-10.2); GFR AFRICAN-AMERICAN > 60; GFR NON-AFRICAN AMERICAN > 60
--- NOTE | 2017-10-19 09:40 | CP.PCM.PN ---
Subjective - Date & Time of Evaluation Date of Evaluation: 10/19/17 Time of Evaluation: 07:40 - Subjective Subjective: Pt seen and examined at bedside. Denies overnight events. Able to get up from bed and sit in her chair. Currently with wound vac. Denies: cp/sob/n/v. Experiencing daily bowel movement. Objective - Vital Signs/Intake and Output Vital Signs (last 24 hours): Temp Pulse Resp BP Pulse Ox 97.7 F 76 18 107/68 97 10/19/17 08:31 10/19/17 08:31 10/19/17 08:31 10/19/17 08:31 10/19/17 08:31 - Medications Medications: Current Medications Acetaminophen (Tylenol 325mg Tab) 650 mg PO Q6 PRN PRN Reason: Pain, Mild (1-3) Enoxaparin Sodium (Lovenox) 40 mg SC DAILY [facility] PRN Reason: Protocol Last Admin: 10/18/17 08:55 Dose: 40 mg Famotidine (Pepcid) 20 mg PO DAILY [facility] Last Admin: 10/18/17 16:52 Dose: 20 mg Gabapentin (Neurontin) 100 mg PO TID [facility] Last Admin: 10/18/17 16:52 Dose: 100 mg Hydromorphone HCl (Dilaudid) 0.5 mg IVP Q3H PRN PRN Reason: Pain, severe (8-10) Last Admin: 10/19/17 06:08 Dose: 0.5 mg Ketorolac Tromethamine (Toradol) 30 mg IVP BID [facility] Last Admin: 10/18/17 16:54 Dose: 30 mg Ondansetron HCl (Zofran Inj) 4 mg IVP Q4 PRN PRN Reason: Nausea/Vomiting Last Admin: 10/11/17 22:48 Dose: 4 mg Senna/Docusate Sodium (Senokot S 50 Mg-8.6 Mg) 2 tab PO BID [facility] Last Admin: 10/18/17 16:53 Dose: Not Given - Labs Labs: 10/19/17 05:35 10/19/17 05:35 PT 14.0 Seconds (9.8-13.1) H 10/09/17 04:44 INR 1.3 (0.9-1.2) H 10/09/17 04:44 APTT 27.6 Seconds (25.6-37.1) 10/09/17 04:44 - Constitutional Appears: Well, No Acute Distress - Eye Exam Eye Exam: EOMI - Neck Exam Neck Exam: Full ROM - Respiratory Exam Respiratory Exam: Clear to Ausculation Bilateral, NORMAL BREATHING PATTERN. absent: Wheezes - Cardiovascular Exam Cardiovascular Exam: REGULAR RHYTHM, +S1, +S2 - GI/Abdominal Exam GI & Abdominal Exam: Soft, Normal Bowel Sounds. absent: Tenderness - Neurological Exam Neurological Exam: Alert, Awake, CN II-XII Intact, Oriented x3 - Psychiatric Exam Psychiatric exam: Normal Affect, Normal Mood Assessment and Plan - Assessment and Plan (Free Text) Plan: 22 yo F w/o previous medical history is admitted for compartment syndrome of R lower extremity, s/p lateral compartment fasciotomy. 1) s/p Compartment syndrome, R lateral compartment - 10/07/2017 - Pain management: Dilaudid 0.5 mg IVP q3H; Acetaminophen 325 mg q6; Gabapentin 100 mg TID; Motrin 600 mg PRN BID - Neurology consulted: Dr. Quintero: if motor/sensory doesnt return in 1 month may require EMG/NCS - ID: discontinue Zosyn 3.375g IVPB Q8H - Podiatry: posterior splint with increased dorsiflexion; wound vac changed today with Dr. Raymundo and Dr. Vinson; Possible Retraction sutures for better approximation of wound edges. - PMR/PT Dr Vinson: continue with local/topical bandaging, wound vac today, physical therapy to help ambulation and functioning of lower extremity, consideration for transition to TCU; possible EMB/NCS in 2-3 wks. Ambulating with crutches and assistance from PT - Bedside spirometry 2) Pain management - Dilaudid 0.5 mg IVP q3H; Acetaminophen 325 mg q6; Gabapentin 100 mg TID; Motrin 600 mg PRN BID - pt reports relief of sharp pain at wound site s/p starting gabapentin - Continue tapering of dilaudid 3) Anemia - blood loss 2/2 menstruation and IVF - stable; currently 10.8 10/19/2017 4) Cardiac Murmur - Echo: wnl 10/12/2017 5) DVT prophylaxis - Lovenox 40 mg 6) Lines - Heplocked line on dorsum of R hand
[2017-10-19] MEDS: Enoxaparin 40 mg Syringe SC SCH (09:42)
[2017-10-19] MEDS: Docusate-Senna 50 mg-8.6 mg Tab PO SCH ×2 (09:42→16:25)
--- NOTE | 2017-10-19 13:37 | CP.PCM.PN ---
Subjective - Date & Time of Evaluation Date of Evaluation: 10/19/17 Time of Evaluation: 13:35 - Subjective Subjective: Patient seen in room with podiatry staff vac was removed and new one cut and excellent seal achieved mother was on the phone throughout. Dr Raymundo will likely apply retention sutures to better approximate wound edges Objective - Vital Signs/Intake and Output Vital Signs (last 24 hours): Temp Pulse Resp BP Pulse Ox 97.7 F 76 18 107/68 97 10/19/17 08:31 10/19/17 08:31 10/19/17 08:31 10/19/17 08:31 10/19/17 08:31 - Medications Medications: Current Medications Acetaminophen (Tylenol 325mg Tab) 650 mg PO Q6 PRN PRN Reason: Pain, Mild (1-3) Enoxaparin Sodium (Lovenox) 40 mg SC DAILY [facility] PRN Reason: Protocol Last Admin: 10/19/17 09:42 Dose: 40 mg Famotidine (Pepcid) 20 mg PO DAILY [facility] Last Admin: 10/19/17 09:42 Dose: 20 mg Gabapentin (Neurontin) 100 mg PO TID [facility] Last Admin: 10/19/17 13:32 Dose: 100 mg Hydromorphone HCl (Dilaudid) 0.5 mg IVP Q3H PRN PRN Reason: Pain, severe (8-10) Last Admin: 10/19/17 13:32 Dose: 0.5 mg Ketorolac Tromethamine (Toradol) 30 mg IVP BID [facility] Last Admin: 10/19/17 09:43 Dose: 30 mg Ondansetron HCl (Zofran Inj) 4 mg IVP Q4 PRN PRN Reason: Nausea/Vomiting Last Admin: 10/11/17 22:48 Dose: 4 mg Senna/Docusate Sodium (Senokot S 50 Mg-8.6 Mg) 2 tab PO BID [facility] Last Admin: 10/19/17 09:42 Dose: 2 tab - Labs Labs: 10/19/17 05:35 10/19/17 05:35 PT 14.0 Seconds (9.8-13.1) H 10/09/17 04:44 INR 1.3 (0.9-1.2) H 10/09/17 04:44 APTT 27.6 Seconds (25.6-37.1) 10/09/17 04:44
--- NOTE | 2017-10-19 16:51 | CP.PCM.PN ---
Subjective - Date & Time of Evaluation Date of Evaluation: 10/19/17 Time of Evaluation: 16:42 - Subjective Subjective: Podiatry Progress Note - Dr. Raymundo 22 y/o female seen at bedside this morning 10 days s/p debridement of necrotic muscle tissue including peroneus brevis and 11 days s/p right leg lateral compartment fasciotomy secondary to compartment syndrome, with near total excision of peroneus longus muscle for wound vac dressing change with Dr. Raymundo and Dr. Vinson. Patient is AAO x 3 and NAD at time of visit. States that her pain is well controlled and that physical therapy is going well with improvement daily. Denies any further pedal complaints at this time. Denies any recent N/V/F/C/CP/SOB/D/posterior calf pain. Objective - Vital Signs/Intake and Output Vital Signs (last 24 hours): Temp Pulse Resp BP Pulse Ox 97.6 F 68 18 100/60 97 10/19/17 16:10 10/19/17 16:10 10/19/17 16:10 10/19/17 16:10 10/19/17 16:10 - Medications Medications: Current Medications Acetaminophen (Tylenol 325mg Tab) 650 mg PO Q6 PRN PRN Reason: Pain, Mild (1-3) Enoxaparin Sodium (Lovenox) 40 mg SC DAILY [facility] PRN Reason: Protocol Last Admin: 10/19/17 09:42 Dose: 40 mg Famotidine (Pepcid) 20 mg PO DAILY [facility] Last Admin: 10/19/17 09:42 Dose: 20 mg Gabapentin (Neurontin) 300 mg PO HS [facility] Gabapentin (Neurontin) 100 mg PO BID [facility] Hydromorphone HCl (Dilaudid) 1 mg IVP Q3 [facility] Ibuprofen (Motrin Tab) 600 mg PO Q12 [facility] Ondansetron HCl (Zofran Inj) 4 mg IVP Q4 PRN PRN Reason: Nausea/Vomiting Last Admin: 10/11/17 22:48 Dose: 4 mg Senna/Docusate Sodium (Senokot S 50 Mg-8.6 Mg) 2 tab PO BID [facility] Last Admin: 10/19/17 16:25 Dose: 2 tab - Labs Labs: 10/19/17 05:35 10/19/17 05:35 PT 14.0 Seconds (9.8-13.1) H 02/02/18 04:44 INR 1.3 (0.9-1.2) H 10/09/17 04:44 APTT 27.6 Seconds (25.6-37.1) 10/09/17 04:44 - Constitutional Appears: Well, Non-toxic, No Acute Distress - Extremities Exam Additional comments: Dressings noted to be c/d/i without strikethrough Wound vac noted to be working with good seal at 100 mmHg and 300 cc sanguinous drainage in the canister Wound vac removed Vasc: DP/PT pulses 2/4 b/l. Skin temperature warm to warm from proximal to distal. CFT < 3 seconds to all digits. Diffuse edematous changes noted to right leg continue to improve Neuro: Epicritic and protective sensation intact but diminished to dorsal foot from level of ankle joint to base of toes - improvement seen today Derm: surgical site remains opened; surgical incision extending along the lateral aspect of the entire leg, proximal to lateral malleolus extending proximally to level just distal to fibular head. The surgical site shows no overt signs of clinical infection at this time including no purulent drainage, no malodor, no erythema surrounding surgical site. Granulation tissue continues to fill in the surgical site at this time MSK: Increased POP noted to surgical site. Patient is able to weakly plantarflex and dorsiflex toes 1-5 of her right foot. Patient is unable dorsiflex her ankle joint. Patient can weakly plantarflex ankle joint. It is unclear at this time whether this is due to neuropraxic changes or more permanent neurologic damage secondary to the compartment syndrome. Manual muscle strength testing deferred at this time due to postoperative state. - Neurological Exam Neurological Exam: Alert, Awake, Oriented x3 - Psychiatric Exam Psychiatric exam: Normal Affect, Normal Mood Assessment and Plan - Assessment and Plan (Free Text) Assessment: 22 y.o female with no PMHx seen at bedside for wound vac change 10 days s/p debridement of necrotic tissue including peroneal brevis and 11 days s/p right leg lateral compartment fasciotomy 2/2 compartment syndrome with near total removal of the peroneus longus muscle Plan: Patient seen and evaluated at bedside with Dr. Raymundo and Dr. Vinson Afebrile, absent leukocytosis Continue pain management per Medicine Wound vac removed and replaced without incident Pressure set to 100 mmHg and good seal achieved with no leaks present Patient awaiting approval from insurance to move to TCU vs. discharge home Patient to continue physical therapy Leg dressed with kirlix, RAÚL and heel offloading shoe Per Dr. Raymundo Podiatry will perform suturing of wound at bedside on 10/21/17 for partial or complete closure of wound under local anesthetic If wound is not fully closed, wound vac will be reapplied to site Podiatry will continue to follow while patient in house
[2017-10-20] MEDS ORDERED: Bupivacaine 0.5% Inj(30mL) IJ ONE (07:52)
[2017-10-20] MEDS ORDERED: Lidocaine 1% Inj (20ml) IJ ONE (07:52)
--- NOTE | 2017-10-20 08:16 | CP.PCM.PN ---
Subjective - Date & Time of Evaluation Date of Evaluation: 10/20/17 Time of Evaluation: 07:30 - Subjective Subjective: pt seen and examined at bedside. Denies significant overnight events. Reported trying to manage pain without dilaudid but after walking to the restroom this morning, experienced greater pain and requested medication. Pt is on board with plan to taper in the near future. Denies: cp/sob/n/v/c/d. Reports that her cousin will be visiting this evening. Objective - Vital Signs/Intake and Output Vital Signs (last 24 hours): Temp Pulse Resp BP Pulse Ox 98.0 F 60 19 96/60 L 97 10/20/17 00:00 10/20/17 00:00 10/20/17 00:00 10/20/17 00:00 10/20/17 00:00 Intake and Output: 10/20/17 10/20/17 06:59 18:59 Output Total 50 Balance -50 - Medications Medications: Current Medications Acetaminophen (Tylenol 325mg Tab) 650 mg PO Q6 PRN PRN Reason: Pain, Mild (1-3) Enoxaparin Sodium (Lovenox) 40 mg SC DAILY [facility] PRN Reason: Protocol Last Admin: 10/19/17 09:42 Dose: 40 mg Famotidine (Pepcid) 20 mg PO DAILY [facility] Last Admin: 10/19/17 09:42 Dose: 20 mg Gabapentin (Neurontin) 300 mg PO HS [facility] Last Admin: 10/19/17 21:40 Dose: 300 mg Gabapentin (Neurontin) 100 mg PO BID [facility] Last Admin: 10/19/17 18:56 Dose: Not Given Hydromorphone HCl (Dilaudid) 1 mg IVP Q3 PRN PRN Reason: Pain, severe (8-10) Last Admin: 10/20/17 05:11 Dose: 1 mg Ibuprofen (Motrin Tab) 600 mg PO Q12 [facility] Last Admin: 10/19/17 21:40 Dose: 600 mg Ondansetron HCl (Zofran Inj) 4 mg IVP Q4 PRN PRN Reason: Nausea/Vomiting Last Admin: 10/11/17 22:48 Dose: 4 mg Senna/Docusate Sodium (Senokot S 50 Mg-8.6 Mg) 2 tab PO BID [facility] Last Admin: 10/19/17 16:25 Dose: 2 tab - Labs Labs: 10/19/17 05:35 10/19/17 05:35 PT 14.0 Seconds (9.8-13.1) H 10/09/17 04:44 INR 1.3 (0.9-1.2) H 10/09/17 04:44 APTT 27.6 Seconds (25.6-37.1) 10/09/17 04:44 - Constitutional Appears: Well, No Acute Distress - Eye Exam Eye Exam: EOMI - Neck Exam Neck Exam: Full ROM - Respiratory Exam Respiratory Exam: Clear to Ausculation Bilateral, NORMAL BREATHING PATTERN. absent: Wheezes - Cardiovascular Exam Cardiovascular Exam: REGULAR RHYTHM, +S1, +S2 - GI/Abdominal Exam GI & Abdominal Exam: Soft, Normal Bowel Sounds. absent: Tenderness - Extremities Exam Extremities Exam: Calf Tenderness Additional comments: L lower extremity wrapped in bandaging and with wound vac. Pt able to improve sensation of dorsum of foot. Slightly improvement in inversion, eversion plantar flexion. Dorsiflexion is still limited. - Back Exam Back Exam: absent: CVA tenderness (L), CVA tenderness (R) - Psychiatric Exam Psychiatric exam: Normal Affect, Normal Mood Assessment and Plan - Assessment and Plan (Free Text) Plan: 22 yo F w/o previous medical history is admitted for compartment syndrome of R lower extremity, s/p lateral compartment fasciotomy. 1) s/p Compartment syndrome, R lateral compartment - 10/07/2017 - Pain management: Dilaudid 1 mg IVP PRN; Acetaminophen 650 mg q6; Gabapentin 100 mg BID and 300 qHS; Motrin 600 mg PRN BID - Neurology consulted: Dr. Quintero: if motor/sensory doesnt return in 1 month may require EMG/NCS - ID: discontinue Zosyn 3.375g IVPB Q8H - Podiatry: posterior splint; wound vac changed 10/19/[address] Ray[address] and Dr[address] Vinson; Plan for retraction sutures for better approximation of wound edges on 10/21/2017. - PMR/PT Dr. Vinson: continue with local/topical bandaging, wound vac in place. Ambulating with crutches and assistance from PT - Bedside spirometry 2) Pain management - Dilaudid 1 mg IVP PRN; Acetaminophen 650 mg q6; Gabapentin 100 mg TID and 300 qHS; Motrin 600 mg PRN BID - Continue monitoring for future tapering of dilaudid - Famotidine 20 mg PO qDaily-prophylaxis 3) Adjustment disorder/Situational depression - Start trial of Zoloft 25 mg 4) Anemia - blood loss 2/2 menstruation and IVF - stable. 10.8 10/19/2017 5) Cardiac Murmur - Echo: wnl 10/12/2017 6) DVT prophylaxis - Lovenox 40 mg 7) Lines - Heplocked line on dorsum of R hand
[2017-10-20] MEDS: Docusate-Senna 50 mg-8.6 mg Tab PO SCH (10:11)
--- NOTE | 2017-10-20 10:21 | CP.PCM.PN ---
Subjective - Date & Time of Evaluation Date of Evaluation: 10/20/17 Time of Evaluation: 10:19 - Subjective Subjective: Podiatry Progress Note - Dr. Raymundo 22 y/o female seen at bedside this morning 11 days s/p debridement of necrotic muscle tissue including peroneus brevis and 13 days s/p right leg lateral compartment fasciotomy secondary to compartment syndrome, with near total excision of peroneus longus muscle for wellness check. Patient is AAO x 3 and NAD at time of visit. States that her pain is well controlled and that she has some stomach discomfort at this time. Denies any further pedal complaints at this time. Denies any recent N/V/F/C/CP/SOB/D/posterior calf pain. Objective - Vital Signs/Intake and Output Vital Signs (last 24 hours): Temp Pulse Resp BP Pulse Ox 98.0 F 53 L 19 104/65 100 10/20/17 08:27 10/20/17 08:27 10/20/17 08:27 10/20/17 08:27 10/20/17 08:27 Intake and Output: 10/20/17 10/20/17 06:59 18:59 Output Total 50 Balance -50 - Medications Medications: Current Medications Acetaminophen (Tylenol 325mg Tab) 650 mg PO Q6 PRN PRN Reason: Pain, Mild (1-3) Enoxaparin Sodium (Lovenox) 40 mg SC DAILY [facility] PRN Reason: Protocol Last Admin: 10/19/17 09:42 Dose: 40 mg Famotidine (Pepcid) 20 mg PO DAILY [facility] Last Admin: 10/20/17 10:10 Dose: 20 mg Gabapentin (Neurontin) 300 mg PO HS [facility] Last Admin: 10/19/17 21:40 Dose: 300 mg Gabapentin (Neurontin) 100 mg PO BID [facility] Last Admin: 10/20/17 10:11 Dose: 100 mg Hydromorphone HCl (Dilaudid) 1 mg IVP Q3 PRN PRN Reason: Pain, severe (8-10) Last Admin: 10/20/17 05:11 Dose: 1 mg Ibuprofen (Motrin Tab) 600 mg PO Q12 [facility] Last Admin: 10/19/17 21:40 Dose: 600 mg Ondansetron HCl (Zofran Inj) 4 mg IVP Q4 PRN PRN Reason: Nausea/Vomiting Last Admin: 10/20/17 10:04 Dose: 4 mg Senna/Docusate Sodium (Senokot S 50 Mg-8.6 Mg) 2 tab PO BID [facility] Last Admin: 10/20/17 10:11 Dose: Not Given - Labs Labs: 10/19/17 05:35 10/19/17 05:35 PT 14.0 Seconds (9.8-13.1) H 10/09/17 04:44 INR 1.3 (0.9-1.2) H 10/09/17 04:44 APTT 27.6 Seconds (25.6-37.1) 10/09/17 04:44 - Constitutional Appears: Well, Non-toxic, No Acute Distress - Extremities Exam Additional comments: Dressing is C/D/I without strikethrough noted Wound vac noted to be working with good seal at 100 mmHg Heel offloading boot in proper placement Roughly 50 cc of drainage in wound vac canister at this time - Neurological Exam Neurological Exam: Alert, Awake, Oriented x3 - Psychiatric Exam Psychiatric exam: Normal Affect, Normal Mood Assessment and Plan - Assessment and Plan (Free Text) Assessment: 22 y/o female seen at bedside this morning 11 days s/p debridement of necrotic muscle tissue including peroneus brevis and 13 days s/p right leg lateral compartment fasciotomy secondary to compartment syndrome, with near total excision of peroneus longus muscle for wellness check Plan: Patient seen and evaluated at bedside Plan discussed with attending Dr. Raymundo Afebrile, absent leukocytosis Per Dr. Raymundo, bedside procedure to be done tomorrow under local anesthesia where primary closure of leg wound with suture will be attempted If wound can not be fully closed, all remaining wound will have a wound vac placed on it Continue medical management per Medicine COntinue PT Transfer to TCU vs. DC home pending insurance approval No plan for surgical intervention at this time Podiatry will continue to follow while patient in house
[2017-10-20] MEDS: Enoxaparin 40 mg Syringe SC SCH (12:10)
[2017-10-21] MEDS: Enoxaparin 40 mg Syringe SC SCH (09:02)
[2017-10-21] MEDS ORDERED: Lidocaine 1% Inj (20ml) ONE (09:33)
--- NOTE | 2017-10-21 09:43 | CP.PCM.PN ---
Subjective - Date & Time of Evaluation Date of Evaluation: 10/21/17 Time of Evaluation: 08:00 - Subjective Subjective: Pt seen and examined pt at bedside. Dr. Raymundo and Taz Arroyo DPM PGY1 was adding sutures for additional closure of wound with wound vac replaced. Pt reports diarrhea with nausea was one time yesterday. Pt reports wanting to research side effects before starting zoloft. Denies cp/sob/n/v. tolerating PO diet well. Objective - Vital Signs/Intake and Output Vital Signs (last 24 hours): Temp Pulse Resp BP Pulse Ox 98.1 F 62 18 103/62 99 10/21/17 07:41 10/21/17 07:41 10/21/17 07:41 10/21/17 07:41 10/21/17 07:41 Intake and Output: 10/21/17 10/21/17 06:59 18:59 Output Total 100 Balance -100 - Medications Medications: Current Medications Acetaminophen (Tylenol 325mg Tab) 650 mg PO Q6 PRN PRN Reason: Pain, Mild (1-3) Enoxaparin Sodium (Lovenox) 40 mg SC DAILY [facility] PRN Reason: Protocol Last Admin: 10/21/17 09:02 Dose: 40 mg Famotidine (Pepcid) 20 mg PO DAILY [facility] Last Admin: 10/21/17 09:03 Dose: 20 mg Gabapentin (Neurontin) 300 mg PO HS [facility] Last Admin: 10/20/17 21:28 Dose: 300 mg Gabapentin (Neurontin) 100 mg PO BID [facility] Last Admin: 10/21/17 09:03 Dose: 100 mg Hydromorphone HCl (Dilaudid) 1 mg IVP Q3 PRN PRN Reason: Pain, severe (8-10) Last Admin: 10/20/17 17:23 Dose: 1 mg Ibuprofen (Motrin Tab) 600 mg PO Q12 [facility] Last Admin: 10/21/17 09:02 Dose: 600 mg Ondansetron HCl (Zofran Inj) 4 mg IVP Q4 PRN PRN Reason: Nausea/Vomiting Last Admin: 10/20/17 10:04 Dose: 4 mg Sertraline HCl (Zoloft) 25 mg PO DAILY [facility] Last Admin: 10/21/17 09:04 Dose: Not Given - Labs Labs: 10/19/17 05:35 10/19/17 05:35 PT 14.0 Seconds (9.8-13.1) H 10/09/17 04:44 INR 1.3 (0.9-1.2) H 10/09/17 04:44 APTT 27.6 Seconds (25.6-37.1) 10/09/17 04:44 - Constitutional Appears: Well, No Acute Distress - Eye Exam Eye Exam: EOMI - ENT Exam ENT Exam: Mucous Membranes Moist - Neck Exam Neck Exam: Full ROM - Respiratory Exam Respiratory Exam: Clear to Ausculation Bilateral, NORMAL BREATHING PATTERN. absent: Wheezes - Cardiovascular Exam Cardiovascular Exam: REGULAR RHYTHM, +S1, +S2. absent: Murmur - GI/Abdominal Exam GI & Abdominal Exam: Soft, Normal Bowel Sounds. absent: Tenderness - Extremities Exam Additional comments: L lower extremity with sutures in place to further close wound. Wound vac changed and in place. Pt able to experience greater eversion of foot, inversion and movement of toes. - Neurological Exam Neurological Exam: Alert, Awake, CN II-XII Intact, Oriented x3 - Psychiatric Exam Psychiatric exam: Normal Affect, Normal Mood Assessment and Plan - Assessment and Plan (Free Text) Plan: 22 yo F w/o previous medical history is admitted for compartment syndrome of R lower extremity, s/p lateral compartment fasciotomy. 1) s/p Compartment syndrome, R lateral compartment - 10/07/2017 - Pain management: Dilaudid 1 mg IVP PRN; Acetaminophen 650 mg q6; Gabapentin 100 mg BID and 300 qHS; Motrin 600 mg PRN BID - Neurology consulted: Dr. Quintero: if motor/sensory doesnt return in 1 month may require EMG/NCS - ID: [id number] discontinued - Podiatry: posterior splint; Retraction sutures and wound vac changed [address] Raymundo - PMR/PT Dr. Vinson: continue with local/topical bandaging, wound vac in place. Ambulating with crutches and assistance from PT - Bedside spirometry 2) Pain management - Dilaudid 1 mg IVP PRN; Acetaminophen 650 mg q6; Gabapentin 100 mg BID and 300 qHS; Motrin 600 mg PRN BID - Continue monitoring for future tapering of dilaudid - Famotidine 20 mg PO qDaily-prophylaxis 3) Adjustment disorder/Situational depression - Start trial of Zoloft 25 mg; pt refused 10/09: requesting time for research on side effects 4) Anemia - stable. 10.8 10/19/2017 5) Cardiac Murmur - Echo: wnl 10/12/2017 6) DVT prophylaxis - Lovenox 40 mg 7) Lines - Heplocked line on dorsum of R hand
[2017-10-22 06:33] LABS: BLOOD UREA NITROGEN 18 mg/dl (7-17); CALCIUM 9.3 mg/dL (8.4-10.2); GFR AFRICAN-AMERICAN > 60; GFR NON-AFRICAN AMERICAN > 60
[2017-10-22 06:36] LABS: HEMOGLOBIN 10.9 g/dL (12.0-16.0); MEAN CELL VOLUME 87.5 fl (81.0-99.0); MEAN CORPUSCULAR HEMOGLOBIN 30.5 pg (27.0-31.0); MEAN CORPUSCULAR HGB CONC 34.9 g/dL (33.0-37.0); RBC 3.58 Mil/uL (3.80-5.20); RED CELL DISTRIBUTION WIDTH 13.2 % (11.5-14.5); WHITE BLOOD COUNT 6.9 K/uL (4.8-10.8)
--- NOTE | 2017-10-22 07:14 | CP.PCM.PN ---
Subjective - Date & Time of Evaluation Date of Evaluation: 10/22/17 Time of Evaluation: 07:25 Objective - Vital Signs/Intake and Output Vital Signs (last 24 hours): Temp Pulse Resp BP Pulse Ox 97.8 F 65 18 106/65 99 10/21/17 23:44 10/21/17 23:44 10/21/17 23:44 10/21/17 23:44 10/21/17 23:44 - Medications Medications: Current Medications Acetaminophen (Tylenol 325mg Tab) 650 mg PO Q6 PRN PRN Reason: Pain, Mild (1-3) Enoxaparin Sodium (Lovenox) 40 mg SC DAILY [facility] PRN Reason: Protocol Last Admin: 10/21/17 09:02 Dose: 40 mg Famotidine (Pepcid) 20 mg PO DAILY [facility] Last Admin: 10/21/17 09:03 Dose: 20 mg Gabapentin (Neurontin) 300 mg PO HS [facility] Last Admin: 10/21/17 21:47 Dose: 300 mg Gabapentin (Neurontin) 100 mg PO BID [facility] Last Admin: 10/21/17 17:41 Dose: 100 mg Hydromorphone HCl (Dilaudid) 1 mg IVP Q3 PRN PRN Reason: Pain, severe (8-10) Last Admin: 10/22/17 06:51 Dose: 1 mg Ibuprofen (Motrin Tab) 600 mg PO Q12 [facility] Last Admin: 10/21/17 21:47 Dose: 600 mg Ondansetron HCl (Zofran Inj) 4 mg IVP Q4 PRN PRN Reason: Nausea/Vomiting Last Admin: 10/20/17 10:04 Dose: 4 mg Sertraline HCl (Zoloft) 25 mg PO DAILY [facility] Last Admin: 10/21/17 09:04 Dose: Not Given - Labs Labs: 10/22/17 05:25 10/22/17 05:25 PT 14.0 Seconds (9.8-13.1) H 10/09/17 04:44 INR 1.3 (0.9-1.2) H 10/09/17 04:44 APTT 27.6 Seconds (25.6-37.1) 10/09/17 04:44
--- NOTE | 2017-10-22 07:29 | CP.PCM.PN ---
Subjective - Date & Time of Evaluation Date of Evaluation: 10/22/17 Time of Evaluation: 07:10 - Subjective Subjective: Podiatry Progress Note - Dr. Raymundo 22 y/o female seen at bedside this morning 12 days s/p debridement of necrotic muscle tissue including peroneus brevis and 14 days s/p right leg lateral compartment fasciotomy secondary to compartment syndrome, with near total excision of peroneus longus muscle for wellness check. Patient is AAOx3 and NAD at time of visit. Patient appears to be resting comfortably in her bed at the time of the visit. States that her pain is well controlled. Denies any further pedal complaints at this time. Denies any recent N/V/F/C/CP/SOB/D/posterior calf pain. Objective - Vital Signs/Intake and Output Vital Signs (last 24 hours): Temp Pulse Resp BP Pulse Ox 97.8 F 65 18 106/65 99 10/21/17 23:44 10/21/17 23:44 10/21/17 23:44 10/21/17 23:44 10/21/17 23:44 - Medications Medications: Current Medications Acetaminophen (Tylenol 325mg Tab) 650 mg PO Q6 PRN PRN Reason: Pain, Mild (1-3) Enoxaparin Sodium (Lovenox) 40 mg SC DAILY [facility] PRN Reason: Protocol Last Admin: 10/21/17 09:02 Dose: 40 mg Famotidine (Pepcid) 20 mg PO DAILY [facility] Last Admin: 10/21/17 09:03 Dose: 20 mg Gabapentin (Neurontin) 300 mg PO HS [facility] Last Admin: 10/21/17 21:47 Dose: 300 mg Gabapentin (Neurontin) 100 mg PO BID [facility] Last Admin: 10/21/17 17:41 Dose: 100 mg Hydromorphone HCl (Dilaudid) 1 mg IVP Q3 PRN PRN Reason: Pain, severe (8-10) Last Admin: 10/22/17 06:51 Dose: 1 mg Ibuprofen (Motrin Tab) 600 mg PO Q12 [facility] Last Admin: 10/21/17 21:47 Dose: 600 mg Ondansetron HCl (Zofran Inj) 4 mg IVP Q4 PRN PRN Reason: Nausea/Vomiting Last Admin: 10/20/17 10:04 Dose: 4 mg Sertraline HCl (Zoloft) 25 mg PO DAILY [facility] Last Admin: 10/21/17 09:04 Dose: Not Given - Labs Labs: 10/22/17 05:25 10/22/17 05:25 PT 14.0 Seconds (9.8-13.1) H 10/09/17 04:44 INR 1.3 (0.9-1.2) H 10/09/17 04:44 APTT 27.6 Seconds (25.6-37.1) 10/09/17 04:44 - Constitutional Appears: Well, Non-toxic, No Acute Distress - Extremities Exam Additional comments: Dressing is C/D/I without strikethrough noted Wound vac noted to be working with good seal at 100 mmHg Heel offloading boot in proper placement Roughly 120 cc of drainage in wound vac canister at this time - Neurological Exam Neurological Exam: Alert, Awake, Oriented x3 - Psychiatric Exam Psychiatric exam: Normal Affect, Normal Mood Assessment and Plan - Assessment and Plan (Free Text) Assessment: 22 y/o female seen at bedside this morning 12 days s/p debridement of necrotic muscle tissue including peroneus brevis and 14 days s/p right leg lateral compartment fasciotomy secondary to compartment syndrome, with near total excision of peroneus longus muscle for wellness check Plan: Patient seen and evaluated at bedside Plan discussed with attending Dr. Raymundo Afebrile, absent leukocytosis Continue medical management per Medicine Continue PT Transfer to acute rehab for further care No plan for surgical intervention at this time Podiatry will continue to follow while patient in house
[2017-10-22 07:50] VITALS: BP 159/85; PULSE 97; RESP 20; TEMP 98.1; O2SAT 95
[2017-10-22] MEDS: Enoxaparin 40 mg Syringe SC SCH (08:47)
--- NOTE | 2017-10-22 10:36 | CP.PCM.DIS ---
Provider - Provider Date of Admission: 10/07/17 10:16 Attending physician: Lissett Hightower MD Time Spent in preparation of Discharge (in minutes): 25 Hospital Course - Lab Results Lab Results: Micro Results 10/13/17 18:25 [facility] MRSA Culture (Admit) - Final MRSA NOT DETECTED 10/07/17 20:45 [facility] MRSA Culture (Admit) - Final MRSA NOT DETECTED Most Recent Lab Values WBC 6.9 K/uL (4.8-10.8) D 10/22/17 05:25 RBC 3.58 Mil/uL (3.80-5.20) L 10/22/17 05:25 Hgb 10.9 g/dL (12.0-16.0) L 10/22/17 05:25 Hct 31.3 % (34.0-47.0) L 10/22/17 05:25 MCV 87.5 fl (81.0-99.0) 10/22/17 05:25 MCH 30.5 pg (27.0-31.0) 10/22/17 05:25 MCHC 34.9 g/dL (33.0-37.0) 10/22/17 05:25 RDW 13.2 % (11.5-14.5) 10/22/17 05:25 Plt Count 342 K/uL (130-400) 10/22/17 05:25 MPV 9.7 fl (7.2-11.7) 10/12/17 05:00 Neut % (Auto) 77.2 % (50.0-75.0) H 10/12/17 05:00 Lymph % (Auto) 10.9 % (20.0-40.0) L 10/12/17 05:00 [place] % (Auto) 8.9 % (0.0-10.0) 10/12/17 05:00 Eos % (Auto) 2.8 % (0.0-4.0) 10/12/17 05:00 Baso % (Auto) 0.2 % (0.0-2.0) 10/12/17 05:00 Neut # (Auto) 7.7 K/uL (1.8-7.0) H 10/12/17 05:00 Lymph # (Auto) 1.1 K/uL (1.0-4.3) 10/12/17 05:00 [place] # (Auto) 0.9 K/uL (0.0-0.8) H 10/12/17 05:00 Eos # (Auto) 0.3 K/uL (0.0-0.7) 10/12/17 05:00 Baso # (Auto) 0.0 K/uL (0.0-0.2) 10/12/17 05:00 ESR 97 mm/hr (0-20) H 10/12/17 05:00 Retic Count 3.0 % (0.5-1.5) H 10/11/17 05:21 PT 14.0 Seconds (9.8-13.1) H 10/09/17 04:44 INR 1.3 (0.9-1.2) H 10/09/17 04:44 APTT 27.6 Seconds (25.6-37.1) 10/09/17 04:44 Sodium 142 mmol/l (132-148) 10/22/17 05:25 Potassium 4.0 MMOL/L (3.6-5.0) 10/22/17 05:25 Chloride 105 mmol/L (98-107) 10/22/17 05:25 Carbon Dioxide 25 mmol/L (22-30) 10/22/17 05:25 Anion Gap 16 (10-20) 10/22/17 05:25 BUN 18 mg/dl (7-17) H 10/22/17 05:25 Creatinine 1.1 mg/dl (0.7-1.2) 10/22/17 05:25 Est GFR ( Amer) > 60 10/22/17 05:25 Est GFR (Non-Af Amer) > 60 10/22/17 05:25 POC Glucose (mg/dL) 85 mg/dL (65-110) 10/06/17 22:14 Random Glucose 90 mg/dL (65-105) 10/22/17 05:25 Calcium 9.3 mg/dL (8.4-10.2) 10/22/17 05:25 Phosphorus 3.6 mg/dl (2.5-4.5) 10/09/17 07:20 Magnesium 1.7 MG/DL (1.6-2.3) 10/09/17 07:20 Ferritin 49.5 ng/Ml (6.24-137.0) 10/11/17 05:21 Total Creatine Kinase 215 U/L (30-135) H 10/12/17 04:20 Urine Color Yellow (YELLOW) 10/11/17 09:20 Urine Clarity Slighty-cloudy (Clear) 10/11/17 09:20 Urine pH 6.0 (5.0-8.0) 10/11/17 09:20 Ur Specific Harris 1.012 (1.003-1.030) 10/11/17 09:20 Urine Protein Negative mg/dL (NEGATIVE) 10/11/17 09:20 Urine Glucose (UA) Neg mg/dL (Normal) 10/11/17 09:20 Urine Ketones Negative mg/dL (NEGATIVE) 10/11/17 09:20 Urine Blood Large (NEGATIVE) 10/11/17 09:20 Urine Nitrate Negative (NEGATIVE) 10/11/17 09:20 Urine Bilirubin Negative (NEGATIVE) 10/11/17 09:20 Urine Urobilinogen 2.0 mg/dL (0.2-1.0) H 10/11/17 09:20 Ur Leukocyte Esterase Neg Ken/uL (Negative) 10/11/17 09:20 Urine RBC (Auto) 388 /hpf (0-3) H 10/11/17 09:20 Urine Microscopic WBC 15 /hpf (0-5) H 10/11/17 09:20 Ur Squamous Epith Cells 1 /hpf (0-5) 10/11/17 09:20 Urine Bacteria Occ (<OCC) H 10/11/17 09:20 Blood Type O POSITIVE 10/07/17 12:45 Blood Type Confirm O POSITIVE 10/07/17 13:25 Antibody Screen Negative 10/07/17 12:45 BBK History Checked No verified bt 10/07/17 12:45 - Hospital Course Hospital Course: 22 yo F w/o previous medical history is admitted for compartment syndrome of R lower extremity. -S/p lateral compartment fasciotomy and resection of peroneous longus and brevis. Dr. Raymundo, Podiatry -Wound care with debridement, wound vac and sutures placed for wound approximation. -IV Abx : zosyn -Pain adequately managed: Dilaudid 1 mg IVP PRN; Acetaminophen 650 mg q6; Gabapentin 100 mg BID and 300 qHS; Motrin 600 mg PRN BID; dc on Acetaminophen, gabapentin, motrin and morphine 30 mg IR at 08:00 and 12:00 q daily -PT for progressive rehab with stairs. -d/c acute rehab with further PT. Discharge Exam - Head Exam Head Exam: NORMOCEPHALIC Discharge Plan - Discharge Medications Prescriptions: Acetaminophen [Tylenol 325mg tab] 650 mg PO Q6 PRN #60 tab PRN Reason: Pain, Mild (1-3) Gabapentin [Neurontin] 100 mg PO BID #60 cap Gabapentin [Neurontin] 300 mg PO HS #30 cap Ibuprofen [Motrin Tab] 600 mg PO Q12 #60 tab Morphine [Morphine Sulfate] 30 mg PO DAILY #30 tab Morphine [Morphine Sulfate] 30 mg PO DAILY #30 tab Sertraline [Zoloft] 25 mg PO DAILY #30 tab - Follow Up Plan Condition: STABLE Disposition: HOME/ ROUTINE Patient education suggested?: Yes Instructions: Rhabdomyolysis (DC), Acute Wound Care (DC), Negative Pressure Wound Therapy (DC) Referrals: Joseph Raymundo MD [Staff Provider] - John Quintero MD [Medical Doctor] - Skinny Coelho MD [Staff Provider] - Montez Vinson MD [Staff Provider] -
== END 2017-10-22 10:43 | DRG 908 ==
LOC: H.ER 07:35 → H.ERHOLD 12:42 → H.PEDS 14:49 → OBSVTOIN 10-07 10:16 → H.ICU/CCU 10-07 19:30 → H.MEDSURG1 10-13 18:38
PROVIDERS: ADMIT Family Medicine Geriatric Medicine; ATTEND Family Medicine Geriatric Medicine
PROC: 0KNS0ZZ Release Right Lower Leg Muscle, Open Approach (ICD-10-PCS; 2017-10-07)
PROC: 0KBS0ZZ Excision of Right Lower Leg Muscle, Open Approach (ICD-10-PCS; principal; 2017-10-07 12:45)
PROC: 0KBS0ZZ Excision of Right Lower Leg Muscle, Open Approach (ICD-10-PCS; 2017-10-09)
DX: T79.A21A Traumatic compartment syndrome of right lower extremity, initial encounter (principal); M62.82 Rhabdomyolysis; D62 Acute posthemorrhagic anemia; E87.6 Hypokalemia; G89.18 Other acute postprocedural pain; K59.03 Drug induced constipation; T40.2X5A Adverse effect of other opioids, initial encounter; F43.21 Adjustment disorder with depressed mood; Y92.328 Other athletic field as the place of occurrence of the external cause; Y93.65 Activity, lacrosse and field hockey; X58.XXXA Exposure to other specified factors, initial encounter

== ENCOUNTER 2017-10-22 10:06 | Inpatient (IN) | payer BC ==
[2017-10-22] MEDS: Morphine 30 mg Immediate Release Tab PO SCH (12:49)
[2017-10-22] MEDS: Enoxaparin 40 mg Syringe SC SCH (21:16)
[2017-10-23 06:43] LABS: HEMOGLOBIN 10.7 g/dL (12.0-16.0); MEAN CELL VOLUME 88.7 fl (81.0-99.0); MEAN CORPUSCULAR HGB CONC 33.8 g/dL (33.0-37.0); RBC 3.57 Mil/uL (3.80-5.20); RED CELL DISTRIBUTION WIDTH 13.1 % (11.5-14.5); WHITE BLOOD COUNT 9.2 K/uL (4.8-10.8)
[2017-10-23 06:49] LABS: BLOOD UREA NITROGEN 19 mg/dl (7-17); CALCIUM 9.2 mg/dL (8.4-10.2); GFR AFRICAN-AMERICAN > 60; GFR NON-AFRICAN AMERICAN > 60
[2017-10-23] MEDS ORDERED: Morphine 30 mg Immediate Release Tab PO SCH (08:00)
--- NOTE | 2017-10-23 08:00 | CP.PCM.CON ---
History of Present Illness - History of Present Illness History of Present Illness: Podiatry Note - Dr. Raymundo 22 year old female patient seen at bedside this morning 13 days s/p debridement of necrotic muscle tissue including peroneus brevis and 15 days s/p right leg lateral compartment fasciotomy secondary to compartment syndrome, with near total excision of peroneus longus muscle for wellness check. Dr. Raymundo was also present during the patient visit. Patient is accompanied by her mother today. Patient is AAOx3 and NAD at time of visit. Patient appears to be resting comfortably in her bed at the time of the visit. States that her pain is well controlled. Denies any further pedal complaints at this time. Denies any recent N/V/F/C/CP/SOB/D/posterior calf pain. Review of Systems - Constitutional Constitutional: As Per HPI Past Patient History - Past Medical History & Family History Past Medical History?: No - Past Social History Smoking Status: Never Smoked - CARDIAC Hx Cardiac Disorders: No Hx Heart Murmur: Yes - PULMONARY Hx Respiratory Disorders: No - NEUROLOGICAL Hx Neurological Disorder: No - HEENT Hx HEENT Problems: No - RENAL Hx Chronic Kidney Disease: No - ENDOCRINE/METABOLIC Hx Endocrine Disorders: No Other/Comment: hypokalemia - HEMATOLOGICAL/ONCOLOGICAL Hx AIDS: No Hx Human Immunodeficiency Virus (HIV): No - INTEGUMENTARY Hx Dermatological Problems: No - MUSCULOSKELETAL/RHEUMATOLOGICAL Hx Falls: No Hx Rhabdomyolysis: Yes - GASTROINTESTINAL Hx Constipation: Yes - GENITOURINARY/GYNECOLOGICAL Hx Genitourinary Disorders: No - PSYCHIATRIC Hx Substance Use: No - SURGICAL HISTORY Hx Surgeries: Yes Hx Open Heart Surgery: Yes - ANESTHESIA Hx Anesthesia: Yes Hx Anesthesia Reactions: No Hx Malignant Hyperthermia: No Meds Allergies/Adverse Reactions: Allergies Allergy/AdvReac Type Severity Reaction Status Date / Time No Known Allergies Allergy Verified 10/22/17 10:34 - Medications Medications: Current Medications Acetaminophen (Tylenol 325mg Tab) 650 mg PO Q6 PRN PRN Reason: Pain, Mild (1-3) Enoxaparin Sodium (Lovenox) 40 mg SC HS [facility] PRN Reason: Protocol Last Admin: 10/22/17 21:16 Dose: 40 mg Gabapentin (Neurontin) 100 mg PO BID [facility] Last Admin: 10/22/17 17:21 Dose: 100 mg Gabapentin (Neurontin) 300 mg PO HS [facility] Last Admin: 10/22/17 21:16 Dose: 300 mg Hydromorphone HCl (Dilaudid) 0.5 mg IVP Q4 PRN PRN Reason: Pain, severe (8-10) Ibuprofen (Motrin Tab) 600 mg PO BID PRN PRN Reason: Pain, moderate (4-7) Morphine Sulfate (Morphine Immediate Release Tab) 30 mg PO DAILY@1200 [facility] Last Admin: 10/22/17 12:49 Dose: 30 mg Morphine Sulfate (Morphine Immediate Release Tab) 30 mg PO DAILY@0800 [facility] Physical Exam - Constitutional Appears: Well, Non-toxic, No Acute Distress - Extremities Exam Additional comments: Dressings noted to be c/d/i without strikethrough Wound vac noted to be working with good seal at 100 mmHg and approx 150 cc sanguinous drainage in the canister Wound vac removed Vasc: DP/PT pulses 2/4 b/l. Skin temperature warm to warm from proximal to distal. Cap refill time: < 3 seconds to all digits. Diffuse edematous changes noted to right leg continue to improve Derm: surgical site remains opened; surgical incision extending along the lateral aspect of the entire leg, proximal to lateral malleolus extending proximally to level just distal to fibular head. The surgical site shows no overt signs of clinical infection at this time including no purulent drainage, no malodor, no erythema surrounding surgical site. Granulation tissue continues to fill in the surgical site at this time. Surgical sutures are intact Neuro: Epicritic and protective sensation intact. Sensation on the dorsum of the foot, 2nd digit, medial aspect, lateral aspect of the foot remain intact MSK: Increased POP noted to surgical site. Patient is able to weakly plantarflex and dorsiflex toes 1-5 of her right foot. Patient is unable dorsiflex her ankle joint. Patient can weakly plantarflex ankle joint. It is unclear at this time whether this is due to neuropraxic changes or more permanent neurologic damage secondary to the compartment syndrome. Manual muscle strength testing deferred at this time due to postoperative state. - Neurological Exam Neurological exam: Alert, Oriented x3 - Psychiatric Exam Psychiatric exam: Normal Affect, Normal Mood Results - Vital Signs Recent Vital Signs: Last Vital Signs Temp 96.6 F L 10/22/17 20:24 Pulse 60 10/22/17 20:24 Resp 19 10/22/17 20:24 BP 125/67 10/22/17 20:24 Pulse Ox 98 10/22/17 20:24 - Labs Result Diagrams: 10/23/17 06:15 10/23/17 06:15 Labs: Laboratory Results - last 24 hr 10/23/17 10/23/17 06:15 06:15 WBC 9.2 RBC 3.57 L Hgb 10.7 L Hct 31.7 L MCV 88.7 MCH 30.0 MCHC 33.8 RDW 13.1 Plt Count 337 Sodium 142 Potassium 4.1 Chloride 105 Carbon Dioxide 24 Anion Gap 17 BUN 19 H Creatinine 1.0 Est GFR ( Amer) > 60 Est GFR (Non-Af Amer) > 60 Random Glucose 89 Calcium 9.2 Assessment & Plan - Assessment and Plan (Free Text) Assessment: 22 y/o female seen at bedside this morning 13 days s/p debridement of necrotic muscle tissue including peroneus brevis and 15 days s/p right leg lateral compartment fasciotomy secondary to compartment syndrome, with near total excision of peroneus longus muscle Plan: Patient seen and evaluated at bedside with attending Dr. Raymundo Afebrile, absent leukocytosis Continue medical management per Medicine Continue PT Wound vac changed today, shows a lot of improvement since the last vac changed - Plan on changing the vac again on Thursday depending on the wound Wound vac set to function at 100 mmHG No plan for surgical intervention at this time Podiatry will continue to follow while patient in house - Date & Time Date: 10/23/17 Time: 10:30
--- NOTE | 2017-10-23 08:03 | CP.PCM.CON ---
History of Present Illness - History of Present Illness History of Present Illness: Pt is a 22 year old female admitted to the rehab unit and referred to the credit underwriter for evaluation. Med history positive for two recent surgeries following a sports related injury. See medical record for complete medical history and medications. 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 She was raised in [place] by her mother and father and she has a brother as well. Psych history denied, pt denied a history of alc/sub abuse. She reported enjoying [employer], her team there, friends, etc. On interview, pt reported distress over the suicide of a friend she learned about days earlier. Pt spoke of sadness, shock and thoughts of her own emotional response. Support provided over her current trauma (surgeries) and of friend. MSE: pt alert, oriented x3, relevant/coherent, no psychosis affect full in range , no si no hi ideaton. Dx; Adjustment Dx with depresson Plan: Continued Sup therapy Past Patient History - Past Medical History & Family History Past Medical History?: No - Past Social History Smoking Status: Never Smoked - CARDIAC Hx Cardiac Disorders: No Hx Heart Murmur: Yes - PULMONARY Hx Respiratory Disorders: No - NEUROLOGICAL Hx Neurological Disorder: No - HEENT Hx HEENT Problems: No - RENAL Hx Chronic Kidney Disease: No - ENDOCRINE/METABOLIC Hx Endocrine Disorders: No Other/Comment: hypokalemia - HEMATOLOGICAL/ONCOLOGICAL Hx AIDS: No Hx Human Immunodeficiency Virus (HIV): No - INTEGUMENTARY Hx Dermatological Problems: No - MUSCULOSKELETAL/RHEUMATOLOGICAL Hx Falls: No Hx Rhabdomyolysis: Yes - GASTROINTESTINAL Hx Constipation: Yes - GENITOURINARY/GYNECOLOGICAL Hx Genitourinary Disorders: No - PSYCHIATRIC Hx Substance Use: No - SURGICAL HISTORY Hx Surgeries: Yes Hx Open Heart Surgery: Yes - ANESTHESIA Hx Anesthesia: Yes Hx Anesthesia Reactions: No Hx Malignant Hyperthermia: No Meds Allergies/Adverse Reactions: Allergies Allergy/AdvReac Type Severity Reaction Status Date / Time No Known Allergies Allergy Verified 10/22/17 10:34 - Medications Medications: Current Medications Acetaminophen (Tylenol 325mg Tab) 650 mg PO Q6 PRN PRN Reason: Pain, Mild (1-3) Enoxaparin Sodium (Lovenox) 40 mg SC HS [facility] PRN Reason: Protocol Last Admin: 10/22/17 21:16 Dose: 40 mg Gabapentin (Neurontin) 100 mg PO BID [facility] Last Admin: 10/22/17 17:21 Dose: 100 mg Gabapentin (Neurontin) 300 mg PO HS [facility] Last Admin: 10/22/17 21:16 Dose: 300 mg Hydromorphone HCl (Dilaudid) 0.5 mg IVP Q4 PRN PRN Reason: Pain, severe (8-10) Ibuprofen (Motrin Tab) 600 mg PO BID PRN PRN Reason: Pain, moderate (4-7) Morphine Sulfate (Morphine Immediate Release Tab) 30 mg PO DAILY@1200 [facility] Last Admin: 10/22/17 12:49 Dose: 30 mg Morphine Sulfate (Morphine Immediate Release Tab) 30 mg PO DAILY@0800 [facility] Results - Vital Signs Recent Vital Signs: Last Vital Signs Temp 96.6 F L 10/22/17 20:24 Pulse 60 10/22/17 20:24 Resp 19 10/22/17 20:24 BP 125/67 10/22/17 20:24 Pulse Ox 98 10/22/17 20:24 - Labs Result Diagrams: 10/23/17 06:15 10/23/17 06:15 Labs: Laboratory Results - last 24 hr 10/23/17 10/23/17 06:15 06:15 WBC 9.2 RBC 3.57 L Hgb 10.7 L Hct 31.7 L MCV 88.7 MCH 30.0 MCHC 33.8 RDW 13.1 Plt Count 337 Sodium 142 Potassium 4.1 Chloride 105 Carbon Dioxide 24 Anion Gap 17 BUN 19 H Creatinine 1.0 Est GFR ( Amer) > 60 Est GFR (Non-Af Amer) > 60 Random Glucose 89 Calcium 9.2
--- NOTE | 2017-10-23 09:08 | CP.PCM.HP ---
History of Present Illness - History of Present Illness History of Present Illness: This is 22 year old female unremarkable PMHx presented to ED complaining of right lower extremity pain. Patient reports that she injured her right ankle after "pivoting the wrong way" during lacrosse practice. Next day patient started feeling right leg pain and numbness which prompted her to come to the ED. PMHx: unremarkable PSH: none FH: none SH: occasional ETOH, denies tobacco/illicit drug use, student at [employer]: none All: NKDA ED Course: VS: 98.0F, OR 82, BP 124/78, RR 16, O2 Sat 100% RA Labs: 12.1>12.4/36.0<247, 142/3.8, 105/26, 13/0.9, glucose 89, CK 1203 RLE venous duplex: Negative for DVT R tib-fib XR: unremarkable R ankle XR: unremarkable Percocet 1 tab PO Toradol 30mg IM NS 1L bolus Hospital Course: During hospital course, ID, Neuro, Podiatry and PMR/PT consulted. Patient is 12 days s/p debridement of necrotic muscle tissue including peroneus brevis and 14 days s/p right leg lateral compartment fasciotomy secondary to compartment syndrome, with near total excision of peroneus longus muscle for wellness check , Wound care with debridement, wound vac and sutures placed for wound approximation. Patient continues taking IV Abx : zosyn. Patient is transferred to Acute rehab for further management and PT. Present on Admission - Present on Admission Any Indicators Present on Admission: No History of DVT/PE: No History of Uncontrolled Diabetes: No Urinary Catheter: No Decubitus Ulcer Present: No Review of Systems - Constitutional Constitutional: absent: Anorexia, Fatigue, Fever, Headache, Malaise - EENT Eyes: absent: Blind Spots, Blurred Vision, Change in Vision Ears: absent: Decreased Hearing, Ear Discharge, Ear Pain, Tinnitus Nose/Mouth/Throat: absent: Nasal Congestion, Dry Mouth - Cardiovascular Cardiovascular: absent: Chest Pain, Dyspnea on Exertion, Edema, Irregular Heart Rhythm, Lightheadedness, Orthopnea, Palpitations, Paroxysmal Nocturnal Dyspnea - Respiratory Respiratory: absent: Cough, Dyspnea, Hemoptysis, Dyspnea on Exertion, Wheezing - Gastrointestinal Gastrointestinal: absent: Abdominal Pain - Musculoskeletal Additional comments: Right leg pain at surgical site and LROM - Integumentary Integumentary: absent: Acne, Hirsutism, Jaundice - Neurological Neurological: absent: Abnormal Hearing, Disequilibrium, Dizziness, Numbness, Focal Weakness, Vertigo, Weakness, Other Visual Disturbances Past Patient History - Past Medical History & Family History Past Medical History?: No - Past Social History Smoking Status: Never Smoked - CARDIAC Hx Cardiac Disorders: No Hx Heart Murmur: Yes - PULMONARY Hx Respiratory Disorders: No - NEUROLOGICAL Hx Neurological Disorder: No - HEENT Hx HEENT Problems: No - RENAL Hx Chronic Kidney Disease: No - ENDOCRINE/METABOLIC Hx Endocrine Disorders: No Other/Comment: hypokalemia - HEMATOLOGICAL/ONCOLOGICAL Hx AIDS: No Hx Human Immunodeficiency Virus (HIV): No - INTEGUMENTARY Hx Dermatological Problems: No - MUSCULOSKELETAL/RHEUMATOLOGICAL Hx Falls: No Hx Rhabdomyolysis: Yes - GASTROINTESTINAL Hx Constipation: Yes - GENITOURINARY/GYNECOLOGICAL Hx Genitourinary Disorders: No - PSYCHIATRIC Hx Substance Use: No - SURGICAL HISTORY Hx Surgeries: Yes Hx Open Heart Surgery: Yes - ANESTHESIA Hx Anesthesia: Yes Hx Anesthesia Reactions: No Hx Malignant Hyperthermia: No Meds Allergies/Adverse Reactions: Allergies Allergy/AdvReac Type Severity Reaction Status Date / Time No Known Allergies Allergy Verified 10/22/17 10:34 Physical Exam - Constitutional Appears: No Acute Distress - Head Exam Head Exam: ATRAUMATIC, NORMAL INSPECTION, NORMOCEPHALIC - Eye Exam Eye Exam: EOMI, Normal appearance, PERRL Pupil Exam: NORMAL ACCOMODATION, PERRL - ENT Exam ENT Exam: Mucous Membranes Moist, Normal Exam - Neck Exam Neck exam: Positive for: Normal Inspection - Respiratory Exam Respiratory Exam: Clear to Auscultation Bilateral, NORMAL BREATHING PATTERN - Cardiovascular Exam Cardiovascular Exam: REGULAR RHYTHM - GI/Abdominal Exam GI & Abdominal Exam: Normal Bowel Sounds, Soft. absent: Tenderness - Extremities Exam Additional comments: Limited right foot dorsiflexion, improved plantarflexion, sonsory and intact in toes, able to move all toes Dressing is C/D/I without strikethrough noted Wound vac noted to be working with good seal at 100 mmHg Heel offloading boot in proper placement Roughly 125cc of drainage in wound vac canister at this time - Back Exam Back exam: absent: CVA tenderness (L), CVA tenderness (R) - Neurological Exam Neurological exam: Alert, CN II-XII Intact, Oriented x3 - Psychiatric Exam Psychiatric exam: Normal Affect - Skin Skin Exam: Dry, Intact, Normal Color Results - Vital Signs Recent Vital Signs: Last Vital Signs Temp 96.6 F L 10/22/17 20:24 Pulse 60 10/22/17 20:24 Resp 19 10/22/17 20:24 BP 125/67 10/22/17 20:24 Pulse Ox 98 10/22/17 20:24 - Labs Result Diagrams: 10/23/17 06:15 10/23/17 06:15 Labs: Laboratory Results - last 24 hr 10/23/17 10/23/17 06:15 06:15 WBC 9.2 RBC 3.57 L Hgb 10.7 L Hct 31.7 L MCV 88.7 MCH 30.0 MCHC 33.8 RDW 13.1 Plt Count 337 Sodium 142 Potassium 4.1 Chloride 105 Carbon Dioxide 24 Anion Gap 17 BUN 19 H Creatinine 1.0 Est GFR ( Amer) > 60 Est GFR (Non-Af Amer) > 60 Random Glucose 89 Calcium 9.2 Assessment & Plan - Assessment and Plan (Free Text) Assessment: A/P: 22 yo F w/o previous medical history of compartment syndrome of R lower extremity, s/p lateral compartment fasciotomy. Admitted to acute rehab for further conditioning. 1) s/p Compartment syndrome, R lateral compartment - 10/07/2017 - Pain management: Morphine 30 mg IR at 08:00 and 12:00 qDaily; Acetaminophen 650 mg q6; Gabapentin 100 mg BID and 300 qHS; Motrin 600 mg PRN BID - Podiatry: posterior splint; Retraction sutures and wound vac changed [address] Raymundo, follow up Podiatry recom' - PMR/PT Dr. Vinson: continue with local/topical bandaging, wound vac in place. Ambulating with crutches and assistance from PT - Continue PT and rehab - Bedside spirometry 2) Pain management - Morphine 30 mg IR at 08:00 and 12:00 qDaily; Acetaminophen 650 mg q6; Gabapentin 100 mg BID and 300 qHS; Motrin 600 mg PRN BID 3) Adjustment disorder/Situational depression - Start trial of Zoloft 25 mg qDaily 4) Anemia -Multifactorial -H/H: 10.7/31.7 5) DVT prophylaxis - Lovenox 40 mg
[2017-10-23] MEDS: Morphine 30 mg Immediate Release Tab PO SCH (12:22)
--- NOTE | 2017-10-23 16:32 | CP.PCM.CON ---
History of Present Illness - History of Present Illness History of Present Illness: Dr Vinson PMR consultation on Michelle Oakley, born 1995 who has been admitted to [facility] acute rehabilitation following an acute care admission with right LE injury with resultant compartment syndrome. Necrotic peroneal tendon was removed. Peroneal nerve appeared intact. I had discussed the case at length with Dr Raymundo 10/09/17 initially. I had seen her on 2 occasions to change the wound vac and an initial evaluation as well. She had good improvement with the vac and also had wound approximation on 10/21/17 with retention sutures. Right LE weakness and numbness. Lateral fasciotomy wound is present. There is intact plantar flexion but no dorsiflexion of ankle or toes. I discussed with Dr Raymundo and Michelle and her parents at length in the past regarding both the wound care, neurological testing and expected recovery and rehabilitation. 1) wound: will continue with the wound vac, well tolerated. Goal would be to avoid need for grafting 2) emg/ncs: the needle evaluation can be performed in the next 2-3 weeks 3) Rehab: She will continue with her therapies to allow for a safe and approrpiate discharge home. Should have trapeze in bed and also to get a strap to help with active stretching during the day and posterior splint at night to avoid plantar flexion contracture/achilles shortening Review of Systems - Constitutional Constitutional: absent: Chills, Excessive Sweating - EENT Eyes: absent: Blind Spots, Blurred Vision Ears: absent: Decreased Hearing Nose/Mouth/Throat: absent: Nasal Congestion - Cardiovascular Cardiovascular: absent: Chest Pain - Respiratory Respiratory: absent: Dyspnea, Hemoptysis - Gastrointestinal Gastrointestinal: absent: Abdominal Pain, Belching, Constipation - Genitourinary Genitourinary: absent: Difficulty Urinating - Musculoskeletal Musculoskeletal: absent: Arthralgias, Back Pain - Integumentary Integumentary: Other (right lateral leg wound) - Neurological Neurological: Abnormal Gait, Numbness, Weakness. absent: Abnormal Hearing, Abnormal Movements - Psychiatric Psychiatric: absent: Anxiety, Behavioral Changes Past Patient History - Past Medical History & Family History Past Medical History?: No - Past Social History Smoking Status: Never Smoked - CARDIAC Hx Cardiac Disorders: No Hx Heart Murmur: Yes - PULMONARY Hx Respiratory Disorders: No - NEUROLOGICAL Hx Neurological Disorder: No - HEENT Hx HEENT Problems: No - RENAL Hx Chronic Kidney Disease: No - ENDOCRINE/METABOLIC Hx Endocrine Disorders: No Other/Comment: hypokalemia - HEMATOLOGICAL/ONCOLOGICAL Hx AIDS: No Hx Human Immunodeficiency Virus (HIV): No - INTEGUMENTARY Hx Dermatological Problems: No - MUSCULOSKELETAL/RHEUMATOLOGICAL Hx Falls: No Hx Rhabdomyolysis: Yes - GASTROINTESTINAL Hx Constipation: Yes - GENITOURINARY/GYNECOLOGICAL Hx Genitourinary Disorders: No - PSYCHIATRIC Hx Substance Use: No - SURGICAL HISTORY Hx Surgeries: Yes Hx Open Heart Surgery: Yes - ANESTHESIA Hx Anesthesia: Yes Hx Anesthesia Reactions: No Hx Malignant Hyperthermia: No Meds Allergies/Adverse Reactions: Allergies Allergy/AdvReac Type Severity Reaction Status Date / Time No Known Allergies Allergy Verified 10/22/17 10:34 - Medications Medications: Current Medications Acetaminophen (Tylenol 325mg Tab) 650 mg PO Q6 PRN PRN Reason: Pain, Mild (1-3) Enoxaparin Sodium (Lovenox) 40 mg SC [facility] PRN Reason: Protocol Last Admin: 10/22/17 21:16 Dose: 40 mg Gabapentin (Neurontin) 100 mg PO BID [facility] Last Admin: 10/23/17 09:05 Dose: 100 mg Gabapentin (Neurontin) 300 mg PO [facility] Last Admin: 10/22/17 21:16 Dose: 300 mg Hydromorphone HCl (Dilaudid) 2 mg PO Q6 PRN PRN Reason: Pain, severe (8-10) Ibuprofen (Motrin Tab) 600 mg PO BID PRN PRN Reason: Pain, moderate (4-7) Last Admin: 10/23/17 11:09 Dose: 600 mg Morphine Sulfate (Morphine Immediate Release Tab) 30 mg PO DAILY@1200 [facility] Last Admin: 10/23/17 12:22 Dose: 30 mg Morphine Sulfate (Morphine Immediate Release Tab) 30 mg PO DAILY@0800 [facility] Last Admin: 10/23/17 09:04 Dose: 30 mg Ondansetron HCl (Zofran Odt) 4 mg PO Q8H PRN PRN Reason: Nausea/Vomiting Senna/Docusate Sodium (Senokot S 50 Mg-8.6 Mg) 1 tab PO [facility] Physical Exam - Constitutional Appears: Well, Non-toxic, No Acute Distress - Head Exam Head Exam: ATRAUMATIC, NORMAL INSPECTION, NORMOCEPHALIC - Eye Exam Eye Exam: EOMI - ENT Exam ENT Exam: Mucous Membranes Moist - Respiratory Exam Respiratory Exam: NORMAL BREATHING PATTERN. absent: Chest Wall Tenderness - Cardiovascular Exam Cardiovascular Exam: REGULAR RHYTHM - GI/Abdominal Exam GI & Abdominal Exam: absent: Distended - Extremities Exam Extremities exam: Negative for: normal inspection (right lateral wound vac is currently on and draining well. It was just placed today so I will obviously not take off) - Back Exam Back exam: NORMAL INSPECTION - Neurological Exam Neurological exam: Alert, CN II-XII Intact, Oriented x3 - Psychiatric Exam Psychiatric exam: Normal Affect, Normal Mood - Skin Skin Exam: Warm (as above) Results - Vital Signs Recent Vital Signs: Last Vital Signs Temp 97.7 F 10/23/17 09:09 Pulse 74 10/23/17 09:09 Resp 18 10/23/17 09:09 BP 118/71 10/23/17 09:09 Pulse Ox 99 10/23/17 09:09 - Labs Result Diagrams: 10/23/17 06:15 10/23/17 06:15 Labs: Laboratory Results - last 24 hr 10/23/17 10/23/17 06:15 06:15 WBC 9.2 RBC 3.57 L Hgb 10.7 L Hct 31.7 L MCV 88.7 MCH 30.0 MCHC 33.8 RDW 13.1 Plt Count 337 Sodium 142 Potassium 4.1 Chloride 105 Carbon Dioxide 24 Anion Gap 17 BUN 19 H Creatinine 1.0 Est GFR ( Amer) > 60 Est GFR (Non-Af Amer) > 60 Random Glucose 89 Calcium 9.2 Assessment & Plan - Assessment and Plan (Free Text) Assessment: PT/OT to continue to help increase functional independence Team conference for d/c planning Pain: I will discuss lowering medications Vascular: no evidence of DVT GI: No evidence of constipation or diarrhea wound to continue with vac Patient is an excellent acute rehabilitation candidate and will have focused pain management, wound care, PT, OT and recreational therapy to help facilitate a safe and appropriate d/c plan
--- NOTE | 2017-10-23 17:02 | PCM.OPOC ---
Physiatry Overall Plan of Care - Overall Plan of Care Estimated Length of Stay in Weeks: 2 Rehab Impairment: Mobility, Gait, Balance, Coordination Etiologic Diagnosis: Other (trauma to right LE and nerve injury) - Anticipated Interventions Physical Therapy:: Yes Occupational Therapy:: Yes Speech Therapy:: No Recreational Therapy:: Yes - Therapy Goals Bed Mobility: Independent Ambulation: Independent Functional Positional Changes:: Independent - Discharge Plan Identification of Barriers to Discharge: Home Situation Discharge Destination: Home
[2017-10-23] MEDS ORDERED: Oxycodone/Acetaminophen 5/325 mg Tab PO PRN (17:07)
[2017-10-23] MEDS: Docusate-Senna 50 mg-8.6 mg Tab PO SCH (21:58)
[2017-10-23] MEDS: Enoxaparin 40 mg Syringe SC SCH (21:58)
[2017-10-23] MEDS: oxyCODONE 10 mg ER Tab (oxyCONTIN) PO SCH (22:02)
--- NOTE | 2017-10-24 09:14 | CP.PCM.PN ---
Subjective - Date & Time of Evaluation Date of Evaluation: 10/24/17 Time of Evaluation: 08:00 - Subjective Subjective: Progress note: Dr. Raymundo 22 year old female patient seen at bedside this morning 14 days s/p debridement of necrotic muscle tissue including peroneus brevis and 16 days s/p right leg lateral compartment fasciotomy secondary to compartment syndrome, with near total excision of peroneus longus muscle for wellness check. Patient is AAOx3 and NAD at time of visit. Patient appears to be resting comfortably in her bed at the time of the visit. Patient denied of any acute overnight events. States that her pain is well controlled. Denies any further pedal complaints at this time. Denies any recent N/V/F/C/CP/SOB/D/posterior calf pain. Objective - Vital Signs/Intake and Output Vital Signs (last 24 hours): Temp Pulse Resp BP Pulse Ox 98.1 F 74 20 105/65 96 10/23/17 20:00 10/23/17 20:00 10/23/17 20:00 10/23/17 20:00 10/23/17 20:00 - Medications Medications: Current Medications Acetaminophen (Tylenol 325mg Tab) 650 mg PO Q6 PRN PRN Reason: Pain, Mild (1-3) Enoxaparin Sodium (Lovenox) 40 mg SC [facility] PRN Reason: Protocol Last Admin: 10/23/17 21:58 Dose: 40 mg Gabapentin (Neurontin) 100 mg PO BID [facility] Last Admin: 10/24/17 08:21 Dose: 100 mg Gabapentin (Neurontin) 300 mg PO [facility] Last Admin: 10/23/17 22:07 Dose: 300 mg Hydromorphone HCl (Dilaudid) 2 mg PO Q6 PRN PRN Reason: Pain, severe (8-10) Ibuprofen (Motrin Tab) 600 mg PO BID PRN PRN Reason: Pain, moderate (4-7) Last Admin: 10/23/17 11:09 Dose: 600 mg Ondansetron HCl (Zofran Odt) 4 mg PO Q8H PRN PRN Reason: Nausea/Vomiting Last Admin: 10/23/17 17:15 Dose: 4 mg Oxycodone HCl (Oxycontin Extended Release Tab) 10 mg PO [facility] Stop: 10/26/17 22:01 Last Admin: 10/23/17 22:02 Dose: 10 mg Oxycodone/Acetaminophen (Percocet 5/325 Mg Tab) 1 tab PO Q4 PRN PRN Reason: pain 4-7/10 Stop: 10/26/17 17:08 Senna/Docusate Sodium (Senokot S 50 Mg-8.6 Mg) 1 tab PO HS [facility] Last Admin: 10/23/17 21:58 Dose: 1 tab - Labs Labs: 10/23/17 06:15 10/23/17 06:15 - Constitutional Appears: Well, Non-toxic, No Acute Distress - Extremities Exam Additional comments: Dressing is C/D/I without strikethrough noted Wound vac noted to be working with good seal at 100 mmHg Heel offloading boot in proper placement Roughly 50 cc of drainage in wound vac canister at this time - Neurological Exam Neurological Exam: Alert, Awake, Oriented x3 - Psychiatric Exam Psychiatric exam: Normal Affect, Normal Mood Assessment and Plan - Assessment and Plan (Free Text) Assessment: 22 y/o female seen at bedside this morning 14 days s/p debridement of necrotic muscle tissue including peroneus brevis and 16 days s/p right leg lateral compartment fasciotomy secondary to compartment syndrome, with near total excision of peroneus longus muscle Plan: Patient seen and evaluated at bedside with attending Dr. Raymundo Afebrile, absent leukocytosis Continue medical management per Medicine Continue PT Wound vac set to function at 100 mmHG - plan to re-evaluate the wound on Thursday No plan for surgical intervention at this time Podiatry will continue to follow while patient in house
[2017-10-24] MEDS: Enoxaparin 40 mg Syringe SC SCH (21:31)
[2017-10-24] MEDS: oxyCODONE 10 mg ER Tab (oxyCONTIN) PO SCH (21:32)
[2017-10-24] MEDS: Docusate-Senna 50 mg-8.6 mg Tab PO SCH (21:32)
[2017-10-25] MEDS ORDERED: Silver Sulfadiazine 1% Cream (20 gm) TOP PRN (11:22)
--- NOTE | 2017-10-25 12:47 | CP.PCM.PN ---
Subjective - Date & Time of Evaluation Date of Evaluation: 10/25/17 Time of Evaluation: 12:30 - Subjective Subjective: Progress note: Dr. Raymundo 22 year old female patient seen at bedside this morning 15 days s/p debridement of necrotic muscle tissue including peroneus brevis and 17 days s/p right leg lateral compartment fasciotomy secondary to compartment syndrome, with near total excision of peroneus longus muscle for wellness check. Patient is seen at bedside with her friend, mother and Dr. Hightower. Patient is AAOx3 and NAD at time of the visit. Patient appears to be resting comfortably in her bed and denied of any acute overnight events. States that her pain is well controlled. Denies any further pedal complaints at this time. Denies any recent N/V/F/C/CP/ SOB/D/posterior calf pain. Reports that she is tolerating the physical therapy well. Objective - Vital Signs/Intake and Output Vital Signs (last 24 hours): Temp Pulse Resp BP Pulse Ox 97.3 F L 58 L 20 107/73 99 10/25/17 08:22 10/25/17 08:22 10/25/17 08:22 10/25/17 08:22 10/25/17 08:22 - Medications Medications: Current Medications Acetaminophen (Tylenol 325mg Tab) 650 mg PO Q6 PRN PRN Reason: Pain, Mild (1-3) Enoxaparin Sodium (Lovenox) 40 mg SC [facility] PRN Reason: Protocol Last Admin: 10/24/17 21:31 Dose: 40 mg Gabapentin (Neurontin) 100 mg PO BID [facility] Last Admin: 10/25/17 09:03 Dose: 100 mg Gabapentin (Neurontin) 300 mg PO [facility] Last Admin: 10/24/17 21:32 Dose: 300 mg Hydromorphone HCl (Dilaudid) 2 mg PO Q6 PRN PRN Reason: Pain, severe (8-10) Ibuprofen (Motrin Tab) 600 mg PO BID PRN PRN Reason: Pain, moderate (4-7) Last Admin: 10/24/17 11:12 Dose: 600 mg Ondansetron HCl (Zofran Odt) 4 mg PO Q8H PRN PRN Reason: Nausea/Vomiting Last Admin: 10/23/17 17:15 Dose: 4 mg Oxycodone HCl (Oxycontin Extended Release Tab) 10 mg PO HS [facility] Stop: 10/26/17 22:01 Last Admin: 10/24/17 21:32 Dose: 10 mg Oxycodone/Acetaminophen (Percocet 5/325 Mg Tab) 1 tab PO Q4 PRN PRN Reason: pain 4-7/10 Stop: 10/26/17 17:08 Senna/Docusate Sodium (Senokot S 50 Mg-8.6 Mg) 1 tab PO HS [facility] Last Admin: 10/24/17 21:32 Dose: 1 tab Sertraline HCl (Zoloft) 25 mg PO DAILY [facility] Last Admin: 10/25/17 09:03 Dose: 25 mg Silver Sulfadiazine (Silvadene 1% 20 Gm) 1 ea TOP DAILY PRN PRN Reason: 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 Skin temperature warm to warm from proximal to distal. Cap refill time: < 3 seconds to all digits. Diffuse edematous changes noted to right leg continue to improve Derm: surgical site remains opened; surgical incision extending along the lateral aspect of the entire leg, proximal to lateral malleolus extending proximally to level just distal to fibular head. The surgical site shows no overt signs of clinical infection at this time including no purulent drainage, no malodor, no erythema surrounding surgical site. Granulation tissue continues to fill in the surgical site at this time and has improved from the last dressing change. Surgical sutures are intact Neuro: Epicritic and protective sensation intact. Sensation on the dorsum of the foot, 2nd digit, medial aspect, lateral aspect of the foot remain intact MSK: Increased POP noted to surgical site. Patient is able to weakly plantarflex and dorsiflex toes 1-5 of her right foot. Patient is unable dorsiflex her ankle joint. Patient can weakly plantarflex ankle joint. It is unclear at this time whether this is due to neuropraxic changes or more permanent neurologic damage secondary to the compartment syndrome. Manual muscle strength testing deferred at this time due to postoperative state. - Neurological Exam Neurological Exam: Alert, Awake, Oriented x3 - Psychiatric Exam Psychiatric exam: Normal Affect, Normal Mood Assessment and Plan - Assessment and Plan (Free Text) Assessment: 22 y/o female seen at bedside this morning 15 days s/p debridement of necrotic muscle tissue including peroneus brevis and 17 days s/p right leg lateral compartment fasciotomy secondary to compartment syndrome, with near total excision of peroneus longus muscle Plan: Patient seen and evaluated at bedside with attending Dr. Raymundo Afebrile, absent leukocytosis Continue medical management per Medicine Continue PT Wound vac removed today, dressing applied using heavy coating of silvadine cream , adaptic, DSD, RAÚL - will evaluate the wound tomorrow morning No plan for surgical intervention at this time Podiatry will continue to follow while patient in house
--- NOTE | 2017-10-25 13:35 | CP.PCM.PCO ---
Assessment/Plan - Assessment and Plan (Free Text) Assessment: I was in the room when Dr Du,podiatry did the dressing change. Wound continues to improve Mother and friend in the room - everyone is in good spirits. Pain is controlled Sleeping well
[2017-10-25 19:52] VITALS: O2SAT 98
[2017-10-25] MEDS: Enoxaparin 40 mg Syringe SC SCH (21:19)
[2017-10-25] MEDS: Docusate-Senna 50 mg-8.6 mg Tab PO SCH (21:20)
[2017-10-25] MEDS: oxyCODONE 10 mg ER Tab (oxyCONTIN) PO SCH (21:20)
[2017-10-26 06:30] LABS: HEMOGLOBIN 10.8 g/dL (12.0-16.0); MEAN CELL VOLUME 88.7 fl (81.0-99.0); MEAN CORPUSCULAR HEMOGLOBIN 29.4 pg (27.0-31.0); MEAN CORPUSCULAR HGB CONC 33.2 g/dL (33.0-37.0); RBC 3.68 Mil/uL (3.80-5.20); RED CELL DISTRIBUTION WIDTH 12.9 % (11.5-14.5); WHITE BLOOD COUNT 10.8 K/uL (4.8-10.8)
[2017-10-26 07:04] LABS: BLOOD UREA NITROGEN 20 mg/dl (7-17); CALCIUM 9.2 mg/dL (8.4-10.2); GFR AFRICAN-AMERICAN > 60; GFR NON-AFRICAN AMERICAN > 60
--- NOTE | 2017-10-26 11:09 | CP.PCM.PN ---
Subjective - Date & Time of Evaluation Date of Evaluation: 10/26/17 Time of Evaluation: 09:00 - Subjective Subjective: Patient seen and examined this morning at bedside. Patient is comfortable and admits her pain is well controlled. Patient's wound dressing was changed with Podiatry resident this morning and no sign of any discharge or infection noted. Objective - Vital Signs/Intake and Output Vital Signs (last 24 hours): Temp Pulse Resp BP Pulse Ox 97.0 F L 70 22 109/51 L 98 10/26/17 09:58 10/26/17 09:58 10/26/17 09:58 10/26/17 09:58 10/26/17 09:58 - Medications Medications: Current Medications Acetaminophen (Tylenol 325mg Tab) 650 mg PO Q6 PRN PRN Reason: Pain, Mild (1-3) Enoxaparin Sodium (Lovenox) 40 mg SC [facility] PRN Reason: Protocol Last Admin: 10/25/17 21:19 Dose: 40 mg Gabapentin (Neurontin) 100 mg PO BID [facility] Last Admin: 10/26/17 08:07 Dose: 100 mg Gabapentin (Neurontin) 300 mg PO [facility] Last Admin: 10/25/17 21:20 Dose: 300 mg Hydromorphone HCl (Dilaudid) 2 mg PO Q6 PRN PRN Reason: Pain, severe (8-10) Ibuprofen (Motrin Tab) 600 mg PO BID PRN PRN Reason: Pain, moderate (4-7) Last Admin: 10/26/17 08:05 Dose: 600 mg Ondansetron HCl (Zofran Odt) 4 mg PO Q8H PRN PRN Reason: Nausea/Vomiting Last Admin: 10/26/17 07:50 Dose: 4 mg Oxycodone HCl (Oxycontin Extended Release Tab) 10 mg PO [facility] Stop: 10/26/17 22:01 Last Admin: 10/25/17 21:20 Dose: 10 mg Oxycodone/Acetaminophen (Percocet 5/325 Mg Tab) 1 tab PO Q4 PRN PRN Reason: pain 4-7/10 Stop: 10/26/17 17:08 Senna/Docusate Sodium (Senokot S 50 Mg-8.6 Mg) 1 tab PO [facility] Last Admin: 10/25/17 21:20 Dose: 1 tab Sertraline HCl (Zoloft) 25 mg PO DAILY [facility] Last Admin: 10/26/17 08:07 Dose: 25 mg Silver Sulfadiazine (Silvadene 1% 20 Gm) 1 ea TOP DAILY PRN PRN 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 - Labs Labs: 10/26/17 06:12 10/26/17 06:12 - Constitutional Appears: No Acute Distress - Head Exam Head Exam: ATRAUMATIC, NORMAL INSPECTION, NORMOCEPHALIC - Eye Exam Eye Exam: Normal appearance - ENT Exam ENT Exam: Mucous Membranes Moist - Neck Exam Neck Exam: Normal Inspection - Respiratory Exam Respiratory Exam: Clear to Ausculation Bilateral - Cardiovascular Exam Cardiovascular Exam: REGULAR RHYTHM - GI/Abdominal Exam GI & Abdominal Exam: Soft, Normal Bowel Sounds - Extremities Exam Additional comments: lateral compartment fasciotomy wound was seen on R LE, No sign of any discharge , bleeding or infection. RLE: Sensory intact, Dorsiflexion improved, good LEs pulses b/l, able to move toes b/l - Neurological Exam Neurological Exam: Alert, Awake, Oriented x3 - Psychiatric Exam Psychiatric exam: Normal Affect, Normal Mood - Skin Skin Exam: Normal Color Assessment and Plan - Assessment and Plan (Free Text) Assessment: A/P: 22 yo F w/o previous medical history of compartment syndrome of R lower extremity, s/p lateral compartment fasciotomy. Admitted to acute rehab for further conditioning. 1) s/p Compartment syndrome, R lateral compartment, 10/07/2017 - Pain management: Hydromorphone 2mg Q6 PRN; Acetaminophen 650 mg q6; Gabapentin 100 mg BID and 300 qHS; Motrin 600 mg PRN BID - Podiatry: posterior splint; Retraction sutures and wound vac discontinued by Dr. Raymundo, follow up Podiatry recom' - Wound care per Podiatry - PMR/PT Dr. Vinson: continue with local/topical bandaging, Ambulating with crutches and assistance from PT - Continue PT and rehab - Bedside spirometry 2) Pain management - Hydromorphone 2mg Q6 PRN; Acetaminophen 650 mg q6; Gabapentin 100 mg BID and 300 qHS; Motrin 600 mg PRN BID 3) Adjustment disorder/Situational depression - Zoloft 25 mg qDaily 4) Anemia -Multifactorial -H/H: 10.8/32.6 on 10/26/17 5) DVT prophylaxis - Lovenox 40 mg
--- NOTE | 2017-10-26 12:35 | CP.PCM.PN ---
Subjective - Date & Time of Evaluation Date of Evaluation: 10/26/17 Time of Evaluation: 07:10 - Subjective Subjective: Progress note: Dr. Raymundo 22 year old female patient seen at bedside this morning 16 days s/p debridement of necrotic muscle tissue including peroneus brevis and 18 days s/p right leg lateral compartment fasciotomy secondary to compartment syndrome, with near total excision of peroneus longus muscle for wellness check. Patient appears to be resting comfortably in her bed and denied of any acute overnight events. States that her pain is well controlled. Denies any further pedal complaints at this time. Denies any recent N/V/F/C/CP/SOB/D/posterior calf pain. Objective - Vital Signs/Intake and Output Vital Signs (last 24 hours): Temp Pulse Resp BP Pulse Ox 97.0 F L 70 22 109/51 L 98 10/26/17 09:58 10/26/17 09:58 10/26/17 09:58 10/26/17 09:58 10/26/17 09:58 - Medications Medications: Current Medications Acetaminophen (Tylenol 325mg Tab) 650 mg PO Q6 PRN PRN Reason: Pain, Mild (1-3) Enoxaparin Sodium (Lovenox) 40 mg SC HS [facility] PRN Reason: Protocol Last Admin: 10/25/17 21:19 Dose: 40 mg Gabapentin (Neurontin) 100 mg PO BID [facility] Last Admin: 10/26/17 08:07 Dose: 100 mg Gabapentin (Neurontin) 300 mg PO HS [facility] Last Admin: 10/25/17 21:20 Dose: 300 mg Hydromorphone HCl (Dilaudid) 2 mg PO Q6 PRN PRN Reason: Pain, severe (8-10) Ibuprofen (Motrin Tab) 600 mg PO BID PRN PRN Reason: Pain, moderate (4-7) Last Admin: 10/26/17 08:05 Dose: 600 mg Ondansetron HCl (Zofran Odt) 4 mg PO Q8H PRN PRN Reason: Nausea/Vomiting Last Admin: 10/26/17 07:50 Dose: 4 mg Oxycodone HCl (Oxycontin Extended Release Tab) 10 mg PO HS [facility] Stop: 10/26/17 22:01 Last Admin: 10/25/17 21:20 Dose: 10 mg Oxycodone/Acetaminophen (Percocet 5/325 Mg Tab) 1 tab PO Q4 PRN PRN Reason: pain 4-7/10 Stop: 10/26/17 17:08 Senna/Docusate Sodium (Senokot S 50 Mg-8.6 Mg) 1 tab PO HS [facility] Last Admin: 10/25/17 21:20 Dose: 1 tab Sertraline HCl (Zoloft) 25 mg PO DAILY [facility] Last Admin: 10/26/17 08:07 Dose: 25 mg Silver Sulfadiazine (Silvadene 1% 20 Gm) 1 ea TOP DAILY PRN PRN 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 Skin temperature warm to warm from proximal to distal. Cap refill time: < 3 seconds to all digits. Diffuse edematous changes noted to right leg continue to improve Derm: surgical site remains opened; surgical incision extending along the lateral aspect of the entire leg, proximal to lateral malleolus extending proximally to level just distal to fibular head. The surgical site shows no overt signs of clinical infection at this time including no purulent drainage, no malodor, no erythema surrounding surgical site. Wound bed is 100% granular with no active drainage, no clinical suspicion of active infection. Surgical sutures are intact Neuro: Epicritic and protective sensation intact. Sensation on the dorsum of the foot, 2nd digit, medial aspect, lateral aspect of the foot remain intact MSK: Increased POP noted to surgical site. Patient is able to weakly plantarflex and dorsiflex toes 1-5 of her right foot. Patient is unable dorsiflex her ankle joint. Patient can weakly plantarflex ankle joint. It is unclear at this time whether this is due to neuropraxic changes or more permanent neurologic damage secondary to the compartment syndrome. Manual muscle strength testing deferred at this time due to postoperative state. - Neurological Exam Neurological Exam: Alert, Awake, Oriented x3 - Psychiatric Exam Psychiatric exam: Normal Affect, Normal Mood Assessment and Plan - Assessment and Plan (Free Text) Assessment: 22 y/o female seen at bedside this morning 16 days s/p debridement of necrotic muscle tissue including peroneus brevis and 18 days s/p right leg lateral compartment fasciotomy secondary to compartment syndrome, with near total excision of peroneus longus muscle Plan: Patient seen and evaluated Discussed in details with attending Dr. Raymundo Afebrile, absent leukocytosis Continue medical management per Medicine Continue PT Wound cleaned using sterile saline and dressing applied using heavy coating of silvadine cream, adaptic, DSD, RAÚL No plan for surgical intervention at this time Podiatry will continue to follow while patient in house - upon discharge please follow up with Dr. Raymundo for further wound care
[2017-10-26] MEDS: Enoxaparin 40 mg Syringe SC SCH (21:43)
[2017-10-26] MEDS: Docusate-Senna 50 mg-8.6 mg Tab PO SCH (21:44)
[2017-10-26] MEDS: oxyCODONE 10 mg ER Tab (oxyCONTIN) PO SCH (21:44)
--- NOTE | 2017-10-27 07:32 | CP.PCM.PN ---
Subjective - Date & Time of Evaluation Date of Evaluation: 10/27/17 Time of Evaluation: 13:15 - Subjective Subjective: Progress note: Dr. Raymundo 22 year old female patient seen at bedside this morning 17 days s/p debridement of necrotic muscle tissue including peroneus brevis and 19 days s/p right leg lateral compartment fasciotomy secondary to compartment syndrome, with near total excision of peroneus longus muscle for wellness check. Patient is seen at bedside with Dr. Raymundo, Dr. Hightower, and the mother. Patient is AAOx3 and NAD at time of the visit. Patient appears to be resting comfortably in her bed and denied of any acute overnight events. States that her pain is well controlled. Denies any further pedal complaints at this time. Denies any recent N/V/F/C/CP/SOB/D/posterior calf pain. Reports that she is tolerating the physical therapy well. Objective - Vital Signs/Intake and Output Vital Signs (last 24 hours): Temp Pulse Resp BP Pulse Ox 97.0 F L 70 22 109/51 L 98 10/26/17 09:58 10/26/17 09:58 10/26/17 09:58 10/26/17 09:58 10/26/17 09:58 - Medications Medications: Current Medications Acetaminophen (Tylenol 325mg Tab) 650 mg PO Q6 PRN PRN Reason: Pain, Mild (1-3) Enoxaparin Sodium (Lovenox) 40 mg SC HS [facility] PRN Reason: Protocol Last Admin: 10/26/17 21:43 Dose: 40 mg Gabapentin (Neurontin) 100 mg PO BID [facility] Last Admin: 10/26/17 16:40 Dose: 100 mg Gabapentin (Neurontin) 300 mg PO HS [facility] Last Admin: 10/26/17 21:44 Dose: 300 mg Hydromorphone HCl (Dilaudid) 2 mg PO Q6 PRN PRN Reason: Pain, severe (8-10) Ibuprofen (Motrin Tab) 600 mg PO BID PRN PRN Reason: Pain, moderate (4-7) Last Admin: 10/26/17 08:05 Dose: 600 mg Ondansetron HCl (Zofran Odt) 4 mg PO Q8H PRN PRN Reason: Nausea/Vomiting Last Admin: 10/26/17 07:50 Dose: 4 mg Senna/Docusate Sodium (Senokot S 50 Mg-8.6 Mg) 1 tab PO HS [facility] Last Admin: 10/26/17 21:44 Dose: 1 tab Sertraline HCl (Zoloft) 25 mg PO DAILY [facility] Last Admin: 10/26/17 08:07 Dose: 25 mg Silver Sulfadiazine (Silvadene 1% 20 Gm) 1 ea TOP DAILY PRN PRN Reason: 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 Skin temperature warm to warm from proximal to distal. Cap refill time: < 3 seconds to all digits. Diffuse edematous changes noted to right leg continue to improve Derm: surgical site remains opened; surgical incision extending along the lateral aspect of the entire leg, proximal to lateral malleolus extending proximally to level just distal to fibular head. The surgical site shows no overt signs of clinical infection at this time including no purulent drainage, no malodor, no erythema surrounding surgical site. Wound bed is 100% granular with no active drainage, no clinical suspicion of active infection. Surgical sutures are intact Neuro: Epicritic and protective sensation intact. Sensation on the dorsum of the foot, 2nd digit, medial aspect, lateral aspect of the foot remain intact MSK: Increased POP noted to surgical site. Patient is able to weakly plantarflex and dorsiflex toes 1-5 of her right foot. Patient is unable dorsiflex her ankle joint. Patient can weakly plantarflex ankle joint. It is unclear at this time whether this is due to neuropraxic changes or more permanent neurologic damage secondary to the compartment syndrome. Manual muscle strength testing deferred at this time due to postoperative state. - Neurological Exam Neurological Exam: Alert, Awake, Oriented x3 - Psychiatric Exam Psychiatric exam: Normal Affect, Normal Mood Assessment and Plan - Assessment and Plan (Free Text) Assessment: 22 y/o female seen at bedside this morning 17 days s/p debridement of necrotic muscle tissue including peroneus brevis and 19 days s/p right leg lateral compartment fasciotomy secondary to compartment syndrome, with near total excision of peroneus longus muscle Plan: Patient seen and evaluated with attending Dr. Azzolini Afebrile, absent leukocytosis Continue medical management per Medicine Continue PT Wound cleaned using sterile saline and dressing applied using heavy coating of silvadine cream, adaptic, DSD, RAÚL No plan for surgical intervention at this time Asking for a recommendation from Dr. Vinson regarding to using TENS/ electric stimulation unit if it can help patient Podiatry will continue to follow while patient in house - upon discharge please follow up with Dr. Raymundo for further wound care
[2017-10-27 08:01] VITALS: BP 114/50; PULSE 60; RESP 20; TEMP 97.9
--- NOTE | 2017-10-27 12:18 | CP.PCM.DIS ---
Provider - Provider Date of Admission: 10/22/17 10:46 Attending physician: Lissett Hightower MD Consults: Physiatry Consult Podiatry Psychology Time Spent in preparation of Discharge (in minutes): 40 Diagnosis - Discharge Diagnosis (1) Compartment syndrome of right lower extremity Status: Acute Priority: High (2) Leg wound, right Status: Acute Comment: S/P right lateral fasciotomy Hospital Course - Lab Results Lab Results: Most Recent Lab Values WBC 10.8 K/uL (4.8-10.8) 10/26/17 06:12 RBC 3.68 Mil/uL (3.80-5.20) L 10/26/17 06:12 Hgb 10.8 g/dL (12.0-16.0) L 10/26/17 06:12 Hct 32.6 % (34.0-47.0) L 10/26/17 06:12 MCV 88.7 fl (81.0-99.0) 10/26/17 06:12 MCH 29.4 pg (27.0-31.0) 10/26/17 06:12 MCHC 33.2 g/dL (33.0-37.0) 10/26/17 06:12 RDW 12.9 % (11.5-14.5) 10/26/17 06:12 Plt Count 315 K/uL (130-400) 10/26/17 06:12 Sodium 141 mmol/l (132-148) 10/26/17 06:12 Potassium 4.3 MMOL/L (3.6-5.0) 10/26/17 06:12 Chloride 102 mmol/L (98-107) 10/26/17 06:12 Carbon Dioxide 29 mmol/L (22-30) 10/26/17 06:12 Anion Gap 14 (10-20) 10/26/17 06:12 BUN 20 mg/dl (7-17) H 10/26/17 06:12 Creatinine 1.0 mg/dl (0.7-1.2) 10/26/17 06:12 Est GFR ( Amer) > 60 10/26/17 06:12 Est GFR (Non-Af Amer) > 60 10/26/17 06:12 Random Glucose 90 mg/dL (65-105) 10/26/17 06:12 Calcium 9.2 mg/dL (8.4-10.2) 10/26/17 06:12 - Hospital Course Hospital Course: 22 yo F w/o previous medical history of compartment syndrome of R lower extremity, s/p lateral compartment fasciotomy who was admitted to acute rehab for further conditioning. Wound vac removed and patient was continued on pain management with daily wound care and PT. Patient significantly improved clinically with acute rehab and decision made to discharge home with tapering dose of Gabapentin, Motrin 400mg Q8H, Zoloft 50mg PO and outpatient PT/ Woundcare follow up. - Date & Time of H&P Date of H&P: 10/23/17 Time of H&P: 09:06 Discharge Exam - Head Exam Head Exam: ATRAUMATIC, NORMAL INSPECTION, NORMOCEPHALIC - Eye Exam Eye Exam: Normal appearance Pupil Exam: NORMAL ACCOMODATION - ENT Exam ENT Exam: Mucous Membranes Moist - Neck Exam Neck exam: Full Rom - Respiratory Exam Respiratory Exam: NORMAL BREATHING PATTERN - Cardiovascular Exam Cardiovascular Exam: REGULAR RHYTHM - GI/Abdominal Exam GI & Abdominal Exam: Normal Bowel Sounds - Extremities Exam Additional comments: lateral compartment fasciotomy wound was seen on R LE, No sign of any discharge , bleeding or infection. RLE: Sensory intact, Dorsiflexion improved, good LEs pulses b/l, able to move toes b/l - Back Exam Back exam: NORMAL INSPECTION - Neurological Exam Neurological exam: Alert, CN II-XII Intact, Oriented x3 - Psychiatric Exam Psychiatric exam: Normal Mood - Skin Skin Exam: Dry, Intact, Normal Color Discharge Plan - Discharge Medications Prescriptions: Sertraline [Zoloft] 50 mg PO DAILY #30 tab - Follow Up Plan Condition: GOOD Disposition: HOME/ ROUTINE Instructions: Surgical Wound (DC), Gabapentin, Ibuprofen, Sertraline, Compartment Syndrome (DC), Compartment Syndrome (GEN) Referrals: Joseph Raymundo MD [Staff Provider] -
--- NOTE | 2017-10-27 13:23 | PSY.TMCNF ---
Nursing - Vital Signs Vital Signs (Last 8 hours): Vital Signs 10/27/17 10/27/17 08:00 09:00 Temperature 97.9 F 97.9 F Pulse Rate 60 60 Respiratory 20 20 Rate Blood Pressure 114/50 L 114/50 L O2 Sat by Pulse 98 Oximetry Pain: 0 - Precautions: Precautions: Fall Prevention - Medications/Other Issues Comment: To follow as per nutrition protocol - Consults Comment: Dr. Vinson, Dr. Raymundo - Skin Incision Site: right leg Dressing Status: Clean, Dry, Intact Incision Line Treatment: dressing changes c/o podiatry - Wound Right Calf Wound Type: Incision - Toileting Toileting: Modified Independent - Bladder Management Bladder Pattern: Normal Voiding Method: Toilet Bladder Management: Modified Independent Frequency of Accidents: 0 - Bowel Management Bowel Pattern: Normal Bowel Management: Modified Independent Frequency of Accidents: 0 - Transfers Transfers: Modified Independent - ADL's ADL's: Modified Independent - Pain Management Comments: [place] mccarry pain - Patient/Family Teaching Comments: reportable s/s of wound infection and safety precautions - Goals/Time Frame Comments: per Multidiciplinary care plan and goals - Provider Provider: Altagracia STROUDN RN CRRN Physical Therapy - Bed Mobility Bed Mobility: Modified Independent - Transfers Wheelchair to Mat: Modified Independent Sit to Stand: Modified Independent - Ambulation Level of Assistance: Modified Independent Distance (ft.): 200 Assistive Devices: Crutches Orthoses: RLE multi-podus boot Comment: NWB, 2 point swing through pattern - Stair Negotiation Stairs: Level of Assistance: Verbal Cues Handrails: Right Stairs: Assistive Devices: Right Handrail Comment: 1 flight 8 inch steps. -hopping with R rail and L crutch(ascent)/L rail and R crutch (descent). -bumping techniques with transition at top of steps from standing to/from sitting - Standing Balance Static Stand: Modified [place] with assistive device Dynamic Stand: Modified [place] with Assistive Device - Pain Management Techniques: Medication, Inactivity - Insight/Carryover Insight/Carryover: Good - Patient/Family Education Comment: -safety, rehabilitation process, anticipated recovery and timeline, home exercises, mobility, best practice for stair negotiation, problem solving mobility barriers at home, WC/transport chair education, safety, pain management , imagery and mental practice - Assessment/Plan Assessment: Ms. Oakley performs bed/mat mobility, transfers and gait on level surfaces with mod I. Pt negotiates steps and gait on uneven surfaces with supervision. Patient's wound vac has been removed and she has significantly reduced her pharmacological pain regiment. Patient has made good improvements in therapy but continues to present with RLE foot drop and R foot edema. Patient was educated on weight bearing status, exercises, mobility, assisted with community mobility problem solving issues and educated on recommended continues rehab and rehabilitation course. Pt is safe for discharge to community where she will be living in her apartment with her roommates and her mom will be staying with her short term. Patient's family and school have put into place great accommodates for patient to safely be mobile. PT recommends continued skilled therapy services to maximize safety and I with all mobility and to address localized impairments at site of R fasciotomy to maximize functional return with all mobility. PT recommends outpatient PT services. - Goals Timeframe: 1 session Goals: I with bed/mat mobility. mod I with stair negotiation. I with HEP - Provider Therapist: Melony Jean PT, DPT License Number: [id number] Occupational Therapy - Arousal/Attention/Orientation Patient Orientation: Person, Place, Time, Appropriate to Age, Appropriate to Situation - ADL/IADL Self Feeding: Set-up Help Grooming: Set-up Help Dressing-Upper Extremity: Set-up Help Dressing-Lower Extremity: Contact Guard, Minimal Assistance Comment: unable to assess bathing at this time due to wound vac. - Sitting Balance Static Sitting: Independent without upper extremity support Dynamic Sitting: Reaches across midline, Reaches out of base of support - Transfers Wheelchair to Bed Transfers: Supervision Toilet Transfers: Supervision Comment: tub transfer not assessed - Upper Extremity Status Right Upper Extremity Comment: WFL Left Upper Extremity Comment: WFL - Pain Alleviating Techniques: Medication, Inactivity - Insight/Carryover Insight/Carryover: Good - Patient/Family Education Comment: -safety, rehabilitation process, anticipated recovery and timeline, home exercises, mobility, best practice for stair negotiation, problem solving mobility barriers at home, WC/transport chair education, safety, pain management , imagery and mental practice - Assessment/Plan Assessment: Ms. Oakley performs bed/mat mobility, transfers and gait on level surfaces with mod I. Pt negotiates steps and gait on uneven surfaces with supervision. Patient's wound vac has been removed and she has significantly reduced her pharmacological pain regiment. Patient has made good improvements in therapy but continues to present with RLE foot drop and R foot edema. Patient was educated on weight bearing status, exercises, mobility, assisted with community mobility problem solving issues and educated on recommended continues rehab and rehabilitation course. Pt is safe for discharge to community where she will be living in her apartment with her roommates and her mom will be staying with her short term. Patient's family and school have put into place great accommodates for patient to safely be mobile. PT recommends continued skilled therapy services to maximize safety and I with all mobility and to address localized impairments at site of R fasciotomy to maximize functional return with all mobility. PT recommends outpatient PT services. - Goals Timeframe: 1 session Goals: I with bed/mat mobility. mod I with stair negotiation. I with HEP - Provider Therapist: NOE Khalil/[facility] - Plan Assessment: Ms. Oakley performs bed/mat mobility, transfers and gait on level surfaces with mod I. Pt negotiates steps and gait on uneven surfaces with supervision. Patient's wound vac has been removed and she has significantly reduced her pharmacological pain regiment. Patient has made good improvements in therapy but continues to present with RLE foot drop and R foot edema. Patient was educated on weight bearing status, exercises, mobility, assisted with community mobility problem solving issues and educated on recommended continues rehab and rehabilitation course. Pt is safe for discharge to community where she will be living in her apartment with her roommates and her mom will be staying with her short term. Patient's family and school have put into place great accommodates for patient to safely be mobile. PT recommends continued skilled therapy services to maximize safety and I with all mobility and to address localized impairments at site of R fasciotomy to maximize functional return with all mobility. PT recommends outpatient PT services. Recreational Therapy - Participation Participation: Monitors His/Her Own Leisure Time - Attendance Attendance: Daily - Activities Leisure Activities: Socializing - Socialization Level of Socialization: Initiates/interacts freely with care givers and peer - Assessment Assessment/Plan: Ms. Oakley performs bed/mat mobility, transfers and gait on level surfaces with mod I. Pt negotiates steps and gait on uneven surfaces with supervision. Patient's wound vac has been removed and she has significantly reduced her pharmacological pain regiment. Patient has made good improvements in therapy but continues to present with RLE foot drop and R foot edema. Patient was educated on weight bearing status, exercises, mobility, assisted with community mobility problem solving issues and educated on recommended continues rehab and rehabilitation course. Pt is safe for discharge to community where she will be living in her apartment with her roommates and her mom will be staying with her short term. Patient's family and school have put into place great accommodates for patient to safely be mobile. PT recommends continued skilled therapy services to maximize safety and I with all mobility and to address localized impairments at site of R fasciotomy to maximize functional return with all mobility. PT recommends outpatient PT services. - Provider Therapist: Suly Suarez, [employer] #[id number] Nutrition - Current Diet Current Diet/ Supplement/ Feedings: Regular diet - Appetite Percent Meal Consumed: 75-100% - Comments Comments: reportable s/s of wound infection and safety precautions - Assessment/Goals/Time Frame Assessment/Goals/Time Frame: To follow as per nutrition protocol - Provider Provider: Aracelis Garcia RD Case Management - Discharge Plan Discharge Plan: Home with services (has roommates)
[2017-10-27] MEDS ORDERED: Silver Sulfadiazine 1% CREAM (50 gm) TOP SCH (13:30)
--- NOTE | 2017-10-27 13:51 | CP.PCM.PN ---
Subjective - Date & Time of Evaluation Date of Evaluation: 10/27/17 Time of Evaluation: 13:49 - Subjective Subjective: Patient seen in the room, mom present she is set for d/c home today and has done very well we went over all aspects of care including DME, pain management, wound care and follow up for emg/ncs they have my number. they will follow up with Dr Raymundo for wound care. Will try and go down on neurontin dosage slowly Objective - Vital Signs/Intake and Output Vital Signs (last 24 hours): Temp Pulse Resp BP Pulse Ox 97.9 F 60 20 114/50 L 98 10/27/17 09:00 10/27/17 09:00 10/27/17 09:00 10/27/17 09:00 10/27/17 08:00 - Medications Medications: Current Medications Acetaminophen (Tylenol 325mg Tab) 650 mg PO Q6 PRN PRN Reason: Pain, Mild (1-3) Enoxaparin Sodium (Lovenox) 40 mg SC HS [facility] PRN Reason: Protocol Last Admin: 10/26/17 21:43 Dose: 40 mg Gabapentin (Neurontin) 100 mg PO BID [facility] Last Admin: 10/27/17 10:00 Dose: 100 mg Gabapentin (Neurontin) 300 mg PO HS [facility] Last Admin: 10/26/17 21:44 Dose: 300 mg Hydromorphone HCl (Dilaudid) 2 mg PO Q6 PRN PRN Reason: Pain, severe (8-10) Ibuprofen (Motrin Tab) 600 mg PO BID PRN PRN Reason: Pain, moderate (4-7) Last Admin: 10/27/17 10:13 Dose: 600 mg Ondansetron HCl (Zofran Odt) 4 mg PO Q8H PRN PRN Reason: Nausea/Vomiting Last Admin: 10/26/17 07:50 Dose: 4 mg Senna/Docusate Sodium (Senokot S 50 Mg-8.6 Mg) 1 tab PO HS [facility] Last Admin: 10/26/17 21:44 Dose: 1 tab Sertraline HCl (Zoloft) 25 mg PO DAILY [facility] Last Admin: 10/27/17 10:00 Dose: 25 mg Silver Sulfadiazine (Silvadene 1% 20 Gm) 1 ea TOP DAILY PRN PRN Reason: Dressing changes w/ director of purchasing Silver Sulfadiazine (Silvadene 1% 50 Gm) 1 applic TOP DAILY [facility] Last Admin: 10/27/17 13:34 Dose: Not Given - Labs Labs: 10/26/17 06:12 10/26/17 06:12
== END 2017-10-27 15:35 | disposition home or self-care (01) | DRG 560 ==
PROVIDERS: ADMIT Family Medicine Geriatric Medicine; ATTEND Family Medicine Geriatric Medicine
PROC: F07Z9FZ Gait Training/Functional Ambulation Treatment using Assistive, Adaptive, Supportive or Protective Equipment (ICD-10-PCS; principal; 2017-10-22)
PROC: F08Z4FZ Home Management Treatment using Assistive, Adaptive, Supportive or Protective Equipment (ICD-10-PCS; 2017-10-22)
PROC: F07L6FZ Therapeutic Exercise Treatment of Musculoskeletal System - Lower Back / Lower Extremity using Assistive, Adaptive, Supportive or Protective Equipment (ICD-10-PCS; 2017-10-23)
DX: Z47.89 Encounter for other orthopedic aftercare (principal); T79.A21A Traumatic compartment syndrome of right lower extremity, initial encounter; E87.6 Hypokalemia; D64.89 Other specified anemias; F43.21 Adjustment disorder with depressed mood; Z98.890 Other specified postprocedural states; Z79.899 Other long term (current) drug therapy

== ENCOUNTER 2017-11-04 09:43 | Day surgery (SDC) | payer BC ==
[2017-11-04 09:55] VITALS: BMI 26.9
--- NOTE | 2017-11-04 10:42 | CP.SDSHP ---
Same Day Surgery H & P - History Proposed Procedure: Right leg delayed wound closure Pre-Op Diagnosis: Right leg wound s/p compartment syndrome - Allergies Allergies: Allergies No Known Allergies Allergy (Verified 11/04/17 10:32) - {Optional Preform as Required} Integument: Other - Date & Time Date: 11/04/17 Time: 10:42 Short Stay Discharge - Short Stay Discharge Admitting Diagnosis/Reason for Visit: [id number].A215,M21.371 Disposition: HOME/ ROUTINE Referrals: FAMILY PROVIDER,NO [Primary Care Provider] - Additional Instructions (Diet, Activity): -Patient in good/stable condition for discharge home -Pt to resume medications per medical reconciliation -Resume regular diet -Please keep dressing clean, dry, & intact to surgical site -Use plastic bag over bandage for showering -Wear post op shoe at all times when ambulating -Call clinic if you see signs of infection (redness, swelling, malodor) -Please make an appointment to see Dr. Raymundo in office/clinic within 1 week for post-op check Progress Note/Discharge Note with Instructions: - Patient evaluated bedside in recovery s/p surgical procedure. - After surgical procedure patient in NAD - (+) Void, (+) Appetite - Capillary refill time <3s and NVSI intact. - Patient denies complaints at this time - Post operative instructions and plan of care explained to patient at length. - Pt. acknowledges understanding. - Patient stable for DC per podiatric surgery
[2017-11-04 10:45] VITALS: RESP 18
--- NOTE | 2017-11-04 10:47 | CP.PCM.PN ---
Subjective - Date & Time of Evaluation Date of Evaluation: 11/04/17 Time of Evaluation: 10:42 - Subjective Subjective: Pre-op note: Dr. Raymundo 22 year old female patient with PMHx of compartment syndrome was seen and evaluated at bedside in [facility] prior to right leg procedure. Patient has returned for delayed wound closure of the surgical wound from the compartment syndrome procedure. Patient reports that she has been NPO since midnight yesterday. Denies of having any adverse reaction to anesthesia. Denies of having any recent F/N/V/C/SOB/CP/headache/dizziness. Denies of any other complains at this time. PMHx: Compartment syndrome of the right lateral compartment PSHx: Right leg lateral compartment fasciotomy Allergies: N.K.D.A SHx: Occasional EtOH, denies smoking or illicit drug usage Objective - Constitutional Appears: Well, Non-toxic, No Acute Distress - Extremities Exam Additional comments: Dressing on the right leg is clean, dry and intact - Neurological Exam Neurological Exam: Alert, Awake, Oriented x3 - Psychiatric Exam Psychiatric exam: Normal Affect, Normal Mood Assessment and Plan - Assessment and Plan (Free Text) Assessment: 22 year old female patient with PMHx of compartment syndrome was evaluated in [facility] prior to right leg procedure. Plan: Pt was seen and examined in [facility] Pt NPO status was confirmed All pre-op testing and clearance in chart Pt has exhausted all conservative treatment at this time and is opting for surgical intervention Pt was explained procedure and post-operative course All pt's questions were answered to satisfaction No guarantees were made Pt understands all risks, benefits and complications of procedure Pt will follow-up with Dr. Raymundo within 1 week of surgery
[2017-11-04] MEDS ORDERED: Bupivacaine 0.5% 50 ML IJ ONE ×3 (10:51→12:20)
[2017-11-04] MEDS ORDERED: Lidocaine 1% Inj (20ml) IJ ONE ×2 (10:51→12:20)
[2017-11-04] MEDS ORDERED: ceFAZolin 2 GM in Sodium Chloride 0.9% 100 ML IVPB ONE (10:51)
[2017-11-04] MEDS ORDERED: Sodium Chloride 0.9% 1,000 ML IV SCH (11:00)
[2017-11-04] MEDS ORDERED: Bupivacaine 0.5% Inj(30mL) ONE (11:01)
[2017-11-04] MEDS ORDERED: Propofol 10 mg/ml Inj (20 ML) ONE (11:10)
[2017-11-04] MEDS ORDERED: Succinylcholine 200 mg/10 ml Inj IV ONE (11:11)
[2017-11-04] MEDS ORDERED: Midazolam 2 MG/2 ML VIAL ONE (11:11)
[2017-11-04] MEDS ORDERED: Lactated Ringer's 1,000 ML IV ONE ×2 (11:57→12:30)
[2017-11-04] MEDS ORDERED: ePHEDrine 50 mg/ml Inj ONE (12:01)
[2017-11-04] MEDS ORDERED: Sevoflurane - Inhalation Anesthetic Liq (250 ml) ONE (13:01)
[2017-11-04] MEDS ORDERED: Silver Sulfadiazine 1% CREAM (50 gm) ONE (13:06)
[2017-11-04] MEDS ORDERED: Silver Sulfadiazine 1% Cream (400 gm) TOP ONE (13:15)
--- NOTE | 2017-11-04 13:26 | PCM.SURG1 ---
Surgeon's Initial Post Op Note - Surgeon's Notes Surgeon: Dr. Joseph Raymundo, DPM [employer] Field Technician: Taz Arroyo PGY1, Dakota Izquierdo PGY3 Type of Anesthesia: General LMA, Local Anesthesia Administered By: Dr. Rangel Pre-Operative Diagnosis: Wound of right leg secondary to compartment syndrome with fasciotomy and muscle debridement Operative Findings: See dictation report. M- 3-0 monocryl, 3-0 prolene, steristrips. I- Pre-op: 4 cc 1:1 1% lidocaine plain, 0.5% marcaine plain. Post -op: 10 cc 0.5% marcaine plain Post-Operative Diagnosis: Same Operation Performed: Debridment of wound with primary closure, right leg Specimen/Specimens Removed: None Estimated Blood Loss: EBL {In ML}: 200 Blood Products Given: N/A Drains Used: No Drains Post-Op Condition: Good Date of Surgery/Procedure: 11/04/17 Time of Surgery/Procedure: 13:27
[2017-11-04] MEDS ORDERED: Oxycodone/Acetaminophen 5/325 mg Tab PO PRN ×2 (13:28)
[2017-11-04] MEDS: HYDROmorphone 0.5 mg/0.5 ml ISec IVP PRN ×2 (13:45→14:04)
[2017-11-04 16:40] VITALS: BP 115/64; PULSE 80; TEMP 98; O2SAT 99
--- NOTE | 2017-11-06 08:38 | OP ---
PROCEDURE DATE: 11/04/2017 PREOPERATIVE DIAGNOSES: Surgical wound of right leg status post compartment syndrome with fasciotomy and removal of peroneus brevis and longus. POSTOPERATIVE DIAGNOSES: Surgical wound of right leg status post compartment syndrome with fasciotomy and removal of peroneus brevis and longus. PROCEDURE: Debulking of right leg wound with attempted primary closure. SURGEON: Joseph Raymundo DPM AGRICULTURE INTERN: Taz Arroyo DPM, PGY-1 and Dakota Izquierdo DPM, PGY-3. TYPE OF ANESTHESIA: General LMA local. ANESTHESIA ADMINISTERED BY: Dr. Rangel. INDICATIONS: The patient is a 22-year-old female with the above diagnosis. The patient has exhausted all conservative treatment at this time and now requires surgical intervention. The patient signed the consent after careful explanation of risks, benefits, complications and alternatives for surgical procedure. No guarantees were given nor implied. N.p.o. status was confirmed prior to taking the patient to the OR. PREPARATION: The patient was brought into the operating room and placed on the operating room table in a supine position. A time-out was performed for identification of the correct patient and procedure. After induction of general LMA anesthesia, the patient received a total of 4 mL of 1:1 mixture of 0.5% Marcaine plain and 1% lidocaine plain in a local block fashion to the common peroneal nerve. Right lower extremity was then prepped and draped in a normal sterile manner and the procedure began. No tourniquet was used during this procedure. PROCEDURE 1: NAME OF PROCEDURE: Debridement of right leg surgical wound with primary closure. Attention was then turned to the right leg where a longitudinal wound was noted secondary to history of compartment syndrome with fasciotomy and removal of peroneus brevis and peroneus longus muscles. The wound was noted to be 100% granular with hypergranular tissue found at the base. No signs of infections were noted at this time. Using a freer elevator, the edges of the entirety of the wound were freed from the wound base where they were noted to be inverting and scarred down to the base of the wound. Upon freeing the wound edges, fresh healthy bleeding was noted to the entirety of the wound. Dissection scissors were then used to debulk the hypergranular tissue that was noted to the base of the wound, 3-0 Nylon was then used to suture along the length of the entire wound, closing it completely. 3-0 Prolene sutures were then used superficially to hold and retain the wound edges in place. It was noted at the end of the procedure that the skin edges of the wound were well coapted, everted and all sutures were intact. Upon closure of the wound 10 mL of 0.5 % Marcaine plain were also injected to the area surrounding the entirety of the wound. The leg was then dressed with Steri-Strips, Adaptic, dry sterile dressing and a lightly wrapped RAÚL bandage. POSTOPERATIVE CONDITION: The patient tolerated the anesthesia and procedure well and was escorted to the recovery room with vital signs stable and neurovascular status intact to the right lower extremity. The patient is to remain non-weightbearing to the right lower extremity with the aid of axillary crutches. The patient will follow up with Dr. Raymundo in his private office in one week to ensure that the healing is occurring in an appropriate manner. Taz Arroyo DPM Joseph Raymundo DPM [id number]
== END 2017-11-04 17:00 | disposition home or self-care (01) ==
LOC: H.OPSURG 09:43
PROVIDERS: ATTEND Podiatrist
DX: S81.801A Unspecified open wound, right lower leg, initial encounter (principal); Z98.890 Other specified postprocedural states
CPT/HCPCS: 11042; J0330; J0690; J1170; J2001; J2250; J2405; J2704; J3010; J7030; J7040; J7120